=== PATIENT | female | born 1965 | race Caucasian/White ===

== ENCOUNTER 2017-10-06 08:30 | Outpatient (RCR) | payer MEDICARE, MEDICAID, SELFPAY ==
[2017-09-19 01:09] VITALS: BP 98/54; PULSE 98; RESP 18; TEMP 37.1; BMI 48.6
[2017-09-22 08:35] VITALS: BP 104/71; PULSE 87; RESP 16; TEMP 36.6; BMI 48.6
--- NOTE | 2017-09-22 10:55 | PCM.WC.PN ---
(1) Contracture of muscle of left lower extremity Status: Chronic Current Visit: Yes Code(s): M62.462 - Contracture of muscle, left lower leg (2) Down syndrome Status: Chronic Current Visit: Yes Code(s): Q90.9 - Down syndrome, unspecified (3) Chronic ulcer of left foot with fat layer exposed Status: Chronic Current Visit: Yes Code(s): L97.522 - Non-pressure chronic ulcer of other part of left foot with fat layer exposed Type of Wound Date of Service: 09/22/17 Chief Complaint: Left leg and foot ulcers History of Wound: This 52-year-old pleasant female with Down syndrome and other comorbidities seen today for a left leg and left foot wounds. She is with a caregiver today and is unable to independently communicate during the examination. Her caregiver relates there is no drainage to the leg this past week and she has worn a donut offloading pillow to her left leg. She is interested in returning to work and is able to perform her work duties in a seated position. Progress of Wound: improving - Physical Exam Vital Signs Temp Pulse Resp BP 97.8 F 87 16 104/71 09/22/17 08:35 09/22/17 08:35 09/22/17 08:35 09/22/17 08:35 General: Alert, Oriented x3, Cooperative Extremities: No cyanosis, Capillary Refill Less than 3 Seconds, No Calf Tenderness, Diminished Peripheral Pulses, Edema Skin: Ulcer/ Wound - No purulence, no erythema, no streaking, no odor, no redness, no infection to the left foot. The skin is atrophic. The previous ulcer site to the left leg is fully epithelialized and healed Wound Measurements and Assessment - Nurse 1 - General Ulcer Measurement Start: 09/22/17 08:34 Freq: Status: Active Protocol: Activity Type Activity Date Activity User E-Sign Co-Sign Detail Recorded Client Recorded Date Recorded By Document 09/22/17 08:35 DL [id number] 09/22/17 08:44 DL 09/22/17 08:35 Wound Center Nurse 1 [Ulcer Assessment Protocol: .WD.LOC] #2 Left Lateral Foot -Current Size (cm) - Length 1.2 -Current Size (cm) - Width 0.6 -Current Size (cm) - Depth 0.5 -Total Square Cm 0.72 -Photo Taken Yes -Exudate Amt Small (1-33%) -Exudate Type Serosanguineous -Wound Margin Distinct, Outline Attached -Granulation Amt None Present (0 %) -Necrosis Amt Large (67-100%) -Necrotic Tissue Type Adherent Slough -Structure Exposed N/A -Texture (Blossom-wound Skin Appearance) No Abnormality -Moisture (Blossom-wound Skin Appearance No Abnormality ) -Color (Blossom-wound Skin Appearance) Erythema Rubor -Temperature (Blossom-wound Skin No Abnormality Appearance) (Pt Warm) -Ulcer Cleansing Rinsed/ Irrigated with Saline -Foul Odor after Cleansing No -Anesthetic Used 4% Lidocaine Solution #1 Medial LLE -Current Size (cm) - Length 0 -Current Size (cm) - Width 0 -Current Size (cm) - Depth 0 -Total Square Cm 0 -Photo Taken Yes -Exudate Amt None Present (0 %) -Wound Margin Flat & Intact -Granulation Amt Large (67-100%) -Granulation Quality Agenda -Necrosis Amt None Present (0 %) -Structure Exposed N/A -Texture (Blossom-wound Skin Appearance) Scarring -Moisture (Blossom-wound Skin Appearance No Abnormality ) -Color (Blossom-wound Skin Appearance) No Abnormality -Temperature (Blossom-wound Skin No Abnormality Appearance) (Pt Warm) -Ulcer Cleansing Rinsed/ Irrigated with Saline -Foul Odor after Cleansing No [Edema Assessment] -Left Calf (cm) 29 -Left Ankle (cm) 16 WC - Nurse 2 - General Ulcer CM Notes Start: 09/22/17 08:34 Freq: Status: Active Protocol: Activity Type Activity Date Activity User E-Sign Co-Sign Detail Recorded Client Recorded Date Recorded By Document 09/22/17 08:54 [id number] 09/22/17 09:02 09/22/17 08:54 Wound Center Nurse 2 [Procedure/Treatment] #2 Left Lateral Foot -Time 09:01 -Correct Patient Yes -Correct Side, Site, Position Yes -Correct Procedure Yes -Procedure Performed Yes -Type of Procedure Debridement -Clinical Debridement Subcutaneous -Post Debridement Size (cm) - Length 1.3 -Post Debridement Size (cm) - Width 0.7 -Post Debridement Size (cm) - Depth 0.5 -Total Square Cm 0.91 -Wound/Ulcer Outcome Not Healed -Ulcer Cleansing Rinsed/ Irrigated with Saline -Foul Odor after Cleansing No -Bioengineered Tissue No -Cetacaine [place] No -Topical Lidocaine (%) 5 -Bleeding Controlled with Pressure -Treatment Response Procedure Tolerated Well #1 Medial LLE -Time 09:02 -Correct Patient Yes -Correct Side, Site, Position Yes -Correct Procedure Yes -Procedure Performed Yes -Post Debridement Size (cm) - Length 0 -Post Debridement Size (cm) - Width 0 -Post Debridement Size (cm) - Depth 0 -Total Square Cm 0 -Wound/Ulcer Outcome Healed- Epithelialized -Ulcer Cleansing Rinsed/ Irrigated with Saline -Foul Odor after Cleansing No -Bioengineered Tissue No -Cetacaine [place] No -Topical Lidocaine (%) 5 -Bleeding Controlled with NA -Treatment Response Procedure Tolerated Well [See Physician Procedure note for Specifics] Pain Scale: 0-10 Numeric [Pain] -Is Patient Pain Free? Yes Musculoskeletal: No Tenderness to Palpation of Joints or Extremities, Muscle Wasting, - - Contraction left lower extremity with equinovarus type formation that is only partially reducible Psych/Mental Status: Appropriate Debridement Note Post-Debridement Measurements/Treatment WC - Nurse 2 - General Ulcer CM Notes Start: 09/22/17 08:34 Freq: Status: Active Protocol: Activity Type Activity Date Activity User E-Sign Co-Sign Detail Recorded Client Recorded Date Recorded By Document 09/22/17 08:54 [id number] 09/22/17 09:02 09/22/17 08:54 Wound Center Nurse 2 #2 Left Lateral Foot -Time 09:01 -Correct Patient Yes -Correct Side, Site, Position Yes -Correct Procedure Yes -Procedure Performed Yes -Type of Procedure Debridement -Clinical Debridement Subcutaneous -Post Debridement Size (cm) - Length 1.3 -Post Debridement Size (cm) - Width 0.7 -Post Debridement Size (cm) - Depth 0.5 -Total Square Cm 0.91 -Wound/Ulcer Outcome Not Healed -Ulcer Cleansing Rinsed/ Irrigated with Saline -Foul Odor after Cleansing No -Bioengineered Tissue No -Cetacaine [place] No -Topical Lidocaine (%) 5 -Bleeding Controlled with Pressure -Treatment Response Procedure Tolerated Well #1 Medial LLE -Time 09:02 -Correct Patient Yes -Correct Side, Site, Position Yes -Correct Procedure Yes -Procedure Performed Yes -Post Debridement Size (cm) - Length 0 -Post Debridement Size (cm) - Width 0 -Post Debridement Size (cm) - Depth 0 -Total Square Cm 0 -Wound/Ulcer Outcome Healed- Epithelialized -Ulcer Cleansing Rinsed/ Irrigated with Saline -Foul Odor after Cleansing No -Bioengineered Tissue No -Cetacaine [place] No -Topical Lidocaine (%) 5 -Bleeding Controlled with NA -Treatment Response Procedure Tolerated Well Pain Scale: 0-10 Numeric Is Patient Pain Free? 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 Zuñiga 06/2017 fasciotomy and embolectomy)--healed today. Left foot ulcer with fat layer exposed. Chronic anticoagulation medication noted. Malnutrition suspected. Left lower extremity contractions noted Plan: I reviewed and discussed her case today with the patient as well as her caregivers. Debridements were performed as noted in the clinical panel foot. The left leg wound site is fully healed. Her antibiotic course has been completed and there are no signs of infection today. Laboratory work was ordered including CBC, CMP, ESR, C-reactive protein. Her white blood cell count is 2.8, no gross abnormalities with the CMP, ESR and CRP are elevated. To keep pressure off of the ulcer site. Edema control was initiated with Tubigrip application to the left leg and elevation at rest. Her caregiver relates there are bolster wedges at her facility and I wrote a prescription recommending use. She also recently has been using a donut offloading pillow and I recommend she continues doing this there is some improvement this past week and she is tolerating this well. Nutritional supplementation was ordered to optimize healing; Aidan. I answered all of the caregivers questions in length. It is okay to resume work activities as long as there is not direct pressure applied by shoes or her seated position to the left foot ulcer site which would both compromise her healing potential. A note was provided. She will follow up in clinic in 1 week or call sooner if there are any questions or concerns.
[2017-10-06 08:23] VITALS: BP 117/72; PULSE 81; RESP 81; TEMP 37.2; BMI 48.6
--- NOTE | 2017-10-06 19:13 | PCM.WC.PN ---
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 She is with a caregiver today and is unable to independently communicate during the examination. Her caregiver relates there is no drainage to the leg this past week and she continues to wear donut offloading pillow to her left leg. Progress of Wound: improving - Physical Exam Vital Signs Temp Pulse Resp BP 98.9 F 81 81 H 117/72 10/06/17 08:23 10/06/17 08:23 10/06/17 08:23 10/06/17 08:23 General: Alert, Oriented x3, Cooperative HEENT: Atraumatic Extremities: No cyanosis, Capillary Refill Less than 3 Seconds, No Calf Tenderness - Negative Maguire bilateral, Edema - Mild and resolved leg, Peripheral Pulses Normal Skin: Ulcer/ Wound - No purulence, no erythema, no streaking, no odor. Decreased fibrous tissue to the foot wound. The leg wound remains healed with full epithelialization noted Wound Measurements and Assessment - Nurse 1 - General Ulcer Measurement Start: 09/22/17 08:34 Freq: Status: Active Protocol: Activity Type Activity Date Activity User E-Sign Co-Sign Detail Recorded Client Recorded Date Recorded By Document 10/06/17 08:23 [facility] [id number] 10/06/17 08:27 [facility] 10/06/17 08:23 Wound Center Nurse 1 [Ulcer Assessment Protocol: STEFANIE.WD.LOC] #2 Left Lateral Foot -Combined with other wound No -Current Size (cm) - Length 0.5 -Current Size (cm) - Width 0.9 -Current Size (cm) - Depth 0.2 -Total Square Cm 0.45 -Photo Taken No -Epithelialization None Present -Tunneling No -Undermining/Tunneling No -Exudate Amt Small (1-33%) -Exudate Type Serosanguineous -Wound Margin Thickened & Rolled Under -Granulation Amt None Present (0 %) -Slough/Fibrin Yes -Necrosis Amt Large (67-100%) -Necrotic Tissue Type Adherent Slough -Structure Exposed N/A -Texture (Blossom-wound Skin Appearance) Scarring -Moisture (Blossom-wound Skin Appearance Assessed ) -Color (Blossom-wound Skin Appearance) Assessed -Temperature (Blossom-wound Skin No Abnormality Appearance) (Pt Warm) -Tenderness on Palpation (Blossom-wound Yes Skin Appearance) -Ulcer Cleansing Rinsed/ Irrigated with Saline -Foul Odor after Cleansing No -Anesthetic Used 4% Lidocaine Solution [Edema Assessment] -Lower Limb Edema Present No -Left Calf (cm) 28 -Left Ankle (cm) 16.4 WC - Nurse 2 - General Ulcer CM Notes Start: 09/22/17 08:34 Freq: Status: Active Protocol: Activity Type Activity Date Activity User E-Sign Co-Sign Detail Recorded Client Recorded Date Recorded By Document 10/06/17 08:54 [id number] 10/06/17 08:54 10/06/17 08:54 Wound Center Nurse 2 [Procedure/Treatment] #2 Left Lateral Foot -Time 08:54 -Correct Patient Yes -Correct Side, Site, Position Yes -Correct Procedure Yes -Procedure Performed Yes -Type of Procedure Debridement -Clinical Debridement Subcutaneous -Post Debridement Size (cm) - Length 0.5 -Post Debridement Size (cm) - Width 1.0 -Post Debridement Size (cm) - Depth 0.2 -Total Square Cm 0.50 -Wound/Ulcer Outcome Not Healed -Ulcer Cleansing Rinsed/ Irrigated with Saline -Foul Odor after Cleansing No -Bioengineered Tissue No -Cetacaine [place] No -Bleeding Controlled with Pressure -Treatment Response Procedure Tolerated Well [See Physician Procedure note for Specifics] Pain Scale: 0-10 Numeric [Pain] -Is Patient Pain Free? Yes Musculoskeletal: No Tenderness to Palpation of Joints or Extremities, Muscle Wasting, Tenderness - Wound manipulation left foot is tender Neurological: - - Unable to assess Psych/Mental Status: Normal Affect, Appropriate Debridement Note Post-Debridement Measurements/Treatment - Nurse 2 - General Ulcer CM Notes Start: 09/22/17 08:34 Freq: Status: Active Protocol: Activity Type Activity Date Activity User E-Sign Co-Sign Detail Recorded Client Recorded Date Recorded By Document 09/22/17 08:54 TM [id number] 09/22/17 09:02 Document 10/06/17 08:54 [id number] 10/06/17 08:54 09/22/17 10/06/17 08:54 08:54 Wound Center Nurse 2 #2 Left Lateral Foot -Time 09:01 08:54 -Correct Patient Yes Yes -Correct Side, Site, Position Yes Yes -Correct Procedure Yes Yes -Procedure Performed Yes Yes -Type of Procedure Debridement Debridement -Clinical Debridement Subcutaneous Subcutaneous -Post Debridement Size (cm) - Length 1.3 0.5 -Post Debridement Size (cm) - Width 0.7 1.0 -Post Debridement Size (cm) - Depth 0.5 0.2 -Total Square Cm 0.91 0.50 -Wound/Ulcer Outcome Not Healed Not Healed -Ulcer Cleansing Rinsed/ Rinsed/ Irrigated with Irrigated with Saline Saline -Foul Odor after Cleansing No No -Bioengineered Tissue No No -Cetacaine [place] No No -Topical Lidocaine (%) 5 -Bleeding Controlled with Pressure Pressure -Treatment Response Procedure Procedure Tolerated Well Tolerated Well #1 Medial LLE -Time 09:02 -Correct Patient Yes -Correct Side, Site, Position Yes -Correct Procedure Yes -Procedure Performed Yes -Post Debridement Size (cm) - Length 0 -Post Debridement Size (cm) - Width 0 -Post Debridement Size (cm) - Depth 0 -Total Square Cm 0 -Wound/Ulcer Outcome Healed- Epithelialized -Ulcer Cleansing Rinsed/ Irrigated with Saline -Foul Odor after Cleansing No -Bioengineered Tissue No -Cetacaine [place] No -Topical Lidocaine (%) 5 -Bleeding Controlled with NA -Treatment Response Procedure Tolerated Well Pain Scale: 0-10 Numeric Is Patient Pain Free? 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 Zuñiga 06/2017 fasciotomy and embolectomy)--healed today. Left foot ulcer with fat layer exposed. Chronic anticoagulation medication noted. Malnutrition suspected. Left lower extremity contractions noted Plan: I reviewed and discussed her case today with the patient as well as her caregiver. Debridement was performed as noted in the clinical panel to the left foot. To continue to change dressing daily with Santyl as demonstrated. To keep pressure off of the ulcer site. Edema control was initiated with Tubigrip application to the left leg and elevation at rest. She also recently has been using a donut offloading pillow and I recommend she continues doing this there is some improvement this past week and she is tolerating this well. Nutritional supplementation was ordered to optimize healing; Aidan. I answered all of the caregivers questions in length. She will follow up in clinic in 1 week or call sooner if there are any questions or concerns.
--- NOTE | 2017-10-06 19:28 | PN.PCM_ITS ---
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 She is with a caregiver today and is unable to independently communicate during the examination. Her caregiver relates there is no drainage to the leg this past week and she continues to wear donut offloading pillow to her left leg. Progress of Wound: improving - Physical Exam Vital Signs Temp Pulse Resp BP 98.9 F 81 81 H 117/72 10/06/17 08:23 10/06/17 08:23 10/06/17 08:23 10/06/17 08:23 General: Alert, Oriented x3, Cooperative HEENT: Atraumatic Extremities: No cyanosis, Capillary Refill Less than 3 Seconds, No Calf Tenderness - Negative Maguire bilateral, Edema - Mild and resolved leg, Peripheral Pulses Normal Skin: Ulcer/ Wound - No purulence, no erythema, no streaking, no odor. Decreased fibrous tissue to the foot wound. The leg wound remains healed with full epithelialization noted Wound Measurements and Assessment - Nurse 1 - General Ulcer Measurement Start: 09/22/17 08:34 Freq: Status: Active Protocol: Activity Type Activity Date Activity User E-Sign Co-Sign Detail Recorded Client Recorded Date Recorded By Document 10/06/17 08:23 [facility] [id number] 10/06/17 08:27 [facility] 10/06/17 08:23 Wound Center Nurse 1 [Ulcer Assessment Protocol: STEFANIE.WD.LOC] #2 Left Lateral Foot -Combined with other wound No -Current Size (cm) - Length 0.5 -Current Size (cm) - Width 0.9 -Current Size (cm) - Depth 0.2 -Total Square Cm 0.45 -Photo Taken No -Epithelialization None Present -Tunneling No -Undermining/Tunneling No -Exudate Amt Small (1-33%) -Exudate Type Serosanguineous -Wound Margin Thickened & Rolled Under -Granulation Amt None Present (0 %) -Slough/Fibrin Yes -Necrosis Amt Large (67-100%) -Necrotic Tissue Type Adherent Slough -Structure Exposed N/A -Texture (Blossom-wound Skin Appearance) Scarring -Moisture (Blossom-wound Skin Appearance Assessed ) -Color (Blossom-wound Skin Appearance) Assessed -Temperature (Blossom-wound Skin No Abnormality Appearance) (Pt Warm) -Tenderness on Palpation (Blossom-wound Yes Skin Appearance) -Ulcer Cleansing Rinsed/ Irrigated with Saline -Foul Odor after Cleansing No -Anesthetic Used 4% Lidocaine Solution [Edema Assessment] -Lower Limb Edema Present No -Left Calf (cm) 28 -Left Ankle (cm) 16.4 WC - Nurse 2 - General Ulcer CM Notes Start: 09/22/17 08:34 Freq: Status: Active Protocol: Activity Type Activity Date Activity User E-Sign Co-Sign Detail Recorded Client Recorded Date Recorded By Document 10/06/17 08:54 [id number] 10/06/17 08:54 10/06/17 08:54 Wound Center Nurse 2 [Procedure/Treatment] #2 Left Lateral Foot -Time 08:54 -Correct Patient Yes -Correct Side, Site, Position Yes -Correct Procedure Yes -Procedure Performed Yes -Type of Procedure Debridement -Clinical Debridement Subcutaneous -Post Debridement Size (cm) - Length 0.5 -Post Debridement Size (cm) - Width 1.0 -Post Debridement Size (cm) - Depth 0.2 -Total Square Cm 0.50 -Wound/Ulcer Outcome Not Healed -Ulcer Cleansing Rinsed/ Irrigated with Saline -Foul Odor after Cleansing No -Bioengineered Tissue No -Cetacaine [place] No -Bleeding Controlled with Pressure -Treatment Response Procedure Tolerated Well [See Physician Procedure note for Specifics] Pain Scale: 0-10 Numeric [Pain] -Is Patient Pain Free? Yes Musculoskeletal: No Tenderness to Palpation of Joints or Extremities, Muscle Wasting, Tenderness - Wound manipulation left foot is tender Neurological: - - Unable to assess Psych/Mental Status: Normal Affect, Appropriate Debridement Note Post-Debridement Measurements/Treatment - Nurse 2 - General Ulcer CM Notes Start: 09/22/17 08:34 Freq: Status: Active Protocol: Activity Type Activity Date Activity User E-Sign Co-Sign Detail Recorded Client Recorded Date Recorded By Document 09/22/17 08:54 TM [id number] 09/22/17 09:02 Document 10/06/17 08:54 [id number] 10/06/17 08:54 09/22/17 10/06/17 08:54 08:54 Wound Center Nurse 2 #2 Left Lateral Foot -Time 09:01 08:54 -Correct Patient Yes Yes -Correct Side, Site, Position Yes Yes -Correct Procedure Yes Yes -Procedure Performed Yes Yes -Type of Procedure Debridement Debridement -Clinical Debridement Subcutaneous Subcutaneous -Post Debridement Size (cm) - Length 1.3 0.5 -Post Debridement Size (cm) - Width 0.7 1.0 -Post Debridement Size (cm) - Depth 0.5 0.2 -Total Square Cm 0.91 0.50 -Wound/Ulcer Outcome Not Healed Not Healed -Ulcer Cleansing Rinsed/ Rinsed/ Irrigated with Irrigated with Saline Saline -Foul Odor after Cleansing No No -Bioengineered Tissue No No -Cetacaine [place] No No -Topical Lidocaine (%) 5 -Bleeding Controlled with Pressure Pressure -Treatment Response Procedure Procedure Tolerated Well Tolerated Well #1 Medial LLE -Time 09:02 -Correct Patient Yes -Correct Side, Site, Position Yes -Correct Procedure Yes -Procedure Performed Yes -Post Debridement Size (cm) - Length 0 -Post Debridement Size (cm) - Width 0 -Post Debridement Size (cm) - Depth 0 -Total Square Cm 0 -Wound/Ulcer Outcome Healed- Epithelialized -Ulcer Cleansing Rinsed/ Irrigated with Saline -Foul Odor after Cleansing No -Bioengineered Tissue No -Cetacaine [place] No -Topical Lidocaine (%) 5 -Bleeding Controlled with NA -Treatment Response Procedure Tolerated Well Pain Scale: 0-10 Numeric Is Patient Pain Free? 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 Zuñiga 2016 fasciotomy and embolectomy)--healed today. Left foot ulcer with fat layer exposed. Chronic anticoagulation medication noted. Malnutrition suspected. Left lower extremity contractions noted Plan: I reviewed and discussed her case today with the patient as well as her caregiver. Debridement was performed as noted in the clinical panel to the left foot. To continue to change dressing daily with Santyl as demonstrated. To keep pressure off of the ulcer site. Edema control was initiated with Tubigrip application to the left leg and elevation at rest. She also recently has been using a donut offloading pillow and I recommend she continues doing this there is some improvement this past week and she is tolerating this well. Nutritional supplementation was ordered to optimize healing; Aidan. I answered all of the caregivers questions in length. She will follow up in clinic in 1 week or call sooner if there are any questions or concerns.
== END 2017-10-17 23:59 ==
LOC: WC 08:30
PROVIDERS: Family Provider Family Medicine Geriatric Medicine; PCP Family Medicine Geriatric Medicine; Visit Provider Podiatrist
DX: M62.462 Contracture of muscle, left lower leg (principal); Q90.9 Down syndrome, unspecified; L97.522 Non-pressure chronic ulcer of other part of left foot with fat layer exposed; R09.89 Other specified symptoms and signs involving the circulatory and respiratory systems; R60.0 Localized edema; Z79.01 Long term (current) use of anticoagulants
CPT/HCPCS: 11042; 97602

== ENCOUNTER 2017-11-10 09:30 | Outpatient (RCR) | payer MEDICARE, MEDICAID, SELFPAY ==
[2017-10-18 01:20] VITALS: BP 117/72; PULSE 81; RESP 81; TEMP 37.2; BMI 48.6
[2017-10-27 08:42] VITALS: BP 124/105; PULSE 90; RESP 18; TEMP 36.9; BMI 48.6
--- NOTE | 2017-10-27 08:57 | PCM.WC.PN ---
(1) Down syndrome Status: Chronic Current Visit: Yes Code(s): Q90.9 - Down syndrome, unspecified (2) Chronic ulcer of left foot with fat layer exposed Status: Chronic Current Visit: Yes Code(s): L97.522 - Non-pressure chronic ulcer of other part of left foot with fat layer exposed (3) Contracture of muscle of left lower extremity Status: Chronic Current Visit: Yes Code(s): M62.462 - Contracture of muscle, left lower leg Type of Wound Date of Service: 10/27/17 Chief Complaint: Left foot ulcers History of Wound: This 52-year-old pleasant female with Down syndrome and other comorbidities seen today for a left foot wounds. She is with a caregiver today and is unable to independently communicate during the examination. She continues to wear the offloading donut pillow to keep pressure off of her foot chronic ulcer site. Progress of Wound: improving - Physical Exam Vital Signs Temp Pulse Resp BP 98.4 F 90 18 124/105 H 10/27/17 08:42 10/27/17 08:42 10/27/17 08:42 10/27/17 08:42 General: Alert, Oriented x3, Cooperative Extremities: No cyanosis, Capillary Refill Less than 3 Seconds, No Calf Tenderness, Diminished Peripheral Pulses Skin: Ulcer/ Wound - No purulence, no erythema, no streaking, no odor, no necrosis. The wound bed is fibrous and granular Wound Measurements and Assessment - Nurse 1 - General Ulcer Measurement Start: 10/27/17 08:42 Freq: Status: Active Protocol: Activity Type Activity Date Activity User E-Sign Co-Sign Detail Recorded Client Recorded Date Recorded By Document 10/27/17 08:42 BARRETT [id number] 10/27/17 08:44 BARRETT 10/27/17 08:42 Wound Center Nurse 1 [Ulcer Assessment Protocol: STEFANIE.WD.LOC] #2 Left Lateral Foot -Combined with other wound No -Current Size (cm) - Length 0.5 -Current Size (cm) - Width 0.3 -Current Size (cm) - Depth 0.2 -Total Square Cm 0.15 -Photo Taken No -Epithelialization Small 1-33% -Tunneling No -Undermining/Tunneling No -Circular Undermining No -Exudate Amt Small (1-33%) -Exudate Type Serosanguineous -Wound Margin Flat & Intact -Granulation Amt None Present (0 %) -Slough/Fibrin Yes -Necrosis Amt Large (67-100%) -Necrotic Tissue Type Adherent Slough -Structure Exposed N/A -Texture (Blossom-wound Skin Appearance) Assessed -Moisture (Blossom-wound Skin Appearance Assessed ) Maceration -Color (Blossom-wound Skin Appearance) Assessed -Temperature (Blossom-wound Skin No Abnormality Appearance) (Pt Warm) -Tenderness on Palpation (Blossom-wound No Skin Appearance) -Ulcer Cleansing Rinsed/ Irrigated with Saline -Foul Odor after Cleansing No -Anesthetic Used 5% Lidocaine Gel [Edema Assessment] -Lower Limb Edema Present Yes -Left Calf (cm) 26.3 -Left Ankle (cm) 16.0 - Nurse 2 - General Ulcer CM Notes Start: 10/27/17 08:42 Freq: Status: Active Protocol: Activity Type Activity Date Activity User E-Sign Co-Sign Detail Recorded Client Recorded Date Recorded By Document 10/27/17 08:48 BARRETT [id number] 10/27/17 08:53 10/27/17 08:48 Wound Center Nurse 2 [Procedure/Treatment] #2 Left Lateral Foot -Time 08:48 -Correct Patient Yes -Correct Side, Site, Position Yes -Correct Procedure Yes -Procedure Performed Yes -Type of Procedure Debridement -Clinical Debridement Subcutaneous -Post Debridement Size (cm) - Length 0.5 -Post Debridement Size (cm) - Width 0.3 -Post Debridement Size (cm) - Depth 0.3 -Total Square Cm 0.15 -Wound/Ulcer Outcome Not Healed -Ulcer Cleansing Rinsed/ Irrigated with Saline -Foul Odor after Cleansing No -Bioengineered Tissue No -Cetacaine [place] No -Bleeding Controlled with Pressure -Treatment Response Procedure Tolerated Well [See Physician Procedure note for Specifics] Pain Scale: 0-10 Numeric [Pain] -Is Patient Pain Free? Yes Musculoskeletal: Muscle Wasting, Tenderness - Manipulation, - - Compartments of lower extremity soft. Neurological: Sensory exam intact to light touch and pain Psych/Mental Status: Appropriate Debridement Note Post-Debridement Measurements/Treatment - Nurse 2 - General Ulcer CM Notes Start: 10/27/17 08:42 Freq: Status: Active Protocol: Activity Type Activity Date Activity User E-Sign Co-Sign Detail Recorded Client Recorded Date Recorded By Document 10/27/17 08:48 [id number] 10/27/17 08:53 10/27/17 08:48 Wound Center Nurse 2 #2 Left Lateral Foot -Time 08:48 -Correct Patient Yes -Correct Side, Site, Position Yes -Correct Procedure Yes -Procedure Performed Yes -Type of Procedure Debridement -Clinical Debridement Subcutaneous -Post Debridement Size (cm) - Length 0.5 -Post Debridement Size (cm) - Width 0.3 -Post Debridement Size (cm) - Depth 0.3 -Total Square Cm 0.15 -Wound/Ulcer Outcome Not Healed -Ulcer Cleansing Rinsed/ Irrigated with Saline -Foul Odor after Cleansing No -Bioengineered Tissue No -Cetacaine [place] No -Bleeding Controlled with Pressure -Treatment Response Procedure Tolerated Well Pain Scale: 0-10 Numeric Is Patient Pain Free? Yes Wound debrided: Lateral foot Laterality: Left Type of Debridement: Excisional debridement Anesthesia Used: 5% Lidocaine Gel Depth: in the subcutaneous layer Percentage of wound debrided: 100 Instrument Used: #15 blade Tissue Removed: Fibrous, devitalized subcutaneous, biofilm, slough Severity: Fat Layer Exposed Amount of bleeding with debridement: Mild Bleeding Controlled with: Pressure Patient tolerated procedure well Assessment/Plan Active Problems Down syndrome (Chronic) Chronic ulcer of left foot with fat layer exposed (Chronic) Contracture of muscle of left lower extremity (Chronic) Assessment: Left foot ulcer with fat layer exposed. Chronic anticoagulation medication noted. Malnutrition suspected. Left lower extremity contractions noted. Down syndrome Plan: I reviewed and discussed her case today with the patient as well as her caregiver. Debridement was performed as noted in the clinical panel to the left foot. To continue to change dressing daily with Santyl as demonstrated. To keep pressure off of the ulcer site with donut offloading pillow device. Edema control was initiated with Tubigrip application to the left leg and elevation at rest. Nutritional supplementation was ordered to optimize healing; Aidan. She will follow up in clinic in 1 week or call sooner if there are any questions or concerns.
--- NOTE | 2017-10-27 09:01 | PN.PCM_ITS ---
(1) Down syndrome Status: Chronic Current Visit: Yes Code(s): Q90.9 - Down syndrome, unspecified (2) Chronic ulcer of left foot with fat layer exposed Status: Chronic Current Visit: Yes Code(s): L97.522 - Non-pressure chronic ulcer of other part of left foot with fat layer exposed (3) Contracture of muscle of left lower extremity Status: Chronic Current Visit: Yes Code(s): M62.462 - Contracture of muscle , left lower leg Type of Wound Date of Service: 10/27/17 Chief Complaint: Left foot ulcers History of Wound: This 52-year-old pleasant female with Down syndrome and other comorbidities seen today for a left foot wounds. She is with a caregiver today and is unable to independently communicate during the examination. She continues to wear the offloading donut pillow to keep pressure off of her foot chronic ulcer site. Progress of Wound: improving - Physical Exam Vital Signs Temp Pulse Resp BP 98.4 F 90 18 124/105 H 10/27/17 08:42 10/27/17 08:42 10/27/17 08:42 10/27/17 08:42 General: Alert, Oriented x3, Cooperative Extremities: No cyanosis, Capillary Refill Less than 3 Seconds, No Calf Tenderness, Diminished Peripheral Pulses Skin: Ulcer/ Wound - No purulence, no erythema, no streaking, no odor, no necrosis. The wound bed is fibrous and granular Wound Measurements and Assessment - Nurse 1 - General Ulcer Measurement Start: 10/27/17 08:42 Freq: Status: Active Protocol: Activity Type Activity Date Activity User E-Sign Co-Sign Detail Recorded Client Recorded Date Recorded By Document 10/27/17 08:42 BARRETT [id number] 10/27/17 08:44 BARRETT 10/27/17 08:42 Wound Center Nurse 1 [Ulcer Assessment Protocol: STEFANIE.WD.LOC] #2 Left Lateral Foot -Combined with other wound No -Current Size (cm) - Length 0.5 -Current Size (cm) - Width 0.3 -Current Size (cm) - Depth 0.2 -Total Square Cm 0.15 -Photo Taken No -Epithelialization Small 1-33% -Tunneling No -Undermining/Tunneling No -Circular Undermining No -Exudate Amt Small (1-33%) -Exudate Type Serosanguineous -Wound Margin Flat & Intact -Granulation Amt None Present (0 %) -Slough/Fibrin Yes -Necrosis Amt Large (67-100%) -Necrotic Tissue Type Adherent Slough -Structure Exposed N/A -Texture (Blossom-wound Skin Appearance) Assessed -Moisture (Blossom-wound Skin Appearance Assessed ) Maceration -Color (Blossom-wound Skin Appearance) Assessed -Temperature (Blossom-wound Skin No Abnormality Appearance) (Pt Warm) -Tenderness on Palpation (Blossom-wound No Skin Appearance) -Ulcer Cleansing Rinsed/ Irrigated with Saline -Foul Odor after Cleansing No -Anesthetic Used 5% Lidocaine Gel [Edema Assessment] -Lower Limb Edema Present Yes -Left Calf (cm) 26.3 -Left Ankle (cm) 16.0 - Nurse 2 - General Ulcer CM Notes Start: 10/27/17 08:42 Freq: Status: Active Protocol: Activity Type Activity Date Activity User E-Sign Co-Sign Detail Recorded Client Recorded Date Recorded By Document 10/27/17 08:48 BARRETT [id number] 10/27/17 08:53 10/27/17 08:48 Wound Center Nurse 2 [Procedure/Treatment] #2 Left Lateral Foot -Time 08:48 -Correct Patient Yes -Correct Side, Site, Position Yes -Correct Procedure Yes -Procedure Performed Yes -Type of Procedure Debridement -Clinical Debridement Subcutaneous -Post Debridement Size (cm) - Length 0.5 -Post Debridement Size (cm) - Width 0.3 -Post Debridement Size (cm) - Depth 0.3 -Total Square Cm 0.15 -Wound/Ulcer Outcome Not Healed -Ulcer Cleansing Rinsed/ Irrigated with Saline -Foul Odor after Cleansing No -Bioengineered Tissue No -Cetacaine [place] No -Bleeding Controlled with Pressure -Treatment Response Procedure Tolerated Well [See Physician Procedure note for Specifics] Pain Scale: 0-10 Numeric [Pain] -Is Patient Pain Free? Yes Musculoskeletal: Muscle Wasting, Tenderness - Manipulation, - - Compartments of lower extremity soft. Neurological: Sensory exam intact to light touch and pain Psych/Mental Status: Appropriate Debridement Note Post-Debridement Measurements/Treatment - Nurse 2 - General Ulcer CM Notes Start: 10/27/17 08:42 Freq: Status: Active Protocol: Activity Type Activity Date Activity User E-Sign Co-Sign Detail Recorded Client Recorded Date Recorded By Document 10/27/17 08:48 [id number] 10/27/17 08:53 10/27/17 08:48 Wound Center Nurse 2 #2 Left Lateral Foot -Time 08:48 -Correct Patient Yes -Correct Side, Site, Position Yes -Correct Procedure Yes -Procedure Performed Yes -Type of Procedure Debridement -Clinical Debridement Subcutaneous -Post Debridement Size (cm) - Length 0.5 -Post Debridement Size (cm) - Width 0.3 -Post Debridement Size (cm) - Depth 0.3 -Total Square Cm 0.15 -Wound/Ulcer Outcome Not Healed -Ulcer Cleansing Rinsed/ Irrigated with Saline -Foul Odor after Cleansing No -Bioengineered Tissue No -Cetacaine [place] No -Bleeding Controlled with Pressure -Treatment Response Procedure Tolerated Well Pain Scale: 0-10 Numeric Is Patient Pain Free? Yes Wound debrided: Lateral foot Laterality: Left Type of Debridement: Excisional debridement Anesthesia Used: 5% Lidocaine Gel Depth: in the subcutaneous layer Percentage of wound debrided: 100 Instrument Used: #15 blade Tissue Removed: Fibrous, devitalized subcutaneous, biofilm, slough Severity: Fat Layer Exposed Amount of bleeding with debridement: Mild Bleeding Controlled with: Pressure Patient tolerated procedure well Assessment/Plan Active Problems Down syndrome (Chronic) Chronic ulcer of left foot with fat layer exposed (Chronic) Contracture of muscle of left lower extremity (Chronic) Assessment: Left foot ulcer with fat layer exposed. Chronic anticoagulation medication noted. Malnutrition suspected. Left lower extremity contractions noted. Down syndrome Plan: I reviewed and discussed her case today with the patient as well as her caregiver. Debridement was performed as noted in the clinical panel to the left foot. To continue to change dressing daily with Santyl as demonstrated. To keep pressure off of the ulcer site with donut offloading pillow device. Edema control was initiated with Tubigrip application to the left leg and elevation at rest. Nutritional supplementation was ordered to optimize healing ; Aidan. She will follow up in clinic in 1 week or call sooner if there are any questions or concerns.
[2017-11-10 09:57] VITALS: BP 102/66; PULSE 71; RESP 16; TEMP 36.9; BMI 48.6
--- NOTE | 2017-11-10 11:12 | PN.PCM_ITS ---
(1) Down syndrome Status: Chronic Current Visit: Yes Code(s): Q90.9 - Down syndrome, unspecified (2) Chronic ulcer of left foot with fat layer exposed Status: Chronic Current Visit: Yes Code(s): L97.522 - Non-pressure chronic ulcer of other part of left foot with fat layer exposed (3) Contracture of muscle of left lower extremity Status: Chronic Current Visit: Yes Code(s): M62.462 - Contracture of muscle , left lower leg Type of Wound Date of Service: 11/11/17 Chief Complaint: Left foot ulcers History of Wound: This 52-year-old pleasant female with Down syndrome and other comorbidities seen today for a left foot wounds. She is with a caregiver today and is unable to independently communicate during the examination. She continues to wear the offloading donut pillow to keep pressure off of her foot chronic ulcer site. She denies recent illness. Her caregiver asks if she can wear shoes to go to work. Progress of Wound: improving - Physical Exam Vital Signs Temp Pulse Resp BP 98.4 F 71 16 102/66 11/10/17 09:57 11/10/17 09:57 11/10/17 09:57 11/10/17 09:57 General: Alert, Confused HEENT: Atraumatic Extremities: No cyanosis, Capillary Refill Less than 3 Seconds - All toes, No Calf Tenderness - Negative [place], Edema - Mild, Peripheral Pulses Normal Skin: Ulcer/ Wound - Fibrous and granular lateral foot ulcer without purulence, erythema, streaking, odor, or necrosis. There is no probe to bone. Wound Measurements and Assessment STEFANIE - Nurse 1 - General Ulcer Measurement Start: 10/27/17 08:42 Freq: Status: Active Protocol: Activity Type Activity Date Activity User E-Sign Co-Sign Detail Recorded Client Recorded Date Recorded By Document 11/10/17 09:57 DL [id number] 11/10/17 10:00 DL 11/10/17 09:57 Wound Center Nurse 1 [Ulcer Assessment Protocol: STEFANIE.WD.LOC] #2 Left Lateral Foot -Current Size (cm) - Length 0.6 -Current Size (cm) - Width 0.4 -Current Size (cm) - Depth 0.4 -Total Square Cm 0.24 -Photo Taken No -Exudate Amt Small (1-33%) -Exudate Type Sanguineous -Wound Margin Distinct, Outline Attached -Granulation Amt None Present (0 %) -Necrosis Amt Large (67-100%) -Necrotic Tissue Type Adherent Slough -Structure Exposed N/A -Texture (Blossom-wound Skin Appearance) Scarring -Moisture (Blossom-wound Skin Appearance Maceration ) -Color (Blossom-wound Skin Appearance) No Abnormality -Temperature (Blossom-wound Skin No Abnormality Appearance) (Pt Warm) -Tenderness on Palpation (Blossom-wound No Skin Appearance) -Ulcer Cleansing Rinsed/ Irrigated with Saline -Foul Odor after Cleansing No -Anesthetic Used 4% Lidocaine Solution [Edema Assessment] -Left Calf (cm) 26.9 -Left Ankle (cm) 16 WC - Nurse 2 - General Ulcer CM Notes Start: 10/27/17 08:42 Freq: Status: Active Protocol: Activity Type Activity Date Activity User E-Sign Co-Sign Detail Recorded Client Recorded Date Recorded By Document 11/10/17 10:11 BARRETT [id number] 11/10/17 10:14 11/10/17 10:11 Wound Center Nurse 2 [Procedure/Treatment] #2 Left Lateral Foot -Time 10:14 -Correct Patient Yes -Correct Side, Site, Position Yes -Correct Procedure Yes -Procedure Performed Yes -Type of Procedure Debridement -Clinical Debridement Subcutaneous -Post Debridement Size (cm) - Length 0.6 -Post Debridement Size (cm) - Width 0.5 -Post Debridement Size (cm) - Depth 0.4 -Total Square Cm 0.30 -Wound/Ulcer Outcome Not Healed -Ulcer Cleansing Rinsed/ Irrigated with Saline -Foul Odor after Cleansing No -Bioengineered Tissue No -Cetacaine [place] No -Bleeding Controlled with Pressure -Treatment Response Procedure Tolerated Well [See Physician Procedure note for Specifics] Pain Scale: 0-10 Numeric [Pain] -Is Patient Pain Free? Yes Musculoskeletal: No Tenderness to Palpation of Joints or Extremities, Muscle Wasting, - - Contracture lower extremity Neurological: Sensory exam intact to light touch and pain Psych/Mental Status: Normal Affect, Appropriate Debridement Note Post-Debridement Measurements/Treatment - Nurse 2 - General Ulcer CM Notes Start: 10/27/17 08:42 Freq: Status: Active Protocol: Activity Type Activity Date Activity User E-Sign Co-Sign Detail Recorded Client Recorded Date Recorded By Document 10/27/17 08:48 [id number] 10/27/17 08:53 Document 11/10/17 10:11 [id number] 11/10/17 10:14 10/27/17 11/10/17 08:48 10:11 Wound Center Nurse 2 #2 Left Lateral Foot -Time 08:48 10:14 -Correct Patient Yes Yes -Correct Side, Site, Position Yes Yes -Correct Procedure Yes Yes -Procedure Performed Yes Yes -Type of Procedure Debridement Debridement -Clinical Debridement Subcutaneous Subcutaneous -Post Debridement Size (cm) - Length 0.5 0.6 -Post Debridement Size (cm) - Width 0.3 0.5 -Post Debridement Size (cm) - Depth 0.3 0.4 -Total Square Cm 0.15 0.30 -Wound/Ulcer Outcome Not Healed Not Healed -Ulcer Cleansing Rinsed/ Rinsed/ Irrigated with Irrigated with Saline Saline -Foul Odor after Cleansing No No -Bioengineered Tissue No No -Cetacaine [place] No No -Bleeding Controlled with Pressure Pressure -Treatment Response Procedure Procedure Tolerated Well Tolerated Well Pain Scale: 0-10 Numeric Is Patient Pain Free? Yes Yes Wound debrided: Foot Laterality: Right Type of Debridement: Excisional debridement Anesthesia Used: 4% Lidocaine Solution Depth: in the subcutaneous layer Percentage of wound debrided: 100 Instrument Used: #15 blade Tissue Removed: Fibrous, devitalized subcutaneous, biofilm, slough Severity: Fat Layer Exposed Amount of bleeding with debridement: Mild Bleeding Controlled with: Pressure Patient tolerated procedure well Assessment/Plan Active Problems Down syndrome (Chronic) Chronic ulcer of left foot with fat layer exposed (Chronic) Contracture of muscle of left lower extremity (Chronic) Assessment: Left foot ulcer with fat layer exposed. Chronic anticoagulation medication noted. Malnutrition suspected. Left lower extremity contractions noted. Down syndrome Plan: I reviewed and discussed her case today with the patient as well as her caregiver. Debridement was performed as noted in the clinical panel to the left foot. To continue to change dressing daily with Santyl as demonstrated. I recommend application of an advanced wound care product due to delayed healing. A preauthorization for epi fix will be initiated. Her caregiver understands the indications and anticipated healing course. To keep pressure off of the ulcer site with donut offloading pillow device. Edema control was initiated with Tubigrip application to the left leg and elevation at rest. To avoid wearing regular sneakers anytime to allow proper ulcer offloading. Nutritional supplementation was ordered to optimize healing; Aidan. She will follow up in clinic in 1 week or call sooner if there are any questions or concerns.
== END 2017-11-17 23:59 ==
LOC: WC 09:30
PROVIDERS: Family Provider Family Medicine Geriatric Medicine; PCP Family Medicine Geriatric Medicine; Visit Provider Podiatrist
DX: L97.522 Non-pressure chronic ulcer of other part of left foot with fat layer exposed (principal); Q90.9 Down syndrome, unspecified; M62.462 Contracture of muscle, left lower leg; Z79.01 Long term (current) use of anticoagulants; R60.0 Localized edema
CPT/HCPCS: 11042; 97602

== ENCOUNTER 2017-12-15 09:30 | Outpatient (RCR) | payer MEDICARE, MEDICAID, SELFPAY ==
[2017-11-10 09:57] VITALS: BP 102/66
[2017-11-18 00:45] VITALS: PULSE 71; RESP 16; TEMP 36.9
[2017-12-08 09:24] VITALS: BP 94/51; PULSE 77; RESP 16; TEMP 34.9; BMI 48.6
--- NOTE | 2017-12-08 12:27 | PCM.WC.PN ---
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 She is with a caregiver today and is unable to independently communicate during the examination. She continues to wear the offloading donut pillow to keep pressure off of her foot chronic ulcer site. She denies recent illness. She continues to work and there is concern that there is pressure applied on her foot while she is seated at work. Her caregiver is interested in an additional bracing option. She presents in a wheelchair today. Progress of Wound: improving - Physical Exam Vital Signs Temp Pulse Resp BP 94.8 F L 77 16 94/51 L 12/08/17 09:24 12/08/17 09:24 12/08/17 09:24 12/08/17 09:24 General: Alert, Cooperative Extremities: No cyanosis, No edema, Capillary Refill Less than 3 Seconds - All digits left foot, No Calf Tenderness, Diminished Peripheral Pulses Skin: Ulcer/ Wound - No purulence, no erythema, no streaking, no odor, - - Atrophic skin. improved granulation tissue to wound Wound Measurements and Assessment WC - Nurse 1 - General Ulcer Measurement Start: 12/08/17 09:23 Freq: Status: Active Protocol: Activity Type Activity Date Activity User E-Sign Co-Sign Detail Recorded Client Recorded Date Recorded By Document 12/08/17 09:24 DL [id number] 12/08/17 09:31 DL 12/08/17 09:24 Wound Center Nurse 1 [Ulcer Assessment] #2 Left Lateral Foot -Current Size (cm) - Length 0.3 -Current Size (cm) - Width 0.4 -Current Size (cm) - Depth 0.2 -Total Square Cm 0.12 -Photo Taken Yes -Exudate Amt Small (1-33%) -Exudate Type Serosanguineous -Wound Margin Distinct, Outline Attached -Granulation Amt None Present (0 %) -Necrosis Amt Large (67-100%) -Necrotic Tissue Type Adherent Slough -Structure Exposed N/A -Texture (Blossom-wound Skin Appearance) Scarring -Moisture (Blossom-wound Skin Appearance No Abnormality ) -Color (Blossom-wound Skin Appearance) Hemosiderin Staining -Temperature (Blossom-wound Skin No Abnormality Appearance) (Pt Warm) -Ulcer Cleansing Rinsed/ Irrigated with Saline -Foul Odor after Cleansing No -Anesthetic Used 4% Lidocaine Solution [Edema Assessment] -Left Calf (cm) 25.5 -Left Ankle (cm) 16 WC - Nurse 2 - General Ulcer CM Notes Start: 12/08/17 09:23 Freq: Status: Active Protocol: Activity Type Activity Date Activity User E-Sign Co-Sign Detail Recorded Client Recorded Date Recorded By Document 12/08/17 09:46 [id number] 12/08/17 09:48 12/08/17 09:46 Wound Center Nurse 2 [Procedure/Treatment] #2 Left Lateral Foot -Time 09:47 -Correct Patient Yes -Correct Side, Site, Position Yes -Correct Procedure Yes -Procedure Performed Yes -Type of Procedure Debridement -Clinical Debridement Subcutaneous -Post Debridement Size (cm) - Length 0.4 -Post Debridement Size (cm) - Width 0.5 -Post Debridement Size (cm) - Depth 0.2 -Total Square Cm 0.20 -Wound/Ulcer Outcome Not Healed -Ulcer Cleansing Rinsed/ Irrigated with Saline -Foul Odor after Cleansing No -Bioengineered Tissue No -Bleeding Controlled with Pressure -Treatment Response Procedure Tolerated Well [See Physician Procedure note for Specifics] Pain Scale: 0-10 Numeric [Pain] -Is Patient Pain Free? Yes Musculoskeletal: No Tenderness to Palpation of Joints or Extremities, Muscle Wasting, - - Contraction of left lower extremity plantarflexion and inversion is no longer reducible making this lateral aspect of the foot more prominent Neurological: Sensory exam intact to light touch and pain, - Psych/Mental Status: Normal Affect, Appropriate Debridement Note Post-Debridement Measurements/Treatment WC - Nurse 2 - General Ulcer CM Notes Start: 12/08/17 09:23 Freq: Status: Active Protocol: Activity Type Activity Date Activity User E-Sign Co-Sign Detail Recorded Client Recorded Date Recorded By Document 12/08/17 09:46 [id number] 12/08/17 09:48 12/08/17 09:46 Wound Center Nurse 2 #2 Left Lateral Foot -Time 09:47 -Correct Patient Yes -Correct Side, Site, Position Yes -Correct Procedure Yes -Procedure Performed Yes -Type of Procedure Debridement -Clinical Debridement Subcutaneous -Post Debridement Size (cm) - Length 0.4 -Post Debridement Size (cm) - Width 0.5 -Post Debridement Size (cm) - Depth 0.2 -Total Square Cm 0.20 -Wound/Ulcer Outcome Not Healed -Ulcer Cleansing Rinsed/ Irrigated with Saline -Foul Odor after Cleansing No -Bioengineered Tissue No -Bleeding Controlled with Pressure -Treatment Response Procedure Tolerated Well Pain Scale: 0-10 Numeric Is Patient Pain Free? 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 Chronic anticoagulation medication noted. Malnutrition suspected. Left lower extremity contractions noted. Down syndrome Plan: I reviewed and discussed her case today with the patient as well as her caregiver. Debridement was performed as noted in the clinical panel to the left foot. To change dressing daily with Katerine as demonstrated. I recommend application of an advanced wound care product due to delayed healing. A preauthorization for epi fix will be initiated and this was not approved. To keep pressure off of the ulcer site with donut offloading pillow device. I recommend additional offloading brace to further protect her in the day while she is at work. An order was provided for antibiotic for ankle-foot orthotics additional offloading pocket to the lateral foot. She was advised not to walk on this wound site. Edema control was initiated with Tubigrip application to the left leg and elevation at rest. This is well controlled at this time. To avoid wearing regular sneakers anytime to allow proper ulcer offloading on the left foot. Nutritional supplementation was ordered to optimize healing; Aidan. She will now be considered for complex care because the patient has limited personal and cognitive resources. She has difficulty with the expectation of level of compliance with her current wound management plan to achieve the desired outcomes. We will proceed forward with the aforementioned plan. She will follow up in clinic in 1 week or call sooner if there are any questions or concerns.
--- NOTE | 2017-12-08 12:38 | PN.PCM_ITS ---
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 She is with a caregiver today and is unable to independently communicate during the examination. She continues to wear the offloading donut pillow to keep pressure off of her foot chronic ulcer site. She denies recent illness. She continues to work and there is concern that there is pressure applied on her foot while she is seated at work. Her caregiver is interested in an additional bracing option. She presents in a wheelchair today. Progress of Wound: improving - Physical Exam Vital Signs Temp Pulse Resp BP 94.8 F L 77 16 94/51 L 12/08/17 09:24 12/08/17 09:24 12/08/17 09:24 12/08/17 09:24 General: Alert, Cooperative Extremities: No cyanosis, No edema, Capillary Refill Less than 3 Seconds - All digits left foot, No Calf Tenderness, Diminished Peripheral Pulses Skin: Ulcer/ Wound - No purulence, no erythema, no streaking, no odor, - - Atrophic skin. improved granulation tissue to wound Wound Measurements and Assessment WC - Nurse 1 - General Ulcer Measurement Start: 12/08/17 09:23 Freq: Status: Active Protocol: Activity Type Activity Date Activity User E-Sign Co-Sign Detail Recorded Client Recorded Date Recorded By Document 12/08/17 09:24 DL [id number] 12/08/17 09:31 DL 12/08/17 09:24 Wound Center Nurse 1 [Ulcer Assessment] #2 Left Lateral Foot -Current Size (cm) - Length 0.3 -Current Size (cm) - Width 0.4 -Current Size (cm) - Depth 0.2 -Total Square Cm 0.12 -Photo Taken Yes -Exudate Amt Small (1-33%) -Exudate Type Serosanguineous -Wound Margin Distinct, Outline Attached -Granulation Amt None Present (0 %) -Necrosis Amt Large (67-100%) -Necrotic Tissue Type Adherent Slough -Structure Exposed N/A -Texture (Blossom-wound Skin Appearance) Scarring -Moisture (Blossom-wound Skin Appearance No Abnormality ) -Color (Blossom-wound Skin Appearance) Hemosiderin Staining -Temperature (Blossom-wound Skin No Abnormality Appearance) (Pt Warm) -Ulcer Cleansing Rinsed/ Irrigated with Saline -Foul Odor after Cleansing No -Anesthetic Used 4% Lidocaine Solution [Edema Assessment] -Left Calf (cm) 25.5 -Left Ankle (cm) 16 WC - Nurse 2 - General Ulcer CM Notes Start: 12/08/17 09:23 Freq: Status: Active Protocol: Activity Type Activity Date Activity User E-Sign Co-Sign Detail Recorded Client Recorded Date Recorded By Document 12/08/17 09:46 [id number] 12/08/17 09:48 12/08/17 09:46 Wound Center Nurse 2 [Procedure/Treatment] #2 Left Lateral Foot -Time 09:47 -Correct Patient Yes -Correct Side, Site, Position Yes -Correct Procedure Yes -Procedure Performed Yes -Type of Procedure Debridement -Clinical Debridement Subcutaneous -Post Debridement Size (cm) - Length 0.4 -Post Debridement Size (cm) - Width 0.5 -Post Debridement Size (cm) - Depth 0.2 -Total Square Cm 0.20 -Wound/Ulcer Outcome Not Healed -Ulcer Cleansing Rinsed/ Irrigated with Saline -Foul Odor after Cleansing No -Bioengineered Tissue No -Bleeding Controlled with Pressure -Treatment Response Procedure Tolerated Well [See Physician Procedure note for Specifics] Pain Scale: 0-10 Numeric [Pain] -Is Patient Pain Free? Yes Musculoskeletal: No Tenderness to Palpation of Joints or Extremities, Muscle Wasting, - - Contraction of left lower extremity plantarflexion and inversion is no longer reducible making this lateral aspect of the foot more prominent Neurological: Sensory exam intact to light touch and pain, - Psych/Mental Status: Normal Affect, Appropriate Debridement Note Post-Debridement Measurements/Treatment WC - Nurse 2 - General Ulcer CM Notes Start: 12/08/17 09:23 Freq: Status: Active Protocol: Activity Type Activity Date Activity User E-Sign Co-Sign Detail Recorded Client Recorded Date Recorded By Document 12/08/17 09:46 [id number] 12/08/17 09:48 12/08/17 09:46 Wound Center Nurse 2 #2 Left Lateral Foot -Time 09:47 -Correct Patient Yes -Correct Side, Site, Position Yes -Correct Procedure Yes -Procedure Performed Yes -Type of Procedure Debridement -Clinical Debridement Subcutaneous -Post Debridement Size (cm) - Length 0.4 -Post Debridement Size (cm) - Width 0.5 -Post Debridement Size (cm) - Depth 0.2 -Total Square Cm 0.20 -Wound/Ulcer Outcome Not Healed -Ulcer Cleansing Rinsed/ Irrigated with Saline -Foul Odor after Cleansing No -Bioengineered Tissue No -Bleeding Controlled with Pressure -Treatment Response Procedure Tolerated Well Pain Scale: 0-10 Numeric Is Patient Pain Free? 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 Chronic anticoagulation medication noted. Malnutrition suspected. Left lower extremity contractions noted. Down syndrome Plan: I reviewed and discussed her case today with the patient as well as her caregiver. Debridement was performed as noted in the clinical panel to the left foot. To change dressing daily with Katerine as demonstrated. I recommend application of an advanced wound care product due to delayed healing. A preauthorization for epi fix will be initiated and this was not approved. To keep pressure off of the ulcer site with donut offloading pillow device. I recommend additional offloading brace to further protect her in the day while she is at work. An order was provided for antibiotic for ankle-foot orthotics additional offloading pocket to the lateral foot. She was advised not to walk on this wound site. Edema control was initiated with Tubigrip application to the left leg and elevation at rest. This is well controlled at this time. To avoid wearing regular sneakers anytime to allow proper ulcer offloading on the left foot. Nutritional supplementation was ordered to optimize healing; Aidan. She will now be considered for complex care because the patient has limited personal and cognitive resources. She has difficulty with the expectation of level of compliance with her current wound management plan to achieve the desired outcomes. We will proceed forward with the aforementioned plan. She will follow up in clinic in 1 week or call sooner if there are any questions or concerns.
[2017-12-15 09:54] VITALS: BP 91/67; PULSE 85; RESP 18; TEMP 36.6; BMI 48.6
--- NOTE | 2017-12-15 11:46 | PN.PCM_ITS ---
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 She is with a caregiver today and is unable to independently communicate during the examination. She continues to wear the offloading donut pillow to keep pressure off of her foot chronic ulcer site however her age reports she does not take this to work. She denies recent illness. She is in a wheelchair today. Progress of Wound: improving - Physical Exam Vital Signs Temp Pulse Resp BP 98 F 85 18 91/67 12/15/17 09:54 12/15/17 09:54 12/15/17 09:54 12/15/17 09:54 General: Alert, Oriented x3, Cooperative Extremities: No cyanosis, Capillary Refill Less than 3 Seconds, No Calf Tenderness, Diminished Peripheral Pulses, Edema Skin: Ulcer/ Wound - No purulence, no erythema, no streaking, no odor. The skin is atrophic Wound Measurements and Assessment WC - Nurse 1 - General Ulcer Measurement Start: 12/08/17 09:23 Freq: Status: Active Protocol: Activity Type Activity Date Activity User E-Sign Co-Sign Detail Recorded Client Recorded Date Recorded By Document 12/15/17 09:54 DL [id number] 12/15/17 09:59 DL 12/15/17 09:54 Wound Center Nurse 1 [Ulcer Assessment] #2 Left Lateral Foot -Current Size (cm) - Length 0.2 -Current Size (cm) - Width 0.1 -Current Size (cm) - Depth 0.1 -Total Square Cm 0.02 -Photo Taken No -Exudate Amt None Present (0 %) -Wound Margin Flat & Intact -Granulation Amt None Present (0 %) -Necrosis Amt Small (1-33%) -Necrotic Tissue Type Adherent Slough -Structure Exposed N/A -Texture (Blossom-wound Skin Appearance) Scarring -Moisture (Blossom-wound Skin Appearance Dry/Scaly ) -Color (Blossom-wound Skin Appearance) Mottled -Temperature (Blossom-wound Skin No Abnormality Appearance) (Pt Warm) -Ulcer Cleansing Rinsed/ Irrigated with Saline -Foul Odor after Cleansing No -Anesthetic Used 4% Lidocaine Solution [Edema Assessment] -Left Calf (cm) 25.5 -Left Ankle (cm) 16 WC - Nurse 2 - General Ulcer CM Notes Start: 12/08/17 09:23 Freq: Status: Active Protocol: Activity Type Activity Date Activity User E-Sign Co-Sign Detail Recorded Client Recorded Date Recorded By Document 12/15/17 10:09 [id number] 12/15/17 10:10 TM 12/15/17 10:09 Wound Center Nurse 2 [Procedure/Treatment] #2 Left Lateral Foot -Time 10:09 -Correct Patient Yes -Correct Side, Site, Position Yes -Correct Procedure Yes -Procedure Performed Yes -Type of Procedure Debridement -Clinical Debridement Subcutaneous -Post Debridement Size (cm) - Length 0.3 -Post Debridement Size (cm) - Width 0.2 -Post Debridement Size (cm) - Depth 0.1 -Total Square Cm 0.06 -Wound/Ulcer Outcome Not Healed -Ulcer Cleansing Rinsed/ Irrigated with Saline -Foul Odor after Cleansing No -Bioengineered Tissue No -Topical Lidocaine (%) 4 -Bleeding Controlled with Pressure -Treatment Response Procedure Tolerated Well [See Physician Procedure note for Specifics] Pain Scale: 0-10 Numeric [Pain] -Is Patient Pain Free? Yes Musculoskeletal: No Tenderness to Palpation of Joints or Extremities, Muscle Wasting, - - Contraction left lower extremity Neurological: Sensory exam intact to light touch and pain Psych/Mental Status: Normal Affect, Appropriate Debridement Note Post-Debridement Measurements/Treatment - Nurse 2 - General Ulcer CM Notes Start: 12/08/17 09:23 Freq: Status: Active Protocol: Activity Type Activity Date Activity User E-Sign Co-Sign Detail Recorded Client Recorded Date Recorded By Document 12/08/17 09:46 [id number] 12/08/17 09:48 TM Document 12/15/17 10:09 [id number] 12/15/17 10:10 12/08/17 12/15/17 09:46 10:09 Wound Center Nurse 2 #2 Left Lateral Foot -Time 09:47 10:09 -Correct Patient Yes Yes -Correct Side, Site, Position Yes Yes -Correct Procedure Yes Yes -Procedure Performed Yes Yes -Type of Procedure Debridement Debridement -Clinical Debridement Subcutaneous Subcutaneous -Post Debridement Size (cm) - Length 0.4 0.3 -Post Debridement Size (cm) - Width 0.5 0.2 -Post Debridement Size (cm) - Depth 0.2 0.1 -Total Square Cm 0.20 0.06 -Wound/Ulcer Outcome Not Healed Not Healed -Ulcer Cleansing Rinsed/ Rinsed/ Irrigated with Irrigated with Saline Saline -Foul Odor after Cleansing No No -Bioengineered Tissue No No -Topical Lidocaine (%) 4 -Bleeding Controlled with Pressure Pressure -Treatment Response Procedure Procedure Tolerated Well Tolerated Well Pain Scale: 0-10 Numeric Is Patient Pain Free? Yes Yes Wound debrided: lateral foot Laterality: Left Type of Debridement: Excisional debridement Anesthesia Used: 4% Lidocaine Solution Depth: in the subcutaneous layer Percentage of wound debrided: 100 Instrument Used: #15 blade Tissue Removed: fibrous, devitalized subcutaneous, biofilm, slough Severity: Fat Layer Exposed Amount of bleeding with debridement: Mild Bleeding Controlled with: Pressure Patient tolerated procedure well Assessment/Plan Active Problems Malnutrition (Chronic) Contracture of muscle of left lower extremity (Chronic) Ulcer of left lower extremity with fat layer exposed (Chronic) Assessment: Left foot ulcer with fat layer exposed. Chronic anticoagulation medication noted. Malnutrition suspected. Left lower extremity contractions noted. Down syndrome Plan: I reviewed and discussed her case today with the patient as well as her caregiver. Debridement was performed as noted in the clinical panel to the left foot. To change dressing daily with Katerine as demonstrated. I recommend application of an advanced wound care product due to delayed healing. A preauthorization for epi fix was initiated and this was not approved. To keep pressure off of the ulcer site with donut offloading pillow device. I recommend additional offloading brace to further protect her in the day while she is at work. An order was provided for antibiotic for ankle-foot orthotics additional offloading pocket to the lateral foot. She was advised not to walk on this wound site or rest with contact made to the wound. Edema control was initiated with Tubigrip application to the left leg and elevation at rest. This is well controlled at this time. To avoid wearing regular sneakers anytime to allow proper ulcer offloading on the left foot. Nutritional supplementation was ordered to optimize healing; Aidan. She will now be considered for complex care because the patient has limited personal and cognitive resources. She has difficulty with the expectation of level of compliance with her current wound management plan to achieve the desired outcomes. We will proceed forward with the aforementioned plan. She will follow up in clinic in 1 week or call sooner if there are any questions or concerns.
== END 2017-12-15 23:59 ==
LOC: WC 09:30
PROVIDERS: Family Provider Family Medicine Geriatric Medicine; PCP Family Medicine Geriatric Medicine; Visit Provider Podiatrist
DX: L97.522 Non-pressure chronic ulcer of other part of left foot with fat layer exposed (principal); M62.462 Contracture of muscle, left lower leg; Q90.9 Down syndrome, unspecified; Z79.01 Long term (current) use of anticoagulants
CPT/HCPCS: 11042

== ENCOUNTER 2018-01-12 09:45 | Outpatient (RCR) | payer MEDICARE, MEDICAID, SELFPAY ==
[2017-12-16 00:37] VITALS: BP 102/66; PULSE 85; RESP 18; TEMP 36.6; BMI 48.6
[2017-12-22 08:40] VITALS: BP 113/58; PULSE 75; RESP 16; TEMP 36.8; BMI 48.6
--- NOTE | 2017-12-22 08:59 | PCM.WC.PN ---
(1) Malnutrition Status: Chronic Current Visit: Yes Code(s): E46 - Unspecified protein-calorie malnutrition (2) Contracture of muscle of left lower extremity Status: Chronic Current Visit: Yes Code(s): M62.462 - Contracture of muscle, left lower leg (3) Ulcer of left lower extremity with fat layer exposed Status: Chronic Current Visit: Yes Code(s): L97.922 - Non-pressure chronic ulcer of unspecified part of left lower leg with fat layer exposed (4) Down syndrome Status: Chronic Current Visit: Yes Code(s): Q90.9 - Down syndrome, unspecified Type of Wound Date of Service: 12/22/17 Chief Complaint: Left foot ulcer History of Wound: This 52-year-old pleasant female with Down syndrome and other comorbidities seen today for a left foot wounds. She is with a caregiver today and is unable to independently communicate during the examination. She continues to wear the offloading donut pillow to keep pressure off of her foot chronic ulcer site however her age reports she does not take this to work. She denies recent illness. She is in a wheelchair today. Progress of Wound: improving - Physical Exam Vital Signs Temp Pulse Resp BP 98.2 F 75 16 113/58 L 12/22/17 08:40 12/22/17 08:40 12/22/17 08:40 12/22/17 08:40 General: Alert, Oriented x3, Cooperative Extremities: No cyanosis, Capillary Refill Less than 3 Seconds, No Calf Tenderness, Diminished Peripheral Pulses, Edema Skin: Ulcer/ Wound - No purulence, no erythema, no streaking, no infection. The peripheral skin is atrophic. There is no probe to bone or capsule noted Wound Measurements and Assessment WC - Nurse 1 - General Ulcer Measurement Start: 12/22/17 08:38 Freq: Status: Active Protocol: Activity Type Activity Date Activity User E-Sign Co-Sign Detail Recorded Client Recorded Date Recorded By Document 12/22/17 08:40 MW [id number] 12/22/17 08:47 MW 12/22/17 08:40 Wound Center Nurse 1 [Ulcer Assessment] #2 Left Lateral Foot -Combined with other wound No -Current Size (cm) - Length 0.4 -Current Size (cm) - Width 0.3 -Current Size (cm) - Depth 0.1 -Total Square Cm 0.12 -Photo Taken No -Epithelialization None Present -Tunneling No -Undermining/Tunneling No -Circular Undermining No -Exudate Amt Small (1-33%) -Exudate Type Serosanguineous -Wound Margin Distinct, Outline Attached -Granulation Amt Small (1-33%) -Granulation Quality [place] -Slough/Fibrin Yes -Necrosis Amt Medium (34-66%) -Necrotic Tissue Type Adherent Slough -Structure Exposed N/A -Texture (Blossom-wound Skin Appearance) Assessed Scarring -Moisture (Blossom-wound Skin Appearance No Abnormality ) Assessed -Color (Blossom-wound Skin Appearance) No Abnormality Assessed -Temperature (Blossom-wound Skin No Abnormality Appearance) (Pt Warm) -Tenderness on Palpation (Blossom-wound No Skin Appearance) -Ulcer Cleansing Rinsed/ Irrigated with Saline -Foul Odor after Cleansing No -Anesthetic Used 5% Lidocaine Gel [Edema Assessment] -Lower Limb Edema Present No WC - Nurse 2 - General Ulcer CM Notes Start: 12/22/17 08:38 Freq: Status: Active Protocol: Activity Type Activity Date Activity User E-Sign Co-Sign Detail Recorded Client Recorded Date Recorded By Document 12/22/17 08:57 [id number] 12/22/17 08:59 12/22/17 08:57 Wound Center Nurse 2 [Procedure/Treatment] #2 Left Lateral Foot -Time 08:57 -Correct Patient Yes -Correct Side, Site, Position Yes -Correct Procedure Yes -Procedure Performed Yes -Type of Procedure Debridement -Clinical Debridement Subcutaneous -Post Debridement Size (cm) - Length 0.5 -Post Debridement Size (cm) - Width 0.4 -Post Debridement Size (cm) - Depth 0.1 -Total Square Cm 0.20 -Wound/Ulcer Outcome Not Healed -Ulcer Cleansing Rinsed/ Irrigated with Saline -Foul Odor after Cleansing No -Bioengineered Tissue No -Topical Lidocaine (%) 5 -Bleeding Controlled with Pressure -Treatment Response Procedure Tolerated Well [See Physician Procedure note for Specifics] Pain Scale: 0-10 Numeric [Pain] -Is Patient Pain Free? Yes Musculoskeletal: No Tenderness to Palpation of Joints or Extremities, Muscle Wasting, Tenderness - With wound manipulation left foot, - - Contracted left lower extremity unchanged from previous exams Neurological: Sensory exam intact to light touch and pain Psych/Mental Status: Normal Affect, Appropriate Debridement Note Post-Debridement Measurements/Treatment WC - Nurse 2 - General Ulcer CM Notes Start: 12/22/17 08:38 Freq: Status: Active Protocol: Activity Type Activity Date Activity User E-Sign Co-Sign Detail Recorded Client Recorded Date Recorded By Document 12/22/17 08:57 [id number] 12/22/17 08:59 12/22/17 08:57 Wound Center Nurse 2 #2 Left Lateral Foot -Time 08:57 -Correct Patient Yes -Correct Side, Site, Position Yes -Correct Procedure Yes -Procedure Performed Yes -Type of Procedure Debridement -Clinical Debridement Subcutaneous -Post Debridement Size (cm) - Length 0.5 -Post Debridement Size (cm) - Width 0.4 -Post Debridement Size (cm) - Depth 0.1 -Total Square Cm 0.20 -Wound/Ulcer Outcome Not Healed -Ulcer Cleansing Rinsed/ Irrigated with Saline -Foul Odor after Cleansing No -Bioengineered Tissue No -Topical Lidocaine (%) 5 -Bleeding Controlled with Pressure -Treatment Response Procedure Tolerated Well Pain Scale: 0-10 Numeric Is Patient Pain Free? 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 Chronic anticoagulation medication noted. Malnutrition suspected. Left lower extremity contractions noted. Down syndrome Plan: I reviewed and discussed her case today with the patient as well as her caregiver. Debridement was performed as noted in the clinical panel to the left foot. To change dressing daily with Katerine as demonstrated. I recommend application of an advanced wound care product due to delayed healing. A preauthorization for epi fix was initiated and this was not approved. I will seek approval for regranex which will likely require an appeal process due to her lack of diabetes; this will be initiated. To keep pressure off of the ulcer site with donut offloading pillow device. I recommend additional offloading brace to further protect her in the day while she is at work. An order was provided for antibiotic for ankle-foot orthotics additional offloading pocket to the lateral foot. She was advised not to walk on this wound site or rest with contact made to the wound. Edema control was initiated with Tubigrip application to the left leg and elevation at rest. This is well controlled at this time. To avoid wearing regular sneakers anytime to allow proper ulcer offloading on the left foot. Nutritional supplementation was ordered to optimize healing; Aidan. She will now be considered for complex care because the patient has limited personal and cognitive resources. She has difficulty with the expectation of level of compliance with her current wound management plan to achieve the desired outcomes. We will proceed forward with the aforementioned plan. She will follow up in clinic in 1 week or call sooner if there are any questions or concerns.
--- NOTE | 2017-12-22 09:03 | PN.PCM_ITS ---
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 She is with a caregiver today and is unable to independently communicate during the examination. She continues to wear the offloading donut pillow to keep pressure off of her foot chronic ulcer site however her age reports she does not take this to work. She denies recent illness. She is in a wheelchair today. Progress of Wound: improving - Physical Exam Vital Signs Temp Pulse Resp BP 98.2 F 75 16 113/58 L 12/22/17 08:40 12/22/17 08:40 12/22/17 08:40 12/22/17 08:40 General: Alert, Oriented x3, Cooperative Extremities: No cyanosis, Capillary Refill Less than 3 Seconds, No Calf Tenderness, Diminished Peripheral Pulses, Edema Skin: Ulcer/ Wound - No purulence, no erythema, no streaking, no infection. The peripheral skin is atrophic. There is no probe to bone or capsule noted Wound Measurements and Assessment WC - Nurse 1 - General Ulcer Measurement Start: 12/22/17 08:38 Freq: Status: Active Protocol: Activity Type Activity Date Activity User E-Sign Co-Sign Detail Recorded Client Recorded Date Recorded By Document 12/22/17 08:40 MW [id number] 12/22/17 08:47 MW 12/22/17 08:40 Wound Center Nurse 1 [Ulcer Assessment] #2 Left Lateral Foot -Combined with other wound No -Current Size (cm) - Length 0.4 -Current Size (cm) - Width 0.3 -Current Size (cm) - Depth 0.1 -Total Square Cm 0.12 -Photo Taken No -Epithelialization None Present -Tunneling No -Undermining/Tunneling No -Circular Undermining No -Exudate Amt Small (1-33%) -Exudate Type Serosanguineous -Wound Margin Distinct, Outline Attached -Granulation Amt Small (1-33%) -Granulation Quality [place] -Slough/Fibrin Yes -Necrosis Amt Medium (34-66%) -Necrotic Tissue Type Adherent Slough -Structure Exposed N/A -Texture (Blossom-wound Skin Appearance) Assessed Scarring -Moisture (Blossom-wound Skin Appearance No Abnormality ) Assessed -Color (Blossom-wound Skin Appearance) No Abnormality Assessed -Temperature (Blossom-wound Skin No Abnormality Appearance) (Pt Warm) -Tenderness on Palpation (Blossom-wound No Skin Appearance) -Ulcer Cleansing Rinsed/ Irrigated with Saline -Foul Odor after Cleansing No -Anesthetic Used 5% Lidocaine Gel [Edema Assessment] -Lower Limb Edema Present No WC - Nurse 2 - General Ulcer CM Notes Start: 12/22/17 08:38 Freq: Status: Active Protocol: Activity Type Activity Date Activity User E-Sign Co-Sign Detail Recorded Client Recorded Date Recorded By Document 12/22/17 08:57 [id number] 12/22/17 08:59 12/22/17 08:57 Wound Center Nurse 2 [Procedure/Treatment] #2 Left Lateral Foot -Time 08:57 -Correct Patient Yes -Correct Side, Site, Position Yes -Correct Procedure Yes -Procedure Performed Yes -Type of Procedure Debridement -Clinical Debridement Subcutaneous -Post Debridement Size (cm) - Length 0.5 -Post Debridement Size (cm) - Width 0.4 -Post Debridement Size (cm) - Depth 0.1 -Total Square Cm 0.20 -Wound/Ulcer Outcome Not Healed -Ulcer Cleansing Rinsed/ Irrigated with Saline -Foul Odor after Cleansing No -Bioengineered Tissue No -Topical Lidocaine (%) 5 -Bleeding Controlled with Pressure -Treatment Response Procedure Tolerated Well [See Physician Procedure note for Specifics] Pain Scale: 0-10 Numeric [Pain] -Is Patient Pain Free? Yes Musculoskeletal: No Tenderness to Palpation of Joints or Extremities, Muscle Wasting, Tenderness - With wound manipulation left foot, - - Contracted left lower extremity unchanged from previous exams Neurological: Sensory exam intact to light touch and pain Psych/Mental Status: Normal Affect, Appropriate Debridement Note Post-Debridement Measurements/Treatment WC - Nurse 2 - General Ulcer CM Notes Start: 12/22/17 08:38 Freq: Status: Active Protocol: Activity Type Activity Date Activity User E-Sign Co-Sign Detail Recorded Client Recorded Date Recorded By Document 12/22/17 08:57 [id number] 12/22/17 08:59 12/22/17 08:57 Wound Center Nurse 2 #2 Left Lateral Foot -Time 08:57 -Correct Patient Yes -Correct Side, Site, Position Yes -Correct Procedure Yes -Procedure Performed Yes -Type of Procedure Debridement -Clinical Debridement Subcutaneous -Post Debridement Size (cm) - Length 0.5 -Post Debridement Size (cm) - Width 0.4 -Post Debridement Size (cm) - Depth 0.1 -Total Square Cm 0.20 -Wound/Ulcer Outcome Not Healed -Ulcer Cleansing Rinsed/ Irrigated with Saline -Foul Odor after Cleansing No -Bioengineered Tissue No -Topical Lidocaine (%) 5 -Bleeding Controlled with Pressure -Treatment Response Procedure Tolerated Well Pain Scale: 0-10 Numeric Is Patient Pain Free? 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 Chronic anticoagulation medication noted. Malnutrition suspected. Left lower extremity contractions noted. Down syndrome Plan: I reviewed and discussed her case today with the patient as well as her caregiver. Debridement was performed as noted in the clinical panel to the left foot. To change dressing daily with Katerine as demonstrated. I recommend application of an advanced wound care product due to delayed healing. A preauthorization for epi fix was initiated and this was not approved. I will seek approval for regranex which will likely require an appeal process due to her lack of diabetes; this will be initiated. To keep pressure off of the ulcer site with donut offloading pillow device. I recommend additional offloading brace to further protect her in the day while she is at work. An order was provided for antibiotic for ankle-foot orthotics additional offloading pocket to the lateral foot. She was advised not to walk on this wound site or rest with contact made to the wound. Edema control was initiated with Tubigrip application to the left leg and elevation at rest. This is well controlled at this time. To avoid wearing regular sneakers anytime to allow proper ulcer offloading on the left foot. Nutritional supplementation was ordered to optimize healing; Aidan. She will now be considered for complex care because the patient has limited personal and cognitive resources. She has difficulty with the expectation of level of compliance with her current wound management plan to achieve the desired outcomes. We will proceed forward with the aforementioned plan. She will follow up in clinic in 1 week or call sooner if there are any questions or concerns.
[2018-01-12 09:59] VITALS: RESP 16; TEMP 37.3; BMI 48.6
--- NOTE | 2018-01-12 11:37 | PN.PCM_ITS ---
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 She is with a caregiver today and is unable to independently communicate during the examination. She continues to wear the offloading donut pillow to keep pressure off of her foot chronic ulcer site. She is in a wheelchair today. She started to use Regranex this past week for 12 hours at a time and she has been leaving her ulcer site open to the air overnight. Progress of Wound: improving - Physical Exam Vital Signs Temp Pulse Resp BP 99.1 F 75 16 113/58 L 01/12/18 09:59 12/22/17 08:40 01/12/18 09:59 12/22/17 08:40 General: Alert, Oriented x3, Cooperative Extremities: No cyanosis, No edema, Capillary Refill Less than 3 Seconds, No Calf Tenderness, Peripheral Pulses Normal Skin: Ulcer/ Wound - No maceration, no erythema, streaking, no odor, no infection. No exposed deep to at it. The peripheral skin is atrophic. Wound Measurements and Assessment WC - Nurse 1 - General Ulcer Measurement Start: 12/22/17 08:38 Freq: Status: Active Protocol: Activity Type Activity Date Activity User E-Sign Co-Sign Detail Recorded Client Recorded Date Recorded By Document 01/12/18 09:59 [facility] [id number] 01/12/18 10:06 [facility] 01/12/18 09:59 Wound Center Nurse 1 [Ulcer Assessment] #2 Left Lateral Foot -Combined with other wound No -Current Size (cm) - Length 0.5 -Current Size (cm) - Width 0.4 -Current Size (cm) - Depth 0.1 -Total Square Cm 0.20 -Date of Last Picture (Recall this 01/12/18 field) -Photo Taken Yes -Epithelialization None Present -Tunneling No -Undermining/Tunneling No -Exudate Amt None Present (0 %) -Wound Margin Distinct, Outline Attached -Granulation Amt None Present (0 %) -Slough/Fibrin Yes -Necrosis Amt Large (67-100%) -Necrotic Tissue Type Eschar -Structure Exposed N/A -Texture (Blossom-wound Skin Appearance) Scarring -Moisture (Blossom-wound Skin Appearance Dry/Scaly ) -Color (Blossom-wound Skin Appearance) Assessed -Temperature (Blossom-wound Skin No Abnormality Appearance) (Pt Warm) -Tenderness on Palpation (Blossom-wound No Skin Appearance) -Ulcer Cleansing Rinsed/ Irrigated with Saline -Foul Odor after Cleansing No -Anesthetic Used 5% Lidocaine Gel [Edema Assessment] -Lower Limb Edema Present No -Left Calf (cm) 27.1 -Left Ankle (cm) 16.9 WC - Nurse 2 - General Ulcer CM Notes Start: 12/22/17 08:38 Freq: Status: Active Protocol: Activity Type Activity Date Activity User E-Sign Co-Sign Detail Recorded Client Recorded Date Recorded By Document 01/12/18 10:20 [id number] 01/12/18 10:21 01/12/18 10:20 Wound Center Nurse 2 [Procedure/Treatment] #2 Left Lateral Foot -Time 10:20 -Correct Patient Yes -Correct Side, Site, Position Yes -Correct Procedure Yes -Procedure Performed Yes -Type of Procedure Debridement -Clinical Debridement Subcutaneous -Post Debridement Size (cm) - Length 0.6 -Post Debridement Size (cm) - Width 0.5 -Post Debridement Size (cm) - Depth 0.1 -Total Square Cm 0.30 -Wound/Ulcer Outcome Not Healed -Ulcer Cleansing Rinsed/ Irrigated with Saline -Foul Odor after Cleansing No -Bioengineered Tissue No -Topical Lidocaine (%) 5 -Bleeding Controlled with Pressure -Treatment Response Procedure Tolerated Well [See Physician Procedure note for Specifics] Pain Scale: 0-10 Numeric [Pain] -Is Patient Pain Free? Yes Musculoskeletal: No Tenderness to Palpation of Joints or Extremities, Muscle Wasting, - - Contraction left lower extremity Neurological: Sensory exam intact to light touch and pain Psych/Mental Status: Normal Affect, Appropriate Debridement Note Post-Debridement Measurements/Treatment WC - Nurse 2 - General Ulcer CM Notes Start: 12/22/17 08:38 Freq: Status: Active Protocol: Activity Type Activity Date Activity User E-Sign Co-Sign Detail Recorded Client Recorded Date Recorded By Document 12/22/17 08:57 [id number] 12/22/17 08:59 Document 01/12/18 10:20 [id number] 01/12/18 10:21 TM 12/22/17 01/12/18 08:57 10:20 Wound Center Nurse 2 #2 Left Lateral Foot -Time 08:57 10:20 -Correct Patient Yes Yes -Correct Side, Site, Position Yes Yes -Correct Procedure Yes Yes -Procedure Performed Yes Yes -Type of Procedure Debridement Debridement -Clinical Debridement Subcutaneous Subcutaneous -Post Debridement Size (cm) - Length 0.5 0.6 -Post Debridement Size (cm) - Width 0.4 0.5 -Post Debridement Size (cm) - Depth 0.1 0.1 -Total Square Cm 0.20 0.30 -Wound/Ulcer Outcome Not Healed Not Healed -Ulcer Cleansing Rinsed/ Rinsed/ Irrigated with Irrigated with Saline Saline -Foul Odor after Cleansing No No -Bioengineered Tissue No No -Topical Lidocaine (%) 5 5 -Bleeding Controlled with Pressure Pressure -Treatment Response Procedure Procedure Tolerated Well Tolerated Well Pain Scale: 0-10 Numeric Is Patient Pain Free? Yes Yes Wound debrided: Lateral foot Laterality: Left Type of Debridement: Excisional debridement Anesthesia Used: 4% Lidocaine Solution Depth: in the subcutaneous layer Percentage of wound debrided: 100 Instrument Used: #15 blade Tissue Removed: fibrous, devitalized subcutaneous, biofilm, slough Severity: Fat Layer Exposed Amount of bleeding with debridement: Mild Bleeding Controlled with: Pressure Assessment/Plan Active Problems Malnutrition (Chronic) Contracture of muscle of left lower extremity (Chronic) Ulcer of left lower extremity with fat layer exposed (Chronic) Down syndrome (Chronic) Assessment: Left foot ulcer with fat layer exposed. Chronic anticoagulation medication noted. Malnutrition suspected. Left lower extremity contractions noted. Down syndrome Plan: I reviewed and discussed her case today with the patient as well as her caregiver. Debridement was performed as noted in the clinical panel to the left foot. To change dressing daily with regranex for 12 hours; to store in refrigerator. During the remaining 12 hours of the day to apply Katerine as demonstrated. . To keep pressure off of the ulcer site with donut offloading pillow device. I recommend additional offloading brace to further protect her in the day while she is at work. An order was provided for antibiotic for ankle -foot orthotics additional offloading pocket to the lateral foot. She was advised not to walk on this wound site or rest with contact made to the wound. To avoid leaving the ulcer site open to the air. Edema control was initiated with Tubigrip application to the left leg and elevation at rest. This is well controlled at this time. To avoid wearing regular sneakers anytime to allow proper ulcer offloading on the left foot. Nutritional supplementation was ordered to optimize healing; Aidan. She will now be considered for complex care because the patient has limited personal and cognitive resources. She has difficulty with the expectation of level of compliance with her current wound management plan to achieve the desired outcomes. We will proceed forward with the aforementioned plan. She will follow up in clinic in 1 week or call sooner if there are any questions or concerns.
== END 2018-01-15 23:59 ==
LOC: WC 09:45
PROVIDERS: Family Provider Family Medicine Geriatric Medicine; PCP Family Medicine Geriatric Medicine; Visit Provider Podiatrist
DX: L97.522 Non-pressure chronic ulcer of other part of left foot with fat layer exposed (principal); M62.462 Contracture of muscle, left lower leg; Q90.9 Down syndrome, unspecified; R60.0 Localized edema
CPT/HCPCS: 11042

== ENCOUNTER 2018-02-09 09:30 | Outpatient (RCR) | payer MEDICARE, MEDICAID, SELFPAY ==
[2018-01-16 00:35] VITALS: BP 102/66; PULSE 75; RESP 16; TEMP 37.3; BMI 48.6
[2018-01-19 11:08] VITALS: BP 102/63; PULSE 81; RESP 18; TEMP 36.9; BMI 48.6
--- NOTE | 2018-01-19 11:30 | PCM.WC.PN ---
(1) Ulcer of left lower extremity with fat layer exposed Status: Chronic Current Visit: Yes Code(s): L97.922 - Non-pressure chronic ulcer of unspecified part of left lower leg with fat layer exposed (2) Down syndrome Status: Chronic Current Visit: Yes Code(s): Q90.9 - Down syndrome, unspecified Type of Wound Date of Service: 01/20/18 Chief Complaint: Left foot ulcer History of Wound: This 52-year-old pleasant female with Down syndrome and other comorbidities seen today for a left foot wounds. She is with a caregiver today is very talkative today. She continues to wear the offloading donut pillow to keep pressure off of her foot chronic ulcer site. She is in a wheelchair today. She has demonstrated improvement with Regranex. Progress of Wound: improving - Physical Exam Vital Signs Temp Pulse Resp BP 98.4 F 81 18 102/63 01/19/18 11:08 01/19/18 11:08 01/19/18 11:08 01/19/18 11:08 General: Alert, Oriented x3, Cooperative Extremities: No cyanosis, No edema, Capillary Refill Less than 3 Seconds, No Calf Tenderness, Diminished Peripheral Pulses, - - Left lower extremity contraction Skin: Ulcer/ Wound - No purulence, no erythema, no streaking, left foot. The wound has reduced in size. Her skin is atrophic. Wound Measurements and Assessment WC - Nurse 1 - General Ulcer Measurement Start: 01/19/18 10:45 Freq: Status: Active Protocol: Activity Type Activity Date Activity User E-Sign Co-Sign Detail Recorded Client Recorded Date Recorded By Document 01/19/18 11:08 [id number] 01/19/18 11:17 DL 01/19/18 11:08 Wound Center Nurse 1 [Ulcer Assessment] #2 Left Lateral Foot -Current Size (cm) - Length 0.2 -Current Size (cm) - Width 0.3 -Current Size (cm) - Depth 0.3 -Total Square Cm 0.06 -Photo Taken No -Exudate Amt Small (1-33%) -Wound Margin Distinct, Outline Attached -Granulation Amt Large (67-100%) -Granulation Quality [place] -Necrosis Amt None Present (0 %) -Structure Exposed N/A -Texture (Blossom-wound Skin Appearance) Scarring -Moisture (Blossom-wound Skin Appearance No Abnormality ) -Color (Blossom-wound Skin Appearance) Ecchymosis Mottled -Ulcer Cleansing Rinsed/ Irrigated with Saline -Foul Odor after Cleansing No -Anesthetic Used 4% Lidocaine Solution [Edema Assessment] -Left Calf (cm) 26 -Left Ankle (cm) 16 - Nurse 2 - General Ulcer CM Notes Start: 01/19/18 10:45 Freq: Status: Active Protocol: Activity Type Activity Date Activity User E-Sign Co-Sign Detail Recorded Client Recorded Date Recorded By Document 01/19/18 11:20 [id number] 01/19/18 11:27 01/19/18 11:20 Wound Center Nurse 2 [Procedure/Treatment] #2 Left Lateral Foot -Time 11:26 -Correct Patient Yes -Correct Side, Site, Position Yes -Correct Procedure Yes -Procedure Performed Yes -Type of Procedure Debridement -Clinical Debridement Subcutaneous -Post Debridement Size (cm) - Length 0.3 -Post Debridement Size (cm) - Width 0.4 -Post Debridement Size (cm) - Depth 0.3 -Total Square Cm 0.12 -Wound/Ulcer Outcome Not Healed -Ulcer Cleansing Rinsed/ Irrigated with Saline -Foul Odor after Cleansing No -Bioengineered Tissue No -Topical Lidocaine (%) 4 -Bleeding Controlled with Pressure -Treatment Response Procedure Tolerated Well [See Physician Procedure note for Specifics] Pain Scale: 0-10 Numeric [Pain] -Is Patient Pain Free? Yes Musculoskeletal: No Tenderness to Palpation of Joints or Extremities, Muscle Wasting, - - Compartment left lower extremity soft Neurological: Sensory exam intact to light touch and pain Psych/Mental Status: Normal Affect, Appropriate Debridement Note Post-Debridement Measurements/Treatment - Nurse 2 - General Ulcer CM Notes Start: 01/19/18 10:45 Freq: Status: Active Protocol: Activity Type Activity Date Activity User E-Sign Co-Sign Detail Recorded Client Recorded Date Recorded By Document 01/19/18 11:20 [id number] 01/19/18 11:27 01/19/18 11:20 Wound Center Nurse 2 #2 Left Lateral Foot -Time 11:26 -Correct Patient Yes -Correct Side, Site, Position Yes -Correct Procedure Yes -Procedure Performed Yes -Type of Procedure Debridement -Clinical Debridement Subcutaneous -Post Debridement Size (cm) - Length 0.3 -Post Debridement Size (cm) - Width 0.4 -Post Debridement Size (cm) - Depth 0.3 -Total Square Cm 0.12 -Wound/Ulcer Outcome Not Healed -Ulcer Cleansing Rinsed/ Irrigated with Saline -Foul Odor after Cleansing No -Bioengineered Tissue No -Topical Lidocaine (%) 4 -Bleeding Controlled with Pressure -Treatment Response Procedure Tolerated Well Pain Scale: 0-10 Numeric Is Patient Pain Free? Yes Wound debrided: lateral foot Laterality: Left Type of Debridement: Excisional debridement Anesthesia Used: 4% Lidocaine Solution Depth: in the subcutaneous layer Percentage of wound debrided: 100 Instrument Used: #15 blade Tissue Removed: Devitalized subcutaneous, biofilm, slough, fibrous tissue Severity: Fat Layer Exposed Amount of bleeding with debridement: Mild Bleeding Controlled with: Pressure Patient tolerated procedure well Assessment/Plan Active Problems Ulcer of left lower extremity with fat layer exposed (Chronic) Down syndrome (Chronic) Assessment: Left foot ulcer with fat layer exposed. Chronic anticoagulation medication noted. Malnutrition suspected. Left lower extremity contractions noted. Down syndrome Plan: I reviewed and discussed her case today with the patient as well as her caregiver. Debridement was performed as noted in the clinical panel to the left foot. To change dressing daily with regranex for 12 hours; to store in refrigerator. During the remaining 12 hours of the day to apply Katerine as demonstrated. . To keep pressure off of the ulcer site with donut offloading pillow device. I recommend additional offloading brace to further protect her in the day while she is at work. An order was provided at a previous visit for antibiotic for ankle-foot orthotics additional offloading pocket to the lateral foot. She was advised not to walk on this wound site or rest with contact made to the wound. To avoid leaving the ulcer site open to the air. Edema control was initiated with Tubigrip application to the left leg and elevation at rest. This is well controlled at this time. To avoid wearing regular sneakers anytime to allow proper ulcer offloading on the left foot. Nutritional supplementation was ordered to optimize healing; Aidan. She will now be considered for complex care because the patient has limited personal and cognitive resources. She has difficulty with the expectation of level of compliance with her current wound management plan to achieve the desired outcomes. We will proceed forward with the aforementioned plan. She will follow up in clinic in 1 week or call sooner if there are any questions or concerns.
[2018-01-26 10:13] VITALS: BP 98/62; PULSE 78; RESP 16; TEMP 37.1; BMI 48.6
--- NOTE | 2018-01-26 11:14 | PN.PCM_ITS ---
(1) Ulcer of left lower extremity with fat layer exposed Status: Chronic Current Visit: Yes Code(s): L97.922 - Non-pressure chronic ulcer of unspecified part of left lower leg with fat layer exposed (2) Down syndrome Status: Chronic Current Visit: Yes Code(s): Q90.9 - Down syndrome, unspecified Type of Wound Date of Service: 01/26/18 Chief Complaint: Left foot ulcer History of Wound: This 52-year-old pleasant female with Down syndrome and other comorbidities seen today for a left foot wounds. She is with a caregiver today. She continues to wear the offloading donut pillow to keep pressure off of her foot chronic ulcer site. She is in a wheelchair today. She has demonstrated improvement with Regranex. Progress of Wound: improving - Physical Exam Vital Signs Temp Pulse Resp BP 98.7 F 78 16 98/62 01/26/18 10:13 01/26/18 10:13 01/26/18 10:13 01/26/18 10:13 General: Alert, Oriented x3, Cooperative Extremities: No cyanosis, No edema, No Calf Tenderness, Diminished Peripheral Pulses, - - Contracture left lower extremity unchanged Skin: Ulcer/ Wound - No purulence, no erythema, streaking, no odor, no infection left foot. Her skin is hairless and atrophic. The wound peripheral epithelialization and improved base granulation tissue is noted. Wound Measurements and Assessment WC - Nurse 1 - General Ulcer Measurement Start: 01/19/18 10:45 Freq: Status: Active Protocol: Activity Type Activity Date Activity User E-Sign Co-Sign Detail Recorded Client Recorded Date Recorded By Document 01/26/18 10:13 [facility] [id number] 01/26/18 10:18 [facility] 01/26/18 10:13 Wound Center Nurse 1 [Ulcer Assessment] #2 Left Lateral Foot -Combined with other wound No -Current Size (cm) - Length 0.3 -Current Size (cm) - Width 0.6 -Current Size (cm) - Depth 0.2 -Total Square Cm 0.18 -Photo Taken No -Epithelialization None Present -Tunneling No -Undermining/Tunneling No -Circular Undermining No -Exudate Amt Small (1-33%) -Exudate Type Serous -Wound Margin Distinct, Outline Attached -Granulation Amt None Present (0 %) -Slough/Fibrin Yes -Necrosis Amt Large (67-100%) -Necrotic Tissue Type Adherent Slough -Structure Exposed N/A -Texture (Blossom-wound Skin Appearance) Scarring -Moisture (Blossom-wound Skin Appearance Dry/Scaly ) -Color (Blossom-wound Skin Appearance) Assessed -Temperature (Blossom-wound Skin No Abnormality Appearance) (Pt Warm) -Tenderness on Palpation (Blossom-wound No Skin Appearance) -Ulcer Cleansing Rinsed/ Irrigated with Saline -Foul Odor after Cleansing No -Anesthetic Used 5% Lidocaine Gel [Edema Assessment] -Lower Limb Edema Present No -Left Calf (cm) 27.5 -Left Ankle (cm) 16.8 - Nurse 2 - General Ulcer CM Notes Start: 01/19/18 10:45 Freq: Status: Active Protocol: Activity Type Activity Date Activity User E-Sign Co-Sign Detail Recorded Client Recorded Date Recorded By Document 01/26/18 10:36 [id number] 01/26/18 10:37 01/26/18 10:36 Wound Center Nurse 2 [Procedure/Treatment] #2 Left Lateral Foot -Time 10:37 -Correct Patient Yes -Correct Side, Site, Position Yes -Correct Procedure Yes -Procedure Performed Yes -Type of Procedure Debridement -Clinical Debridement Subcutaneous -Post Debridement Size (cm) - Length 0.4 -Post Debridement Size (cm) - Width 0.6 -Post Debridement Size (cm) - Depth 0.1 -Total Square Cm 0.24 -Wound/Ulcer Outcome Not Healed -Ulcer Cleansing Rinsed/ Irrigated with Saline -Foul Odor after Cleansing No -Bleeding Controlled with Pressure -Treatment Response Procedure Tolerated Well [See Physician Procedure note for Specifics] Pain Scale: 0-10 Numeric [Pain] -Is Patient Pain Free? Yes Musculoskeletal: No Tenderness to Palpation of Joints or Extremities, Muscle Wasting, Tenderness - Wound manipulation tenderness decreased Neurological: Sensory exam intact to light touch and pain Psych/Mental Status: Normal Affect, Appropriate Debridement Note Post-Debridement Measurements/Treatment - Nurse 2 - General Ulcer CM Notes Start: 01/19/18 10:45 Freq: Status: Active Protocol: Activity Type Activity Date Activity User E-Sign Co-Sign Detail Recorded Client Recorded Date Recorded By Document 01/19/18 11:20 [id number] 01/19/18 11:27 Document 01/26/18 10:36 [id number] 01/26/18 10:37 JF 01/19/18 01/26/18 11:20 10:36 Wound Center Nurse 2 #2 Left Lateral Foot -Time 11:26 10:37 -Correct Patient Yes Yes -Correct Side, Site, Position Yes Yes -Correct Procedure Yes Yes -Procedure Performed Yes Yes -Type of Procedure Debridement Debridement -Clinical Debridement Subcutaneous Subcutaneous -Post Debridement Size (cm) - Length 0.3 0.4 -Post Debridement Size (cm) - Width 0.4 0.6 -Post Debridement Size (cm) - Depth 0.3 0.1 -Total Square Cm 0.12 0.24 -Wound/Ulcer Outcome Not Healed Not Healed -Ulcer Cleansing Rinsed/ Rinsed/ Irrigated with Irrigated with Saline Saline -Foul Odor after Cleansing No No -Bioengineered Tissue No -Topical Lidocaine (%) 4 -Bleeding Controlled with Pressure Pressure -Treatment Response Procedure Procedure Tolerated Well Tolerated Well Pain Scale: 0-10 Numeric Is Patient Pain Free? Yes Yes Wound debrided: lateral foot Laterality: Left Type of Debridement: Excisional debridement Anesthesia Used: 4% Lidocaine Solution Depth: in the subcutaneous layer Percentage of wound debrided: 100 Instrument Used: #15 blade Tissue Removed: fibrous, devitalized subcutaneous, biofilm, slough Severity: Fat Layer Exposed Amount of bleeding with debridement: Mild Bleeding Controlled with: Pressure Patient tolerated procedure well Assessment/Plan Active Problems Ulcer of left lower extremity with fat layer exposed (Chronic) Down syndrome (Chronic) Assessment: Left foot ulcer with fat layer exposed. Chronic anticoagulation medication noted. Malnutrition suspected. Left lower extremity contractions noted. Down syndrome Plan: I reviewed and discussed her case today with the patient as well as her caregiver. Debridement was performed as noted in the clinical panel to the left foot. To change dressing daily with regranex for 12 hours; to store in refrigerator. During the remaining 12 hours of the day to apply hydrogel with collagen as demonstrated. . To keep pressure off of the ulcer site with donut offloading pillow device. I recommend additional offloading brace to further protect her in the day while she is at work. An order was provided at a previous visit for antibiotic for ankle-foot orthotics additional offloading pocket to the lateral foot. She was advised not to walk on this wound site or rest with contact made to the wound. To avoid leaving the ulcer site open to the air. Edema control was initiated with Tubigrip application to the left leg and elevation at rest. This is well controlled at this time. To avoid wearing regular sneakers anytime to allow proper ulcer offloading on the left foot. Nutritional supplementation was ordered to optimize healing; Aidan. She will now be considered for complex care because the patient has limited personal and cognitive resources. She has difficulty with the expectation of level of compliance with her current wound management plan to achieve the desired outcomes. We will proceed forward with the aforementioned plan. She will follow up in clinic in 2 weeks or call sooner if there are any questions or concerns.
[2018-02-09 09:35] VITALS: BP 99/63; PULSE 81; RESP 16; TEMP 37; BMI 48.6
--- NOTE | 2018-02-09 10:02 | PCM.WC.PN ---
(1) Ulcer of left lower extremity with fat layer exposed Status: Resolved Current Visit: Yes Code(s): L97.922 - Non-pressure chronic ulcer of unspecified part of left lower leg with fat layer exposed (2) Down syndrome Status: Chronic Current Visit: Yes Code(s): Q90.9 - Down syndrome, unspecified Type of Wound Date of Service: 02/09/18 Chief Complaint: Left foot ulcer History of Wound: This 52-year-old pleasant female with Down syndrome and other comorbidities seen today for a left foot wounds. She is with a caregiver today. She continues to wear the offloading donut pillow to keep pressure off of her foot chronic ulcer site. She is in a wheelchair today. She has demonstrated improvement with Regranex. Her caregiver denies drainage and thinks the wound may be healed Progress of Wound: Healed - Physical Exam Vital Signs Temp Pulse Resp BP 98.6 F 81 16 99/63 02/09/18 09:35 02/09/18 09:35 02/09/18 09:35 02/09/18 09:35 General: Alert, Oriented x3, Cooperative Extremities: No cyanosis, Capillary Refill Less than 3 Seconds, No Calf Tenderness, Diminished Peripheral Pulses, Edema Skin: Ulcer/ Wound - Full epithelialization is noted in the wound has healed. The peripheral skin is atrophic. There is no drainage, no redness to the left lateral foot. Wound Measurements and Assessment WC - Nurse 1 - General Ulcer Measurement Start: 01/19/18 10:45 Freq: Status: Active Protocol: Activity Type Activity Date Activity User E-Sign Co-Sign Detail Recorded Client Recorded Date Recorded By Document 02/09/18 09:35 [id number] 02/09/18 09:37 02/09/18 09:35 Wound Center Nurse 1 [Ulcer Assessment] #2 Left Lateral Foot -Combined with other wound No -Current Size (cm) - Length 0.1 -Current Size (cm) - Width 0.1 -Current Size (cm) - Depth 0.1 -Total Square Cm 0.01 -Photo Taken No -Epithelialization Large 67-100% -Tunneling No -Undermining/Tunneling No -Circular Undermining No -Exudate Amt None Present (0 %) -Wound Margin Indistinct, Non -Visible -Granulation Amt None Present (0 %) -Slough/Fibrin Yes -Necrosis Amt Large (67-100%) -Necrotic Tissue Type Adherent Slough -Structure Exposed N/A -Texture (Blossom-wound Skin Appearance) Assessed Scarring -Moisture (Blossom-wound Skin Appearance Assessed ) Dry/Scaly -Color (Blossom-wound Skin Appearance) Assessed -Temperature (Blossom-wound Skin No Abnormality Appearance) (Pt Warm) -Tenderness on Palpation (Blossom-wound No Skin Appearance) -Ulcer Cleansing Rinsed/ Irrigated with Saline -Foul Odor after Cleansing No -Anesthetic Used 5% Lidocaine Gel [Edema Assessment] -Lower Limb Edema Present Yes -Left Calf (cm) 26.6 -Left Ankle (cm) 16.4 WC - Nurse 2 - General Ulcer CM Notes Start: 01/19/18 10:45 Freq: Status: Active Protocol: Activity Type Activity Date Activity User E-Sign Co-Sign Detail Recorded Client Recorded Date Recorded By Document 02/09/18 09:44 [id number] 02/09/18 09:51 02/09/18 09:44 Wound Center Nurse 2 [Procedure/Treatment] #2 Left Lateral Foot -Correct Patient No -Correct Side, Site, Position No -Correct Procedure No -Procedure Performed No -Post Debridement Size (cm) - Length 0 -Post Debridement Size (cm) - Width 0 -Post Debridement Size (cm) - Depth 0 -Total Square Cm 0 -Wound/Ulcer Outcome Healed- Epithelialized -Bleeding Controlled with NA [See Physician Procedure note for Specifics] Pain Scale: 0-10 Numeric [Pain] -Is Patient Pain Free? Yes Musculoskeletal: No Tenderness to Palpation of Joints or Extremities, Muscle Wasting, - - Contraction left lower extremity Neurological: Sensory exam intact to light touch and pain Psych/Mental Status: Appropriate, Anxious Debridement Note Post-Debridement Measurements/Treatment WC - Nurse 2 - General Ulcer CM Notes Start: 01/19/18 10:45 Freq: Status: Active Protocol: Activity Type Activity Date Activity User E-Sign Co-Sign Detail Recorded Client Recorded Date Recorded By Document 01/19/18 11:20 [id number] 01/19/18 11:27 Document 01/26/18 10:36 [id number] 01/26/18 10:37 Document 02/09/18 09:44 [id number] 02/09/18 09:51 01/19/18 01/26/18 02/09/18 11:20 10:36 09:44 Wound Center Nurse 2 #2 Left Lateral Foot -Time 11:26 10:37 -Correct Patient Yes Yes No -Correct Side, Site, Position Yes Yes No -Correct Procedure Yes Yes No -Procedure Performed Yes Yes No -Type of Procedure Debridement Debridement -Clinical Debridement Subcutaneous Subcutaneous -Post Debridement Size (cm) - Length 0.3 0.4 0 -Post Debridement Size (cm) - Width 0.4 0.6 0 -Post Debridement Size (cm) - Depth 0.3 0.1 0 -Total Square Cm 0.12 0.24 0 -Wound/Ulcer Outcome Not Healed Not Healed Healed- Epithelialized -Ulcer Cleansing Rinsed/ Rinsed/ Irrigated with Irrigated with Saline Saline -Foul Odor after Cleansing No No -Bioengineered Tissue No -Topical Lidocaine (%) 4 -Bleeding Controlled with Pressure Pressure NA -Treatment Response Procedure Procedure Tolerated Well Tolerated Well Pain Scale: 0-10 Numeric Is Patient Pain Free? Yes Yes Yes Wound debrided: lateral foot Laterality: Left No debridement was completed today - The wound site has healed Assessment/Plan Active Problems Down syndrome (Chronic) Assessment: Left foot ulcer with fat layer exposed. Chronic anticoagulation medication noted. Malnutrition suspected. Left lower extremity contractions noted. Down syndrome Plan: I reviewed and discussed her case today with the patient as well as her caregiver. Her ulcer site has healed and she can discontinue dressing care. To wear protective and supportive shoes that do not rub on the sensitive area. To monitor for wound recurrence and infection which none are noted today. She is healed and will be discharged from the wound care center at this time. I recommend she follow-up in the foot and ankle center if she has any lower extremity concerns in the future or call the wound center again if this returns. I answered all of her caregivers questions. She may resume her regular work schedule.
--- NOTE | 2018-02-09 10:06 | PN.PCM_ITS ---
(1) Ulcer of left lower extremity with fat layer exposed Status: Resolved Current Visit: Yes Code(s): L97.922 - Non-pressure chronic ulcer of unspecified part of left lower leg with fat layer exposed (2) Down syndrome Status: Chronic Current Visit: Yes Code(s): Q90.9 - Down syndrome, unspecified Type of Wound Date of Service: 02/09/18 Chief Complaint: Left foot ulcer History of Wound: This 52-year-old pleasant female with Down syndrome and other comorbidities seen today for a left foot wounds. She is with a caregiver today. She continues to wear the offloading donut pillow to keep pressure off of her foot chronic ulcer site. She is in a wheelchair today. She has demonstrated improvement with Regranex. Her caregiver denies drainage and thinks the wound may be healed Progress of Wound: Healed - Physical Exam Vital Signs Temp Pulse Resp BP 98.6 F 81 16 99/63 02/09/18 09:35 02/09/18 09:35 02/09/18 09:35 02/09/18 09:35 General: Alert, Oriented x3, Cooperative Extremities: No cyanosis, Capillary Refill Less than 3 Seconds, No Calf Tenderness, Diminished Peripheral Pulses, Edema Skin: Ulcer/ Wound - Full epithelialization is noted in the wound has healed. The peripheral skin is atrophic. There is no drainage, no redness to the left lateral foot. Wound Measurements and Assessment WC - Nurse 1 - General Ulcer Measurement Start: 01/19/18 10:45 Freq: Status: Active Protocol: Activity Type Activity Date Activity User E-Sign Co-Sign Detail Recorded Client Recorded Date Recorded By Document 02/09/18 09:35 [id number] 02/09/18 09:37 02/09/18 09:35 Wound Center Nurse 1 [Ulcer Assessment] #2 Left Lateral Foot -Combined with other wound No -Current Size (cm) - Length 0.1 -Current Size (cm) - Width 0.1 -Current Size (cm) - Depth 0.1 -Total Square Cm 0.01 -Photo Taken No -Epithelialization Large 67-100% -Tunneling No -Undermining/Tunneling No -Circular Undermining No -Exudate Amt None Present (0 %) -Wound Margin Indistinct, Non -Visible -Granulation Amt None Present (0 %) -Slough/Fibrin Yes -Necrosis Amt Large (67-100%) -Necrotic Tissue Type Adherent Slough -Structure Exposed N/A -Texture (Blossom-wound Skin Appearance) Assessed Scarring -Moisture (Blossom-wound Skin Appearance Assessed ) Dry/Scaly -Color (Blossom-wound Skin Appearance) Assessed -Temperature (Blossom-wound Skin No Abnormality Appearance) (Pt Warm) -Tenderness on Palpation (Blossom-wound No Skin Appearance) -Ulcer Cleansing Rinsed/ Irrigated with Saline -Foul Odor after Cleansing No -Anesthetic Used 5% Lidocaine Gel [Edema Assessment] -Lower Limb Edema Present Yes -Left Calf (cm) 26.6 -Left Ankle (cm) 16.4 WC - Nurse 2 - General Ulcer CM Notes Start: 01/19/18 10:45 Freq: Status: Active Protocol: Activity Type Activity Date Activity User E-Sign Co-Sign Detail Recorded Client Recorded Date Recorded By Document 02/09/18 09:44 [id number] 02/09/18 09:51 02/09/18 09:44 Wound Center Nurse 2 [Procedure/Treatment] #2 Left Lateral Foot -Correct Patient No -Correct Side, Site, Position No -Correct Procedure No -Procedure Performed No -Post Debridement Size (cm) - Length 0 -Post Debridement Size (cm) - Width 0 -Post Debridement Size (cm) - Depth 0 -Total Square Cm 0 -Wound/Ulcer Outcome Healed- Epithelialized -Bleeding Controlled with NA [See Physician Procedure note for Specifics] Pain Scale: 0-10 Numeric [Pain] -Is Patient Pain Free? Yes Musculoskeletal: No Tenderness to Palpation of Joints or Extremities, Muscle Wasting, - - Contraction left lower extremity Neurological: Sensory exam intact to light touch and pain Psych/Mental Status: Appropriate, Anxious Debridement Note Post-Debridement Measurements/Treatment WC - Nurse 2 - General Ulcer CM Notes Start: 01/19/18 10:45 Freq: Status: Active Protocol: Activity Type Activity Date Activity User E-Sign Co-Sign Detail Recorded Client Recorded Date Recorded By Document 01/19/18 11:20 [id number] 01/19/18 11:27 Document 01/26/18 10:36 [email or web address] 01/26/18 10:37 Document 02/09/18 09:44 [id number] 02/09/18 09:51 01/19/18 01/26/18 02/09/18 11:20 10:36 09:44 Wound Center Nurse 2 #2 Left Lateral Foot -Time 11:26 10:37 -Correct Patient Yes Yes No -Correct Side, Site, Position Yes Yes No -Correct Procedure Yes Yes No -Procedure Performed Yes Yes No -Type of Procedure Debridement Debridement -Clinical Debridement Subcutaneous Subcutaneous -Post Debridement Size (cm) - Length 0.3 0.4 0 -Post Debridement Size (cm) - Width 0.4 0.6 0 -Post Debridement Size (cm) - Depth 0.3 0.1 0 -Total Square Cm 0.12 0.24 0 -Wound/Ulcer Outcome Not Healed Not Healed Healed- Epithelialized -Ulcer Cleansing Rinsed/ Rinsed/ Irrigated with Irrigated with Saline Saline -Foul Odor after Cleansing No No -Bioengineered Tissue No -Topical Lidocaine (%) 4 -Bleeding Controlled with Pressure Pressure NA -Treatment Response Procedure Procedure Tolerated Well Tolerated Well Pain Scale: 0-10 Numeric Is Patient Pain Free? Yes Yes Yes Wound debrided: lateral foot Laterality: Left No debridement was completed today - The wound site has healed Assessment/Plan Active Problems Down syndrome (Chronic) Assessment: Left foot ulcer with fat layer exposed. Chronic anticoagulation medication noted. Malnutrition suspected. Left lower extremity contractions noted. Down syndrome Plan: I reviewed and discussed her case today with the patient as well as her caregiver. Her ulcer site has healed and she can discontinue dressing care. To wear protective and supportive shoes that do not rub on the sensitive area. To monitor for wound recurrence and infection which none are noted today. She is healed and will be discharged from the wound care center at this time. I recommend she follow-up in the foot and ankle center if she has any lower extremity concerns in the future or call the wound center again if this returns. I answered all of her caregivers questions. She may resume her regular work schedule.
== END 2018-02-14 23:59 ==
LOC: WC 09:30
PROVIDERS: Family Provider Family Medicine Geriatric Medicine; PCP Family Medicine Geriatric Medicine; Visit Provider Podiatrist
DX: L97.522 Non-pressure chronic ulcer of other part of left foot with fat layer exposed (principal); Q90.9 Down syndrome, unspecified; Z79.01 Long term (current) use of anticoagulants
CPT/HCPCS: 11042; 99212; G0463

== ENCOUNTER → 2018-03-17 11:55 | Outpatient (CLI) | payer MEDICARE, MEDICAID, SELFPAY ==
[2018-03-17 12:42] LABS: Absolute Lymphocyte Count 0.94 X10^3/ul (0.83-4.51); Absolute Neutrophil Count 3.9 X10^3/uL (2.0-7.7); Basophil# 0.04 X10^3/uL; Basophil% 0.7 % (0-1); Eosinophil# 0.11 X10^3/uL; Hematocrit 42.5 % (37-47); Hemoglobin 13.4 g/dl (12.0-15.0); Lymphocyte # 0.94 X10^3/ul (4.0); Lymphocyte % 17.2 % (19-41); Mean Corp Hgb Conc 31.5 g/gl (32-36); Mean Corpuscular Hgb 30.1 pg (27.0-32.0); Mean Corpuscular Volume 95.5 fL (81-99); Mean Platelet Vol. 9.8 fl (6.2-12.0); Monocyte# 0.49 X10^3/uL; Neutrophil # 3.87 X10^3/uL (2.7-7.7); Neutrophil % 70.7 % (47-70); Platelet Count 216 K/mm3 (150-450); RBC Distribution Width CV 14.8 % (11.6-14.6); RBC Distribution Width SD 52.1 fl (35.1-43.9); Red Blood Count 4.45 M/mm3 (4.2-5.4); White Blood Count 5.5 K/mm3 (4.4-11.0)
[2018-03-17 12:52] LABS: POSITIVE COUNT NO; POSITIVE DIFFERENTIAL NO; POSITIVE MORPHOLOGY NO
[2018-03-17 13:26] LABS: ALB/GLOB Ratio 0.5 RATIO (0.9-2.4); AST(SGOT) 23 U/L (15-37); Alanine Aminotransfer ALT/SGPT 21 U/L (13-56); Albumin, Serum 2.9 g/dL (3.2-5.0); Alkaline Phosphatase 92 U/L (45-117); Anion Gap 11 (5-15); BUN 17 mg/dL (7-18); BUN/Creat Ratio 19.9 RATIO (10-20); Calcium,Total 8.9 mg/dL (8.5-10.1); Chloride 102 mmol/L (98-107); Creatinine, Serum 0.86 mg/dL (0.55-1.02); EST Glomerular Filtration Rate 74 mL/min (>60); Est Glom Filt Rate - Afr Amer 90 mL/min (>60); Globulin 5.5 g/dL (2.2-4.2); Glucose 73 mg/dL (74-106); Potassium 4.1 mmol/L (3.5-5.1); Protein, Total 8.4 g/dL (6.4-8.2); Sodium Level 142 mmol/L (136-145); Thyroid Stim Hormone (TSH) 1.61 uIU/mL (0.358-3.74)
[2018-03-18 12:24] LABS: Vitamin D,25 Hydroxy 58.6 ng/mL (29.95-100.01)
== END ==
PROVIDERS: Family Provider Family Medicine Geriatric Medicine; PCP Family Medicine Geriatric Medicine; Visit Provider Family Medicine Geriatric Medicine
DX: E55.9 Vitamin D deficiency, unspecified (principal); R53.83 Other fatigue
CPT/HCPCS: 36415; 80053; 82306; 84443; 85025

== ENCOUNTER → 2018-04-22 10:28 | Outpatient (CLI) | payer MEDICARE, MEDICAID, SELFPAY ==
--- NOTE | 2018-04-22 10:33 | ADU_ITS ---
Reason For Study: PAD Left Velocities Ext Iliac Artery, dist = 116.0 cm./sec. Common Femoral Artery, prox = 141.0 cm./sec. Supf. Femoral Artery, prox = 134.0 cm./sec. Supf. Femoral Artery, mid = 99.8 cm./sec. Supf. Femoral Artery, dist = 88.0 cm./sec. Profunda Femoral Artery = 97.2 cm./sec. Popliteal Artery, proximal, = 43.8 cm./sec. Popliteal Artery, mid = 41.9 cm./sec. Popliteal Artery, distal = 43.8 cm./sec. Post. Tibial Artery, prox = 60.5 cm./sec. Post Tibial Artery, mid = 56.6 cm./sec. Post Tibial Artery, dist. = 57.4 cm./sec. Peroneal Artery, prox = 41.2 cm./sec. Peroneal Artery, mid = 45.2 cm./sec. Peroneal Artery,dist. = 40.9 cm./sec. Ant.Tibial Artery, prox = 75.4 cm./sec. Ant Tibial Artery, mid = 79.0 cm./sec. Ant. Tibial Artery, distal = 34.2 cm./sec. Procedure Exam performed in department. Interpretation Summary 1. Left leg with triphasic flow throughout and no stenosis seen. Ordering Physician: Jacky Zuñiga Referring Physician: Jacky Zuñiga Performed By: Taty Sharma RVT
--- NOTE | 2018-04-22 10:52 | AAVD_ITS ---
Reason For Study: Aorto-iliac occlusive disease Aorta Measurements Aorta Doppler Measurements Proximal aorta measures1.5 x 1.5cm. in cross- Peak systolic flow velocities within the proximal sectional axis. aorta measure 102.0 cm/sec. Proximal aorta measures1.5cm. in longitudinal Peak systolic flow velocities within the mid axis. aorta measure 86.6 cm/sec. Mid aorta measures1.2 x 1.1cm. in cross-sectionalPeak systolic flow velocities within the distal axis. aorta measure 118.0 cm/sec. Mid aorta measures1.2cm. in longitudinal axis. Distal aorta measures1.1 x 1.1cm. in cross- sectional axis. Distal aorta measures1.2cm. in longitudinal axis. Procedure Aorta IVC Iliac vasculature or bypass grafts [id number]. Technically difficult due to body habitus and bowel gas. Lucien Iliacs not visualized. Interpretation Summary 1. Aortoiliac segment with no aneurysm and no stenosis. Ordering Physician: Jacky Zuñiga Referring Physician: Jacky Zuñiga Performed By: Taty Sharma RVT
--- NOTE | 2018-04-27 11:25 | LEAS ---
Arterial Study - Arterial Study Arterial Study: Date of scan 04/22/[address] Zuñiga Indication: Patient with aortoiliac occlusive disease Interpretation: Right lower extremity with pulsatile flow noted down at the ankle with an RON 0.99 at the PT 0.98 at the DP appears more biphasic to triphasic of the posterior tib. Decreased waveform DP. Left lower extremity with more of a triphasic signal noted the PT with an RON 1.14 biphasic of the DP 0.98. Impression: 1. Bilateral lower extremities with no evidence of significant arterial occlusive disease at rest with an RON 0.99 on the right 1.14 on the left.
== END ==
PROVIDERS: Family Provider Family Medicine Geriatric Medicine; PCP Family Medicine Geriatric Medicine; Visit Provider Surgery Vascular Surgery
DX: I73.9 Peripheral vascular disease, unspecified (principal); I74.09 Other arterial embolism and thrombosis of abdominal aorta; Q89.9 Congenital malformation, unspecified; J45.909 Unspecified asthma, uncomplicated; I10 Essential (primary) hypertension; Z86.718 Personal history of other venous thrombosis and embolism
CPT/HCPCS: 93922; 93926; 93978

== ENCOUNTER → 2018-07-22 12:02 | Outpatient (CLI) | payer MEDICARE, MEDICAID, SELFPAY ==
--- NOTE | 2018-07-22 12:17 | RAD_ITS ---
STUDY: X-RAY CHEST REASON FOR EXAM: Female, 53 years old. Cough chills 2 days TECHNIQUE: PA and lateral views of the chest. COMPARISON: October 20, 2017 chest x-ray FINDINGS: The lungs are underexpanded. Interstitial markings are diffusely prominent. Since prior study there is focal opacity in the right upper lobe and limited visualization of the left hemidiaphragm. There is no demonstrated pleural abnormality. There is mild cardiac enlargement. Normal mediastinum and terrell. Normal visualized pulmonary arteries. There is atherosclerotic calcification of the aortic arch with tortuosity. There are diffuse degenerative changes of the visualized thoracic spine. Normal visualized ribs, clavicles, and shoulders. There is no demonstrated abnormality of the visualized soft tissue structures of the upper abdomen. RAD/Chest PA and Lateral IMPRESSION: Lungs are underexpanded. Findings are suspicious for right upper lobe possible left lower lobe pneumonia superimposed on underlying chronic lung disease. Cardiomegaly. N.B. : The above information has been verbally conveyed by Ashley Fung MD to Dr. Yassine MD, on 07/22/2018 17:15:15 (ET). Electronically Signed: Ashley Fung MD at 17:02 EDT Tel , Service support ,
== END ==
PROVIDERS: Family Provider Family Medicine Geriatric Medicine; PCP Family Medicine Geriatric Medicine; Referring Provider Family Medicine Geriatric Medicine; Visit Provider Family Medicine Geriatric Medicine
DX: R05 Cough (principal); R68.83 Chills (without fever)
CPT/HCPCS: 71046; 87633

== ENCOUNTER → 2018-08-29 11:55 | Outpatient (CLI) | payer MEDICARE, MEDICAID, SELFPAY ==
[2018-08-29 12:45] LABS: Absolute Lymphocyte Count 1.11 X10^3/ul (0.83-4.51); Absolute Neutrophil Count 3.2 X10^3/uL (2.0-7.7); Basophil# 0.03 X10^3/uL; Basophil% 0.6 % (0-1); Eosinophil# 0.04 X10^3/uL; Eosinophils% 0.8 % (0-5); Hematocrit 43.5 % (37-47); Hemoglobin 13.3 g/dl (12.0-15.0); Lymphocyte # 1.11 X10^3/ul (4.0); Lymphocyte % 23.1 % (19-41); Mean Corp Hgb Conc 30.6 g/gl (32-36); Mean Corpuscular Hgb 29.6 pg (27.0-32.0); Mean Corpuscular Volume 96.7 fL (81-99); Mean Platelet Vol. 9.8 fl (6.2-12.0); Monocyte# 0.44 X10^3/uL; Monocyte% 9.1 % (0-10); Neutrophil # 3.17 X10^3/uL (2.7-7.7); Platelet Count 245 K/mm3 (150-450); RBC Distribution Width SD 58.8 fl (35.1-43.9); White Blood Count 4.8 K/mm3 (4.4-11.0)
[2018-08-29 12:46] LABS: POSITIVE COUNT NO; POSITIVE DIFFERENTIAL NO; POSITIVE MORPHOLOGY NO
[2018-08-29 13:13] LABS: ALB/GLOB Ratio 0.5 RATIO (0.9-2.4); AST(SGOT) 20 U/L (15-37); Alanine Aminotransfer ALT/SGPT 32 U/L (13-56); Albumin, Serum 2.6 g/dL (3.2-5.0); Alkaline Phosphatase 85 U/L (45-117); Anion Gap 8 (5-15); BUN 12 mg/dL (7-18); BUN/Creat Ratio 13.2 RATIO (10-20); Calcium,Total 8.7 mg/dL (8.5-10.1); Chloride 105 mmol/L (98-107); Creatinine, Serum 0.91 mg/dL (0.55-1.02); EST Glomerular Filtration Rate 69 mL/min (>60); Est Glom Filt Rate - Afr Amer 83 mL/min (>60); Globulin 5.2 g/dL (2.2-4.2); Glucose 92 mg/dL (74-106); Protein, Total 7.8 g/dL (6.4-8.2); Sodium Level 144 mmol/L (136-145); Thyroid Stim Hormone (TSH) 1.96 uIU/mL (0.358-3.74)
[2018-08-29 14:44] LABS: M R Staph aureus DNA By PCR Negative (Negative); Probe Check PASS; Specimen Processing Control PASS; Staph aureus DNA By PCR NEGATIVE (Negative)
[2018-08-29 14:52] LABS: Vitamin D,25 Hydroxy 52.6 ng/mL (29.95-100.01)
== END ==
PROVIDERS: Family Provider Family Medicine Geriatric Medicine; PCP Family Medicine Geriatric Medicine; Visit Provider Family Medicine Geriatric Medicine
DX: L89.90 Pressure ulcer of unspecified site, unspecified stage (principal); B95.62 Methicillin resistant Staphylococcus aureus infection as the cause of diseases classified elsewhere; E55.9 Vitamin D deficiency, unspecified; R53.83 Other fatigue
CPT/HCPCS: 36415; 80053; 82306; 84443; 85025; 87070; 87077; 87186; 87205; 87640

== ENCOUNTER → 2018-10-14 10:05 | Outpatient (CLI) | payer MEDICARE, MEDICAID, SELFPAY | PROVIDERS: Family Provider Family Medicine Geriatric Medicine; PCP Family Medicine Geriatric Medicine; Referring Provider Family Medicine Geriatric Medicine; Visit Provider Family Medicine Geriatric Medicine | DX: R68.83 Chills (without fever) (principal) | CPT/HCPCS: 87633 ==

== ENCOUNTER → 2018-12-06 14:53 | Outpatient (CLI) | payer MEDICARE, MEDICAID, SELFPAY ==
[2018-12-06 15:49] LABS: Hemoglobin 12.8 g/dl (12.0-15.0)
== END ==
PROVIDERS: Family Provider Family Medicine Geriatric Medicine; PCP Family Medicine Geriatric Medicine; Visit Provider Family Medicine Geriatric Medicine
DX: D64.9 Anemia, unspecified (principal)
CPT/HCPCS: 36415; 85014; 85018

== ENCOUNTER 2018-12-11 11:51 | Inpatient (IN) | payer MEDICARE, MEDICAID, SELFPAY ==
[2018-12-11] VITALS (18 sets, daily range): BP systolic 83–127; BP diastolic 32–89; PULSE 74–115; RESP 17–28; TEMP 36.6–37.8; O2SAT 40–99; BMI 36.7; BMI 37.0
--- NOTE | 2018-12-11 12:05 | RAD_ITS ---
STUDY: X-RAY CHEST REASON FOR EXAM: Female, 53 years old. Shortness of breath. TECHNIQUE: Single portable frontal view of the chest was obtained. COMPARISON: July 22, 2018 FINDINGS: There is prominence of the perihilar lung markings and patchy airspace disease in the left mid and bilateral lower lungs. Study is limited secondary to body habitus. There is no demonstrated pleural abnormality. Normal size heart. Normal mediastinum and terrell. Normal visualized pulmonary arteries. Normal visualized aortic arch and descending thoracic aorta. Normal visualized thoracic spine. Normal visualized ribs, clavicles, and shoulders. There is no demonstrated abnormality of the visualized soft tissue structures of the upper abdomen. RAD/Chest 1 View (Portable) IMPRESSION: Mild pulmonary vascular congestion. Possible airspace disease at the lung bases. Findings appear mildly improved in the right lung and unchanged in the left lung compared to the prior study. Study limited by body habitus. Electronically Signed: Danny Santoro, at 12:36 EST Tel , Service support ,
--- NOTE | 2018-12-11 12:05 | EKG12_ITS ---
Test Reason : Blood Pressure : / mmHG Vent. Rate : 100 BPM Atrial Rate : 100 BPM P-R Int : 156 ms QRS Dur : 078 ms QT Int : 346 ms P-R-T Axes : 055 -23 028 degrees QTc Int : 446 ms Normal sinus rhythm Cannot rule out Anterior infarct , age undetermined Abnormal ECG Confirmed by TYRONE LORA, TEJ ([id number]), editor house organ SRINI UGALDE ([id number]) on 12/13/2018 4:59:04 PM Referred By: KARLI Confirmed By:TEJ HANSEN MD
--- NOTE | 2018-12-11 12:09 | ED.VISSUMM ---
- ER Visit Summary Date of Service: 12/11/18 Chief Complaint: Dyspnea History of Present Illness: The patient is a 53 F who is a Down syndrome patient at [facility]. Patient noted yesterday to be doing pretty well except for new onset of nasal congestion and rhinorrhea. This morning the patient was noted to have altered mental status globally weak. She was confused. He noticed that she had a hard time breathing. 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 She has family in the area. Patient is on Eliquis due to significant pulmonary embolism and DVT requiring surgery 2 years ago. No reported missed doses. Staff gave aerosol this morning. Physical Examination: 97/32 heart rate of 93 respirations are 26 and labored 90% on nonrebreather mask with poor waveform Gen: Well-nourished well-developed Head: Normocephalic atraumatic down faces Eyes: Perrl EOMI ENT: TMs clear no rhinorrhea moist mucous membranes Neck: Supple no lymphadenopathy no JVD nontender CVS: Regular rate rhythm no murmurs normal S1-S2 Respiratory: Tachypneic. Diminished breath sounds bilaterally. Inspiratory expiratory wheezing with rhonchi chest nontender Abdomen: Soft nontender nondistended normal bowel sounds no masses obese Back: Nontender Extremity: Nontender no edema Skin: Patient has cool and mottled distal lower extremities. Neuro: Patient is alert but lethargic appearing. She is not speaking. She does move all extremities Test Results: EKG shows a sinus rhythm at a rate of 100. White count is normal at 6.9 hemoglobin 11.7. Lactic acid 1.2. Chest x-ray is concerning to me for possible retrocardiac infiltrate. CTA of the chest demonstrated no PE. Was a noted to have groundglass opacities in left upper lobe infiltrate. Emergency Department Course and Treatment: Blood cultures were obtained. Patient received IV fluids and her blood pressure significantly improved. She is more alert. We are weaning oxygen Ventimask down. Her lung sounds are improved now with minimal expiratory wheeze but continued rhonchi on the left. She received Rocephin and azithromycin. Her distal extremities are no longer mottled. She has better capillary refill now less than 3 seconds. Pain is admission into the hospital. Impression: 1. Pneumonia 2. Bronchospasm 3. Sepsis This note was generated with [employer] dictation software. It may contain incorrect words, spelling, and punctuation that were not noted in review of the chart prior to signing ED Disposition - Plan for ED Patient: Referrals: Erasto Metzger Chi, MD [Primary Care Provider] -
[2018-12-11] MEDS: 0.9% Normal Saline 1,000 ML IV.SOLN. 2400 ML IV (12:10)
--- NOTE | 2018-12-11 12:12 | ED.DCSUM_ITS ---
- ER Visit Summary Date of Service: 12/11/18 Chief Complaint: Dyspnea History of Present Illness: The patient is a 53 F who [facility]. Patient noted yesterday to be doing pretty well except for new onset of nasal congestion and rhinorrhea. This morning the patient was noted to have altered mental status globally weak. She was confused. He noticed that she had a hard time breathing. 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 She has family in the area. Patient is on Eliquis due to significant pulmonary embolism and DVT requiring surgery 2 years ago. No reported missed doses. Staff gave aerosol this morning. Physical Examination: 97/32 heart rate of 93 respirations are 26 and labored 90% on nonrebreather mask with poor waveform Gen: Well-nourished well-developed Head: Normocephalic atraumatic down faces Eyes: Perrl EOMI ENT: TMs clear no rhinorrhea moist mucous membranes Neck: Supple no lymphadenopathy no JVD nontender CVS: Regular rate rhythm no murmurs normal S1-S2 Respiratory: Tachypneic. Diminished breath sounds bilaterally. Inspiratory expiratory wheezing with rhonchi chest nontender Abdomen: Soft nontender nondistended normal bowel sounds no masses obese Back: Nontender Extremity: Nontender no edema Skin: Patient has cool and mottled distal lower extremities. Neuro: Patient is alert but lethargic appearing. She is not speaking. She does move all extremities Test Results: EKG shows a sinus rhythm at a rate of 100. White count is normal at 6.9 hemoglobin 11.7. Lactic acid 1.2. Chest x-ray is concerning to me for possible retrocardiac infiltrate. CTA of the chest demonstrated no PE. Was a noted to have groundglass opacities in left upper lobe infiltrate. Emergency Department Course and Treatment: Blood cultures were obtained. Patient received IV fluids and her blood pressure significantly improved. She is more alert. We are weaning oxygen Ventimask down. Her lung sounds are improved now with minimal expiratory wheeze but continued rhonchi on the left. She received Rocephin and azithromycin. Her distal extremities are no longer mottled. She has better capillary refill now less than 3 seconds. Pain is a dmission into the hospital. Impression: 1. Pneumonia 2. Bronchospasm 3. Sepsis This note was generated with [employer] dictation software. It may contain incorrect words, spelling, and punctuation that were not noted in review of the chart prior to signing ED Disposition - Plan for ED Patient: Referrals: Erasto Metzger Chi, MD [Primary Care Provider] -
[2018-12-11 12:21] LABS: Absolute Lymphocyte Count 0.87 X10^3/ul (0.83-4.51); Absolute Neutrophil Count 5.4 X10^3/uL (2.0-7.7); Basophil# 0.03 X10^3/uL; Basophil% 0.4 % (0-1); Eosinophil# 0.04 X10^3/uL; Eosinophils% 0.6 % (0-5); Hematocrit 37.9 % (37-47); Hemoglobin 11.7 g/dl (12.0-15.0); Lymphocyte # 0.87 X10^3/ul (4.0); Lymphocyte % 12.7 % (19-41); Mean Corp Hgb Conc 30.9 g/gl (32-36); Mean Corpuscular Hgb 30.3 pg (27.0-32.0); Mean Corpuscular Volume 98.2 fL (81-99); Mean Platelet Vol. 9.2 fl (6.2-12.0); Monocyte# 0.49 X10^3/uL; Monocyte% 7.2 % (0-10); Neutrophil # 5.41 X10^3/uL (2.7-7.7); Platelet Count 229 K/mm3 (150-450); RBC Distribution Width CV 17.4 % (11.6-14.6); RBC Distribution Width SD 62.1 fl (35.1-43.9); Red Blood Count 3.86 M/mm3 (4.2-5.4); White Blood Count 6.9 K/mm3 (4.4-11.0)
[2018-12-11 12:22] LABS: POSITIVE COUNT NO; POSITIVE DIFFERENTIAL NO; POSITIVE MORPHOLOGY NO
[2018-12-11 12:27] LABS: International Normalized Ratio 1.8
[2018-12-11 12:35] LABS: Bacteria 0 SEEN /hpf (None Seen); Color, Urine Yellow (Yellow); Glucose, Dipstick Normal (Normal); Ketone-Dipstick Negative (Negative); Leukocyte Esterase-Dipstick 25 /ul (Negative); Mucous, Urine 0 SEEN /hpf (<or=2+); Nitrite-Dipstick Negative (Negative); Occult Blood-Urine 10 /ul (Negative); Protein-Dipstick 30 mg/dl (Negative); Urine Bilirubin Dipstick Negative (Negative); Urine Clarity Clear (Clear); Urine Urobilinogen 1 mg/dl (Normal); White Blood Cells 0 SEEN /hpf (0-5)
[2018-12-11] MEDS: Ipratropium/Albuterol Sulfate 3 ML AMPUL.NEB INHALATION (12:36)
[2018-12-11] MEDS: Albuterol 2.5 MG/3 ML VIAL.NEB. INHALATION ×2 (12:36→23:50)
[2018-12-11 12:37] LABS: ALB/GLOB Ratio 0.4 RATIO (0.9-2.4); AST(SGOT) 25 U/L (15-37); Alanine Aminotransfer ALT/SGPT 22 U/L (13-56); Albumin, Serum 2.3 g/dL (3.2-5.0); Alkaline Phosphatase 73 U/L (45-117); Anion Gap 5 (5-15); BUN 15 mg/dL (7-18); BUN/Creat Ratio 14.7 RATIO (10-20); Calcium,Total 8.4 mg/dL (8.5-10.1); Chloride 105 mmol/L (98-107); Creatinine, Serum 1.02 mg/dL (0.55-1.02); EST Glomerular Filtration Rate 60 mL/min (>60); Est Glom Filt Rate - Afr Amer 73 mL/min (>60); Estimated Creatinine Clearance 81.28 ml/min; Globulin 5.2 g/dL (2.2-4.2); Glucose 133 mg/dL (74-106); Potassium 4.1 mmol/L (3.5-5.1); Protein, Total 7.5 g/dL (6.4-8.2); Sodium Level 138 mmol/L (136-145)
--- NOTE | 2018-12-11 12:41 | CT_ITS ---
STUDY: CTA CHEST REASON FOR EXAM: Female, 53 years old. Hypoxia, cough and tachycardia. RADIATION DOSAGE (If Supplied By Facility): CTDIvol = ( 19.99 ) mGy, DLP = ( 612.46 ) mGycm TECHNIQUE: The examination was performed with the intravenous administration of Isovue 370 75mL IV. Post-processing of the angiographic images was performed, with multiplanar reformation and 3D reconstruction. Individualized dose optimization techniques were used for this CT. COMPARISON: None. FINDINGS: Normal enhancement of the main pulmonary artery and right and left pulmonary arteries. There is limited evaluation of the bilateral peripheral pulmonary arteries due to significant artifacts. The sagittal and coronal reconstruction images are limited. There is no demonstrated pulmonary embolism. Normal thoracic aorta and visualized great vessels. There is no demonstrated aortic dissection. The heart is borderline in size. There is no evidence of pericardial effusion. Normal mediastinum. Normal hilar regions. There is questionable narrowing of the left mainstem bronchus. The lungs are well expanded. There are hazy bilateral groundglass opacities/infiltrates likely due to pulmonary edema. There is focal infiltrate in the superior segment of the left lower lobe. There are no pleural effusions. The patient is status post left mastectomy. There is dextroscoliosis of the thoracic spine. There are degenerative changes. The visualized portions of the upper abdomen demonstrate no definite abnormality. CT/CTA Chest W/WO Contrast IMPRESSION: 1. Suboptimal evaluation of the peripheral branches due to significant artifacts. No evidence of pulmonary embolism. 2. Bilateral hazy groundglass opacities/infiltrates likely due to pulmonary edema. 3. Small focal infiltrate in the superior segment of the left lower lobe. 4. No evidence of pleural effusions. Electronically Signed: Wilberto Jerome MD at 13:36 EST Tel , Service support ,
[2018-12-11 12:42] LABS: Lactic Acid 1.2 mmol/L (0.4-2.0)
[2018-12-11 12:44] LABS: Red Blood Cells-Urine 0-5 SEEN /hpf (0-5); Squamous Epithelial Cells - UA 0-5 SEEN /hpf (5-10)
--- NOTE | 2018-12-11 15:08 | ED.RN ---
called pharmacy for iv antibiotics after 32 minutes of being ordered.
[2018-12-11] MEDS: Ceftriaxone 1 GM/50 ML BAG IV (15:32)
--- NOTE | 2018-12-11 15:35 | PCM.HP.STD ---
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 She lives in a retirement for down syndrome. She presents with her caregiver and sister who are providing the history at this time. She started feeling ill yesterday with runny nose, cough and congestion. Today she became more SOB, and seemed more confused. She came to the ER with hypoxia and poor blood pressure which improved with fluids. She was placed on a venti mask to maintain good sats, however after breathing treatments was able to be transitioned to nasal cannula. CXR and CTA are c/w pneumonia. No sick contacts at the retirement currently. She has not been going to workshop to avoid getting sick. [] 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) Chronic ulcer of left foot with fat layer exposed (Chronic) Down syndrome (Chronic) Allergies levonorgestrel Allergy (Verified 12/11/18 12:00) Unknown Home Medications: Ambulatory Orders Medication Instructions Recorded Albuterol Aerosols [Ventolin 2.5 mg INHALATION Q4H PRN PRN 12/11/18 Aerosols] Apixaban [Eliquis] 5 mg PO DAILY 12/11/18 Atorvastatin Calcium [Lipitor] 40 mg PO QHS 12/11/18 Budesonide/Formoterol Fumarate 2 puff IH BID 12/11/18 [Symbicort 160-4.5 Mcg Inhaler] Ergocalciferol (Vitamin D2) 50,000 unit PO WE 12/11/18 [Vitamin D2] Fexofenadine HCl [Rosemary Allergy] 60 mg PO DAILY 12/11/18 Fluticasone 0.05% [Flonase Nasal 2 spray NASAL DAILY 12/11/18 [place]] Loratadine [Claritin] 10 mg PO DAILY 12/11/18 Montelukast [Singulair] 10 mg PO DAILY 12/11/18 Polyvinyl Alcohol [Liquitears] 1 drop OP 4X/DAY 12/11/18 Surgical History: - - LLE revascularization procedure. 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 Denies: Anorexia, Chills Eyes: Denies: Blurred vision, Vision Change HEENT: Reports: Nasal Congestion, Sinus Congestion, Sinus Drainage. Denies: Head Aches Cardiovascular: Denies: Chest Pain, Palpitations Respiratory: Denies: Cough, Shortness of breath at rest, Sputum production Gastrointestinal: Denies: Abdominal Pain, Nausea, Vomiting Genitourinary: Denies: Dysuria Musculoskeletal: Denies: Joint Pain, Joint Tenderness Skin: Denies: Rash, Wounds Neurological: Denies: Numbness, Tingling, Focal weakness Psychiatric: Denies: Anxiety, Depression, Homicidal Ideations, Suicidal Ideations Hematologic/ Lymphatic: Denies: Easy Bruising, Easy Bleeding VTE Information - Inpt Only VTE Present on Admission: No VTE Mechan Device Prophylaxis: None VTE Pharm Prophylaxis ordered?: Yes Patient Problems: Active and Suspected Problems PNA (pneumonia) (Acute) Sepsis (Acute) - Physical Exam General: Alert, Oriented x3, Cooperative HEENT: Atraumatic, PERRLA, EOMI, Normocephalic Neck: Supple, No JVD, Negative Carotid Bruits Lungs: Diminished, Rhonchi Cardiovascular: Regular rate, No murmurs Abdomen: Obese Extremities: No edema, Capillary Refill Less than 3 Seconds Skin: No rashes, No breakdown Musculoskeletal: No Tenderness to Palpation of Joints or Extremities Neurological: Cranial nerves II-XII grossly intact Psych/Mental Status: Normal Affect, Appropriate, Alert and oriented to time, place, person, mood and affect Vital Signs Temp Pulse Resp BP Pulse Ox 99.5 F H 107 H 24 H 116/59 L 94 12/11/18 15:00 12/11/18 15:00 12/11/18 15:00 12/11/18 15:00 12/11/18 15:00 Oxygen Flow Rate (L/min) 8 Oxygen Delivery Method Nasal Cannula Weight: 175 lb 14.862 oz Body Mass Index (BMI) 36.7 Laboratory Tests Past 24 Hrs 12/11/18 12/11/18 12/11/18 12:05 12:05 12:05 WBC 6.9 RBC 3.86 L Hgb 11.7 L Hct 37.9 MCV 98.2 MCH 30.3 MCHC 30.9 L RDW 17.4 H RDW Differential 62.1 H Plt Count 229 MPV 9.2 Immature Gran % (Auto) 0.100 Neut % (Auto) 79.0 H Lymph % (Auto) 12.7 L [place] % (Auto) 7.2 Eos % (Auto) 0.6 Baso % (Auto) 0.4 Absolute Neuts (auto) 5.4 Absolute Lymphs (auto) 0.87 Total Counted Not Reportable PT 21.0 H INR 1.8 APTT 36.0 Sodium 138 Potassium 4.1 Chloride 105 Carbon Dioxide 28.0 Anion Gap 5 BUN 15 Creatinine 1.02 Estim Creat Clear Calc 81.28 Est GFR (MDRD) Af Amer 73 Est GFR (MDRD) Non-Af 60 BUN/Creatinine Ratio 14.7 Glucose 133 H Lactic Acid Calcium 8.4 L Total Bilirubin 0.60 AST 25 ALT 22 Alkaline Phosphatase 73 Troponin I < 0.015 B-Natriuretic Peptide Total Protein 7.5 Albumin 2.3 L Globulin 5.2 H Albumin/Globulin Ratio 0.4 L Urine Color Urine Clarity Urine pH Ur Specific [place] Urine Protein Urine Glucose (UA) Urine Ketones Urine Occult Blood Urine Nitrite Urine Bilirubin Urine Urobilinogen Ur Leukocyte Esterase Urine RBC Urine WBC Ur Squamous Epith Cells Urine Bacteria Urine Mucus 12/11/18 12/11/18 12/11/18 12:05 12:05 12:25 WBC RBC Hgb Hct MCV MCH MCHC RDW RDW Differential Plt Count MPV Immature Gran % (Auto) Neut % (Auto) Lymph % (Auto) [place] % (Auto) Eos % (Auto) Baso % (Auto) Absolute Neuts (auto) Absolute Lymphs (auto) Total Counted PT INR APTT Sodium Potassium Chloride Carbon Dioxide Anion Gap BUN Creatinine Estim Creat Clear Calc Est GFR (MDRD) Af Amer Est GFR (MDRD) Non-Af BUN/Creatinine Ratio Glucose Lactic Acid 1.2 Calcium Total Bilirubin AST ALT Alkaline Phosphatase Troponin I B-Natriuretic Peptide 15.0 Total Protein Albumin Globulin Albumin/Globulin Ratio Urine Color Yellow Urine Clarity Clear Urine pH 5.0 Ur Specific [place] 1.020 Urine Protein 30 H Urine Glucose (UA) Normal Urine Ketones Negative Urine Occult Blood 10 H Urine Nitrite Negative Urine Bilirubin Negative Urine Urobilinogen 1 H Ur Leukocyte Esterase 25 H Urine RBC 0-5 SEEN Urine WBC 0 SEEN Ur Squamous Epith Cells 0-5 SEEN Urine Bacteria 0 SEEN Urine Mucus 0 SEEN Assessment/Plan All Active Problems PNA (pneumonia) (Acute) Sepsis (Acute) Pulmonary embolism (Acute) Acute deep vein thrombosis (DVT) of left lower extremity (Acute) Cellulitis of left leg (Resolved) Ulcer of left lower extremity with fat layer exposed (Resolved) 1. Acute sepsis 2/2 multilobular CAP with acute hypoxic respiratory failure - initially required venti mask to maintain good O2 sats, improving already. Sepsis criteria met by evidence of pna on CXR and CTA, tachycardia, tachypnea. Lactate is negative. She has a low grade fever as well. Will continue rocephin and azithromycin. IV fluids. Check sputum, blood cultures, urine antigen, rapid flu is pending. BNP neg. Add mucinex, IS/PEP therapy. 2. Asthma - prn aerosols. Not acute exacerbation. Follows Dr. Hoyt 3. LUCIAN - chronically on 2 lpm at night and with rests, she does not tolerate CPAP/BiPAP 4. 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 5. Down syndrome - lives in retirement. Wheelchair bound. DC planning: PTOT for debility. This patient was seen by Douglas Haines PA-C under the supervision of Dr. Zhou <Mayo Zhou F - Last Filed: 12/11/18 17:10> History of Present Illness The patient is a 53 year old F [] Past Medical History Allergies levonorgestrel Allergy (Verified 12/11/18 12:00) Unknown - Physical Exam Vital Signs Temp Pulse Resp BP Pulse Ox 99.8 F H 95 18 123/80 H 96 12/11/18 16:00 12/11/18 16:00 12/11/18 16:00 12/11/18 16:00 12/11/18 16:00 Oxygen Flow Rate (L/min) 2 Oxygen Delivery Method Nasal Cannula Weight: 177 lb 0.499 oz Body Mass Index (BMI) 37.0 Microbiology Past 72 Hours 12/11/18 15:50 Influenza Types A,B Direct FA (XIOMARA) - Final Mucosa - Nose Laboratory Tests Past 24 Hrs 12/11/18 12/11/18 12/11/18 12:05 12:05 12:05 WBC 6.9 RBC 3.86 L Hgb 11.7 L Hct 37.9 MCV 98.2 MCH 30.3 MCHC 30.9 L RDW 17.4 H RDW Differential 62.1 H Plt Count 229 MPV 9.2 Immature Gran % (Auto) 0.100 Neut % (Auto) 79.0 H Lymph % (Auto) 12.7 L [place] % (Auto) 7.2 Eos % (Auto) 0.6 Baso % (Auto) 0.4 Absolute Neuts (auto) 5.4 Absolute Lymphs (auto) 0.87 Total Counted Not Reportable PT 21.0 H INR 1.8 APTT 36.0 Sodium 138 Potassium 4.1 Chloride 105 Carbon Dioxide 28.0 Anion Gap 5 BUN 15 Creatinine 1.02 Estim Creat Clear Calc 81.28 Est GFR (MDRD) Af Amer 73 Est GFR (MDRD) Non-Af 60 BUN/Creatinine Ratio 14.7 Glucose 133 H Lactic Acid Calcium 8.4 L Total Bilirubin 0.60 AST 25 ALT 22 Alkaline Phosphatase 73 Troponin I < 0.015 B-Natriuretic Peptide Total Protein 7.5 Albumin 2.3 L Globulin 5.2 H Albumin/Globulin Ratio 0.4 L Urine Color Urine Clarity Urine pH Ur Specific [place] Urine Protein Urine Glucose (UA) Urine Ketones Urine Occult Blood Urine Nitrite Urine Bilirubin Urine Urobilinogen Ur Leukocyte Esterase Urine RBC Urine WBC Ur Squamous Epith Cells Urine Bacteria Urine Mucus 12/11/18 12/11/18 12/11/18 12:05 12:05 12:25 WBC RBC Hgb Hct MCV MCH MCHC RDW RDW Differential Plt Count MPV Immature Gran % (Auto) Neut % (Auto) Lymph % (Auto) [place] % (Auto) Eos % (Auto) Baso % (Auto) Absolute Neuts (auto) Absolute Lymphs (auto) Total Counted PT INR APTT Sodium Potassium Chloride Carbon Dioxide Anion Gap BUN Creatinine Estim Creat Clear Calc Est GFR (MDRD) Af Amer Est GFR (MDRD) Non-Af BUN/Creatinine Ratio Glucose Lactic Acid 1.2 Calcium Total Bilirubin AST ALT Alkaline Phosphatase Troponin I B-Natriuretic Peptide 15.0 Total Protein Albumin Globulin Albumin/Globulin Ratio Urine Color Yellow Urine Clarity Clear Urine pH 5.0 Ur Specific [place] 1.020 Urine Protein 30 H Urine Glucose (UA) Normal Urine Ketones Negative Urine Occult Blood 10 H Urine Nitrite Negative Urine Bilirubin Negative Urine Urobilinogen 1 H Ur Leukocyte Esterase 25 H Urine RBC 0-5 SEEN Urine WBC 0 SEEN Ur Squamous Epith Cells 0-5 SEEN Urine Bacteria 0 SEEN Urine Mucus 0 SEEN Code Visit Addendum: Dr. Zhou I personally examined the patient and reviewed the chart. I agree with the above. 53-year-old female with a recent history of DVT and PE that was started on Eliquis, presenting from her retirement with shortness of breath. She had runny nose, cough and congestion yesterday. On admission to the ER today she was found to have sepsis secondary to pneumonia visualized on the CTA chest. We will start Rocephin and azithromycin and monitor for improvement. Continue with IV fluids. Inpatient E&M: 28365 Init Hosp L3
--- NOTE | 2018-12-11 15:42 | HP.PCM_ITS ---
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 She lives in a jail for down syndrome. She presents with her caregiver and sister who are providing the history at this time. She started feeling ill yesterday with runny nose, cough and congestion. Today she became more SOB, and seemed more confused. She came to the ER with hypoxia and poor blood pressure which improved with fluids. She was placed on a venti mask to maintain good sats, however after breathing treatments was able to be transitioned to nasal cannula. CXR and CTA are c/w pneumonia. No sick contacts at the jail currently. She has not been going to workshop to avoid getting sick. [] 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) Chronic ulcer of left foot with fat layer exposed (Chronic) Down syndrome (Chronic) Allergies levonorgestrel Allergy (Verified 12/11/18 12:00) Unknown Home Medications: Ambulatory Orders Medication Instructions Recorded Albuterol Aerosols [Ventolin 2.5 mg INHALATION Q4H PRN PRN 12/11/18 Aerosols] Apixaban [Eliquis] 5 mg PO DAILY 12/11/18 Atorvastatin Calcium [Lipitor] 40 mg PO QHS 12/11/18 Budesonide/Formoterol Fumarate 2 puff IH BID 12/11/18 [Symbicort 160-4.5 Mcg Inhaler] Ergocalciferol (Vitamin D2) 50,000 unit PO WE 12/11/18 [Vitamin D2] Fexofenadine HCl [Rosemary Allergy] 60 mg PO DAILY 12/11/18 Fluticasone 0.05% [Flonase Nasal 2 spray NASAL DAILY 12/11/18 [place]] Loratadine [Claritin] 10 mg PO DAILY 12/11/18 Montelukast [Singulair] 10 mg PO DAILY 12/11/18 Polyvinyl Alcohol [Liquitears] 1 drop OP 4X/DAY 12/11/18 Surgical History: - - LLE revascularization procedure. 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 Denies: Anorexia, Chills Eyes: Denies: Blurred vision, Vision Change HEENT: Reports: Nasal Congestion, Sinus Congestion, Sinus Drainage. Denies: Head Aches Cardiovascular: Denies: Chest Pain, Palpitations Respiratory: Denies: Cough, Shortness of breath at rest, Sputum production Gastrointestinal: Denies: Abdominal Pain, Nausea, Vomiting Genitourinary: Denies: Dysuria Musculoskeletal: Denies: Joint Pain, Joint Tenderness Skin: Denies: Rash, Wounds Neurological: Denies: Numbness, Tingling, Focal weakness Psychiatric: Denies: Anxiety, Depression, Homicidal Ideations, Suicidal Ideations Hematologic/ Lymphatic: Denies: Easy Bruising, Easy Bleeding VTE Information - Inpt Only VTE Present on Admission: No VTE Mechan Device Prophylaxis: None VTE Pharm Prophylaxis ordered?: Yes Patient Problems: Active and Suspected Problems PNA (pneumonia) (Acute) Sepsis (Acute) - Physical Exam General: Alert, Oriented x3, Cooperative HEENT: Atraumatic, PERRLA, EOMI, Normocephalic Neck: Supple, No JVD, Negative Carotid Bruits Lungs: Diminished, Rhonchi Cardiovascular: Regular rate, No murmurs Abdomen: Obese Extremities: No edema, Capillary Refill Less than 3 Seconds Skin: No rashes, No breakdown Musculoskeletal: No Tenderness to Palpation of Joints or Extremities Neurological: Cranial nerves II-XII grossly intact Psych/Mental Status: Normal Affect, Appropriate, Alert and oriented to time, place, person, mood and affect Vital Signs Temp Pulse Resp BP Pulse Ox 99.5 F H 107 H 24 H 116/59 L 94 12/11/18 15:00 12/11/18 15:00 12/11/18 15:00 12/11/18 15:00 12/11/18 15:00 Oxygen Flow Rate (L/min) 8 Oxygen Delivery Method Nasal Cannula Weight: 175 lb 14.862 oz Body Mass Index (BMI) 36.7 Laboratory Tests Past 24 Hrs 12/11/18 12/11/18 12/11/18 12:05 12:05 12:05 WBC 6.9 RBC 3.86 L Hgb 11.7 L Hct 37.9 MCV 98.2 MCH 30.3 MCHC 30.9 L RDW 17.4 H RDW Differential 62.1 H Plt Count 229 MPV 9.2 Immature Gran % (Auto) 0.100 Neut % (Auto) 79.0 H Lymph % (Auto) 12.7 L [place] % (Auto) 7.2 Eos % (Auto) 0.6 Baso % (Auto) 0.4 Absolute Neuts (auto) 5.4 Absolute Lymphs (auto) 0.87 Total Counted Not Reportable PT 21.0 H INR 1.8 APTT 36.0 Sodium 138 Potassium 4.1 Chloride 105 Carbon Dioxide 28.0 Anion Gap 5 BUN 15 Creatinine 1.02 Estim Creat Clear Calc 81.28 Est GFR (MDRD) Af Amer 73 Est GFR (MDRD) Non-Af 60 BUN/Creatinine Ratio 14.7 Glucose 133 H Lactic Acid Calcium 8.4 L Total Bilirubin 0.60 AST 25 ALT 22 Alkaline Phosphatase 73 Troponin I < 0.015 B-Natriuretic Peptide Total Protein 7.5 Albumin 2.3 L Globulin 5.2 H Albumin/Globulin Ratio 0.4 L Urine Color Urine Clarity Urine pH Ur Specific [place] Urine Protein Urine Glucose (UA) Urine Ketones Urine Occult Blood Urine Nitrite Urine Bilirubin Urine Urobilinogen Ur Leukocyte Esterase Urine RBC Urine WBC Ur Squamous Epith Cells Urine Bacteria Urine Mucus 12/11/18 12/11/18 12/11/18 12:05 12:05 12:25 WBC RBC Hgb Hct MCV MCH MCHC RDW RDW Differential Plt Count MPV Immature Gran % (Auto) Neut % (Auto) Lymph % (Auto) [place] % (Auto) Eos % (Auto) Baso % (Auto) Absolute Neuts (auto) Absolute Lymphs (auto) Total Counted PT INR APTT Sodium Potassium Chloride Carbon Dioxide Anion Gap BUN Creatinine Estim Creat Clear Calc Est GFR (MDRD) Af Amer Est GFR (MDRD) Non-Af BUN/Creatinine Ratio Glucose Lactic Acid 1.2 Calcium Total Bilirubin AST ALT Alkaline Phosphatase Troponin I B-Natriuretic Peptide 15.0 Total Protein Albumin Globulin Albumin/Globulin Ratio Urine Color Yellow Urine Clarity Clear Urine pH 5.0 Ur Specific [place] 1.020 Urine Protein 30 H Urine Glucose (UA) Normal Urine Ketones Negative Urine Occult Blood 10 H Urine Nitrite Negative Urine Bilirubin Negative Urine Urobilinogen 1 H Ur Leukocyte Esterase 25 H Urine RBC 0-5 SEEN Urine WBC 0 SEEN Ur Squamous Epith Cells 0-5 SEEN Urine Bacteria 0 SEEN Urine Mucus 0 SEEN Assessment/Plan All Active Problems PNA (pneumonia) (Acute) Sepsis (Acute) Pulmonary embolism (Acute) Acute deep vein thrombosis (DVT) of left lower extremity (Acute) Cellulitis of left leg (Resolved) Ulcer of left lower extremity with fat layer exposed (Resolved) 1. Acute sepsis 2/2 multilobular CAP with acute hypoxic respiratory failure - initially required venti mask to maintain good O2 sats, improving already. Sepsis criteria met by evidence of pna on CXR and CTA, tachycardia, tachypnea. Lactate is negative. She has a low grade fever as well. Will continue rocephin and azithromycin. IV fluids. Check sputum, blood cultures, urine antigen, rapid flu is pending. BNP neg. Add mucinex, IS/PEP therapy. 2. Asthma - prn aerosols. Not acute exacerbation. Follows Dr. Hoyt 3. LUCIAN - chronically on 2 lpm at night and with rests, she does not tolerate CPAP/BiPAP 4. 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 5. Down syndrome - lives in jail. Wheelchair bound. DC planning: PTOT for debility. This patient was seen by Douglas Haines PA-C under the supervision of Dr. Zhou <Mayo Zhou F - Last Filed: 12/11/18 17:10> History of Present Illness The patient is a 53 year old F [] Past Medical History Allergies levonorgestrel Allergy (Verified 12/11/18 12:00) Unknown - Physical Exam Vital Signs Temp Pulse Resp BP Pulse Ox 99.8 F H 95 18 123/80 H 96 12/11/18 16:00 12/11/18 16:00 12/11/18 16:00 12/11/18 16:00 12/11/18 16:00 Oxygen Flow Rate (L/min) 2 Oxygen Delivery Method Nasal Cannula Weight: 177 lb 0.499 oz Body Mass Index (BMI) 37.0 Microbiology Past 72 Hours 12/11/18 15:50 Influenza Types A,B Direct FA (XIOMARA) - Final Mucosa - Nose Laboratory Tests Past 24 Hrs 12/11/18 12/11/18 12/11/18 12:05 12:05 12:05 WBC 6.9 RBC 3.86 L Hgb 11.7 L Hct 37.9 MCV 98.2 MCH 30.3 MCHC 30.9 L RDW 17.4 H RDW Differential 62.1 H Plt Count 229 MPV 9.2 Immature Gran % (Auto) 0.100 Neut % (Auto) 79.0 H Lymph % (Auto) 12.7 L [place] % (Auto) 7.2 Eos % (Auto) 0.6 Baso % (Auto) 0.4 Absolute Neuts (auto) 5.4 Absolute Lymphs (auto) 0.87 Total Counted Not Reportable PT 21.0 H INR 1.8 APTT 36.0 Sodium 138 Potassium 4.1 Chloride 105 Carbon Dioxide 28.0 Anion Gap 5 BUN 15 Creatinine 1.02 Estim Creat Clear Calc 81.28 Est GFR (MDRD) Af Amer 73 Est GFR (MDRD) Non-Af 60 BUN/Creatinine Ratio 14.7 Glucose 133 H Lactic Acid Calcium 8.4 L Total Bilirubin 0.60 AST 25 ALT 22 Alkaline Phosphatase 73 Troponin I < 0.015 B-Natriuretic Peptide Total Protein 7.5 Albumin 2.3 L Globulin 5.2 H Albumin/Globulin Ratio 0.4 L Urine Color Urine Clarity Urine pH Ur Specific [place] Urine Protein Urine Glucose (UA) Urine Ketones Urine Occult Blood Urine Nitrite Urine Bilirubin Urine Urobilinogen Ur Leukocyte Esterase Urine RBC Urine WBC Ur Squamous Epith Cells Urine Bacteria Urine Mucus 12/11/18 12/11/18 12/11/18 12:05 12:05 12:25 WBC RBC Hgb Hct MCV MCH MCHC RDW RDW Differential Plt Count MPV Immature Gran % (Auto) Neut % (Auto) Lymph % (Auto) [place] % (Auto) Eos % (Auto) Baso % (Auto) Absolute Neuts (auto) Absolute Lymphs (auto) Total Counted PT INR APTT Sodium Potassium Chloride Carbon Dioxide Anion Gap BUN Creatinine Estim Creat Clear Calc Est GFR (MDRD) Af Amer Est GFR (MDRD) Non-Af BUN/Creatinine Ratio Glucose Lactic Acid 1.2 Calcium Total Bilirubin AST ALT Alkaline Phosphatase Troponin I B-Natriuretic Peptide 15.0 Total Protein Albumin Globulin Albumin/Globulin Ratio Urine Color Yellow Urine Clarity Clear Urine pH 5.0 Ur Specific [place] 1.020 Urine Protein 30 H Urine Glucose (UA) Normal Urine Ketones Negative Urine Occult Blood 10 H Urine Nitrite Negative Urine Bilirubin Negative Urine Urobilinogen 1 H Ur Leukocyte Esterase 25 H Urine RBC 0-5 SEEN Urine WBC 0 SEEN Ur Squamous Epith Cells 0-5 SEEN Urine Bacteria 0 SEEN Urine Mucus 0 SEEN Code Visit Addendum: Dr. Zhou I personally examined the patient and reviewed the chart. I agree with the above. 53-year-old female with a recent history of DVT and PE that was started on Eliquis, presenting from her jail with shortness of breath. She had runny nose, cough and congestion yesterday. On admission to the ER today she was found to have sepsis secondary to pneumonia visualized on the CTA chest. We will start Rocephin and azithromycin and monitor for improvement. Continue with IV fluids. Inpatient E&M: 31510 Init Hosp L3
[2018-12-11] MEDS: 0.9% Normal Saline 1,000 ML 100 ML IV (18:28)
--- NOTE | 2018-12-11 19:40 | NURSING ---
Pt placed on cont. spo2 as a nursing measure-- pt removing oxygen-- nc and mask- despite education and reorientation. NC reapplied at time of shift change and in place. Pt pulled out IV and removed cont. spo2 sticker from left hand. New continuous spo2 probe applied on right hand and in place at this time. Right AC IV reinforced and wrapped at this time.
[2018-12-12] VITALS (35 sets, daily range): BP systolic 86–153; BP diastolic 56–103; PULSE 74–109; RESP 14–33; TEMP 36.6–38.1; O2SAT 79–100
[2018-12-12] MEDS: Atorvastatin Calcium 40 MG Tablet PO (00:22)
[2018-12-12] MEDS: Albuterol 2.5 MG/3 ML VIAL.NEB. INHALATION ×3 (04:00→13:12)
[2018-12-12] MEDS: 0.9% Normal Saline 1,000 ML 100 ML IV ×3 (04:00→19:45)
[2018-12-12] MEDS: 0.9% NaCl Peripheral Flush Adult/Peds IV ×4 (06:00→19:46)
[2018-12-12 06:02] LABS: Absolute Lymphocyte Count 0.95 X10^3/ul (0.83-4.51); Absolute Neutrophil Count 3.8 X10^3/uL (2.0-7.7); Basophil# 0.02 X10^3/uL; Basophil% 0.4 % (0-1); Eosinophil# 0.03 X10^3/uL; Eosinophils% 0.6 % (0-5); Hematocrit 34.7 % (37-47); Hemoglobin 10.4 g/dl (12.0-15.0); Lymphocyte # 0.95 X10^3/ul (4.0); Lymphocyte % 17.6 % (19-41); Mean Corpuscular Hgb 29.9 pg (27.0-32.0); Mean Corpuscular Volume 99.7 fL (81-99); Mean Platelet Vol. 9.5 fl (6.2-12.0); Monocyte# 0.56 X10^3/uL; Monocyte% 10.4 % (0-10); Neutrophil # 3.82 X10^3/uL (2.7-7.7); Neutrophil % 70.8 % (47-70); Platelet Count 201 K/mm3 (150-450); RBC Distribution Width CV 17.4 % (11.6-14.6); RBC Distribution Width SD 61.5 fl (35.1-43.9); Red Blood Count 3.48 M/mm3 (4.2-5.4); White Blood Count 5.4 K/mm3 (4.4-11.0)
[2018-12-12 06:09] LABS: BUN 11 mg/dL (7-18); Calcium,Total 7.8 mg/dL (8.5-10.1); Chloride 111 mmol/L (98-107); Creatinine, Serum 0.73 mg/dL (0.55-1.02); EST Glomerular Filtration Rate 89 mL/min (>60); Est Glom Filt Rate - Afr Amer 107 mL/min (>60); Estimated Creatinine Clearance 114.28 ml/min; Glucose 119 mg/dL (74-106); Sodium Level 142 mmol/L (136-145)
[2018-12-12 06:10] LABS: Anion Gap 9 (5-15)
[2018-12-12 06:12] LABS: POSITIVE COUNT NO; POSITIVE DIFFERENTIAL NO; POSITIVE MORPHOLOGY NO
[2018-12-12] MEDS: Budesonide Respules 0.5 MG/2 ML AMPUL.NEB. INHALATION (06:42)
[2018-12-12] MEDS: Fluticasone 0.05% 1 SPRAY NASAL.SRY 2 SPRAY NASAL (09:04)
[2018-12-12] MEDS: APIXABAN 5 MG TABLET PO ×2 (09:04→19:45)
[2018-12-12] MEDS: Montelukast 10 MG Tablet PO (09:05)
[2018-12-12] MEDS: Loratadine 10 MG Tablet PO (09:05)
[2018-12-12] MEDS: Ceftriaxone 1 GM/50 ML BAG IV (09:12)
--- NOTE | 2018-12-12 10:03 | ECHOD_ITS ---
Reason For Study: DYSPNEA Procedure This was a 2D Doppler, Color Flow transthoracic echocardiogram. The study was technically difficult. Pt on ventilator and supine. Exam performed portable in ICU/CCU. Left Ventricle Normal LV size. The estimated ejection fraction is 55 %. Stage 1 diastolic dysfunction. No regional wall motion abnormalities noted. Right Ventricle Normal RV size. Normal systolic function. Atria Normal left atrium. Normal right atrium. Mitral Valve Mild focal mitral valve calcification. Mild (1+) eccentric mitral valve insufficiency. Tricuspid Valve Normal tricuspid valve. Aortic Valve Trisinus/trileaflet aortic valve. Mild (1+) eccentric aortic valve insufficiency. Pulmonic Valve Normal pulmonic valve. Great Vessels Normal aortic root. The pulmonary artery is normal size. Normal inferior vena cava. Pericardium/Pleural No pericardial effusion. MMode/2D Measurements & Calculations LVIDd: 3.7 cm IVSd: 0.93 cm Ao root diam: 2.7 cm LVIDs: 2.7 cm LVPWd: 0.86 cm RVDd: 3.7 cm FS: 27.5 % LAV(MOD-bp): 28.6 ml LA A4 area: 11.8 cm2 LA dimension(2D): 2.2 cm LAV(MOD-bp) Indexed: 16.6 ml/m2 LAV(MOD-sp2): 30.9 ml LAV(MOD-sp4): 26.6 ml RA A4 area: 12.2 cm2 Time Measurements MV dec time: 0.40 sec Doppler Measurements & Calculations MV E max brendan: 54.5 cm/sec Lat Peak E' Brendan: 5.3 cm/sec Med Peak E' Brendan: 5.0 cm/sec MV A max brendan: 104.6 cm/sec E/E' lat: 10.3 E/E' med: 10.8 MV E/A: 0.52 Ao V2 max: 115.1 cm/sec LV V1 max: 57.6 cm/sec PA V2 max: 122.1 cm/sec Ao max P.3 mmHg LV V1 max P.3 mmHg TR max brendan: 217.0 cm/sec TR max P.0 mmHg Interpretation Summary Normal LV size. The estimated ejection fraction is 55 %. Mild focal mitral valve calcification. Mild (1+) eccentric mitral valve insufficiency. Stage 1 diastolic dysfunction. Compared to previous study, the left ventricular systolic function is the same.. Ordering Physician: Marla Zhao Referring Physician: CATHY HINKLE CHI Performed By: Nasima Beebe, JARRETTCS, RVT
--- NOTE | 2018-12-12 10:22 | PCM.CONS.GEN ---
Reason for Consult Date of Consultation: 12/12/18 Reason for Consultation: Acute respiratory failure History of Present Illness: The patient is a 53-year-old female, with a history as outlined below, who presented to the emergency department on December 11 from her intermediate with shortness of breath, nasal congestion, rhinorrhea and altered mentation. 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 She does have a history of venous thromboembolic disease and is chronically anticoagulated on Eliquis. On presentation to the emergency department, the patient was noted to be afebrile and mildly hypotensive. She was noted to be tachypneic and hypoxic. Laboratory evaluation revealed no evidence of a leukocytosis. INR was noted to be 1.8. Chemistry profile was notable for acute kidney injury with a creatinine of 1.02. Lactate was within normal limits. BNP and troponin were both within normal limits. UA was largely unremarkable. A CTA chest was obtained which was suboptimal for the detection of pulmonary embolism. There was note of bilateral groundglass changes along with an infiltrate in the left lower lobe. The patient subsequently received supplemental IV fluids and was started on antibiotics. She was then admitted to the medical surgical floor for ongoing management. On the morning of December 12, I was contacted to evaluate the patient due to worsening respiratory status and hypoxia. The patient's oxygen requirement had slowly increased and upon my evaluation she was requiring 50% Ventimask. She was notably tachypneic and rhonchorous with increased work of breathing. The decision was made at that time to transfer the patient to the medical intensive care unit. Shortly after arrival to the ICU, an arterial blood gas was obtained. Although the pH was only noted to be 7.34 with a corresponding PCO2 of 41 and PO2 of 60, the patient remained in respiratory distress. Attempts to place her on BiPAP was unsuccessful, as the patient would not tolerate any form of mask being placed on her face. The patient was nonverbal and clearly at this time lacked capacity for medical decision making. Given her continued increased work of breathing, the decision was made to intubate. Bedside Intubation Note: The patient was placed in the appropriate sniffing position. She was premedicated with 2 mg of Versed, after which time, she was preoxygenated via bag valve mask. The patient was then given 20 mg of etomidate. Video laryngoscopy was performed, which did reveal a grade 3 view. A #7.5 endotracheal tube was subsequently placed without complication. Positive end-tidal color change was noted. Bilateral breath sounds were noted. Plain film chest imaging is currently pending. 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) Chronic ulcer of left foot with fat layer exposed (Chronic) Down syndrome (Chronic) Allergies levonorgestrel Allergy (Verified 12/11/18 12:00) Unknown Home Medications: Ambulatory Orders Medication Instructions Recorded Albuterol Aerosols [Ventolin 2.5 mg INHALATION Q4H PRN PRN 12/11/18 Aerosols] Ammonium Lactate [Amlactin] 57 gm TP BID 12/11/18 Apixaban [Eliquis] 5 mg PO 0800,1800 12/11/18 Atorvastatin Calcium [Lipitor] 40 mg PO QHS 12/11/18 Bacitracin Ointment 1 applic TOPICAL DAILY 12/11/18 Budesonide/Formoterol Fumarate 2 puff IH BID 12/11/18 [Symbicort 160-4.5 Mcg Inhaler] Ergocalciferol (Vitamin D2) 50,000 unit PO WE 12/11/18 [Vitamin D2] Fexofenadine HCl [Rosemary Allergy] 60 mg PO DAILY 12/11/18 Fluticasone 0.05% [Flonase Nasal 2 spray NASAL DAILY 12/11/18 [place]] Ketoconazole [Nizoral] 1 applic TOPICAL BID 12/11/18 Loratadine [Claritin] 10 mg PO DAILY 12/11/18 Montelukast [Singulair] 10 mg PO DAILY 12/11/18 Polyvinyl Alcohol [Liquitears] 1 drop OP 4X/DAY 12/11/18 Zinc Oxide [Desitin] 113 gm TP BID 12/11/18 Surgical History: - - LLE revascularization procedure. 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 Patient Problems: Active and Suspected Problems PNA (pneumonia) (Acute) Sepsis (Acute) Objective: The patient's most recent lab work, culture data and imaging studies have all been personally reviewed. - Physical Exam General: Alert, - - Quite ill and distressed in appearance. The patient is lethargic and nonverbal to questioning. HEENT: Atraumatic, PERRLA, Normocephalic Oral: Dry Mucosa Neck: Supple, No Nodes, Trachea Midline, - - Large neck circumference with redundant soft tissue Lungs: Short of Breath, - - The patient is tachypneic, using accessory muscles. There is diffuse bilateral rhonchi noted along with a moist cough. Cardiovascular: Normal S1, Normal S2, No murmurs, Tachycardic Abdomen: Bowel Sounds Present, Soft, Non Tender, Obese Extremities: No clubbing, No cyanosis, No edema Skin: - - Rash present over right upper extremity. Musculoskeletal: No Muscle Wasting Lymphatic: No Cervical, Supraclavicular, or Inguinal Adenopathy Neurological: - - No focal deficits. Will open eyes transiently to noxious stimulation. Vital Signs Temp Pulse Resp BP Pulse Ox 37.0 C 100 20 H 139/68 H 94 12/12/18 09:15 12/12/18 09:15 12/12/18 09:15 12/12/18 09:15 12/12/18 09:48 Oxygen Flow Rate (L/min) 8 Oxygen Delivery Method Venturi Mask Weight: 177 lb 0.499 oz Body Mass Index (BMI) 37.0 Intake and Output for Last 24 Hours 12/10/18 12/11/18 12/12/18 23:59 23:59 23:59 Intake Total 3774 / 3774 1536 / 1536 Output Total 900 / 900 1075 / 1075 Balance 2874 / 2874 461 / 461 Microbiology Past 72 Hours 12/11/18 15:50 Influenza Types A,B Direct FA (XIOMARA) - Final Mucosa - Nose Laboratory Tests Past 24 Hrs 12/11/18 12/11/18 12/11/18 12:05 12:05 12:05 WBC 6.9 RBC 3.86 L Hgb 11.7 L Hct 37.9 MCV 98.2 MCH 30.3 MCHC 30.9 L RDW 17.4 H RDW Differential 62.1 H Plt Count 229 MPV 9.2 Immature Gran % (Auto) 0.100 Neut % (Auto) 79.0 H Lymph % (Auto) 12.7 L [place] % (Auto) 7.2 Eos % (Auto) 0.6 Baso % (Auto) 0.4 Absolute Neuts (auto) 5.4 Absolute Lymphs (auto) 0.87 Total Counted Not Reportable PT 21.0 H INR 1.8 APTT 36.0 Sodium 138 Potassium 4.1 Chloride 105 Carbon Dioxide 28.0 Anion Gap 5 BUN 15 Creatinine 1.02 Estim Creat Clear Calc 81.28 Est GFR (MDRD) Af Amer 73 Est GFR (MDRD) Non-Af 60 BUN/Creatinine Ratio 14.7 Glucose 133 H Lactic Acid Calcium 8.4 L Total Bilirubin 0.60 AST 25 ALT 22 Alkaline Phosphatase 73 Troponin I < 0.015 B-Natriuretic Peptide Total Protein 7.5 Albumin 2.3 L Globulin 5.2 H Albumin/Globulin Ratio 0.4 L Urine Color Urine Clarity Urine pH Ur Specific [place] Urine Protein Urine Glucose (UA) Urine Ketones Urine Occult Blood Urine Nitrite Urine Bilirubin Urine Urobilinogen Ur Leukocyte Esterase Urine RBC Urine WBC Ur Squamous Epith Cells Urine Bacteria Urine Mucus 12/11/18 12/11/18 12/11/18 12:05 12:05 12:25 WBC RBC Hgb Hct MCV MCH MCHC RDW RDW Differential Plt Count MPV Immature Gran % (Auto) Neut % (Auto) Lymph % (Auto) [place] % (Auto) Eos % (Auto) Baso % (Auto) Absolute Neuts (auto) Absolute Lymphs (auto) Total Counted PT INR APTT Sodium Potassium Chloride Carbon Dioxide Anion Gap BUN Creatinine Estim Creat Clear Calc Est GFR (MDRD) Af Amer Est GFR (MDRD) Non-Af BUN/Creatinine Ratio Glucose Lactic Acid 1.2 Calcium Total Bilirubin AST ALT Alkaline Phosphatase Troponin I B-Natriuretic Peptide 15.0 Total Protein Albumin Globulin Albumin/Globulin Ratio Urine Color Yellow Urine Clarity Clear Urine pH 5.0 Ur Specific [place] 1.020 Urine Protein 30 H Urine Glucose (UA) Normal Urine Ketones Negative Urine Occult Blood 10 H Urine Nitrite Negative Urine Bilirubin Negative Urine Urobilinogen 1 H Ur Leukocyte Esterase 25 H Urine RBC 0-5 SEEN Urine WBC 0 SEEN Ur Squamous Epith Cells 0-5 SEEN Urine Bacteria 0 SEEN Urine Mucus 0 SEEN 12/12/18 12/12/18 05:20 05:20 WBC 5.4 RBC 3.48 L Hgb 10.4 L Hct 34.7 L MCV 99.7 H MCH 29.9 MCHC 30.0 L RDW 17.4 H RDW Differential 61.5 H Plt Count 201 MPV 9.5 Immature Gran % (Auto) 0.200 Neut % (Auto) 70.8 H Lymph % (Auto) 17.6 L [place] % (Auto) 10.4 H Eos % (Auto) 0.6 Baso % (Auto) 0.4 Absolute Neuts (auto) 3.8 Absolute Lymphs (auto) 0.95 Total Counted Not Reportable PT INR APTT Sodium 142 Potassium 4.0 Chloride 111 H Carbon Dioxide 22.0 Anion Gap 9 BUN 11 Creatinine 0.73 Estim Creat Clear Calc 114.28 Est GFR (MDRD) Af Amer 107 Est GFR (MDRD) Non-Af 89 BUN/Creatinine Ratio 15.0 Glucose 119 H Lactic Acid Calcium 7.8 L Total Bilirubin AST ALT Alkaline Phosphatase Troponin I B-Natriuretic Peptide Total Protein Albumin Globulin Albumin/Globulin Ratio Urine Color Urine Clarity Urine pH Ur Specific [place] Urine Protein Urine Glucose (UA) Urine Ketones Urine Occult Blood Urine Nitrite Urine Bilirubin Urine Urobilinogen Ur Leukocyte Esterase Urine RBC Urine WBC Ur Squamous Epith Cells Urine Bacteria Urine Mucus Clinical Impression(s) from Imaging Studies Chest X-Ray 12/11/18 12:05 IMPRESSION: Mild pulmonary vascular congestion. Possible airspace disease at the lung bases. Findings appear mildly improved in the right lung and unchanged in the left lung compared to the prior study. Study limited by body habitus. Electronically Signed: Danny Santoro, at 12:36 EST Tel , Service support , Chest CTA 12/11/18 12:41 IMPRESSION: 1. Suboptimal evaluation of the peripheral branches due to significant artifacts. No evidence of pulmonary embolism. 2. Bilateral hazy groundglass opacities/infiltrates likely due to pulmonary edema. 3. Small focal infiltrate in the superior segment of the left lower lobe. 4. No evidence of pleural effusions. Electronically Signed: Wilberto Jerome MD at 13:36 EST Tel , Service support , Assessment/Plan All Active Problems PNA (pneumonia) (Acute) Sepsis (Acute) Pulmonary embolism (Acute) Acute deep vein thrombosis (DVT) of left lower extremity (Acute) Cellulitis of left leg (Resolved) Ulcer of left lower extremity with fat layer exposed (Resolved) RECOMMENDATIONS: 1. Proceed with intubation as noted above. Obtain arterial blood gas 1 hour after intubation. 2. Check respiratory viral panel and obtain sputum for culture. 3. Continue scheduled bronchodilators. Discontinue budesonide and start patient on IV Solu-Medrol 40 mg every 6 hours. 4. Check MRSA screen, along with strep and urine Legionella antigens. 5. Discontinue ceftriaxone and azithromycin. Broaden antibiotics for now to include Zosyn and vancomycin. 6. Echocardiogram is currently pending. 7. Continue Eliquis as ordered. 8. Start Pepcid for prophylaxis. IMPRESSIONS: 1. Acute hypoxemic respiratory failure The patient appears to have radiographic evidence of severe community-acquired pneumonia with questionable underlying bronchospastic airway disease. In addition, her respiratory viral panel was noted to be positive for human Coyle pneumo virus. Unfortunately, the patient was resistant to the use of noninvasive positive pressure ventilation. She continued to decline from a respiratory perspective following transfer to the ICU. Therefore, the decision was made to proceed with intubation. Her antibiotics have been broadened to include vancomycin and Zosyn. Cultures are currently pending. Budesonide has been discontinued and transition to scheduled IV Solu-Medrol. We will continue to wean FiO2 and PEEP as tolerated. Echocardiogram is currently pending to evaluate underlying cardiac function. 2. Acute kidney injury Likely prerenal in etiology, as the patient responded to a small amount of volume expansion. We will continue to monitor urine output closely. No current indication for renal replacement therapy. 3. Encephalopathy Likely metabolic in nature and precipitated by the patient's underlying pulmonary infectious process and increased work of breathing. The patient will be maintained on fentanyl and propofol for sedation, with a goal to maintain a RASS of -1 to 1. 4. Baseline MRDD/history of venous thromboembolic disease/allergic rhinitis/hyperlipidemia Complicates care, management, recovery and prognosis. Okay to continue home medications as tolerated. We will plan to start tube feeds tomorrow per nutrition recommendations. TIME: 45 minutes of critical care time, inclusive of procedures, was spent addressing the patient's acute hypoxemic respiratory failure, acute kidney injury, encephalopathy, review of all data and collaboration with the care team. ([id number]) Code Visit [id number]: [id number] Critical care first hour
[2018-12-12] MEDS: Furosemide 40 MG/4 ML Vial IV (10:29)
--- NOTE | 2018-12-12 10:46 | NURSING ---
report called to DEMETRA White on ICU for patient transfer.
[2018-12-12 11:10] LABS: Allen Test POS; Base Excess -4 mmol/L (-2 to +2); Bicarbonate 22.2 mmol/L (22-26); Blood Gas Specimen Type ART; FI02 50; PO2 60 mmHG (75-100); SITE L Brachial; SO2 89 % (95-99); Time Given 1106; Total Carbon Dioxide 23 mmol/L; pCO2 41.2 mmHg (35-45); pH 7.34 (7.35-7.45)
--- NOTE | 2018-12-12 11:13 | NURSING ---
UPDATED PATIENT CONTACT, MONALISA ROBLEDO ON PATIENTS STATUS.
[2018-12-12] MEDS: Midazolam 2 MG/2 ML Syringe IV (11:34)
[2018-12-12] MEDS: Etomidate 20 MG/10 ML Vial IV (11:35)
[2018-12-12] MEDS: Propofol 10MG/Ml 1,000 MG/100 ML Bottle 4.818 MG CONT INF (11:40)
[2018-12-12] MEDS: fentaNYL drip 100 ML 5 MCG IV ×2 (11:40→21:34)
--- NOTE | 2018-12-12 11:47 | RAD_ITS ---
STUDY: X-RAY CHEST REASON FOR EXAM: Female, 53 years old. Endotracheal tube placement. TECHNIQUE: Single AP portable view of the chest. COMPARISON: Comparison is made with prior radiograph dated December 11, 2018. FINDINGS: An endotracheal tube is in situ. The tip is at the level of the juan. It should be pulled back 2.5 cm. An orogastric tube is seen with the tip in the body of the stomach. EKG electrodes are seen. Basilar congestion and CHF. There is no demonstrated pleural abnormality. There is mild cardiac enlargement. Normal mediastinum and terrell. Normal visualized pulmonary arteries. There is atherosclerotic tortuosity of the aortic arch and descending thoracic aorta. Normal visualized thoracic spine. Normal visualized ribs, clavicles, and shoulders. There is no demonstrated abnormality of the visualized soft tissue structures of the upper abdomen. RAD/Chest 1 View (Portable) IMPRESSION: The tip of the endotracheal tube is at the level of the juan. This should be pulled back 2.5 cm. The tip of the orogastric tube is in the distal portion of the body of the stomach. Cardiomegaly and CHF. Electronically Signed: Joshua Wong MD at 13:06 EST , Service support ,
--- NOTE | 2018-12-12 13:34 | PCM.PROGNOTE ---
<Douglas Haines - Last Filed: 12/12/18 13:34> Patient Problems: Active and Suspected Problems PNA (pneumonia) (Acute) Sepsis (Acute) Subjective: Pt very lethargic this AM. Opens eyes briefly to sternal rub. Hypoxic requiring increased venti mask use. Mucous audible on respirations without steth. Pt being transferred to ICU. - Physical Exam General: Alert, Oriented x3, Cooperative HEENT: Atraumatic, PERRLA, EOMI, Normocephalic Neck: Supple, No JVD, Negative Carotid Bruits Lungs: Rales, Rhonchi, Wheezes Cardiovascular: Regular rate, No murmurs Abdomen: Bowel Sounds Present, Soft, Non Tender Extremities: No edema, Capillary Refill Less than 3 Seconds Skin: No rashes, No breakdown Musculoskeletal: No Tenderness to Palpation of Joints or Extremities Neurological: Cranial nerves II-XII grossly intact Psych/Mental Status: Normal Affect, Appropriate Vital Signs Temp Pulse Resp BP Pulse Ox 99.9 F H 105 H 33 H 153/80 H 96 12/12/18 11:55 12/12/18 11:55 12/12/18 11:55 12/12/18 10:37 12/12/18 11:55 Oxygen Flow Rate (L/min) 8 Oxygen Delivery Method Venturi Mask Weight: 177 lb 0.499 oz Body Mass Index (BMI) 37.0 Intake and Output for Last 24 Hours 12/10/18 12/11/18 12/12/18 23:59 23:59 23:59 Intake Total 3774 / 3774 1536 / 1536 Output Total 900 / 900 1075 / 1075 Balance 2874 / 2874 461 / 461 Microbiology Past 72 Hours 12/11/18 12:25 Urine Culture - Preliminary Urine Catheter - Sánchez Culture exhibits no growth. 12/11/18 15:50 Influenza Types A,B Direct FA (XIOMARA) - Final Mucosa - Nose Laboratory Tests Past 24 Hrs 12/11/18 12/12/18 12/12/18 12:05 05:20 05:20 WBC 5.4 RBC 3.48 L Hgb 10.4 L Hct 34.7 L MCV 99.7 H MCH 29.9 MCHC 30.0 L RDW 17.4 H RDW Differential 61.5 H Plt Count 201 MPV 9.5 Immature Gran % (Auto) 0.200 Neut % (Auto) 70.8 H Lymph % (Auto) 17.6 L [place] % (Auto) 10.4 H Eos % (Auto) 0.6 Baso % (Auto) 0.4 Absolute Neuts (auto) 3.8 Absolute Lymphs (auto) 0.95 Total Counted Not Reportable Specimen Type Sample Site pH Bicarbonate Actual POC Total CO2 Base Excess O2 Saturation O2 % ABG pCO2 ABG pO2 Tre Test O2 Delivery Device Blood Gas Notified Whom Blood Gas Notified Time Sodium 142 Potassium 4.0 Chloride 111 H Carbon Dioxide 22.0 Anion Gap 9 BUN 11 Creatinine 0.73 Estim Creat Clear Calc 114.28 Est GFR (MDRD) Af Amer 107 Est GFR (MDRD) Non-Af 89 BUN/Creatinine Ratio 15.0 Glucose 119 H Calcium 7.8 L B-Natriuretic Peptide 15.0 12/12/18 11:09 WBC RBC Hgb Hct MCV MCH MCHC RDW RDW Differential Plt Count MPV Immature Gran % (Auto) Neut % (Auto) Lymph % (Auto) [place] % (Auto) Eos % (Auto) Baso % (Auto) Absolute Neuts (auto) Absolute Lymphs (auto) Total Counted Specimen Type ART Sample Site L Brachial pH 7.34 L Bicarbonate Actual 22.2 POC Total CO2 23 Base Excess -4 L O2 Saturation 89 L O2 % 50 ABG pCO2 41.2 ABG pO2 60 L Tre Test POS O2 Delivery Device Vent Mask Blood Gas Notified Whom ICU MD Blood Gas Notified Time 1106 Sodium Potassium Chloride Carbon Dioxide Anion Gap BUN Creatinine Estim Creat Clear Calc Est GFR (MDRD) Af Amer Est GFR (MDRD) Non-Af BUN/Creatinine Ratio Glucose Calcium B-Natriuretic Peptide Medical Necessity - Tobacco Use Smoking Status: Never smoker Tobacco Use: Non-smoker Assessment/Plan All Active Problems PNA (pneumonia) (Acute) Sepsis (Acute) Pulmonary embolism (Acute) Acute deep vein thrombosis (DVT) of left lower extremity (Acute) Cellulitis of left leg (Resolved) Ulcer of left lower extremity with fat layer exposed (Resolved) 1. Acute sepsis 2/2 multilobular CAP with acute hypoxic respiratory failure - hold fluids. Give lasix. Continue IV abx. Tx to ICU. Worsening resp failure. Continue aerosols. May need bipap, she tolerates this poorly. Initial ABG slightly acidotic. Reportedly she has a hx of Diastolic CHF - may be a component of CHF. No LE edema and BNP not elevated however.. Check resp panel. Flu swab neg. Cultures pending. 2. Asthma - prn aerosols. 3. LUCIAN - chronically on 2 lpm at night and with rests, she does not tolerate CPAP/BiPAP 4. 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 5. Down syndrome - lives in long term. Wheelchair bound. DVT ppx: eliquis This patient was seen by Douglas Haines PA-C under the supervision of Dr. Zhao <Marla Zhao - Last Filed: 12/12/18 15:49> - Physical Exam Vital Signs Temp Pulse Resp BP Pulse Ox 99.8 F H 74 14 88/56 L 97 12/12/18 13:30 12/12/18 13:44 12/12/18 13:44 12/12/18 13:30 12/12/18 13:44 Oxygen Flow Rate (L/min) 8 Oxygen Delivery Method Mechanical Ventilator Weight: 177 lb 0.499 oz Body Mass Index (BMI) 37.0 Intake and Output for Last 24 Hours 12/10/18 12/11/18 12/12/18 23:59 23:59 23:59 Intake Total 3774 / 3774 1536 / 1536 Output Total 900 / 900 1075 / 1075 Balance 2874 / 2874 461 / 461 Microbiology Past 72 Hours 12/12/18 14:25 Streptococcus pneumoniae Antigen (M - Final Urine Catheter - Sánchez 12/12/18 14:25 Legionella Antigen - Final Urine Catheter - Sánchez 12/12/18 11:47 Gram Stain - Final Sputum, Induced/Lukens 12/12/18 11:00 Respiratory Panel (PCR) - Final Mucosa - Nose Human [place] 12/11/18 12:25 Urine Culture - Preliminary Urine Catheter - Sánchez Culture exhibits no growth. 12/11/18 15:50 Influenza Types A,B Direct FA (XIOMARA) - Final Mucosa - Nose Laboratory Tests Past 24 Hrs 12/12/18 12/12/18 12/12/18 05:20 05:20 11:09 WBC 5.4 RBC 3.48 L Hgb 10.4 L Hct 34.7 L MCV 99.7 H MCH 29.9 MCHC 30.0 L RDW 17.4 H RDW Differential 61.5 H Plt Count 201 MPV 9.5 Immature Gran % (Auto) 0.200 Neut % (Auto) 70.8 H Lymph % (Auto) 17.6 L [place] % (Auto) 10.4 H Eos % (Auto) 0.6 Baso % (Auto) 0.4 Absolute Neuts (auto) 3.8 Absolute Lymphs (auto) 0.95 Total Counted Not Reportable Specimen Type ART Sample Site L Brachial pH 7.34 L Bicarbonate Actual 22.2 POC Total CO2 23 Base Excess -4 L O2 Saturation 89 L O2 % 50 ABG pCO2 41.2 ABG pO2 60 L Tre Test POS Respiration Rate O2 Delivery Device Vent Mask Vent Mode Tidal Volume POC PEEP Blood Gas Notified Whom ICU Blood Gas Notified Time 1106 Sodium 142 Potassium 4.0 Chloride 111 H Carbon Dioxide 22.0 Anion Gap 9 BUN 11 Creatinine 0.73 Estim Creat Clear Calc 114.28 Est GFR (MDRD) Af Amer 107 Est GFR (MDRD) Non-Af 89 BUN/Creatinine Ratio 15.0 Glucose 119 H Calcium 7.8 L MRSA (PCR) 12/12/18 12/12/18 13:32 14:15 WBC RBC Hgb Hct MCV MCH MCHC RDW RDW Differential Plt Count MPV Immature Gran % (Auto) Neut % (Auto) Lymph % (Auto) [place] % (Auto) Eos % (Auto) Baso % (Auto) Absolute Neuts (auto) Absolute Lymphs (auto) Total Counted Specimen Type ART Sample Site L Brachial pH 7.47 H Bicarbonate Actual 24.3 POC Total CO2 25 Base Excess 1 O2 Saturation 86 L O2 % 40 ABG pCO2 33.6 L ABG pO2 48 L Tre Test Respiration Rate 14 O2 Delivery Device Vent Vent Mode A-C Tidal Volume 350 POC PEEP 5 Blood Gas Notified Whom [facility] Blood Gas Notified Time 1331 Sodium Potassium Chloride Carbon Dioxide Anion Gap BUN Creatinine Estim Creat Clear Calc Est GFR (MDRD) Af Amer Est GFR (MDRD) Non-Af BUN/Creatinine Ratio Glucose Calcium MRSA (PCR) Pending Assessment/Plan Patient seen by Douglas Haines PA-C under my supervision Patient was admitted 1 day ago with a complaint of shortness of breath with assisted runny nose, cough and congestion. She became more short of breath the day of admission and was brought to the ED on account of hypoxia and hypotension. She had a chest x-ray and chest CT which were consistent with pneumonia. She was started on IV ceftriaxone and azithromycin. During review today, patient was noted to be tachypneic. Review of chart, she had been breathing in the high 20s overnight. Patient also had audible crackles with wheezing and had been transitioned to oxygen by Ventimask which was requiring increasing amounts up to 50%. Urgent pulmonology consult placed in case discussed with online producer. Patient was emergently transferred to the ICU. Stat ABG done showed pH of 7.34 with PO2 of XT and PCO2 of 41.2. Patient was put on BiPAP but she was however not tolerating it. Patient was therefore emergently intubated. Labs and vitals reviewed. o/e: Vital Signs Height 4 ft 10 in Weight: 177 lb 0.499 oz Weight in Pounds 177.0 lbs Pulse Ox 97 Temperature 99.8 F Pulse Rate 74 Respiratory Rate 14 Blood Pressure [BP] 88/56 Blood Pressure 101/76 Blood Pressure Position [BP] Semi-Fowlers Blood Pressure Position Semi-Fowlers General: Cooperative patient very lethargic and somnolent. Not answering questions. HEENT: Atraumatic, PERRLA, EOMI, Normocephalic Neck: Supple, No JVD, Negative Carotid Bruits Lungs: coarse crackles and wheezes mainly in right lower lung field. has audible wheezing and crackles with breathing in and out. on ventimask at 50% oxygen at time of review before transfer to ICU Cardiovascular: Regular rate and rhythm, normal S1 and S2, No murmurs Abdomen: Bowel Sounds Present, Soft, Non Tender Extremities: No edema, Capillary Refill Less than 3 Seconds Skin: No rashes, No breakdown Musculoskeletal: No Tenderness to Palpation of Joints or Extremities Neurological: Cranial nerves II-XII grossly intact Psych/Mental Status: somnolent, lethargic. Plan Patient transferred emergently to ICU for worsening acute hypoxic respiratory failure due to pneumonia as well as acute metabolic encephalopathy due to acute hypoxic respiratory failure. Patient intubated and sedated. Breathing treatments. Sputum culture is pretty panel ordered. Ceftriaxone and azithromycin were continued and antibiotics have been broadened to IV vancomycin and Zosyn. Urine strep and Legionella antigens also been checked. Echocardiogram ordered. Of note, chest CT done on admission showed pulmonary congestion but BNP done was only 15. Patient received a dose of Lasix 40 mg early this morning. 2D echo ordered and is pending. Discontinue her Eliquis for history of DVT. Rest of management as per Douglas Haines PA-C's note which I reviewed and agree with. Code Visit Inpatient E&M: 88963 Subs Hosp L3
[2018-12-12 13:35] LABS: Base Excess 1 mmol/L (-2 to +2); Bicarbonate 24.3 mmol/L (22-26); Blood Gas Specimen Type ART; FI02 40; Mode A-C; O2 Delivery Device Vent; PEEP 5; PO2 48 mmHG (75-100); RR 14; SITE L Brachial; SO2 86 % (95-99); Time Given 1331; Total Carbon Dioxide 25 mmol/L; Vt 350; pCO2 33.6 mmHg (35-45); pH 7.47 (7.35-7.45)
[2018-12-12 16:27] LABS: M R Staph aureus DNA By PCR Negative (Negative); Probe Check PASS; Specimen Processing Control PASS
--- NOTE | 2018-12-12 16:59 | PHA.PHARE_ITS ---
Consult Pharmacy has been consulted to manage selected antiobiotic: Vancomycin Type of Consult: New start Suspected Infection: Pneumonia Prior Doses of Antibiotics Received/Current Regimen: None Labs: Sodium 142 mmol/L (136-145) 12/12/18 05:20 Potassium 4.0 mmol/L (3.5-5.1) 12/12/18 05:20 Chloride 111 mmol/L (98-107) H 12/12/18 05:20 Carbon Dioxide 22.0 mmol/L (21.0-32.0) 12/12/18 05:20 Anion Gap 9 (5-15) 12/12/18 05:20 BUN 11 mg/dL (7-18) 12/12/18 05:20 Creatinine 0.73 mg/dL (0.55-1.02) 12/12/18 05:20 Est GFR (MDRD) Af Amer 107 mL/min (>60) 12/12/18 05:20 Est GFR (MDRD) Non-Af 89 mL/min (>60) 12/12/18 05:20 BUN/Creatinine Ratio 15.0 RATIO (10-20) 12/12/18 05:20 Glucose 119 mg/dL (74-106) H 12/12/18 05:20 Microbiology: Microbiology 12/12/18 14:25 Urine Catheter - Sánchez Streptococcus pneumoniae Antigen (M - Final 12/12/18 14:25 Urine Catheter - Sánchez Legionella Antigen - Final 12/12/18 11:47 Sputum, Induced/Lukens Gram Stain - Final 12/12/18 11:00 Mucosa - Nose Respiratory Panel (PCR) - Final Human [place] 12/11/18 12:25 Urine Catheter - Sánchez Urine Culture - Preliminary Culture exhibits no growth. 12/11/18 15:50 Mucosa - Nose Influenza Types A,B Direct FA (XIOMARA) - Final Weight used for dosin kg Estimated Creatinine Clearance: 60ml/min Goal Trough: 15-20 mcg/mL Pharmacy Plan for Drug Dosing: Pt received a 25mg/kg loading dose of Vancomycin IV over 2 hours (2000mg). Recommend Vancomycin 1000mg IV q12h based on pt's CrCl (adjusted due to height) of 60ml/min. Trough will be drawn before the 4th total dose. Pharmacy Service will continue to monitor and adjust dosing as required. Follow-Up Labs: Trough Vancomycin - trough Labs to be done on [date and time ordered]: trough on 12/14/18 at 0330
[2018-12-12 18:52] LABS: CPK Total, Creatine Kinase 73 U/L (26-192); Triglycerides 45 mg/dL
[2018-12-12] MEDS: Famotidine 20 MG Tablet NG (21:35)
[2018-12-12] MEDS: Atorvastatin Calcium 40 MG Tablet NG (21:51)
[2018-12-12] MEDS: Chlorhexidine 15 ML PO (21:53)
[2018-12-13] VITALS (46 sets, daily range): BP systolic 79–113; BP diastolic 47–88; PULSE 50–122; RESP 14–39; TEMP 36.7–37.4; O2SAT 84–95
[2018-12-13] MEDS: Propofol 10MG/Ml 1,000 MG/100 ML Bottle 4.818 MG CONT INF ×3 (00:24→23:46)
[2018-12-13] MEDS: 0.9% NaCl Peripheral Flush Adult/Peds IV ×5 (00:25→12:18)
[2018-12-13 04:34] LABS: Absolute Lymphocyte Count 0.41 X10^3/ul (0.83-4.51); Absolute Neutrophil Count 4.4 X10^3/uL (2.0-7.7); Basophil# 0.01 X10^3/uL; Basophil% 0.2 % (0-1); Hematocrit 32.8 % (37-47); Lymphocyte # 0.41 X10^3/ul (4.0); Lymphocyte % 8.4 % (19-41); Mean Corp Hgb Conc 30.5 g/gl (32-36); Mean Corpuscular Hgb 29.4 pg (27.0-32.0); Mean Corpuscular Volume 96.5 fL (81-99); Mean Platelet Vol. 9.7 fl (6.2-12.0); Monocyte# 0.04 X10^3/uL; Monocyte% 0.8 % (0-10); Neutrophil # 4.43 X10^3/uL (2.7-7.7); Neutrophil % 90.2 % (47-70); Platelet Count 210 K/mm3 (150-450); RBC Distribution Width CV 16.5 % (11.6-14.6); RBC Distribution Width SD 55.7 fl (35.1-43.9); White Blood Count 4.9 K/mm3 (4.4-11.0)
[2018-12-13 04:38] LABS: Differential Indicated SCAN CRITERIA MET; POSITIVE COUNT NO; POSITIVE DIFFERENTIAL YES; POSITIVE MORPHOLOGY NO
[2018-12-13 04:39] LABS: Anion Gap 10 (5-15); BUN 12 mg/dL (7-18); BUN/Creat Ratio 17.4 RATIO (10-20); Calcium,Total 6.7 mg/dL (8.5-10.1); Chloride 113 mmol/L (98-107); Creatinine, Serum 0.69 mg/dL (0.55-1.02); EST Glomerular Filtration Rate 95 mL/min (>60); Est Glom Filt Rate - Afr Amer 115 mL/min (>60); Glucose 165 mg/dL (74-106); Potassium 3.4 mmol/L (3.5-5.1); Sodium Level 143 mmol/L (136-145)
[2018-12-13] MEDS: CHLORHEXIDINE GLUC 2% CLOTH 1 EACH TOWELETTE TOPICAL (05:51)
[2018-12-13] MEDS: Albuterol 2.5 MG/3 ML VIAL.NEB. INHALATION ×3 (06:51→18:49)
--- NOTE | 2018-12-13 06:57 | PN_ITS ---
Subjective: The patient was seen and examined at the bedside this morning. Events from the last 24 hours have been reviewed. The patient is currently afebrile, hemodynamically stable and maintaining appropriate oxygen saturations on 35% FiO2. The patient failed her spontaneous breathing trial this morning, as she developed significant tachycardia and tachypnea. No significant secretions were noted overnight by the nursing staff. The patient is currently noted to be overall net +4.3 L for the admission. Objective: The patient's most recent lab work, culture data and imaging studies have all been personally reviewed. Blood cultures have shown no growth to date. Urine culture has been negative thus far. 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 Sputum Gram stain revealed 3+ white blood cells and rare gram-positive cocci. Strep and urine Legionella antigens were both negative. Surface echocardiogram revealed evidence of stage I diastolic dysfunction with an ejection fraction of 55%. General: - - Intubated, sedated and mechanically ventilated. HEENT: Atraumatic, PERRLA, Normocephalic Oral: No Gingival or Mucosal Lesions/ Ulcerations, - - Endotracheal and OG tubes remain in place Neck: Supple, No Nodes, Trachea Midline Lungs: No wheeze, No rales, Diminished, Rhonchi Cardiovascular: Regular rate, Regular Rhythm, Normal S1, Normal S2, No murmurs Abdomen: Bowel Sounds Present, Soft, Non Tender, Obese Extremities: No clubbing, No cyanosis, No edema Skin: - - No significant change from previous. Musculoskeletal: No Tenderness to Palpation of Joints or Extremities Lymphatic: No Cervical, Supraclavicular, or Inguinal Adenopathy Neurological: - - No focal neurological deficits. The patient is currently resting comfortably with a RASS of -1. Vital Signs Temp Pulse Resp BP Pulse Ox 36.7 C 81 15 110/82 H 90 12/13/18 06:00 12/13/18 06:00 12/13/18 06:00 12/13/18 06:00 12/13/18 06:00 Oxygen Flow Rate (L/min) 8 Oxygen Delivery Method Mechanical Ventilator Weight: 177 lb 0.499 oz Body Mass Index (BMI) 37.0 Intake and Output for Last 24 Hours 12/11/18 12/12/18 12/13/18 23:59 23:59 23:59 Intake Total 3774 / 3774 3428 / 3428 1703 / 1703 Output Total 900 / 900 3275 / 3275 400 / 400 Balance 2874 / 2874 153 / 153 1303 / 1303 Labs (Last 48 Hours) 12/11/18 12/11/18 12/11/18 12:05 12:05 12:05 WBC 6.9 RBC 3.86 L Hgb 11.7 L Hct 37.9 MCV 98.2 MCH 30.3 MCHC 30.9 L RDW 17.4 H RDW Differential 62.1 H Plt Count 229 MPV 9.2 Immature Gran % (Auto) 0.100 Neut % (Auto) 79.0 H Lymph % (Auto) 12.7 L [place] % (Auto) 7.2 Eos % (Auto) 0.6 Baso % (Auto) 0.4 Absolute Neuts (auto) 5.4 Absolute Lymphs (auto) 0.87 Total Counted Not Reportable PT 21.0 H INR 1.8 APTT 36.0 Specimen Type Sample Site pH Bicarbonate Actual POC Total CO2 Base Excess O2 Saturation O2 % ABG pCO2 ABG pO2 Tre Test Respiration Rate O2 Delivery Device Vent Mode Tidal Volume POC PEEP Blood Gas Notified Whom Blood Gas Notified Time Sodium 138 Potassium 4.1 Chloride 105 Carbon Dioxide 28.0 Anion Gap 5 BUN 15 Creatinine 1.02 Estim Creat Clear Calc 81.28 Est GFR (MDRD) Af Amer 73 Est GFR (MDRD) Non-Af 60 BUN/Creatinine Ratio 14.7 Glucose 133 H Lactic Acid Calcium 8.4 L Total Bilirubin 0.60 AST 25 ALT 22 Alkaline Phosphatase 73 Total Creatine Kinase Troponin I < 0.015 B-Natriuretic Peptide Total Protein 7.5 Albumin 2.3 L Globulin 5.2 H Albumin/Globulin Ratio 0.4 L Triglycerides Urine Color Urine Clarity Urine pH Ur Specific [place] Urine Protein Urine Glucose (UA) Urine Ketones Urine Occult Blood Urine Nitrite Urine Bilirubin Urine Urobilinogen Ur Leukocyte Esterase Urine RBC Urine WBC Ur Squamous Epith Cells Urine Bacteria Urine Mucus MRSA (PCR) 12/11/18 12/11/18 12/11/18 12:05 12:05 12:25 WBC RBC Hgb Hct MCV MCH MCHC RDW RDW Differential Plt Count MPV Immature Gran % (Auto) Neut % (Auto) Lymph % (Auto) [place] % (Auto) Eos % (Auto) Baso % (Auto) Absolute Neuts (auto) Absolute Lymphs (auto) Total Counted PT INR APTT Specimen Type Sample Site pH Bicarbonate Actual POC Total CO2 Base Excess O2 Saturation O2 % ABG pCO2 ABG pO2 Tre Test Respiration Rate O2 Delivery Device Vent Mode Tidal Volume POC PEEP Blood Gas Notified Whom Blood Gas Notified Time Sodium Potassium Chloride Carbon Dioxide Anion Gap BUN Creatinine Estim Creat Clear Calc Est GFR (MDRD) Af Amer Est GFR (MDRD) Non-Af BUN/Creatinine Ratio Glucose Lactic Acid 1.2 Calcium Total Bilirubin AST ALT Alkaline Phosphatase Total Creatine Kinase Troponin I B-Natriuretic Peptide 15.0 Total Protein Albumin Globulin Albumin/Globulin Ratio Triglycerides Urine Color Yellow Urine Clarity Clear Urine pH 5.0 Ur Specific [place] 1.020 Urine Protein 30 H Urine Glucose (UA) Normal Urine Ketones Negative Urine Occult Blood 10 H Urine Nitrite Negative Urine Bilirubin Negative Urine Urobilinogen 1 H Ur Leukocyte Esterase 25 H Urine RBC 0-5 SEEN Urine WBC 0 SEEN Ur Squamous Epith Cells 0-5 SEEN Urine Bacteria 0 SEEN Urine Mucus 0 SEEN MRSA (PCR) 12/12/18 12/12/18 12/12/18 05:20 05:20 05:20 WBC 5.4 RBC 3.48 L Hgb 10.4 L Hct 34.7 L MCV 99.7 H MCH 29.9 MCHC 30.0 L RDW 17.4 H RDW Differential 61.5 H Plt Count 201 MPV 9.5 Immature Gran % (Auto) 0.200 Neut % (Auto) 70.8 H Lymph % (Auto) 17.6 L [place] % (Auto) 10.4 H Eos % (Auto) 0.6 Baso % (Auto) 0.4 Absolute Neuts (auto) 3.8 Absolute Lymphs (auto) 0.95 Total Counted Not Reportable PT INR APTT Specimen Type Sample Site pH Bicarbonate Actual POC Total CO2 Base Excess O2 Saturation O2 % ABG pCO2 ABG pO2 Tre Test Respiration Rate O2 Delivery Device Vent Mode Tidal Volume POC PEEP Blood Gas Notified Whom Blood Gas Notified Time Sodium 142 Potassium 4.0 Chloride 111 H Carbon Dioxide 22.0 Anion Gap 9 BUN 11 Creatinine 0.73 Estim Creat Clear Calc 114.28 Est GFR (MDRD) Af Amer 107 Est GFR (MDRD) Non-Af 89 BUN/Creatinine Ratio 15.0 Glucose 119 H Lactic Acid Calcium 7.8 L Total Bilirubin AST ALT Alkaline Phosphatase Total Creatine Kinase 73 Troponin I B-Natriuretic Peptide Total Protein Albumin Globulin Albumin/Globulin Ratio Triglycerides 45 Urine Color Urine Clarity Urine pH Ur Specific [place] Urine Protein Urine Glucose (UA) Urine Ketones Urine Occult Blood Urine Nitrite Urine Bilirubin Urine Urobilinogen Ur Leukocyte Esterase Urine RBC Urine WBC Ur Squamous Epith Cells Urine Bacteria Urine Mucus MRSA (PCR) 12/12/18 12/12/18 12/12/18 11:09 13:32 14:15 WBC RBC Hgb Hct MCV MCH MCHC RDW RDW Differential Plt Count MPV Immature Gran % (Auto) Neut % (Auto) Lymph % (Auto) [place] % (Auto) Eos % (Auto) Baso % (Auto) Absolute Neuts (auto) Absolute Lymphs (auto) Total Counted PT INR APTT Specimen Type ART ART Sample Site L Brachial L Brachial pH 7.34 L 7.47 H Bicarbonate Actual 22.2 24.3 POC Total CO2 23 25 Base Excess -4 L 1 O2 Saturation 89 L 86 L O2 % 50 40 ABG pCO2 41.2 33.6 L ABG pO2 60 L 48 L Tre Test POS Respiration Rate 14 O2 Delivery Device Vent Mask Vent Vent Mode A-C Tidal Volume 350 POC PEEP 5 Blood Gas Notified Whom ICU MD HOSP MD Blood Gas Notified Time 1106 1331 Sodium Potassium Chloride Carbon Dioxide Anion Gap BUN Creatinine Estim Creat Clear Calc Est GFR (MDRD) Af Amer Est GFR (MDRD) Non-Af BUN/Creatinine Ratio Glucose Lactic Acid Calcium Total Bilirubin AST ALT Alkaline Phosphatase Total Creatine Kinase Troponin I B-Natriuretic Peptide Total Protein Albumin Globulin Albumin/Globulin Ratio Triglycerides Urine Color Urine Clarity Urine pH Ur Specific [place] Urine Protein Urine Glucose (UA) Urine Ketones Urine Occult Blood Urine Nitrite Urine Bilirubin Urine Urobilinogen Ur Leukocyte Esterase Urine RBC Urine WBC Ur Squamous Epith Cells Urine Bacteria Urine Mucus MRSA (PCR) Negative 12/13/18 12/13/18 04:20 04:20 WBC 4.9 RBC 3.40 L Hgb 10.0 L Hct 32.8 L MCV 96.5 MCH 29.4 MCHC 30.5 L RDW 16.5 H RDW Differential 55.7 H Plt Count 210 MPV 9.7 Immature Gran % (Auto) 0.400 Neut % (Auto) 90.2 H Lymph % (Auto) 8.4 L [place] % (Auto) 0.8 Eos % (Auto) 0.0 Baso % (Auto) 0.2 Absolute Neuts (auto) 4.4 Absolute Lymphs (auto) 0.41 L Total Counted Not Reportable PT INR APTT Specimen Type Sample Site pH Bicarbonate Actual POC Total CO2 Base Excess O2 Saturation O2 % ABG pCO2 ABG pO2 Tre Test Respiration Rate O2 Delivery Device Vent Mode Tidal Volume POC PEEP Blood Gas Notified Whom Blood Gas Notified Time Sodium 143 Potassium 3.4 L Chloride 113 H Carbon Dioxide 20.0 L Anion Gap 10 BUN 12 Creatinine 0.69 Estim Creat Clear Calc 120.90 Est GFR (MDRD) Af Amer 115 Est GFR (MDRD) Non-Af 95 BUN/Creatinine Ratio 17.4 Glucose 165 H Lactic Acid Calcium 6.7 L Total Bilirubin AST ALT Alkaline Phosphatase Total Creatine Kinase Troponin I B-Natriuretic Peptide Total Protein Albumin Globulin Albumin/Globulin Ratio Triglycerides Urine Color Urine Clarity Urine pH Ur Specific [place] Urine Protein Urine Glucose (UA) Urine Ketones Urine Occult Blood Urine Nitrite Urine Bilirubin Urine Urobilinogen Ur Leukocyte Esterase Urine RBC Urine WBC Ur Squamous Epith Cells Urine Bacteria Urine Mucus MRSA (PCR) Microbiology 12/12/18 14:25 Urine Catheter - Sánchez Streptococcus pneumoniae Antigen (M - Final 12/12/18 14:25 Urine Catheter - Sánchez Legionella Antigen - Final 12/12/18 11:47 Sputum, Induced/Lukens Gram Stain - Final 12/12/18 11:00 Mucosa - Nose Respiratory Panel (PCR) - Final Human [place] 12/11/18 12:25 Urine Catheter - Sánchez Urine Culture - Preliminary Culture exhibits no growth. 12/11/18 15:50 Mucosa - Nose Influenza Types A,B Direct FA (XIOMARA) - Final Clinical Impression(s) from Imaging Studies Chest X-Ray 12/11/18 12:05 IMPRESSION: Mild pulmonary vascular congestion. Possible airspace disease at the lung bases. Findings appear mildly improved in the right lung and unchanged in the left lung compared to the prior study. Study limited by body habitus. Electronically Signed: Danny Yvan, at 12:36 EST Tel , Service support , Chest CTA 12/11/18 12:41 IMPRESSION: 1. Suboptimal evaluation of the peripheral branches due to significant artifacts. No evidence of pulmonary embolism. 2. Bilateral hazy groundglass opacities/infiltrates likely due to pulmonary edema. 3. Small focal infiltrate in the superior segment of the left lower lobe. 4. No evidence of pleural effusions. Electronically Signed: Wilberto Jerome MD at 13:36 EST Tel , Service support , Chest X-Ray 12/12/18 11:47 IMPRESSION: The tip of the endotracheal tube is at the level of the juan. This should be pulled back 2.5 cm. The tip of the orogastric tube is in the distal portion of the body of the stomach. Cardiomegaly and CHF. Electronically Signed: Joshua Wong MD at 13:06 EST , Service support , Medical Necessity - Tobacco Use Smoking Status: Never smoker Tobacco Use: Non-smoker Assessment/Plan All Active Problems PNA (pneumonia) (Acute) Sepsis (Acute) Pulmonary embolism (Acute) Acute deep vein thrombosis (DVT) of left lower extremity (Acute) Cellulitis of left leg (Resolved) Ulcer of left lower extremity with fat layer exposed (Resolved) RECOMMENDATIONS: 1. Continue to wean FiO2 and PEEP as tolerated. Goal to maintain an oxygen saturation at or above 90%. 2. Continue broad-spectrum antimicrobials, pending finalized infectious workup. 3. Continue scheduled bronchodilators along with IV steroids. 4. Start tube feeds today along with free water flushes. 5. Continue Eliquis as ordered. 6. Continue Pepcid for GI prophylaxis 7. Physical therapy to work with patient. IMPRESSIONS: 1. Acute hypoxemic respiratory failure The patient appears to have radiographic evidence of severe community-acquired pneumonia superimposed upon a history of asthma. The patient did require eventual intubation. We will plan to continue current supportive measures and wean FiO2 and PEEP as tolerated. Broad-spectrum antibiotics will be continued, pending finalized infectious workup. We will continue scheduled bronchodilators along with IV steroids for now. Tube feeds will be initiated today. 2. Acute kidney injury Resolved. Likely prerenal in etiology, as the patient responded to a small amount of volume expansion. We will continue to monitor urine output closely. No current indication for renal replacement therapy. 3. Encephalopathy Likely metabolic in nature and precipitated by the patient's underlying pulmonary infectious process and increased work of breathing. The patient will be maintained on fentanyl and propofol for sedation, with a goal to maintain a RASS of -1 to 1. 4. Hypokalemia Electrolyte repletion currently underway. We will recheck levels in the morning. 5. Baseline MRDD/history of venous thromboembolic disease/allergic rhinitis/hyperlipidemia Complicates care, management, recovery and prognosis. Okay to continue home medications as tolerated. Tube feeds will be initiated today. Physical therapy to evaluate patient. TIME: 42 minutes of critical care time, inclusive of procedures, was spent addressing the patient's acute hypoxemic respiratory failure, acute kidney injury, encephalopathy, review of all data and collaboration with the care team. ([id number]) Code Visit 9xxxx: [id number] Critical care first hour
[2018-12-13] MEDS: Lactated Ringers 1,000 ML 125 ML IV ×3 (06:58→23:46)
[2018-12-13] MEDS: Fluticasone 0.05% 1 SPRAY NASAL.SRY 2 SPRAY NASAL (09:43)
[2018-12-13] MEDS: Chlorhexidine 15 ML PO ×2 (09:44→21:13)
[2018-12-13] MEDS: Loratadine 10 MG Tablet PO (09:44)
[2018-12-13] MEDS: APIXABAN 5 MG TABLET NG ×2 (09:44→21:13)
[2018-12-13] MEDS: Montelukast 10 MG Tablet PO (09:44)
[2018-12-13] MEDS: Famotidine 20 MG Tablet NG ×2 (09:44→21:13)
--- NOTE | 2018-12-13 09:45 | CASEMGMT ---
DOROTHY spoke with patient's sister, Zaida and one of her correction caregivers, Solange. SW asked if there was anything patient needed to be able to do in order to return to the correction. Solange said there is nothing and they will take care of her with whatever she needs at the correction. She said they may need a note from the physician indicating she is not able to go to day-hab during the winter months. Patient does not have a Healthcare POA or Healthcare LW. DOROTHY will follow for d/c planning. Elsa SPARROW MSW
--- NOTE | 2018-12-13 10:06 | PCM.PN.HOSP ---
Patient Problems: Active and Suspected Problems PNA (pneumonia) (Acute) Sepsis (Acute) Subjective: Patient seen and examined. She was transferred emergently to the ICU yesterday on account of acute hypoxic respiratory failure due to community-acquired pneumonia. She was intubated and is currently on IV vancomycin and Zosyn. She is sedated. No active events overnight. Patient is failed spontaneous breathing trial as she got very agitated. Cultures are pending. Patient opens her eyes in response to call but unable to answer any questions on account of being intubated. Labs and vitals reviewed. Vitals/I&O's: Vital Signs Temp Pulse Resp BP Pulse Ox 98.2 F 65 16 105/64 93 12/13/18 08:00 12/13/18 08:00 12/13/18 08:00 12/13/18 08:00 12/13/18 08:00 Oxygen Flow Rate (L/min) 8 Oxygen Delivery Method Mechanical Ventilator Weight: 177 lb 0.499 oz Body Mass Index (BMI) 37.0 Intake and Output for Last 24 Hours 12/11/18 12/12/18 12/13/18 23:59 23:59 23:59 Intake Total 3774 / 3774 3428 / 3428 1823 / 1823 Output Total 900 / 900 3275 / 3275 400 / 400 Balance 2874 / 2874 153 / 153 1423 / 1423 General: intubated, sedated, RASS score is 0 HEENT: Atraumatic, PERRLA, EOMI, Normocephalic Neck: Supple, No JVD, Negative Carotid Bruits Lungs: coarse crackles and wheezes mainly in right lower lung field.intubated and sedated. Cardiovascular: Regular rate and rhythm, normal S1 and S2, No murmurs Abdomen: Bowel Sounds Present, Soft, Non Tender Extremities: No edema, Capillary Refill Less than 3 Seconds Skin: No rashes, No breakdown Musculoskeletal: No Tenderness to Palpation of Joints or Extremities Neurological: Cranial nerves II-XII grossly intact Psych/Mental Status: somnolent, Microbiology Past 72 Hours 12/12/18 14:25 Urine Catheter - Sánchez Streptococcus pneumoniae Antigen (M - Final 12/12/18 14:25 Urine Catheter - Sánchez Legionella Antigen - Final 12/12/18 11:47 Sputum, Induced/Lukens Gram Stain - Final 12/12/18 11:00 Mucosa - Nose Respiratory Panel (PCR) - Final Human [place] 12/11/18 12:25 Urine Catheter - Sánchez Urine Culture - Preliminary Culture exhibits no growth. 12/11/18 15:50 Mucosa - Nose Influenza Types A,B Direct FA (XIOMARA) - Final Laboratory Results 12/12/18 05:20: Total Creatine Kinase 73, Triglycerides 45 12/12/18 11:09: Specimen Type ART, Sample Site L Brachial, pH 7.34 L, Bicarbonate Actual 22.2, POC Total CO2 23, Base Excess -4 L, O2 Saturation 89 L, O2 % 50, ABG pCO2 41.2, ABG pO2 60 L, Tre Test POS, O2 Delivery Device Vent Mask, Blood Gas Notified Whom ICU , Blood Gas Notified Time 1106 12/12/18 13:32: Specimen Type ART, Sample Site L Brachial, pH 7.47 H, Bicarbonate Actual 24.3, POC Total CO2 25, Base Excess 1, O2 Saturation 86 L, O2 % 40, ABG pCO2 33.6 L, ABG pO2 48 L, Respiration Rate 14, O2 Delivery Device Vent, Vent Mode A-C, Tidal Volume 350, POC PEEP 5, Blood Gas Notified Whom HOSP , Blood Gas Notified Time 1331 12/12/18 14:15: MRSA (PCR) Negative 12/13/18 04:20: WBC 4.9, RBC 3.40 L, Hgb 10.0 L, Hct 32.8 L, MCV 96.5, MCH 29.4, MCHC 30.5 L, RDW 16.5 H, RDW Differential 55.7 H, Plt Count 210, MPV 9.7, Immature Gran % (Auto) 0.400, Neut % (Auto) 90.2 H, Lymph % (Auto) 8.4 L, [place] % (Auto) 0.8, Eos % (Auto) 0.0, Baso % (Auto) 0.2, Absolute Neuts (auto) 4.4, Absolute Lymphs (auto) 0.41 L, Total Counted Not Reportable 12/13/18 04:20: Sodium 143, Potassium 3.4 L, Chloride 113 H, Carbon Dioxide 20.0 L, Anion Gap 10, BUN 12, Creatinine 0.69, Estim Creat Clear Calc 120.90, Est GFR (MDRD) Af Amer 115, Est GFR (MDRD) Non-Af 95, BUN/Creatinine Ratio 17.4, Glucose 165 H, Calcium 6.7 L Current Medications Albuterol Sulfate (Ventolin Aerosols) 2.5 mg INHALATION Q4H PRN PRN PRN Reason: SOB &/OR WHEEZING Last Admin: 12/12/18 04:00 Dose: 2.5 mg Albuterol Sulfate (Ventolin Aerosols) 2.5 mg INHALATION Q6HWA.RT [facility] Last Admin: 12/13/18 06:51 Dose: 2.5 mg Apixaban (Eliquis) 5 mg NG 0800,1800 [facility] Last Admin: 12/13/18 09:44 Dose: 5 mg Atorvastatin Calcium (Lipitor) 40 mg NG QHS [facility] Last Admin: 12/12/18 21:51 Dose: 40 mg Chlorhexidine Gluconate () 15 ml PO BID [facility] Last Admin: 12/13/18 09:44 Dose: 15 ml Chlorhexidine Gluconate () 1 each TOPICAL DAILY [facility] Last Admin: 12/13/18 05:51 Dose: 1 each Ergocalciferol (Vitamin D) 50,000 unit PO WE [facility] Famotidine (Pepcid) 20 mg NG BID [facility] Last Admin: 12/13/18 09:44 Dose: 20 mg Fluticasone Propionate (Flonase Nasal [place]) 2 spray NASAL DAILY [facility] Last Admin: 12/13/18 09:43 Dose: 2 sprays Piperacillin Sod/Tazobactam (Sod 3.375 gm/ Sodium Chloride) 50 mls @ 12.5 mls/hr IV Q8 [facility] Last Admin: 12/13/18 05:50 Dose: 12.5 mls/hr Vancomycin IV Pharmacy to Dose (1 ea/ Sodium Chloride) 500 mls @ 250 mls/hr IV X1 PRN; Protocol PRN Reason: Rx to Dose Fentanyl () 100 mls @ 5 mls/hr IV .Q20H [facility] Last Admin: 12/12/18 21:34 Dose: 5 mls/hr Propofol (Diprivan) 1,000 mg in 100 mls @ 4.818 mls/hr CONT INF .Q12H [facility] Last Admin: 12/13/18 00:24 Dose: 4.818 mls/hr Vancomycin HCl 1,000 mg/ (Sodium Chloride) 200 mls @ 200 mls/hr IV Q12H [facility] Last Admin: 12/13/18 03:59 Dose: 200 mls/hr Lactated Ringer's () 1,000 mls @ 125 mls/hr IV .Q8H [facility] Last Admin: 12/13/18 06:58 Dose: 125 mls/hr Loratadine (Claritin) 10 mg PO DAILY [facility] Last Admin: 12/13/18 09:44 Dose: 10 mg Magnesium Hydroxide (Milk Of Magnesia) 30 ml PO DAILY PRN PRN PRN Reason: Constipation Methylprednisolone (Solu-Medrol) 40 mg IV Q6 [facility] Last Admin: 12/13/18 05:51 Dose: 40 mg Montelukast Sodium (Singulair) 10 mg PO DAILY [facility] Last Admin: 12/13/18 09:44 Dose: 10 mg Sodium Chloride () 5 - 15 ml IV UD PRN PRN Reason: SALINE FLUSH Last Admin: 12/13/18 05:51 Dose: 10 ml Medical Necessity - Tobacco Use Smoking Status: Never smoker Tobacco Use: Non-smoker Assessment/Plan All Active Problems PNA (pneumonia) (Acute) Sepsis (Acute) Pulmonary embolism (Acute) Acute deep vein thrombosis (DVT) of left lower extremity (Acute) Cellulitis of left leg (Resolved) Ulcer of left lower extremity with fat layer exposed (Resolved) 1. Sepsis due to community acquired pneumonia SIRS criteria today is 0/4 blood cultures pending on IV vancomycin and IV zosyn now. blood cultures pending Respiratory panel showed human metapneumovirus. Influenza screen was negative and urine culture showed no growth. Urine for strep and Legionella antigens were also negative. Sputum Gram stain was negative and respiratory cultures pending. Blood cultures also pending. 2. Acute hypoxic respiratory failure due to community acquired pneumonia SOB worsened yesterday, necessitating transfer to ICU ABG done showed pO2 of 60, and she was tachypneic, breathing ~ 28 she was initially put on BIPAP but was not able to tolerate it, so was emergently intubated She failed spontaneous breathing trial this morning as she became very agitated. 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 On breathing treatments On IV Solu-Medrol montelukast. 3. Asthma: on breathing treatments and montelukast. 4. Obstructive sleep apnea: On 2 L of oxygen at night and with rest. Patient does not tolerate CPAP or BiPAP 5. History of DVT and PE: P.o. Eliquis 6. Nutrition: Tube feeding with Vital AF. 7. Down syndrome: lives in intermediate DVT prophylaxis: on eliquis GI prophylaxis: on famotidine Code status: full code. Code Visit Inpatient E&M: 11583 Subs Hosp L3
--- NOTE | 2018-12-13 10:16 | PN_ITS ---
Patient Problems: Active and Suspected Problems PNA (pneumonia) (Acute) Sepsis (Acute) Subjective: Patient seen and examined. She was transferred emergently to the ICU yesterday on account of acute hypoxic respiratory failure due to community-acquired pneumonia. She was intubated and is currently on IV vancomycin and Zosyn. She is sedated. No active events overnight. Patient is failed spontaneous breathing trial as she got very agitated. Cultures are pending. Patient opens her eyes in response to call but unable to answer any questions on account of being intubated. Labs and vitals reviewed. Vitals/I&O's: Vital Signs Temp Pulse Resp BP Pulse Ox 98.2 F 65 16 105/64 93 12/13/18 08:00 12/13/18 08:00 12/13/18 08:00 12/13/18 08:00 12/13/18 08:00 Oxygen Flow Rate (L/min) 8 Oxygen Delivery Method Mechanical Ventilator Weight: 177 lb 0.499 oz Body Mass Index (BMI) 37.0 Intake and Output for Last 24 Hours 12/11/18 12/12/18 12/13/18 23:59 23:59 23:59 Intake Total 3774 / 3774 3428 / 3428 1823 / 1823 Output Total 900 / 900 3275 / 3275 400 / 400 Balance 2874 / 2874 153 / 153 1423 / 1423 General: intubated, sedated, RASS score is 0 HEENT: Atraumatic, PERRLA, EOMI, Normocephalic Neck: Supple, No JVD, Negative Carotid Bruits Lungs: coarse crackles and wheezes mainly in right lower lung field.intubated and sedated. Cardiovascular: Regular rate and rhythm, normal S1 and S2, No murmurs Abdomen: Bowel Sounds Present, Soft, Non Tender Extremities: No edema, Capillary Refill Less than 3 Seconds Skin: No rashes, No breakdown Musculoskeletal: No Tenderness to Palpation of Joints or Extremities Neurological: Cranial nerves II-XII grossly intact Psych/Mental Status: somnolent, Microbiology Past 72 Hours 12/12/18 14:25 Urine Catheter - Sánchez Streptococcus pneumoniae Antigen (M - Final 12/12/18 14:25 Urine Catheter - Sánchez Legionella Antigen - Final 12/12/18 11:47 Sputum, Induced/Lukens Gram Stain - Final 12/12/18 11:00 Mucosa - Nose Respiratory Panel (PCR) - Final Human [place] 12/11/18 12:25 Urine Catheter - Sánchez Urine Culture - Preliminary Culture exhibits no growth. 12/11/18 15:50 Mucosa - Nose Influenza Types A,B Direct FA (XIOMARA) - Final Laboratory Results 12/12/18 05:20: Total Creatine Kinase 73, Triglycerides 45 12/12/18 11:09: Specimen Type ART, Sample Site L Brachial, pH 7.34 L, Bicarbonate Actual 22.2, POC Total CO2 23, Base Excess -4 L, O2 Saturation 89 L, O2 % 50, ABG pCO2 41.2, ABG pO2 60 L, Tre Test POS, O2 Delivery Device Vent Mask, Blood Gas Notified Whom ICU , Blood Gas Notified Time 1106 12/12/18 13:32: Specimen Type ART, Sample Site L Brachial, pH 7.47 H, Bicarbonate Actual 24.3, POC Total CO2 25, Base Excess 1, O2 Saturation 86 L, O2 % 40, ABG pCO2 33.6 L, ABG pO2 48 L, Respiration Rate 14, O2 Delivery Device Vent, Vent Mode A-C, Tidal Volume 350, POC PEEP 5, Blood Gas Notified Whom HOSP , Blood Gas Notified Time 1331 12/12/18 14:15: MRSA (PCR) Negative 12/13/18 04:20: WBC 4.9, RBC 3.40 L, Hgb 10.0 L, Hct 32.8 L, MCV 96.5, MCH 29.4, MCHC 30.5 L, RDW 16.5 H, RDW Differential 55.7 H, Plt Count 210, MPV 9.7, Immature Gran % (Auto) 0.400, Neut % (Auto) 90.2 H, Lymph % (Auto) 8.4 L, [place] % (Auto) 0.8, Eos % (Auto) 0.0, Baso % (Auto) 0.2, Absolute Neuts (auto) 4.4, Absolute Lymphs (auto) 0.41 L, Total Counted Not Reportable 12/13/18 04:20: Sodium 143, Potassium 3.4 L, Chloride 113 H, Carbon Dioxide 20.0 L, Anion Gap 10, BUN 12, Creatinine 0.69, Estim Creat Clear Calc 120.90, Est GFR (MDRD) Af Amer 115, Est GFR (MDRD) Non-Af 95, BUN/Creatinine Ratio 17.4, Glucose 165 H, Calcium 6.7 L Current Medications Albuterol Sulfate (Ventolin Aerosols) 2.5 mg INHALATION Q4H PRN PRN PRN Reason: SOB &/OR WHEEZING Last Admin: 12/12/18 04:00 Dose: 2.5 mg Albuterol Sulfate (Ventolin Aerosols) 2.5 mg INHALATION Q6HWA.RT [facility] Last Admin: 12/13/18 06:51 Dose: 2.5 mg Apixaban (Eliquis) 5 mg NG 0800,1800 [facility] Last Admin: 12/13/18 09:44 Dose: 5 mg Atorvastatin Calcium (Lipitor) 40 mg NG QHS [facility] Last Admin: 12/12/18 21:51 Dose: 40 mg Chlorhexidine Gluconate () 15 ml PO BID [facility] Last Admin: 12/13/18 09:44 Dose: 15 ml Chlorhexidine Gluconate () 1 each TOPICAL DAILY [facility] Last Admin: 12/13/18 05:51 Dose: 1 each Ergocalciferol (Vitamin D) 50,000 unit PO WE [facility] Famotidine (Pepcid) 20 mg NG BID [facility] Last Admin: 12/13/18 09:44 Dose: 20 mg Fluticasone Propionate (Flonase Nasal [place]) 2 spray NASAL DAILY [facility] Last Admin: 12/13/18 09:43 Dose: 2 sprays Piperacillin Sod/Tazobactam (Sod 3.375 gm/ Sodium Chloride) 50 mls @ 12.5 mls/hr IV Q8 [facility] Last Admin: 12/13/18 05:50 Dose: 12.5 mls/hr Vancomycin IV Pharmacy to Dose (1 ea/ Sodium Chloride) 500 mls @ 250 mls/hr IV X1 PRN; Protocol PRN Reason: Rx to Dose Fentanyl () 100 mls @ 5 mls/hr IV .Q20H [facility] Last Admin: 12/12/18 21:34 Dose: 5 mls/hr Propofol (Diprivan) 1,000 mg in 100 mls @ 4.818 mls/hr CONT INF .Q12H [facility] Last Admin: 12/13/18 00:24 Dose: 4.818 mls/hr Vancomycin HCl 1,000 mg/ (Sodium Chloride) 200 mls @ 200 mls/hr IV Q12H [facility] Last Admin: 12/13/18 03:59 Dose: 200 mls/hr Lactated Ringer's () 1,000 mls @ 125 mls/hr IV .Q8H [facility] Last Admin: 12/13/18 06:58 Dose: 125 mls/hr Loratadine (Claritin) 10 mg PO DAILY [facility] Last Admin: 12/13/18 09:44 Dose: 10 mg Magnesium Hydroxide (Milk Of Magnesia) 30 ml PO DAILY PRN PRN PRN Reason: Constipation Methylprednisolone (Solu-Medrol) 40 mg IV Q6 [facility] Last Admin: 12/13/18 05:51 Dose: 40 mg Montelukast Sodium (Singulair) 10 mg PO DAILY [facility] Last Admin: 12/13/18 09:44 Dose: 10 mg Sodium Chloride () 5 - 15 ml IV UD PRN PRN Reason: SALINE FLUSH Last Admin: 12/13/18 05:51 Dose: 10 ml Medical Necessity - Tobacco Use Smoking Status: Never smoker Tobacco Use: Non-smoker Assessment/Plan All Active Problems PNA (pneumonia) (Acute) Sepsis (Acute) Pulmonary embolism (Acute) Acute deep vein thrombosis (DVT) of left lower extremity (Acute) Cellulitis of left leg (Resolved) Ulcer of left lower extremity with fat layer exposed (Resolved) 1. Sepsis due to community acquired pneumonia * SIRS criteria today is 0/4 * blood cultures pending * on IV vancomycin and IV zosyn now. * blood cultures pending * Respiratory panel showed human metapneumovirus. Influenza screen was negative and urine culture showed no growth. Urine for strep and Legionella antigens were also negative. Sputum Gram stain was negative and respiratory cultures pending. Blood cultures also pending. 2. Acute hypoxic respiratory failure due to community acquired pneumonia * SOB worsened yesterday, necessitating transfer to ICU * ABG done showed pO2 of 60, and she was tachypneic, breathing ~ 28 * she was initially put on BIPAP but was not able to tolerate it, so was emergently intubated * She failed spontaneous breathing trial this morning as she became very agitated. * [employer]ist on board. * On breathing treatments * On IV Solu-Medrol montelukast. * 3. Asthma: on breathing treatments and montelukast. 4. Obstructive sleep apnea: On 2 L of oxygen at night and with rest. Patient does not tolerate CPAP or BiPAP 5. History of DVT and PE: P.o. Eliquis 6. Nutrition: Tube feeding with Vital AF. 7. Down syndrome: lives in assisted DVT prophylaxis: on eliquis GI prophylaxis: on famotidine Code status: full code. Code Visit Inpatient E&M: 65750 Subs Hosp L3
[2018-12-13] MEDS: Vital AF 1.2 Cal Liquid 1,000 ML 15 ML GT (10:44)
[2018-12-13] MEDS: fentaNYL drip 100 ML 5 MCG IV ×2 (12:01→21:26)
[2018-12-13] MEDS: Insulin Lispro 100 UNIT/ML INSULN.PEN SC ×2 (16:59→23:47)
[2018-12-13 17:25] LABS: Bedside Glucose 218 mg/dL (70-110)
[2018-12-13] MEDS: Atorvastatin Calcium 40 MG Tablet NG (21:13)
[2018-12-13] MEDS: 0.9% NaCl IVPB Med Flush (250 mL) 15 ML IV (23:48)
[2018-12-14] VITALS (40 sets, daily range): BP systolic 79–128; BP diastolic 51–84; PULSE 50–115; RESP 16–29; TEMP 37.1–37.6; O2SAT 88–96
[2018-12-14 00:06] LABS: Bedside Glucose 255 mg/dL (70-110)
[2018-12-14] MEDS: 0.9% NaCl PICC Flush 10 ML IV ×2 (05:01→10:06)
[2018-12-14 06:26] LABS: Bedside Glucose 317 mg/dL (70-110)
[2018-12-14 06:32] LABS: Absolute Lymphocyte Count 0.37 X10^3/ul (0.83-4.51); Absolute Neutrophil Count 6.3 X10^3/uL (2.0-7.7); Basophil# 0.01 X10^3/uL; Basophil% 0.1 % (0-1); Hematocrit 32.2 % (37-47); Lymphocyte # 0.37 X10^3/ul (4.0); Lymphocyte % 5.2 % (19-41); Mean Corp Hgb Conc 31.1 g/gl (32-36); Mean Corpuscular Hgb 29.9 pg (27.0-32.0); Mean Corpuscular Volume 96.1 fL (81-99); Mean Platelet Vol. 10.2 fl (6.2-12.0); Monocyte# 0.33 X10^3/uL; Monocyte% 4.6 % (0-10); Neutrophil # 6.33 X10^3/uL (2.7-7.7); Neutrophil % 88.7 % (47-70); Platelet Count 241 K/mm3 (150-450); RBC Distribution Width CV 16.5 % (11.6-14.6); RBC Distribution Width SD 54.6 fl (35.1-43.9); Red Blood Count 3.35 M/mm3 (4.2-5.4); White Blood Count 7.1 K/mm3 (4.4-11.0)
--- NOTE | 2018-12-14 06:33 | PCM.PN.INT ---
Subjective: The patient was seen and examined at the bedside this morning. Events from the last 24 hours have been reviewed. The patient is currently afebrile, hemodynamically stable and maintaining appropriate oxygen saturations on assist control mode of mechanical ventilation with an FiO2 requirement of 50%. The patient once again failed her spontaneous awakening and breathing trials this morning, as she went on to develop significant agitation, tachycardia and tachypnea. She is currently documented to be overall net +7.1 L for the admission. Objective: The patient's most recent lab work, culture data and imaging studies have all been personally reviewed. Blood cultures have shown no growth to date. Urine culture has been negative thus far. 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 Sputum Gram stain revealed 3+ white blood cells and rare gram-positive cocci. Strep and urine Legionella antigens were both negative. Surface echocardiogram revealed evidence of stage I diastolic dysfunction with an ejection fraction of 55%. General: - - Remains intubated, sedated mechanically ventilated. Currently tolerating assist control without dyssynchrony noted. HEENT: Atraumatic, PERRLA, Normocephalic Oral: No Gingival or Mucosal Lesions/ Ulcerations, - - Endotracheal and OG tubes currently in place Neck: Supple, No Nodes, Trachea Midline Lungs: Diminished, - - Coarse mechanical breath sounds, although improved from previous Cardiovascular: Regular rate, Regular Rhythm, Normal S1, Normal S2, No murmurs Abdomen: Bowel Sounds Present, Soft, Non Tender, Obese Extremities: No clubbing, No cyanosis, No edema Skin: - - No significant change from previous. Musculoskeletal: No Tenderness to Palpation of Joints or Extremities, No Muscle Wasting Lymphatic: No Cervical, Supraclavicular, or Inguinal Adenopathy Neurological: - - No focal neurological deficits. The patient is currently sedated with a RASS of -1 Vital Signs Temp Pulse Resp BP Pulse Ox 37.3 C H 59 L 16 115/73 93 12/14/18 04:00 12/14/18 05:23 12/14/18 05:23 12/14/18 05:00 12/14/18 05:23 Oxygen Flow Rate (L/min) 8 Oxygen Delivery Method Mechanical Ventilator Weight: 178 lb 9.191 oz Body Mass Index (BMI) 37.0 Intake and Output for Last 24 Hours 12/12/18 12/13/18 12/14/18 23:59 23:59 23:59 Intake Total 3428 / 3428 5203 / 5203 Output Total 3275 / 3275 1050 / 1050 Balance 153 / 153 4153 / 4153 Labs (Last 48 Hours) 12/12/18 12/12/18 12/12/18 05:20 11:09 13:32 WBC RBC Hgb Hct MCV MCH MCHC RDW RDW Differential Plt Count MPV Immature Gran % (Auto) Neut % (Auto) Lymph % (Auto) [place] % (Auto) Eos % (Auto) Baso % (Auto) Absolute Neuts (auto) Absolute Lymphs (auto) Total Counted Specimen Type ART ART Sample Site L Brachial L Brachial pH 7.34 L 7.47 H Bicarbonate Actual 22.2 24.3 POC Total CO2 23 25 Base Excess -4 L 1 O2 Saturation 89 L 86 L O2 % 50 40 ABG pCO2 41.2 33.6 L ABG pO2 60 L 48 L Tre Test POS Respiration Rate 14 O2 Delivery Device Vent Mask Vent Vent Mode A-C Tidal Volume 350 POC PEEP 5 Blood Gas Notified Whom ICU MD HOSP MD Blood Gas Notified Time 1106 1331 Sodium Potassium Chloride Carbon Dioxide Anion Gap BUN Creatinine Estim Creat Clear Calc Est GFR (MDRD) Af Amer Est GFR (MDRD) Non-Af BUN/Creatinine Ratio Glucose Calcium Total Creatine Kinase 73 Triglycerides 45 MRSA (PCR) POC Glucose 12/12/18 12/13/18 12/13/18 14:15 04:20 04:20 WBC 4.9 RBC 3.40 L Hgb 10.0 L Hct 32.8 L MCV 96.5 MCH 29.4 MCHC 30.5 L RDW 16.5 H RDW Differential 55.7 H Plt Count 210 MPV 9.7 Immature Gran % (Auto) 0.400 Neut % (Auto) 90.2 H Lymph % (Auto) 8.4 L [place] % (Auto) 0.8 Eos % (Auto) 0.0 Baso % (Auto) 0.2 Absolute Neuts (auto) 4.4 Absolute Lymphs (auto) 0.41 L Total Counted Not Reportable Specimen Type Sample Site pH Bicarbonate Actual POC Total CO2 Base Excess O2 Saturation O2 % ABG pCO2 ABG pO2 Tre Test Respiration Rate O2 Delivery Device Vent Mode Tidal Volume POC PEEP Blood Gas Notified Whom Blood Gas Notified Time Sodium 143 Potassium 3.4 L Chloride 113 H Carbon Dioxide 20.0 L Anion Gap 10 BUN 12 Creatinine 0.69 Estim Creat Clear Calc 120.90 Est GFR (MDRD) Af Amer 115 Est GFR (MDRD) Non-Af 95 BUN/Creatinine Ratio 17.4 Glucose 165 H Calcium 6.7 L Total Creatine Kinase Triglycerides MRSA (PCR) Negative POC Glucose 12/13/18 12/13/18 12/14/18 16:51 23:33 04:45 WBC Pending RBC Pending Hgb Pending Hct Pending MCV Pending MCH Pending MCHC Pending RDW Pending RDW Differential Pending Plt Count Pending MPV Immature Gran % (Auto) Neut % (Auto) Pending Lymph % (Auto) [place] % (Auto) Eos % (Auto) Baso % (Auto) Absolute Neuts (auto) Pending Absolute Lymphs (auto) Total Counted Pending Specimen Type Sample Site pH Bicarbonate Actual POC Total CO2 Base Excess O2 Saturation O2 % ABG pCO2 ABG pO2 Tre Test Respiration Rate O2 Delivery Device Vent Mode Tidal Volume POC PEEP Blood Gas Notified Whom Blood Gas Notified Time Sodium Potassium Chloride Carbon Dioxide Anion Gap BUN Creatinine Estim Creat Clear Calc Est GFR (MDRD) Af Amer Est GFR (MDRD) Non-Af BUN/Creatinine Ratio Glucose Calcium Total Creatine Kinase Triglycerides MRSA (PCR) POC Glucose 218 H 255 H 12/14/18 12/14/18 04:45 06:15 WBC RBC Hgb Hct MCV MCH MCHC RDW RDW Differential Plt Count MPV Immature Gran % (Auto) Neut % (Auto) Lymph % (Auto) [place] % (Auto) Eos % (Auto) Baso % (Auto) Absolute Neuts (auto) Absolute Lymphs (auto) Total Counted Specimen Type Sample Site pH Bicarbonate Actual POC Total CO2 Base Excess O2 Saturation O2 % ABG pCO2 ABG pO2 Tre Test Respiration Rate O2 Delivery Device Vent Mode Tidal Volume POC PEEP Blood Gas Notified Whom Blood Gas Notified Time Sodium Pending Potassium Pending Chloride Pending Carbon Dioxide Pending Anion Gap Pending BUN Pending Creatinine Pending Estim Creat Clear Calc Est GFR (MDRD) Af Amer Pending Est GFR (MDRD) Non-Af Pending BUN/Creatinine Ratio Pending Glucose Pending Calcium Pending Total Creatine Kinase Triglycerides MRSA (PCR) POC Glucose 317 H Microbiology 12/11/18 12:45 Blood Culture (Wb) - Anticubital Left Blood Culture - Preliminary No growth in 48 hours. 12/11/18 12:05 Blood Culture (Wb) - Anticubital Right Blood Culture - Preliminary No growth in 48 hours. 12/12/18 11:47 Sputum, Induced/Lukens Gram Stain - Final 12/12/18 11:47 Sputum, Induced/Lukens Respiratory Culture - Preliminary Appears to be normal respiratory [place]. Further studies to follow. 12/12/18 14:25 Urine Catheter - Sánchez Streptococcus pneumoniae Antigen (M - Final 12/12/18 14:25 Urine Catheter - Sánchez Legionella Antigen - Final 12/12/18 11:00 Mucosa - Nose Respiratory Panel (PCR) - Final Human [place] 12/11/18 12:25 Urine Catheter - Sánchez Urine Culture - Preliminary Culture exhibits no growth. Clinical Impression(s) from Imaging Studies Chest X-Ray 12/11/18 12:05 IMPRESSION: Mild pulmonary vascular congestion. Possible airspace disease at the lung bases. Findings appear mildly improved in the right lung and unchanged in the left lung compared to the prior study. Study limited by body habitus. Electronically Signed: Danny Santoro, at 12:36 EST Tel , Service support , Chest CTA 12/11/18 12:41 IMPRESSION: 1. Suboptimal evaluation of the peripheral branches due to significant artifacts. No evidence of pulmonary embolism. 2. Bilateral hazy groundglass opacities/infiltrates likely due to pulmonary edema. 3. Small focal infiltrate in the superior segment of the left lower lobe. 4. No evidence of pleural effusions. Electronically Signed: Wilberto Jerome MD at 13:36 EST Tel , Service support , Chest X-Ray 12/12/18 11:47 IMPRESSION: The tip of the endotracheal tube is at the level of the juan. This should be pulled back 2.5 cm. The tip of the orogastric tube is in the distal portion of the body of the stomach. Cardiomegaly and CHF. Electronically Signed: Joshua Wong MD at 13:06 EST , Service support , Medical Necessity - Tobacco Use Smoking Status: Never smoker Tobacco Use: Non-smoker Assessment/Plan All Active Problems PNA (pneumonia) (Acute) Sepsis (Acute) Pulmonary embolism (Acute) Acute deep vein thrombosis (DVT) of left lower extremity (Acute) Cellulitis of left leg (Resolved) Ulcer of left lower extremity with fat layer exposed (Resolved) RECOMMENDATIONS: 1. Continue to wean FiO2 and PEEP as tolerated. Goal to maintain an oxygen saturation at or above 90%. 2. Continue broad-spectrum antimicrobials, pending finalized infectious workup. 3. Continue scheduled bronchodilators along with IV steroids. 4. Continue tube feeds today along with free water flushes. 5. Continue Eliquis as ordered. 6. Continue Pepcid for GI prophylaxis 7. Physical therapy to work with patient. 8. Consider gentle diuresis, if hemodynamics allow. IMPRESSIONS: 1. Acute hypoxemic respiratory failure The patient appears to have radiographic evidence of severe community-acquired pneumonia superimposed upon a history of asthma. The patient did require eventual intubation. We will plan to continue current supportive measures and wean FiO2 and PEEP as tolerated. Broad-spectrum antibiotics will be continued, pending finalized infectious workup. We will continue scheduled bronchodilators along with IV steroids for now. Tube feeds will be continued and physical therapy will work with patient. 2. Acute kidney injury Resolved. Likely prerenal in etiology, as the patient responded to a small amount of volume expansion. We will continue to monitor urine output closely. No current indication for renal replacement therapy. 3. Heart failure with preserved ejection fraction The patient's echocardiogram did reveal evidence of stage I diastolic dysfunction. She is currently volume positive for the admission and would likely benefit from gentle diuresis, if the patient's hemodynamics allow. 4. Baseline MRDD/history of venous thromboembolic disease/allergic rhinitis/hyperlipidemia Complicates care, management, recovery and prognosis. Okay to continue home medications as tolerated. Tube feeds will be continued as ordered. TIME: 38 minutes of critical care time, inclusive of procedures, was spent addressing the patient's acute hypoxemic respiratory failure, acute kidney injury, encephalopathy, review of all data and collaboration with the care team. ([id number]) Code Visit 9xxxx: [id number] Critical care first hour
[2018-12-14] MEDS: Insulin Lispro 100 UNIT/ML INSULN.PEN SC ×3 (06:37→17:40)
[2018-12-14 06:42] LABS: Differential Indicated SCAN CRITERIA MET; POSITIVE COUNT NO; POSITIVE DIFFERENTIAL YES; POSITIVE MORPHOLOGY NO
[2018-12-14] MEDS: Albuterol 2.5 MG/3 ML VIAL.NEB. INHALATION ×3 (06:52→18:52)
[2018-12-14 07:03] LABS: Anion Gap 9 (5-15); BUN 20 mg/dL (7-18); BUN/Creat Ratio 21.6 RATIO (10-20); Calcium,Total 7.9 mg/dL (8.5-10.1); Chloride 110 mmol/L (98-107); Creatinine, Serum 0.93 mg/dL (0.55-1.02); EST Glomerular Filtration Rate 67 mL/min (>60); Est Glom Filt Rate - Afr Amer 82 mL/min (>60); Estimated Creatinine Clearance 90.48 ml/min; Glucose 298 mg/dL (74-106); Sodium Level 141 mmol/L (136-145)
--- NOTE | 2018-12-14 08:30 | RAD_ITS ---
STUDY: X-RAY CHEST REASON FOR EXAM: Female, 53 years old. Shortness of breath. TECHNIQUE: Single AP portable view of the chest. COMPARISON: Comparison is made with prior study dated December 12, 2018. FINDINGS: An endotracheal tube is in situ. The tip is at 1.6 cm proximal to the juan. An orogastric tube is seen with the tip below the left hemidiaphragm. Elevation of the right hemidiaphragm. Persistent CHF with atelectasis at the lung bases. There has been improvement as compared to prior study. There is mild cardiac enlargement. Normal mediastinum and terrell. Normal visualized pulmonary arteries. There is atherosclerotic tortuosity of the aortic arch and descending thoracic aorta. There is a levoscoliosis of the thoracic spine. Normal visualized ribs, clavicles, and shoulders. There is no demonstrated abnormality of the visualized soft tissue structures of the upper abdomen. RAD/Chest 1 View (Portable) IMPRESSION: The tip of the endotracheal tube is at 1.6 cm proximal to the juan. Residual CHF with bibasilar atelectasis. There has been improvement as compared to prior study. Electronically Signed: Joshua Wong, at 14:32 EST , Service support ,
[2018-12-14 09:11] LABS: BNP,B-Type NATRIURETIC PEPTIDE 122.1 pg/mL (0-100)
--- NOTE | 2018-12-14 09:30 | PCM.PN.HOSP ---
Patient Problems: Active and Suspected Problems PNA (pneumonia) (Acute) Sepsis (Acute) Subjective: Patient seen and examined. She remains intubated and sedated. Patient gets very agitated when sedation is weaned off. Plan is to switch to Precedex today to see if it will help with anxiety. Labs and vitals reviewed. No active events overnight otherwise. Unable to do review of systems as patient is intubated and sedated. Vitals/I&O's: Vital Signs Temp Pulse Resp BP Pulse Ox 99.3 F H 68 16 87/57 L 91 12/14/18 08:00 12/14/18 08:00 12/14/18 08:00 12/14/18 08:00 12/14/18 08:00 Oxygen Flow Rate (L/min) 8 Oxygen Delivery Method Mechanical Ventilator Weight: 178 lb 9.191 oz Body Mass Index (BMI) 37.0 Intake and Output for Last 24 Hours 12/12/18 12/13/18 12/14/18 23:59 23:59 23:59 Intake Total 3428 / 3428 5203 / 5203 1359 / 1359 Output Total 3275 / 3275 1050 / 1050 425 / 425 Balance 153 / 153 4153 / 4153 934 / 934 General: intubated, sedated, RASS score is +1 HEENT: Atraumatic, PERRLA, EOMI, Normocephalic Neck: Supple, No JVD, Negative Carotid Bruits Lungs: coarse crackles and wheezes mainly in right lower lung field.intubated and sedated. Cardiovascular: Regular rate and rhythm, normal S1 and S2, No murmurs Abdomen: Bowel Sounds Present, Soft, Non Tender Extremities: No edema, Capillary Refill Less than 3 Seconds Skin: No rashes, No breakdown Musculoskeletal: No Tenderness to Palpation of Joints or Extremities Neurological: Cranial nerves II-XII grossly intact Psych/Mental Status: somnolent Microbiology Past 72 Hours 12/12/18 11:47 Sputum, Induced/Lukens Gram Stain - Final 12/12/18 11:47 Sputum, Induced/Lukens Respiratory Culture - Preliminary Culture exhibits no growth. 12/11/18 12:25 Urine Catheter - Sánchez Urine Culture - Final Culture exhibits no growth. 12/11/18 12:45 Blood Culture (Wb) - Anticubital Left Blood Culture - Preliminary No growth in 48 hours. 12/11/18 12:05 Blood Culture (Wb) - Anticubital Right Blood Culture - Preliminary No growth in 48 hours. 12/12/18 14:25 Urine Catheter - Sánchez Streptococcus pneumoniae Antigen (M - Final 12/12/18 14:25 Urine Catheter - Sánchez Legionella Antigen - Final 12/12/18 11:00 Mucosa - Nose Respiratory Panel (PCR) - Final Human [place] 12/11/18 15:50 Mucosa - Nose Influenza Types A,B Direct FA (XIOMARA) - Final Laboratory Results 12/13/18 16:51: POC Glucose 218 H 12/13/18 23:33: POC Glucose 255 H 12/14/18 04:45: WBC 7.1, RBC 3.35 L, Hgb 10.0 L, Hct 32.2 L, MCV 96.1, MCH 29.9, MCHC 31.1 L, RDW 16.5 H, RDW Differential 54.6 H, Plt Count 241, MPV 10.2, Immature Gran % (Auto) 1.400 H, Neut % (Auto) 88.7 H, Lymph % (Auto) 5.2 L, [place] % (Auto) 4.6, Eos % (Auto) 0.0, Baso % (Auto) 0.1, Absolute Neuts (auto) 6.3, Absolute Lymphs (auto) 0.37 L, Total Counted Not Reportable 12/14/18 04:45: Sodium 141, Potassium 4.0, Chloride 110 H, Carbon Dioxide 22.0, Anion Gap 9, BUN 20 H, Creatinine 0.93, Estim Creat Clear Calc 90.48, Est GFR (MDRD) Af Amer 82, Est GFR (MDRD) Non-Af 67, BUN/Creatinine Ratio 21.6 H, Glucose 298 H, Calcium 7.9 L 12/14/18 04:45: B-Natriuretic Peptide 122.1 H 12/14/18 06:15: POC Glucose 317 H Current Medications Albuterol Sulfate (Ventolin Aerosols) 2.5 mg INHALATION Q4H PRN PRN PRN Reason: SOB &/OR WHEEZING Last Admin: 12/12/18 04:00 Dose: 2.5 mg Albuterol Sulfate (Ventolin Aerosols) 2.5 mg INHALATION Q6HWA.RT [facility] Last Admin: 12/14/18 06:52 Dose: 2.5 mg Apixaban (Eliquis) 5 mg NG BID [facility] Last Admin: 12/13/18 21:13 Dose: 5 mg Atorvastatin Calcium (Lipitor) 40 mg NG QHS [facility] Last Admin: 12/13/18 21:13 Dose: 40 mg Chlorhexidine Gluconate () 15 ml PO BID [facility] Last Admin: 12/13/18 21:13 Dose: 15 ml Chlorhexidine Gluconate () 1 each TOPICAL DAILY [facility] Last Admin: 12/13/18 05:51 Dose: 1 each Ergocalciferol (Vitamin D) 50,000 unit PO [facility] Famotidine (Pepcid) 20 mg NG BID [facility] Last Admin: 12/13/18 21:13 Dose: 20 mg Fluticasone Propionate (Flonase Nasal [place]) 2 spray NASAL DAILY [facility] Last Admin: 12/13/18 09:43 Dose: 2 sprays Piperacillin Sod/Tazobactam (Sod 3.375 gm/ Sodium Chloride) 50 mls @ 12.5 mls/hr IV Q8 [facility] Last Admin: 12/14/18 06:26 Dose: 12.5 mls/hr Vancomycin IV Pharmacy to Dose (1 ea/ Sodium Chloride) 500 mls @ 250 mls/hr IV X1 PRN; Protocol PRN Reason: Rx to Dose Fentanyl () 100 mls @ 5 mls/hr IV .Q20H [facility] Last Admin: 12/13/18 21:26 Dose: 5 mls/hr Vancomycin HCl 1,000 mg/ (Sodium Chloride) 200 mls @ 200 mls/hr IV Q12H [facility] Last Admin: 12/14/18 05:01 Dose: 200 mls/hr Enteral Nutritional Formula (Vital Af 1.2 Yoan Liquid) 1,000 mls @ 15 mls/hr GT .Q48H [facility] Last Admin: 12/13/18 10:44 Dose: 15 mls/hr Sodium Chloride () 250 mls @ 15 mls/hr IV .[id number] PRN PRN Reason: SALINE FLUSH Last Admin: 12/13/18 23:48 Dose: 15 mls/hr Propofol (Diprivan) 1,000 mg in 100 mls @ 4.818 mls/hr CONT INF .Q12H [facility] Insulin Human Lispro (Humalog Kwikpen (Bkc)) 0 unit SC Q6 [facility]; Protocol Loratadine (Claritin) 10 mg PO DAILY [facility] Last Admin: 12/13/18 09:44 Dose: 10 mg Magnesium Hydroxide (Milk Of Magnesia) 30 ml PO DAILY PRN PRN PRN Reason: Constipation Methylprednisolone (Solu-Medrol) 40 mg IV Q6 [facility] Last Admin: 12/14/18 05:01 Dose: 40 mg Montelukast Sodium (Singulair) 10 mg PO DAILY [facility] Last Admin: 12/13/18 09:44 Dose: 10 mg Sodium Chloride () 5 - 15 ml IV UD PRN PRN Reason: SALINE FLUSH Last Admin: 12/13/18 12:18 Dose: 10 ml Sodium Chloride () 10 ml IV UD PRN PRN Reason: PICC FLUSH Last Admin: 12/14/18 05:01 Dose: 10 ml Medical Necessity - Tobacco Use Smoking Status: Never smoker Tobacco Use: Non-smoker Assessment/Plan All Active Problems PNA (pneumonia) (Acute) Sepsis (Acute) Pulmonary embolism (Acute) Acute deep vein thrombosis (DVT) of left lower extremity (Acute) Cellulitis of left leg (Resolved) Ulcer of left lower extremity with fat layer exposed (Resolved) 1. Sepsis due to community acquired pneumonia SIRS criteria today is 0/4; she did develop a mild fever overnight which peaked at 99.4F blood cultures pending on IV vancomycin and IV zosyn now. blood cultures showed no growth over 48 hours Respiratory panel showed human metapneumovirus. Influenza screen was negative and urine culture showed no growth. Urine for strep and Legionella antigens were also negative. Sputum Gram stain was negative and respiratory cultures pending. 2. Acute hypoxic respiratory failure due to community acquired pneumonia remains intubated and sedated; unable to tolerate spontaneous breathing trial as she gets very agitated when sedation is weaned off to switch from propofol and fentanyl to precedex today on breathing treatments and IV solumedrol development engineer on board. 3. Asthma: on breathing treatments and montelukast. 4. Obstructive sleep apnea: On 2 L of oxygen at night and with rest. currently intubated o/a of respiratory failure. Patient does not tolerate CPAP or BiPAP 5. History of DVT and PE: P.o. Eliquis 6. Nutrition: Tube feeding with Vital AF. 7. Down syndrome: lives in halfway DVT prophylaxis: on eliquis GI prophylaxis: on famotidine Code status: full code. Code Visit Inpatient E&M: 75274 Subs Hosp L3
--- NOTE | 2018-12-14 09:38 | PN_ITS ---
Patient Problems: Active and Suspected Problems PNA (pneumonia) (Acute) Sepsis (Acute) Subjective: Patient seen and examined. She remains intubated and sedated. Patient gets very agitated when sedation is weaned off. Plan is to switch to Precedex today to see if it will help with anxiety. Labs and vitals reviewed. No active e vents overnight otherwise. Unable to do review of systems as patient is intubated and sedated. Vitals/I&O's: Vital Signs Temp Pulse Resp BP Pulse Ox 99.3 F H 68 16 87/57 L 91 12/14/18 08:00 12/14/18 08:00 12/14/18 08:00 12/14/18 08:00 12/14/18 08:00 Oxygen Flow Rate (L/min) 8 Oxygen Delivery Method Mechanical Ventilator Weight: 178 lb 9.191 oz Body Mass Index (BMI) 37.0 Intake and Output for Last 24 Hours 12/12/18 12/13/18 12/14/18 23:59 23:59 23:59 Intake Total 3428 / 3428 5203 / 5203 1359 / 1359 Output Total 3275 / 3275 1050 / 1050 425 / 425 Balance 153 / 153 4153 / 4153 934 / 934 General: intubated, sedated, RASS score is +1 HEENT: Atraumatic, PERRLA, EOMI, Normocephalic Neck: Supple, No JVD, Negative Carotid Bruits Lungs: coarse crackles and wheezes mainly in right lower lung field.intubated and sedated. Cardiovascular: Regular rate and rhythm, normal S1 and S2, No murmurs Abdomen: Bowel Sounds Present, Soft, Non Tender Extremities: No edema, Capillary Refill Less than 3 Seconds Skin: No rashes, No breakdown Musculoskeletal: No Tenderness to Palpation of Joints or Extremities Neurological: Cranial nerves II-XII grossly intact Psych/Mental Status: somnolent Microbiology Past 72 Hours 12/12/18 11:47 Sputum, Induced/Lukens Gram Stain - Final 12/12/18 11:47 Sputum, Induced/Lukens Respiratory Culture - Preliminary Culture exhibits no growth. 12/11/18 12:25 Urine Catheter - Sánchez Urine Culture - Final Culture exhibits no growth. 12/11/18 12:45 Blood Culture (Wb) - Anticubital Left Blood Culture - Preliminary No growth in 48 hours. 12/11/18 12:05 Blood Culture (Wb) - Anticubital Right Blood Culture - Preliminary No growth in 48 hours. 12/12/18 14:25 Urine Catheter - Sánchez Streptococcus pneumoniae Antigen (M - Final 12/12/18 14:25 Urine Catheter - Sánchez Legionella Antigen - Final 12/12/18 11:00 Mucosa - Nose Respiratory Panel (PCR) - Final Human [place] 12/11/18 15:50 Mucosa - Nose Influenza Types A,B Direct FA (XIOMARA) - Final Laboratory Results 12/13/18 16:51: POC Glucose 218 H 12/13/18 23:33: POC Glucose 255 H 12/14/18 04:45: WBC 7.1, RBC 3.35 L, Hgb 10.0 L, Hct 32.2 L, MCV 96.1, MCH 29.9, MCHC 31.1 L, RDW 16.5 H, RDW Differential 54.6 H, Plt Count 241, MPV 10.2, Immature Gran % (Auto) 1.400 H, Neut % (Auto) 88.7 H, Lymph % (Auto) 5.2 L, [place] % (Auto) 4.6, Eos % (Auto) 0.0, Baso % (Auto) 0.1, Absolute Neuts (auto) 6.3, Absolute Lymphs (auto) 0.37 L, Total Counted Not Reportable 12/14/18 04:45: Sodium 141, Potassium 4.0, Chloride 110 H, Carbon Dioxide 22.0, Anion Gap 9, BUN 20 H, Creatinine 0.93, Estim Creat Clear Calc 90.48, Est GFR (MDRD) Af Amer 82, Est GFR (MDRD) Non-Af 67, BUN/Creatinine Ratio 21.6 H, Glucose 298 H, Calcium 7.9 L 12/14/18 04:45: B-Natriuretic Peptide 122.1 H 12/14/18 06:15: POC Glucose 317 H Current Medications Albuterol Sulfate (Ventolin Aerosols) 2.5 mg INHALATION Q4H PRN PRN PRN Reason: SOB &/OR WHEEZING Last Admin: 12/12/18 04:00 Dose: 2.5 mg Albuterol Sulfate (Ventolin Aerosols) 2.5 mg INHALATION Q6HWA.RT [facility]LEXA Last Admin: 12/14/18 06:52 Dose: 2.5 mg Apixaban (Eliquis) 5 mg NG BID [facility] Last Admin: 12/13/18 21:13 Dose: 5 mg Atorvastatin Calcium (Lipitor) 40 mg NG QHS [facility] Last Admin: 12/13/18 21:13 Dose: 40 mg Chlorhexidine Gluconate () 15 ml PO BID [facility] Last Admin: 12/13/18 21:13 Dose: 15 ml Chlorhexidine Gluconate () 1 each TOPICAL DAILY [facility] Last Admin: 12/13/18 05:51 Dose: 1 each Ergocalciferol (Vitamin D) 50,000 unit PO [facility] Famotidine (Pepcid) 20 mg NG BID [facility] Last Admin: 12/13/18 21:13 Dose: 20 mg Fluticasone Propionate (Flonase Nasal [place]) 2 spray NASAL DAILY [facility] Last Admin: 12/13/18 09:43 Dose: 2 sprays Piperacillin Sod/Tazobactam (Sod 3.375 gm/ Sodium Chloride) 50 mls @ 12.5 mls/hr IV Q8 [facility] Last Admin: 12/14/18 06:26 Dose: 12.5 mls/hr Vancomycin IV Pharmacy to Dose (1 ea/ Sodium Chloride) 500 mls @ 250 mls/hr IV X1 PRN; Protocol PRN Reason: Rx to Dose Fentanyl () 100 mls @ 5 mls/hr IV .Q20H [facility] Last Admin: 12/13/18 21:26 Dose: 5 mls/hr Vancomycin HCl 1,000 mg/ (Sodium Chloride) 200 mls @ 200 mls/hr IV Q12H [facility] Last Admin: 12/14/18 05:01 Dose: 200 mls/hr Enteral Nutritional Formula (Vital Af 1.2 Yoan Liquid) 1,000 mls @ 15 mls/hr GT .Q48H [facility] Last Admin: 12/13/18 10:44 Dose: 15 mls/hr Sodium Chloride () 250 mls @ 15 mls/hr IV .[id number] PRN PRN Reason: SALINE FLUSH Last Admin: 12/13/18 23:48 Dose: 15 mls/hr Propofol (Diprivan) 1,000 mg in 100 mls @ 4.818 mls/hr CONT INF .Q12H [facility] Insulin Human Lispro (Humalog Kwikpen (Bkc)) 0 unit SC Q6 [facility]; Protocol Loratadine (Claritin) 10 mg PO DAILY [facility] Last Admin: 12/13/18 09:44 Dose: 10 mg Magnesium Hydroxide (Milk Of Magnesia) 30 ml PO DAILY PRN PRN PRN Reason: Constipation Methylprednisolone (Solu-Medrol) 40 mg IV Q6 [facility] Last Admin: 12/14/18 05:01 Dose: 40 mg Montelukast Sodium (Singulair) 10 mg PO DAILY [facility] Last Admin: 12/13/18 09:44 Dose: 10 mg Sodium Chloride () 5 - 15 ml IV UD PRN PRN Reason: SALINE FLUSH Last Admin: 12/13/18 12:18 Dose: 10 ml Sodium Chloride () 10 ml IV UD PRN PRN Reason: PICC FLUSH Last Admin: 12/14/18 05:01 Dose: 10 ml Medical Necessity - Tobacco Use Smoking Status: Never smoker Tobacco Use: Non-smoker Assessment/Plan All Active Problems PNA (pneumonia) (Acute) Sepsis (Acute) Pulmonary embolism (Acute) Acute deep vein thrombosis (DVT) of left lower extremity (Acute) Cellulitis of left leg (Resolved) Ulcer of left lower extremity with fat layer exposed (Resolved) 1. Sepsis due to community acquired pneumonia * SIRS criteria today is 0/4; she did develop a mild fever overnight which peaked at 99.4F * blood cultures pending * on IV vancomycin and IV zosyn now. * blood cultures showed no growth over 48 hours * Respiratory panel showed human metapneumovirus. Influenza screen was negative and urine culture showed no growth. Urine for strep and Legionella antigens were also negative. Sputum Gram stain was negative and respiratory cultures pending. 2. Acute hypoxic respiratory failure due to community acquired pneumonia * remains intubated and sedated; unable to tolerate spontaneous breathing trial as she gets very agitated when sedation is weaned off * to switch from propofol and fentanyl to precedex today * on breathing treatments and IV solumedrol * firer watertender on board. * 3. Asthma: on breathing treatments and montelukast. 4. Obstructive sleep apnea: On 2 L of oxygen at night and with rest. currently intubated o/a of respiratory failure. Patient does not tolerate CPAP or BiPAP 5. History of DVT and PE: P.o. Eliquis 6. Nutrition: Tube feeding with Vital AF. 7. Down syndrome: lives in half-way DVT prophylaxis: on eliquis GI prophylaxis: on famotidine Code status: full code. Code Visit Inpatient E&M: 78754 Subs Hosp L3
--- NOTE | 2018-12-14 09:41 | CASEMGMT ---
SW participated in ICU rounds this morning, pt's button spindler present. Plan continues to be for pt to return to the [facility] at discharge. SW will continue to follow. ERNESTINA Agustin, BLOOD BANK CUSTODIAN
[2018-12-14] MEDS: Chlorhexidine 15 ML PO ×2 (10:05→21:02)
[2018-12-14] MEDS: CHLORHEXIDINE GLUC 2% CLOTH 1 EACH TOWELETTE TOPICAL (10:05)
[2018-12-14] MEDS: Loratadine 10 MG Tablet PO (10:06)
[2018-12-14] MEDS: 0.9% NaCl Peripheral Flush Adult/Peds IV ×2 (10:06→17:39)
[2018-12-14] MEDS: Famotidine 20 MG Tablet NG ×2 (10:06→21:03)
[2018-12-14] MEDS: Montelukast 10 MG Tablet PO (10:06)
[2018-12-14] MEDS: APIXABAN 5 MG TABLET NG ×2 (10:06→21:03)
[2018-12-14] MEDS: Fluticasone 0.05% 1 SPRAY NASAL.SRY 2 SPRAY NASAL (10:08)
[2018-12-14] MEDS: fentaNYL drip 100 ML 5 MCG IV ×2 (10:09→21:02)
[2018-12-14] MEDS: Propofol 10MG/Ml 1,000 MG/100 ML Bottle 4.818 MG CONT INF (12:04)
[2018-12-14 12:20] LABS: Bedside Glucose 332 mg/dL (70-110)
[2018-12-14] MEDS: Vital AF 1.2 Cal Liquid 1,000 ML 15 ML GT (12:53)
[2018-12-14 17:00] LABS: Bedside Glucose 332 mg/dL (70-110)
[2018-12-14 17:54] LABS: Vancomycin, Trough Level 23.8 ug/mL (5.0-15.0)
--- NOTE | 2018-12-14 19:45 | PHA.PHARE_ITS ---
Consult Type of Consult: Follow-up Suspected Infection: Pneumonia Prior Doses of Antibiotics Received/Current Regimen: Medications Discontinued Medications Vancomycin HCl 1,000 mg/ (Sodium Chloride) 200 mls @ 200 mls/hr IV Q12H [facility] Last Admin: 12/14/18 17:40 Dose: 200 mls/hr Labs: Sodium 141 mmol/L (136-145) 12/14/18 04:45 Potassium 4.0 mmol/L (3.5-5.1) 12/14/18 04:45 Chloride 110 mmol/L (98-107) H 12/14/18 04:45 Carbon Dioxide 22.0 mmol/L (21.0-32.0) 12/14/18 04:45 Anion Gap 9 (5-15) 12/14/18 04:45 BUN 20 mg/dL (7-18) H 12/14/18 04:45 Creatinine 0.93 mg/dL (0.55-1.02) 12/14/18 04:45 Est GFR (MDRD) Af Amer 82 mL/min (>60) 12/14/18 04:45 Est GFR (MDRD) Non-Af 67 mL/min (>60) 12/14/18 04:45 BUN/Creatinine Ratio 21.6 RATIO (10-20) H 12/14/18 04:45 Glucose 298 mg/dL (74-106) H 12/14/18 04:45 Vancomycin Trough 23.8 ug/mL (5.0-15.0) H 12/14/18 16:45 Microbiology: Microbiology 12/12/18 11:47 Sputum, Induced/Lukens Gram Stain - Final 12/12/18 11:47 Sputum, Induced/Lukens Respiratory Culture - Preliminary Culture exhibits no growth. 12/11/18 12:25 Urine Catheter - Sánchez Urine Culture - Final Culture exhibits no growth. 12/11/18 12:45 Blood Culture (Wb) - Anticubital Left Blood Culture - Prelimi nary No growth in 48 hours. 12/11/18 12:05 Blood Culture (Wb) - Anticubital Right Blood Culture - Preliminary No growth in 48 hours. 12/12/18 14:25 Urine Catheter - Sánchez Streptococcus pneumoniae Antigen (M - Final 12/12/18 14:25 Urine Catheter - Sánchez Legionella Antigen - Final 12/12/18 11:00 Mucosa - Nose Respiratory Panel (PCR) - Final Human [place] 12/11/18 15:50 Mucosa - Nose Influenza Types A,B Direct FA (XIOMARA) - Final Goal Trough: 15-20 mcg/mL Pharmacy Plan for Drug Dosing: The patient had a trough drawn ~11.5hrs from last dose administered, which resulted in a trough of 23.8 (drawn appropriately). Will plan on drawing a trough in 24 hours, as the patient did get their evening dose. Discontinued current vancomycin order to ensure patient does not get another dose until trough <20. Will continue to monitor daily. PLAN/RECOMMENDATIONS 1. HOLD vancomycin until trough <20 2. Trough scheduled 12/15/18 @1700, 24hrs from last administered dose 3. Pharmacy Service will continue to monitor and adjust dosing as required.
[2018-12-14] MEDS: Senna/Docusate Sodium 1 Tablet 2 TABLET GT (21:03)
[2018-12-14] MEDS: Atorvastatin Calcium 40 MG Tablet NG (21:03)
[2018-12-15] VITALS (42 sets, daily range): BP systolic 87–141; BP diastolic 51–85; PULSE 49–114; RESP 16–26; TEMP 37.3–37.9; O2SAT 90–97
[2018-12-15] MEDS: Propofol 10MG/Ml 1,000 MG/100 ML Bottle 4.818 MG CONT INF
[2018-12-15 00:46] LABS: Bedside Glucose 355 mg/dL (70-110)
[2018-12-15 04:32] LABS: Anion Gap 7 (5-15); BUN 25 mg/dL (7-18); BUN/Creat Ratio 23.6 RATIO (10-20); Calcium,Total 7.5 mg/dL (8.5-10.1); Chloride 109 mmol/L (98-107); Creatinine, Serum 1.06 mg/dL (0.55-1.02); EST Glomerular Filtration Rate 58 mL/min (>60); Est Glom Filt Rate - Afr Amer 70 mL/min (>60); Estimated Creatinine Clearance 79.39 ml/min; Glucose 406 mg/dL (74-106); Potassium 4.2 mmol/L (3.5-5.1); Sodium Level 140 mmol/L (136-145)
[2018-12-15 05:06] LABS: Absolute Lymphocyte Count 0.41 X10^3/ul (0.83-4.51); Absolute Neutrophil Count 6.5 X10^3/uL (2.0-7.7); Basophil# 0.01 X10^3/uL; Basophil% 0.1 % (0-1); Hematocrit 31.2 % (37-47); Hemoglobin 9.4 g/dl (12.0-15.0); Lymphocyte # 0.41 X10^3/ul (4.0); Lymphocyte % 5.5 % (19-41); Mean Corp Hgb Conc 30.1 g/gl (32-36); Mean Corpuscular Hgb 29.2 pg (27.0-32.0); Mean Corpuscular Volume 96.9 fL (81-99); Mean Platelet Vol. 10.1 fl (6.2-12.0); Monocyte# 0.39 X10^3/uL; Monocyte% 5.3 % (0-10); Neutrophil % 87.8 % (47-70); Platelet Count 216 K/mm3 (150-450); RBC Distribution Width CV 16.8 % (11.6-14.6); RBC Distribution Width SD 56.7 fl (35.1-43.9); Red Blood Count 3.22 M/mm3 (4.2-5.4); White Blood Count 7.4 K/mm3 (4.4-11.0)
[2018-12-15 05:07] LABS: Differential Indicated SCAN CRITERIA MET; POSITIVE COUNT NO; POSITIVE DIFFERENTIAL YES; POSITIVE MORPHOLOGY NO
[2018-12-15] MEDS: Insulin Lispro 100 UNIT/ML INSULN.PEN SC ×5 (05:16→23:00)
[2018-12-15] MEDS: CHLORHEXIDINE GLUC 2% CLOTH 1 EACH TOWELETTE TOPICAL (05:18)
[2018-12-15 05:51] LABS: Bedside Glucose 388 mg/dL (70-110)
--- NOTE | 2018-12-15 06:59 | PN_ITS ---
Subjective: The patient was seen and examined at the bedside this morning. Events from the last 24 hours have been reviewed. The patient is currently afebrile, hemodynamically stable and maintaining appropriate oxygen saturations on assist control mode mechanical ventilation with an FiO2 requirement of 45%. The patient is currently documented to be overall net +9.8 L for the admission. The patient once again failed her spontaneous breathing trial this morning due to the development of significant agitation, tachypnea and tachycardia. She remains on both propofol and fentanyl for sedation. Blood sugars have been on the high side. Objective: The patient's most recent lab work, culture data and imaging studies have all be en personally reviewed. Blood cultures have shown no growth to date. Urine culture has been negative thus far. 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 Sputum Gram stain revealed 3+ white blood cells and rare gram-positive cocci. Strep and urine Legionella antigens were both negative. Surface echocardiogram revealed evidence of stage I diastolic dysfunction with an ejection fraction of 55%. General: - - Remains intubated, sedated and mechanically ventilated. HEENT: Atraumatic, PERRLA, Normocephalic Oral: No Gingival or Mucosal Lesions/ Ulcerations, - - Endotracheal and OG tubes in place Neck: Supple, No Nodes, Trachea Midline Lungs: No rhonchi, No wheeze, No rales, Diminished Cardiovascular: Regular rate, Regular Rhythm, Normal S1, Normal S2, No murmurs Abdomen: Bowel Sounds Present, Soft, Non Tender, Non-Distended, Obese Extremities: No clubbing, No cyanosis, No edema Skin: - - No significant change from previous. Musculoskeletal: No Tenderness to Palpation of Joints or Extremities, No Muscle Wasting Lymphatic: No Cervical, Supraclavicular, or Inguinal Adenopathy Neurological: - - No focal neurological deficits. Psych/Mental Status: Anxious Vital Signs Temp Pulse Resp BP Pulse Ox 37.4 C H 68 16 122/71 H 93 12/15/18 06:00 12/15/18 06:00 12/15/18 06:00 12/15/18 06:00 12/15/18 06:00 Oxygen Flow Rate (L/min) 8 Oxygen Delivery Method Mechanical Ventilator Weight: 182 lb 1.629 oz Body Mass Index (BMI) 37.0 Intake and Output for Last 24 Hours 12/13/18 12/14/18 12/15/18 23:59 23:59 23:59 Intake Total 5203 / 5203 2783 / 2783 1233 / 1233 Output Total 1050 / 1050 1000 / 1000 350 / 350 Balance 4153 / 4153 1783 / 1783 883 / 883 Labs (Last 48 Hours) 12/13/18 12/13/18 12/14/18 16:51 23:33 04:45 WBC 7.1 RBC 3.35 L Hgb 10.0 L Hct 32.2 L MCV 96.1 MCH 29.9 MCHC 31.1 L RDW 16.5 H RDW Differential 54.6 H Plt Count 241 MPV 10.2 Immature Gran % (Auto) 1.400 H Neut % (Auto) 88.7 H Lymph % (Auto) 5.2 L [place] % (Auto) 4.6 Eos % (Auto) 0.0 Baso % (Auto) 0.1 Absolute Neuts (auto) 6.3 Absolute Lymphs (auto) 0.37 L Total Counted Not Reportable Sodium Potassium Chloride Carbon Dioxide Anion Gap BUN Creatinine Estim Creat Clear Calc Est GFR (MDRD) Af Amer Est GFR (MDRD) Non-Af BUN/Creatinine Ratio Glucose Calcium B-Natriuretic Peptide Vancomycin Trough POC Glucose 218 H 255 H 12/14/18 12/14/18 12/14/18 04:45 04:45 06:15 WBC RBC Hgb Hct MCV MCH MCHC RDW RDW Differential Plt Count MPV Immature Gran % (Auto) Neut % (Auto) Lymph % (Auto) [place] % (Auto) Eos % (Auto) Baso % (Auto) Absolute Neuts (auto) Absolute Lymphs (auto) Total Counted Sodium 141 Potassium 4.0 Chloride 110 H Carbon Dioxide 22.0 Anion Gap 9 BUN 20 H Creatinine 0.93 Estim Creat Clear Calc 90.48 Est GFR (MDRD) Af Amer 82 Est GFR (MDRD) Non-Af 67 BUN/Creatinine Ratio 21.6 H Glucose 298 H Calcium 7.9 L B-Natriuretic Peptide 122.1 H Vancomycin Trough POC Glucose 317 H 12/14/18 12/14/18 12/14/18 11:56 16:43 16:45 WBC RBC Hgb Hct MCV MCH MCHC RDW RDW Differential Plt Count MPV Immature Gran % (Auto) Neut % (Auto) Lymph % (Auto) [place] % (Auto) Eos % (Auto) Baso % (Auto) Absolute Neuts (auto) Absolute Lymphs (auto) Total Counted Sodium Potassium Chloride Carbon Dioxide Anion Gap BUN Creatinine Estim Creat Clear Calc Est GFR (MDRD) Af Amer Est GFR (MDRD) Non-Af BUN/Creatinine Ratio Glucose Calcium B-Natriuretic Peptide Vancomycin Trough 23.8 H POC Glucose 332 H 332 H 12/14/18 12/15/18 12/15/18 23:56 04:06 04:06 WBC 7.4 RBC 3.22 L Hgb 9.4 L Hct 31.2 L MCV 96.9 MCH 29.2 MCHC 30.1 L RDW 16.8 H RDW Differential 56.7 H Plt Count 216 MPV 10.1 Immature Gran % (Auto) 1.300 H Neut % (Auto) 87.8 H Lymph % (Auto) 5.5 L [place] % (Auto) 5.3 Eos % (Auto) 0.0 Baso % (Auto) 0.1 Absolute Neuts (auto) 6.5 Absolute Lymphs (auto) 0.41 L Total Counted Pending Sodium 140 Potassium 4.2 Chloride 109 H Carbon Dioxide 24.0 Anion Gap 7 BUN 25 H Creatinine 1.06 H Estim Creat Clear Calc 79.39 Est GFR (MDRD) Af Amer 70 Est GFR (MDRD) Non-Af 58 L BUN/Creatinine Ratio 23.6 H Glucose 406 H Calcium 7.5 L B-Natriuretic Peptide Vancomycin Trough POC Glucose 355 H 12/15/18 05:14 WBC RBC Hgb Hct MCV MCH MCHC RDW RDW Differential Plt Count MPV Immature Gran % (Auto) Neut % (Auto) Lymph % (Auto) [place] % (Auto) Eos % (Auto) Baso % (Auto) Absolute Neuts (auto) Absolute Lymphs (auto) Total Counted Sodium Potassium Chloride Carbon Dioxide Anion Gap BUN Creatinine Estim Creat Clear Calc Est GFR (MDRD) Af Amer Est GFR (MDRD) Non-Af BUN/Creatinine Ratio Glucose Calcium B-Natriuretic Peptide Vancomycin Trough POC Glucose 388 H Microbiology 12/12/18 11:47 Sputum, Induced/Lukens Gram Stain - Final 12/12/18 11:47 Sputum, Induced/Lukens Respiratory Culture - Preliminary Culture exhibits no growth. 12/11/18 12:25 Urine Catheter - Sánchez Urine Culture - Final Culture exhibits no growth. 12/11/18 12:45 Blood Culture (Wb) - Anticubital Left Blood Culture - Preliminary No growth in 48 hours. 12/11/18 12:05 Blood Culture (Wb) - Anticubital Right Blood Culture - Preliminary No growth in 48 hours. Clinical Impression(s) from Imaging Studies Chest X-Ray 12/11/18 12:05 IMPRESSION: Mild pulmonary vascular congestion. Possible airspace disease at the lung bases. Findings appear mildly improved in the right lung and unchanged in the left lung compared to the prior study. Study limited by body habitus. Electronically Signed: Danny Santoro, at 12:36 EST Tel , Service support , Chest CTA 12/11/18 12:41 IMPRESSION: 1. Suboptimal evaluation of the peripheral branches due to significant artifacts. No evidence of pulmonary embolism. 2. Bilateral hazy groundglass opacities/infiltrates likely due to pulmonary edema. 3. Small focal infiltrate in the superior segment of the left lower lobe. 4. No evidence of pleural effusions. Electronically Signed: Wilberto Jerome MD at 13:36 EST Tel , Service support , Chest X-Ray 12/12/18 11:47 IMPRESSION: The tip of the endotracheal tube is at the level of the juan. This should be pulled back 2.5 cm. The tip of the orogastric tube is in the distal portion of the body of the stomach. Cardiomegaly and CHF. Electronically Signed: Joshua Wong MD at 13:06 EST , Service support , Medical Necessity - Tobacco Use Smoking Status: Never smoker Tobacco Use: Non-smoker Assessment/Plan All Active Problems PNA (pneumonia) (Acute) Sepsis (Acute) Pulmonary embolism (Acute) Acute deep vein thrombosis (DVT) of left lower extremity (Acute) Cellulitis of left leg (Resolved) Ulcer of left lower extremity with fat layer exposed (Resolved) RECOMMENDATIONS: 1. Continue to wean FiO2 and PEEP as tolerated. Goal to maintain an oxygen saturation at or above 90%. 2. Continue antibiotics. We will plan to discontinue vancomycin today. 3. Transition from IV steroids to prednisone via OG tube. 4. Continue tube feeds along with free water flushes. 5. Continue Eliquis as ordered. 6. Continue Pepcid for GI prophylaxis 7. Physical therapy to work with patient. 8. Start Lasix today and attempt gentle diuresis. 9. Transition from propofol and fentanyl to Precedex for sedation in hopes that this will help facilitate the patient being liberated from mechanical ventilation. IMPRESSIONS: 1. Acute hypoxemic respiratory failure The patient appears to have radiographic evidence of severe community-acquired pneumonia superimposed upon a history of asthma. The patient did require eventual intubation. We will plan to continue current supportive measures and wean FiO2 and PEEP as tolerated. Antibiotics will be continued, with a plan to complete a 7-day treatment course. The patient's IV steroids will also be transition to prednisone via OG tube today. Given that the patient is significantly volume up for the admission, will attempt gentle diuresis today as well. Her sedation regimen will be transitioned to Precedex. Continue attempts at daily paired spontaneous awakening and breathing trials. Continue tube feeds and work with physical therapy. Continue bronchodilators. 2. Acute kidney injury Resolved. Likely prerenal in etiology, as the patient responded to a small amount of volume expansion. We will continue to monitor urine output closely. No current indication for renal replacement therapy. 3. Heart failure with preserved ejection fraction The patient's echocardiogram did reveal evidence of stage I diastolic dysfunction. She is currently volume positive for the admission and would likely benefit from gentle diuresis, if the patient's hemodynamics allow. 4. Baseline MRDD/history of venous thromboembolic disease/allergic rhinitis/hyperlipidemia Complicates care, management, recovery and prognosis. Okay to continue home medications as tolerated. Tube feeds will be continued as ordered. TIME: 40 minutes of critical care time, inclusive of procedures, was spent addressing the patient's acute hypoxemic respiratory failure, acute kidney injury, encephalopathy, review of all data and collaboration with the care team. (0800- 0840) Code Visit 9xxxx: [id number] Critical care first hour
[2018-12-15] MEDS: Vital AF 1.2 Cal Liquid 1,000 ML 15 ML GT ×2 (07:04→23:02)
[2018-12-15] MEDS: Albuterol 2.5 MG/3 ML VIAL.NEB. INHALATION ×4 (07:07→22:55)
--- NOTE | 2018-12-15 07:33 | PN_ITS ---
Patient Problems: Active and Suspected Problems PNA (pneumonia) (Acute) Sepsis (Acute) Subjective: Day #4 Ventilator Day #4 Zosyn Ms Perkins is a 53 YO F with a PMH of Down syndrome, VTE, hypertension, hyperlipidemia, asthma, LUCIAN and obesity who presented to the emergency department at [facility] on 12/11/2018 complaining of shortness of breath and confusion. Chest CT showed bilateral hazy groundglass opacities with a small focal infiltrate in the superior segment of the left lower lobe. White blood cell count was 6.9 with a left shift. Hemoglobin was 11.7 and platelets were within normal limits. INR was 1.8 but, the pt is chronically on Eliquis. BMP was unremarkable. UA had 0 WBCs. She was admitted to the hospital with a diagnosis of acute sepsis secondary to multilobar community- acquired pneumonia with acute hypoxic respiratory failure with a pulse ox of 85% on a Ventimask with 8 L of O2. Azithromycin and Rocephin were started in the emergency department and continued at admission. Her condition deteriorated overnight and she was intubated on 12/12 and transferred to ICU. Antibiotics we re broadened to Vanco and Zosyn. Blood cultures had no growth. Urine culture had no growth. Respiratory panel was positive for human Coyle pneumo virus. Sputum Gram stain from a sample taken at the time of intubation had no growth. All events the past 24 hours of been reviewed. T-max is 99.6, core temp Sedation has been transition to Precedex in an effort to control anxiety to enable extubation. She is currently 93% saturated on a 45% FiO2. Vital signs are stable. Fluid balance since admission is +9846. The weight has increased from 177 pounds to 182 pounds. All lab was personally reviewed. White blood cell count today is 7.4 with 88% neutrophils however she is on prednisone. Hemoglobin is 9.4 and the platelet count is within normal limits. Creatinine is 1.06 today with a BUN of 25. Blood sugars are not controlled and the blood sugar this a.m. is 406. They have ranged from 332-388 over the past 24 hours. - Physical Exam General: - - Currently on low-dose fentanyl and Precedex for sedation. She will open her eyes but is not following commands. HEENT: Atraumatic, PERRLA Oral: Dry Mucosa Lungs: Clear to auscultation - Anterior and lateral, No rhonchi, No wheeze, No rales, - - No secretions from the ET tube Cardiovascular: Regular rate, Regular Rhythm, Normal S1, Normal S2, No murmurs, No rub noted, No Gallop, - - Distant heart sounds, likely secondary to body habitus. Telemetry shows normal sinus rhythm and sinus bradycardia with no ectopy. Abdomen: Bowel Sounds Present, Soft, Non-Distended, - - No guarding with palpation. Tolerating tube feed. 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, no facial asymmetry Vital Signs Temp Pulse Resp BP Pulse Ox 99.3 F H 67 16 111/65 94 12/15/18 06:00 12/15/18 07:00 12/15/18 07:00 12/15/18 07:00 12/15/18 07:00 Oxygen Flow Rate (L/min) 8 Oxygen Delivery Method Mechanical Ventilator Weight: 182 lb 1.629 oz Body Mass Index (BMI) 37.0 Intake and Output for Last 24 Hours 12/13/18 12/14/18 12/15/18 23:59 23:59 23:59 Intake Total 5203 / 5203 2783 / 2783 1233 / 1233 Output Total 1050 / 1050 1000 / 1000 350 / 350 Balance 4153 / 4153 1783 / 1783 883 / 883 Microbiology Past 72 Hours 12/12/18 11:47 Gram Stain - Final Sputum, Induced/Lukens Respiratory Culture - Preliminary Culture exhibits no growth. 12/11/18 12:25 Urine Culture - Final Urine Catheter - Sánchez Culture exhibits no growth. 12/11/18 12:45 Blood Culture - Preliminary Blood Culture (Wb) - Anticubital Left No growth in 48 hours. 12/11/18 12:05 Blood Culture - Preliminary Blood Culture (Wb) - Anticubital Right No growth in 48 hours. 12/12/18 14:25 Streptococcus pneumoniae Antigen (M - Final Urine Catheter - Sánchez 12/12/18 14:25 Legionella Antigen - Final Urine Catheter - Sánchez 12/12/18 11:00 Respiratory Panel (PCR) - Final Mucosa - Nose Human [place] [facility] Tests Past 24 Hrs 12/14/18 12/14/18 12/15/18 04:45 16:45 04:06 WBC 7.4 RBC 3.22 L Hgb 9.4 L Hct 31.2 L MCV 96.9 MCH 29.2 MCHC 30.1 L RDW 16.8 H RDW Differential 56.7 H Plt Count 216 MPV 10.1 Immature Gran % (Auto) 1.300 H Neut % (Auto) 87.8 H Lymph % (Auto) 5.5 L [place] % (Auto) 5.3 Eos % (Auto) 0.0 Baso % (Auto) 0.1 Absolute Neuts (auto) 6.5 Absolute Lymphs (auto) 0.41 L Total Counted Not Reportable Sodium Potassium Chloride Carbon Dioxide Anion Gap BUN Creatinine Estim Creat Clear Calc Est GFR (MDRD) Af Amer Est GFR (MDRD) Non-Af BUN/Creatinine Ratio Glucose Calcium B-Natriuretic Peptide 122.1 H Vancomycin Trough 23.8 H 12/15/18 04:06 WBC RBC Hgb Hct MCV MCH MCHC RDW RDW Differential Plt Count MPV Immature Gran % (Auto) Neut % (Auto) Lymph % (Auto) [place] % (Auto) Eos % (Auto) Baso % (Auto) Absolute Neuts (auto) Absolute Lymphs (auto) Total Counted Sodium 140 Potassium 4.2 Chloride 109 H Carbon Dioxide 24.0 Anion Gap 7 BUN 25 H Creatinine 1.06 H Estim Creat Clear Calc 79.39 Est GFR (MDRD) Af Amer 70 Est GFR (MDRD) Non-Af 58 L BUN/Creatinine Ratio 23.6 H Glucose 406 H Calcium 7.5 L B-Natriuretic Peptide Vancomycin Trough POC Glucose 12/15/18 12/14/18 12/14/18 05:14 23:56 16:43 POC Glucose 388 H 355 H 332 H 12/14/18 11:56 POC Glucose 332 H Medical Necessity - Tobacco Use Smoking Status: Never smoker Tobacco Use: Non-smoker Assessment/Plan All Active Problems PNA (pneumonia) (Acute) Sepsis (Acute) Pulmonary embolism (Acute) Acute deep vein thrombosis (DVT) of left lower extremity (Acute) Cellulitis of left leg (Resolved) Ulcer of left lower extremity with fat layer exposed (Resolved) Impressions 1. Acute hypoxemic respiratory failure secondary to community-acquired pneumonia 2. Severe sepsis secondary to community-acquired pneumonia with acute hypoxemic respiratory failure requiring intubation 3. Human Coyle pneumo virus infection 4. Obstructive sleep apnea-treated with oxygen while sleeping 5. Acute exacerbation of asthma secondary to community-acquired pneumonia 6. 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 Down syndrome-lives in a [facility] 8. Volume overload -fluid balance is approximately +10 L since admission. Started on IV Lasix by Dr. Parkinson today. 9. Normochromic normocytic anemia with an increased RDW-mild decrease in hemoglobin since admission-likely secondary to volume overload 10. Hyperglycemia with no history of diabetes mellitus but her hemoglobin A1c is elevated at 7.6. - likely has DM II Add Lantus Q 12H and increase the SSI to a high dose scale Liver profile, magnesium, phosphorus Wean Fentanyl off and use Precedex Lasix IV BID Recheck the lab in the AM Weaning trial in the AM on Precedex - should help to control anxiety continue the Zosyn. If No significant BM today will start Metamucil and give a dose of Milk of magnesia D/W Dr. Parkinson on ICU rounds Code Visit Inpatient E&M: 67917 Subs Hosp L3
[2018-12-15 08:09] LABS: Hemoglobin A1c 7.6 % (4.2-6.3)
--- NOTE | 2018-12-15 09:22 | CASEMGMT ---
Addendum entered by Radha Cagle 12/15/18 15:22: Carmen Byrd, pt's director case management called this SW back, she states pt's sister Zaida Gavin is working on getting guardianship. Pt in the past has been her own guardian but now is not bouncing back and pt's sister Zaida was approached in regard to this, and she has an environmental attorney, is working on it. Pt's sister Jeannie is here, asked to speak w/SW in regard to FMLA papers. SW spoke w/Jeannie, she explains that if the physician can help with FMLA papers it will allow her to take time off intermittently when pt is ill. SW explained will speak w/physician about this and let her know. ERNESTINA Agustin, WAREHOUSE CHECKER Original Note: SW participated in ICU rounds this morning, pt remains on the ventilator today. DOROTHY called [facility] [employer] of to speak to pt's director case management, Carmen Byrd([phone]), to inquire about pt's POA vs guardianship, message left. DOROTHY will continue to follow. ERNESTINA Agustin, WAREHOUSE CHECKER
[2018-12-15] MEDS: Famotidine 20 MG Tablet NG ×2 (09:40→22:54)
[2018-12-15] MEDS: APIXABAN 5 MG TABLET NG ×2 (09:40→22:54)
[2018-12-15] MEDS: Montelukast 10 MG Tablet GT (09:40)
[2018-12-15] MEDS: predniSONE 20 MG Tablet 40 MG NG (09:40)
[2018-12-15] MEDS: Loratadine 10 MG Tablet GT (09:40)
[2018-12-15] MEDS: Furosemide 40 MG/4 ML Vial IV ×2 (09:40→18:21)
[2018-12-15] MEDS: 0.9% NaCl PICC Flush 10 ML IV ×3 (09:41→18:22)
[2018-12-15] MEDS: Chlorhexidine 15 ML PO ×2 (09:47→22:54)
[2018-12-15 14:41] LABS: Bedside Glucose 395 mg/dL (70-110)
--- NOTE | 2018-12-15 15:51 | NURSING ---
Addendum entered by Jerald Cox 12/15/18 15:55: Event occurred at approx 1515 Original Note: Called to room by pt's sister for seizure activity. Pt's sister stated that the pt was jerking arms and legs and shaking the bed. Not observed by this RN. At the time this RN entered the room, pt was alert and tracking with eyes. Pt was answering yes/no questions asked by sister. Dr. Parkinson notified of events and evaluated the pt moments later. Pt's sister does not report a diagnosis of seizures in hx and denies that she takes any meds for seizures. Will continue to monitor. Pt is now resting comfortably in bed with minimal jerking of upper and lower extremities that resolves easily.
[2018-12-15 17:44] LABS: Vancomycin, Random Level 14.5 ug/mL (0.0-15.0)
[2018-12-15 18:30] LABS: Bedside Glucose 358 mg/dL (70-110)
[2018-12-15 22:50] LABS: Bedside Glucose 406 mg/dL (70-110)
[2018-12-15] MEDS: Senna/Docusate Sodium 1 Tablet 2 TABLET GT (22:54)
[2018-12-15] MEDS: Atorvastatin Calcium 40 MG Tablet NG (22:59)
[2018-12-16] VITALS (41 sets, daily range): BP systolic 91–140; BP diastolic 59–81; PULSE 51–113; RESP 15–32; TEMP 37.4–37.9; O2SAT 90–97
[2018-12-16 00:31] LABS: Bedside Glucose 354 mg/dL (70-110)
[2018-12-16] MEDS: Albuterol 2.5 MG/3 ML VIAL.NEB. INHALATION ×4 (00:53→18:41)
--- NOTE | 2018-12-16 05:31 | CPS ---
pt MRDD, unable to perform NIF
[2018-12-16 05:40] LABS: Hematocrit 34.5 % (37-47); Hemoglobin 10.7 g/dl (12.0-15.0)
[2018-12-16] MEDS: Insulin Lispro 100 UNIT/ML INSULN.PEN SC ×4 (05:43→23:07)
[2018-12-16 05:44] LABS: Anion Gap 11 (5-15); BUN 25 mg/dL (7-18); BUN/Creat Ratio 22.5 RATIO (10-20); Calcium,Total 7.8 mg/dL (8.5-10.1); Chloride 106 mmol/L (98-107); Creatinine, Serum 1.11 mg/dL (0.55-1.02); EST Glomerular Filtration Rate 55 mL/min (>60); Est Glom Filt Rate - Afr Amer 66 mL/min (>60); Glucose 262 mg/dL (74-106); Magnesium 2.2 mg/dL (1.6-2.6); Phosphorus 2.2 mg/dL (2.5-4.9); Potassium 3.2 mmol/L (3.5-5.1); Sodium Level 144 mmol/L (136-145)
[2018-12-16] MEDS: CHLORHEXIDINE GLUC 2% CLOTH 1 EACH TOWELETTE TOPICAL ×2 (05:44→23:03)
[2018-12-16 06:15] LABS: Bedside Glucose 281 mg/dL (70-110)
--- NOTE | 2018-12-16 06:30 | PCM.PN.INT ---
Subjective: The patient was seen and examined at the bedside this morning. Events from the last 24 hours have been reviewed. The patient is currently afebrile, hemodynamically stable and maintaining appropriate oxygen saturations on CPAP with an FiO2 requirement of 40%. Since yesterday afternoon, the patient has been experiencing intermittent jerking motions, which almost appears myoclonic in nature. I did speak with the patient's sister yesterday at the bedside, who claims that the patient has a prior seizure history, but has never been formally evaluated, nor is she on any form of antiepileptic medication at baseline. The patient does not lose consciousness at all during these episodes. The patient was started on diuretics yesterday and has had in excess of 2.5 L out over the last 24 hours. Therefore, the patient's Lasix regimen was decreased to once daily this morning. The patient remains on a low-dose of Precedex for sedation. Although she initially did well on her spontaneous breathing trial, after approximately 45 minutes to 1 hour on CPAP, she developed increasing tachypnea. An arterial blood gas was obtained which revealed a pH of 7.47, PCO2 of 33 and PO2 of 50 with a corresponding oxygen saturation of 88%. The patient's spontaneous breathing trial was then terminated and she was placed back on assist control mode mechanical ventilation. Respiratory therapy did report that the patient was wheezy overnight and early this morning. However, upon my evaluation of the patient this morning, she had just received an aerosol treatment and was clear to auscultation. Objective: The patient's most recent lab work, culture data and imaging studies have all been personally reviewed. Blood cultures have shown no growth to date. Urine culture has been negative thus far. 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 Sputum Gram stain revealed 3+ white blood cells and rare gram-positive cocci. Strep and urine Legionella antigens were both negative. Surface echocardiogram revealed evidence of stage I diastolic dysfunction with an ejection fraction of 55%. General: Alert, - - Remains intubated and mechanically ventilated. Appears somewhat anxious on spontaneous mode mechanical ventilation. HEENT: Atraumatic, PERRLA, Normocephalic Oral: No Gingival or Mucosal Lesions/ Ulcerations, - - Endotracheal and OG tube currently in place. Neck: Supple, No Nodes, Trachea Midline Lungs: Tachypneic, - - Diminished in the lateral and posterior lung bases. The patient is grossly clear across the anterior lung price without appreciable wheezes, rales or rhonchi. Cardiovascular: Regular rate, Regular Rhythm, Normal S1, Normal S2, No murmurs Abdomen: Bowel Sounds Present, Soft, Non Tender, Non-Distended, Obese Extremities: No clubbing, No cyanosis, No edema Skin: - - No significant change from previous. Musculoskeletal: No Tenderness to Palpation of Joints or Extremities Lymphatic: No Cervical, Supraclavicular, or Inguinal Adenopathy Neurological: - - No focal neurological deficits. The patient does look in the direction of verbal stimulation, but does not currently follow simple commands. Psych/Mental Status: Anxious Vital Signs Temp Pulse Resp BP Pulse Ox 37.5 C H 92 32 H 120/66 91 12/16/18 04:00 12/16/18 06:13 12/16/18 06:13 12/16/18 06:00 12/16/18 06:00 Oxygen Flow Rate (L/min) 8 Oxygen Delivery Method Mechanical Ventilator Weight: 172 lb 2.896 oz Body Mass Index (BMI) 37.0 Intake and Output for Last 24 Hours 12/14/18 12/15/18 12/16/18 23:59 23:59 23:59 Intake Total 2783 / 2783 2452.2 / 2452.2 1018 / 1018 Output Total 1000 / 1000 2850 / 2850 3350 / 3350 Balance 1783 / 1783 -397.8 / -397.8 -2332 / -2332 Labs (Last 48 Hours) 12/14/18 12/14/18 12/14/18 04:45 04:45 04:45 WBC 7.1 RBC 3.35 L Hgb 10.0 L Hct 32.2 L MCV 96.1 MCH 29.9 MCHC 31.1 L RDW 16.5 H RDW Differential 54.6 H Plt Count 241 MPV 10.2 Immature Gran % (Auto) 1.400 H Neut % (Auto) 88.7 H Lymph % (Auto) 5.2 L Gillespie % (Auto) 4.6 Eos % (Auto) 0.0 Baso % (Auto) 0.1 Absolute Neuts (auto) 6.3 Absolute Lymphs (auto) 0.37 L Total Counted Not Reportable Sodium 141 Potassium 4.0 Chloride 110 H Carbon Dioxide 22.0 Anion Gap 9 BUN 20 H Creatinine 0.93 Estim Creat Clear Calc 90.48 Est GFR (MDRD) Af Amer 82 Est GFR (MDRD) Non-Af 67 BUN/Creatinine Ratio 21.6 H Glucose 298 H Hemoglobin A1c Calcium 7.9 L Phosphorus Magnesium B-Natriuretic Peptide 122.1 H Vancomycin Trough Random Vancomycin POC Glucose 12/14/18 12/14/18 12/14/18 11:56 16:43 16:45 WBC RBC Hgb Hct MCV MCH MCHC RDW RDW Differential Plt Count MPV Immature Gran % (Auto) Neut % (Auto) Lymph % (Auto) Gillespie % (Auto) Eos % (Auto) Baso % (Auto) Absolute Neuts (auto) Absolute Lymphs (auto) Total Counted Sodium Potassium Chloride Carbon Dioxide Anion Gap BUN Creatinine Estim Creat Clear Calc Est GFR (MDRD) Af Amer Est GFR (MDRD) Non-Af BUN/Creatinine Ratio Glucose Hemoglobin A1c Calcium Phosphorus Magnesium B-Natriuretic Peptide Vancomycin Trough 23.8 H Random Vancomycin POC Glucose 332 H 332 H 12/14/18 12/15/18 12/15/18 23:56 04:06 04:06 WBC 7.4 RBC 3.22 L Hgb 9.4 L Hct 31.2 L MCV 96.9 MCH 29.2 MCHC 30.1 L RDW 16.8 H RDW Differential 56.7 H Plt Count 216 MPV 10.1 Immature Gran % (Auto) 1.300 H Neut % (Auto) 87.8 H Lymph % (Auto) 5.5 L Gillespie % (Auto) 5.3 Eos % (Auto) 0.0 Baso % (Auto) 0.1 Absolute Neuts (auto) 6.5 Absolute Lymphs (auto) 0.41 L Total Counted Not Reportable Sodium 140 Potassium 4.2 Chloride 109 H Carbon Dioxide 24.0 Anion Gap 7 BUN 25 H Creatinine 1.06 H Estim Creat Clear Calc 79.39 Est GFR (MDRD) Af Amer 70 Est GFR (MDRD) Non-Af 58 L BUN/Creatinine Ratio 23.6 H Glucose 406 H Hemoglobin A1c Calcium 7.5 L Phosphorus Magnesium B-Natriuretic Peptide Vancomycin Trough Random Vancomycin POC Glucose 355 H 12/15/18 12/15/18 12/15/18 04:06 05:14 11:42 WBC RBC Hgb Hct MCV MCH MCHC RDW RDW Differential Plt Count MPV Immature Gran % (Auto) Neut % (Auto) Lymph % (Auto) Gillespie % (Auto) Eos % (Auto) Baso % (Auto) Absolute Neuts (auto) Absolute Lymphs (auto) Total Counted Sodium Potassium Chloride Carbon Dioxide Anion Gap BUN Creatinine Estim Creat Clear Calc Est GFR (MDRD) Af Amer Est GFR (MDRD) Non-Af BUN/Creatinine Ratio Glucose Hemoglobin A1c 7.6 H Calcium Phosphorus Magnesium B-Natriuretic Peptide Vancomycin Trough Random Vancomycin POC Glucose 388 H 395 H 12/15/18 12/15/18 12/15/18 16:30 18:19 21:17 WBC RBC Hgb Hct MCV MCH MCHC RDW RDW Differential Plt Count MPV Immature Gran % (Auto) Neut % (Auto) Lymph % (Auto) Gillespie % (Auto) Eos % (Auto) Baso % (Auto) Absolute Neuts (auto) Absolute Lymphs (auto) Total Counted Sodium Potassium Chloride Carbon Dioxide Anion Gap BUN Creatinine Estim Creat Clear Calc Est GFR (MDRD) Af Amer Est GFR (MDRD) Non-Af BUN/Creatinine Ratio Glucose Hemoglobin A1c Calcium Phosphorus Magnesium B-Natriuretic Peptide Vancomycin Trough Random Vancomycin 14.5 POC Glucose 358 H 406 H 12/15/18 12/16/18 12/16/18 22:52 05:15 05:15 WBC RBC Hgb 10.7 L Hct 34.5 L MCV MCH MCHC RDW RDW Differential Plt Count MPV Immature Gran % (Auto) Neut % (Auto) Lymph % (Auto) Gillespie % (Auto) Eos % (Auto) Baso % (Auto) Absolute Neuts (auto) Absolute Lymphs (auto) Total Counted Sodium 144 Potassium 3.2 L Chloride 106 Carbon Dioxide 27.0 Anion Gap 11 BUN 25 H Creatinine 1.11 H Estim Creat Clear Calc 73.10 Est GFR (MDRD) Af Amer 66 Est GFR (MDRD) Non-Af 55 L BUN/Creatinine Ratio 22.5 H Glucose 262 H Hemoglobin A1c Calcium 7.8 L Phosphorus 2.2 L Magnesium 2.2 B-Natriuretic Peptide Vancomycin Trough Random Vancomycin POC Glucose 354 H 12/16/18 05:41 WBC RBC Hgb Hct MCV MCH MCHC RDW RDW Differential Plt Count MPV Immature Gran % (Auto) Neut % (Auto) Lymph % (Auto) Gillespie % (Auto) Eos % (Auto) Baso % (Auto) Absolute Neuts (auto) Absolute Lymphs (auto) Total Counted Sodium Potassium Chloride Carbon Dioxide Anion Gap BUN Creatinine Estim Creat Clear Calc Est GFR (MDRD) Af Amer Est GFR (MDRD) Non-Af BUN/Creatinine Ratio Glucose Hemoglobin A1c Calcium Phosphorus Magnesium B-Natriuretic Peptide Vancomycin Trough Random Vancomycin POC Glucose 281 H Microbiology 12/12/18 11:47 Sputum, Induced/Lukens Gram Stain - Final 12/12/18 11:47 Sputum, Induced/Lukens Respiratory Culture - Final Culture exhibits no growth. 12/11/18 12:25 Urine Catheter - Sánchez Urine Culture - Final Culture exhibits no growth. Clinical Impression(s) from Imaging Studies Chest X-Ray 12/11/18 12:05 IMPRESSION: Mild pulmonary vascular congestion. Possible airspace disease at the lung bases. Findings appear mildly improved in the right lung and unchanged in the left lung compared to the prior study. Study limited by body habitus. Electronically Signed: Danny Santoro, at 12:36 EST Tel , Service support , Chest CTA 12/11/18 12:41 IMPRESSION: 1. Suboptimal evaluation of the peripheral branches due to significant artifacts. No evidence of pulmonary embolism. 2. Bilateral hazy groundglass opacities/infiltrates likely due to pulmonary edema. 3. Small focal infiltrate in the superior segment of the left lower lobe. 4. No evidence of pleural effusions. Electronically Signed: Wilberto Jerome MD at 13:36 EST Tel , Service support , Chest X-Ray 12/12/18 11:47 IMPRESSION: The tip of the endotracheal tube is at the level of the juan. This should be pulled back 2.5 cm. The tip of the orogastric tube is in the distal portion of the body of the stomach. Cardiomegaly and CHF. Electronically Signed: Joshua Wong MD at 13:06 EST , Service support , Chest X-Ray 12/14/18 08:30 IMPRESSION: The tip of the endotracheal tube is at 1.6 cm proximal to the juan. Residual CHF with bibasilar atelectasis. There has been improvement as compared to prior study. Electronically Signed: Joshua Wong, at 14:32 EST , Service support , Medical Necessity - Tobacco Use Smoking Status: Never smoker Tobacco Use: Non-smoker Assessment/Plan All Active Problems PNA (pneumonia) (Acute) Sepsis (Acute) Pulmonary embolism (Acute) Acute deep vein thrombosis (DVT) of left lower extremity (Acute) Cellulitis of left leg (Resolved) Ulcer of left lower extremity with fat layer exposed (Resolved) RECOMMENDATIONS: 1. Continue to wean FiO2 and PEEP as tolerated. Goal to maintain an oxygen saturation at or above 90%. 2. Continue antibiotics, with plans to complete a 7-day total treatment course. 3. Continue prednisone via OG tube. 4. Continue tube feeds along with free water flushes. 5. Continue Eliquis as ordered. 6. Continue Pepcid for GI prophylaxis 7. Physical therapy to work with patient. 8. Decrease IV Lasix to once daily. 9. Continue low-dose Precedex for sedation. 10. Potassium and phosphorus repletion as ordered. IMPRESSIONS: 1. Acute hypoxemic respiratory failure The patient appears to have radiographic evidence of severe community-acquired pneumonia superimposed upon a history of asthma. The patient did require eventual intubation. We will plan to continue current supportive measures and wean FiO2 and PEEP as tolerated. Antibiotics will be continued, with a plan to complete a 7-day treatment course. The patient will be continued on prednisone with plans for prolonged taper. We will plan to continue volume optimization with IV diuretics. Her Lasix frequency will be decreased to once daily. Given that the patient failed her spontaneous breathing trial this morning, she will be transitioned back to assist control and Precedex will be continued for sedation. Continue tube feeds and work with physical therapy. Continue bronchodilators as ordered. Continue daily spontaneous breathing trials. 2. Acute kidney injury Resolved. Likely prerenal in etiology, as the patient responded to a small amount of volume expansion. We will continue to monitor urine output closely. No current indication for renal replacement therapy. 3. Heart failure with preserved ejection fraction The patient's echocardiogram did reveal evidence of stage I diastolic dysfunction. She remains volume positive for the admission and would benefit from ongoing diuresis. IV Lasix will be continued accordingly. 4. Hypokalemia/hypophosphatemia Electrolyte repletion has been ordered. Recheck levels in the morning. 5. Baseline MRDD/history of venous thromboembolic disease/allergic rhinitis/hyperlipidemia Complicates care, management, recovery and prognosis. Okay to continue home medications as tolerated. Tube feeds will be continued as ordered. TIME: 45 minutes of critical care time, independent of procedures, was spent addressing the patient's acute hypoxemic respiratory failure, acute kidney injury, encephalopathy, review of all data and collaboration with the care team. ([id number]) Code Visit 9xxxx: [id number] Critical care first hour
[2018-12-16 06:56] LABS: Allen Test POS; Base Excess 1 mmol/L (-2 to +2); Bicarbonate 24.2 mmol/L (22-26); Blood Gas Specimen Type ART; FI02 40; Mode CPAP PS; O2 Delivery Device Vent; PEEP 5; PO2 50 mmHG (75-100); PS 5; SITE L Brachial; SO2 88 % (95-99); Time Given 645; Total Carbon Dioxide 25 mmol/L; pCO2 33.1 mmHg (35-45); pH 7.47 (7.35-7.45)
[2018-12-16] MEDS: Potassium Chloride 10mEq/100mL 10 MEQ/100 ML IV.SOLN. 100 MEQ IV BOLUS ×4 (07:07→10:16)
[2018-12-16] MEDS: 0.9% NaCl IVPB Med Flush (250 mL) 15 ML IV (07:07)
--- NOTE | 2018-12-16 07:27 | RAD_ITS ---
STUDY: X-RAY CHEST REASON FOR EXAM: Female, 53 years old. Fever. TECHNIQUE: Single AP portable view of the chest. COMPARISON: Comparison is made with prior study dated December 14, 2018. FINDINGS: An endotracheal tube is in situ. The tip is at 2.8 cm proximal to the juan. An orogastric tube is seen and is unchanged. EKG electrodes are present. A right-sided PICC line catheter is seen with the tip in the proximal superior vena cava. Once again, there is evidence of vascular congestion and mild CHF. There has been essentially no change. Blunting of both costophrenic angles. There is mild cardiac enlargement. Normal mediastinum and terrell. Normal visualized pulmonary arteries. There is atherosclerotic tortuosity of the aortic arch and descending thoracic aorta. Normal visualized thoracic spine. Normal visualized ribs, clavicles, and shoulders. There is no demonstrated abnormality of the visualized soft tissue structures of the upper abdomen. RAD/Chest 1 View (Portable) IMPRESSION: Stable examination showing evidence of CHF. All the support tubes are unchanged and in good position. Electronically Signed: Joshua Wong, at 11:19 EST , Service support ,
--- NOTE | 2018-12-16 07:28 | PN_ITS ---
Patient Problems: Active and Suspected Problems PNA (pneumonia) (Acute) Sepsis (Acute) Subjective: Day #5 ventilator Day #5 Zosyn All events of the past 24 hours of been reviewed. T-max over the past 24 hours is 100.3 ?F Blood pressure and heart rate are stable. She tolerated the weaning trial for approximately 45 minutes today and then became tachypneic and was placed back on assist control. FiO2 was weaned down to 40% and she is now on 5 of PEEP. She remains on Precedex for sedation. Fluid balance on 12/15/2018 was -2332. All lab was personally reviewed. Hemoglobin is 10.7 today and the hematocrit is 34.5 and this is stable. Potassium is low at 3.2 and the BUN is 25 with a creatinine of 1.11, up from 1.06 yesterday. Hemoglobin A1c was 7.6%. Phosphorus is low at 2.2 today and the magnesium is within normal limits at 2.2. The 6 AM blood sugar is 281 which is coming down. Objective: Physical Exam General: - -On Precedex for sedation. She will open her eyes but is not following commands. HEENT: Atraumatic, PERRLA Oral: Dry Mucosa Lungs: Clear to auscultation - Anterior and lateral, No rhonchi, No wheeze, No rales, - - No secretions from the ET tube Cardiovascular: Regular rate, Regular Rhythm, Normal S1, Normal S2, No murmurs, No rub noted, No Gallop, - - Distant heart sounds, likely secondary to body habitus. Telemetry shows normal sinus rhythm and sinus bradycardia with no significant ectopy. Abdomen: Bowel Sounds Present, Soft, Non-Distended, - - No guarding with palpation. Tolerating tube feed. 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, no facial asymmetry, no focal neurologic deficits - Physical Exam Vital Signs Temp Pulse Resp BP Pulse Ox 99.5 F H 92 32 H 120/66 91 12/16/18 04:00 12/16/18 06:13 12/16/18 06:13 12/16/18 06:00 12/16/18 06:00 Oxygen Flow Rate (L/min) 8 Oxygen Delivery Method Mechanical Ventilator Weight: 172 lb 2.896 oz Body Mass Index (BMI) 37.0 Intake and Output for Last 24 Hours 12/14/18 12/15/18 12/16/18 23:59 23:59 23:59 Intake Total 2783 / 2783 2452.2 / 2452.2 1018 / 1018 Output Total 1000 / 1000 2850 / 2850 3350 / 3350 Balance 1783 / 1783 -397.8 / -397.8 -2332 / -2332 Microbiology Past 72 Hours 12/12/18 11:47 Gram Stain - Final Sputum, Induced/Lukens Respiratory Culture - Final Culture exhibits no growth. 12/11/18 12:25 Urine Culture - Final Urine Catheter - Sánchez Culture exhibits no growth. 12/11/18 12:45 Blood Culture - Preliminary Blood Culture (Wb) - Anticubital Left No growth in 48 hours. 12/11/18 12:05 Blood Culture - Preliminary Blood Culture (Wb) - Anticubital Right No growth in 48 hours. Laboratory Tests Past 24 Hrs 12/15/18 12/15/18 12/16/18 04:06 16:30 05:15 Hgb 10.7 L Hct 34.5 L Specimen Type Sample Site pH Bicarbonate Actual POC Total CO2 Base Excess O2 Saturation O2 % ABG pCO2 ABG pO2 Tre Test O2 Delivery Device Vent Mode POC PEEP POC Pressure Suppt Blood Gas Notified Whom Blood Gas Notified Time Sodium Potassium Chloride Carbon Dioxide Anion Gap BUN Creatinine Estim Creat Clear Calc Est GFR (MDRD) Af Amer Est GFR (MDRD) Non-Af BUN/Creatinine Ratio Glucose Hemoglobin A1c 7.6 H Calcium Phosphorus Magnesium Random Vancomycin 14.5 12/16/18 12/16/18 05:15 06:49 Hgb Hct Specimen Type ART Sample Site L Brachial pH 7.47 H Bicarbonate Actual 24.2 POC Total CO2 25 Base Excess 1 O2 Saturation 88 L O2 % 40 ABG pCO2 33.1 L ABG pO2 50 L Tre Test POS O2 Delivery Device Vent Vent Mode CPAP PS POC PEEP 5 POC Pressure Suppt 5 Blood Gas Notified Whom ICU MD Blood Gas Notified Time 645 Sodium 144 Potassium 3.2 L Chloride 106 Carbon Dioxide 27.0 Anion Gap 11 BUN 25 H Creatinine 1.11 H Estim Creat Clear Calc 73.10 Est GFR (MDRD) Af Amer 66 Est GFR (MDRD) Non-Af 55 L BUN/Creatinine Ratio 22.5 H Glucose 262 H Hemoglobin A1c Calcium 7.8 L Phosphorus 2.2 L Magnesium 2.2 Random Vancomycin POC Glucose 12/16/18 12/15/18 12/15/18 05:41 22:52 21:17 POC Glucose 281 H 354 H 406 H 12/15/18 12/15/18 18:19 11:42 POC Glucose 358 H 395 H Medical Necessity - Tobacco Use Smoking Status: Never smoker Tobacco Use: Non-smoker Assessment/Plan All Active Problems PNA (pneumonia) (Acute) Sepsis (Acute) Pulmonary embolism (Acute) Acute deep vein thrombosis (DVT) of left lower extremity (Acute) Cellulitis of left leg (Resolved) Ulcer of left lower extremity with fat layer exposed (Resolved) Impressions 1. Acute hypoxemic respiratory failure secondary to community-acquired pneumonia 2. Severe sepsis secondary to community-acquired pneumonia with acute hypoxemic respiratory failure requiring intubation 3. Human Coyle pneumo virus infection 4. Obstructive sleep apnea-treated with oxygen while sleeping 5. Acute exacerbation of asthma secondary to community-acquired pneumonia 6. 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 Down syndrome-lives in a retirement 8. Volume overload -fluid balance is approximately +10 L since admission. Started on IV Lasix by Dr. Parkinson today. 9. Normochromic normocytic anemia with an increased RDW-mild decrease in hemoglobin since admission-likely secondary to volume overload 10. Hyperglycemia with no history of diabetes mellitus but her hemoglobin A1c is elevated at 7.6. - likely has DM II 11. Hypophosphatemia 12. Hypokalemia Increase Lantus to 20 units twice daily Continue high-dose sliding scale insulin Potassium and phosphorus have been supplemented by Dr. Parkinson Add a daily dose of potassium since she is going to be on Lasix Code Visit Inpatient E&M: [id number] [facility] Hosp L3
[2018-12-16] MEDS: predniSONE 20 MG Tablet 40 MG NG (08:14)
[2018-12-16] MEDS: Montelukast 10 MG Tablet GT (08:14)
[2018-12-16] MEDS: Famotidine 20 MG Tablet NG ×2 (08:14→23:02)
[2018-12-16] MEDS: APIXABAN 5 MG TABLET NG ×2 (08:14→23:02)
[2018-12-16] MEDS: Loratadine 10 MG Tablet GT (08:14)
[2018-12-16] MEDS: Chlorhexidine 15 ML PO ×2 (08:15→23:03)
[2018-12-16] MEDS: Furosemide 40 MG/4 ML Vial IV (08:16)
[2018-12-16 08:51] LABS: Bacteria 0 SEEN /hpf (None Seen); Mucous, Urine 0 SEEN /hpf (<or=2+); White Blood Cells 0 SEEN /hpf (0-5)
[2018-12-16 08:57] LABS: Color, Urine Yellow (Yellow); Glucose, Dipstick Normal (Normal); Ketone-Dipstick Negative (Negative); Leukocyte Esterase-Dipstick Negative /ul (Negative); Nitrite-Dipstick Negative (Negative); Occult Blood-Urine 10 /ul (Negative); Protein-Dipstick Negative (Negative); Specific Gravity, Urine 1.005 (1.002-1.030); Urine Bilirubin Dipstick Negative (Negative); Urine Clarity Sl. Cloudy (Clear); Urine Urobilinogen Normal (Normal)
[2018-12-16 09:03] LABS: Red Blood Cells-Urine 0-5 SEEN /hpf (0-5); Squamous Epithelial Cells - UA 0-5 SEEN /hpf (5-10)
--- NOTE | 2018-12-16 10:10 | CASEMGMT ---
Addendum entered by Radha Cagle 12/16/18 12:45: SW called pt's sister Jeannie again, still cannot leave a message on her voice mail. SW called pt's sister Zaida Gavin. SW let her know that the physician was able to complete the FMLA papers for Jeannie, but SW cannot reach Jeannie as her voice mail is not set up. SW let Zaida know that the FMLA papers are in an envelope and will be on the window sill in the room, and a copy is on the chart. SW did put the papers in an envelope on the windowsill in the room. It is anticipated pt will be here through the weekend, SW will continue to follow. ERNESTINA Agustin, [employer] SET UP OPERATOR Original Note: Pt remains on the ventilator at this time. Physician completed the FMLA form for pt's sister Jeannie. She is not here at present for SW to give this to her however. SW attempted to call, her voice mail is not set up. SW will try again later and let RN know if pt's sister comes in to let this SW know. ERNESTINA Agustin, [employer] SET UP OPERATOR
[2018-12-16 11:41] LABS: Bedside Glucose 294 mg/dL (70-110)
[2018-12-16 17:31] LABS: Bedside Glucose 279 mg/dL (70-110)
[2018-12-16 20:41] LABS: Bedside Glucose 296 mg/dL (70-110)
[2018-12-16] MEDS: Senna/Docusate Sodium 1 Tablet 2 TABLET GT (23:00)
[2018-12-16] MEDS: Vital AF 1.2 Cal Liquid 1,000 ML 15 ML GT (23:02)
[2018-12-16] MEDS: Atorvastatin Calcium 40 MG Tablet NG (23:03)
[2018-12-16 23:25] LABS: Bedside Glucose 203 mg/dL (70-110)
[2018-12-17] VITALS (45 sets, daily range): BP systolic 71–134; BP diastolic 53–88; PULSE 54–84; RESP 16–56; TEMP 37.4–37.9; O2SAT 90–96
[2018-12-17] MEDS: Albuterol 2.5 MG/3 ML VIAL.NEB. INHALATION ×4 (01:25→19:48)
--- NOTE | 2018-12-17 05:11 | CPS ---
Pt. unable to perform NIF measurement.
[2018-12-17 05:58] LABS: Anion Gap 11 (5-15); BUN 28 mg/dL (7-18); BUN/Creat Ratio 28.7 RATIO (10-20); Calcium,Total 7.5 mg/dL (8.5-10.1); Chloride 106 mmol/L (98-107); Creatinine, Serum 0.98 mg/dL (0.55-1.02); EST Glomerular Filtration Rate 63 mL/min (>60); Est Glom Filt Rate - Afr Amer 77 mL/min (>60); Estimated Creatinine Clearance 80.99 ml/min; Glucose 184 mg/dL (74-106); Magnesium 2.1 mg/dL (1.6-2.6); Phosphorus 2.7 mg/dL (2.5-4.9); Sodium Level 144 mmol/L (136-145)
[2018-12-17] MEDS: Insulin Lispro 100 UNIT/ML INSULN.PEN SC ×2 (06:00→18:59)
[2018-12-17 06:11] LABS: Bedside Glucose 214 mg/dL (70-110)
--- NOTE | 2018-12-17 06:30 | PCM.PN.INT ---
Subjective: The patient was seen and examined at the bedside this morning. Events from the last 24 hours have been reviewed. The patient currently has a low-grade fever, which may be the consequence of the Precedex. She is hemodynamically stable. FiO2 has been weaned to 40%. She is currently tolerating a spontaneous breathing trial. No overnight issues were identified by the nursing staff. The patient continues to diurese well. Creatinine remains stable. Potassium is low this morning at 3.0. The patient initially did okay on her spontaneous breathing trial this morning but then went on to develop apneic events. Objective: The patient's most recent lab work, culture data and imaging studies have all been personally reviewed. Blood cultures have shown no growth to date. Urine culture has been negative thus far. 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 Sputum Gram stain revealed 3+ white blood cells and rare gram-positive cocci. Strep and urine Legionella antigens were both negative. Surface echocardiogram revealed evidence of stage I diastolic dysfunction with an ejection fraction of 55%. General: Alert, - - Remains intubated and mechanically ventilated. HEENT: Atraumatic, PERRLA, Normocephalic Oral: No Gingival or Mucosal Lesions/ Ulcerations, - - Endotracheal and OG tubes remain in place. Neck: Supple, No Nodes, Trachea Midline Lungs: No rhonchi, No wheeze, No rales, Diminished Cardiovascular: Regular rate, Regular Rhythm, Normal S1, Normal S2, No murmurs Abdomen: Bowel Sounds Present, Soft, Non Tender, Obese Extremities: No clubbing, No cyanosis, No edema Skin: - - No significant change from previous. Musculoskeletal: No Tenderness to Palpation of Joints or Extremities Lymphatic: No Cervical, Supraclavicular, or Inguinal Adenopathy Neurological: - - No focal neurological deficits. The patient still does not follow any simple commands. Psych/Mental Status: Flat Affect Vital Signs Temp Pulse Resp BP Pulse Ox 37.9 C H 63 26 H 104/62 93 12/17/18 04:00 12/17/18 06:00 12/17/18 06:00 12/17/18 06:00 12/17/18 06:00 Oxygen Flow Rate (L/min) 8 Oxygen Delivery Method Mechanical Ventilator Weight: 168 lb 6.931 oz Body Mass Index (BMI) 37.0 Intake and Output for Last 24 Hours 12/15/18 12/16/18 12/17/18 23:59 23:59 23:59 Intake Total 2452.2 / 2452.2 2961 / 2961 1265 / 1265 Output Total 2850 / 2850 5950 / 5950 350 / 350 Balance -397.8 / -397.8 -2989 / -2989 915 / 915 Labs (Last 48 Hours) 12/15/18 12/15/18 12/15/18 04:06 04:06 11:42 Hgb Hct Total Counted Not Reportable Specimen Type Sample Site pH Bicarbonate Actual POC Total CO2 Base Excess O2 Saturation O2 % ABG pCO2 ABG pO2 Tre Test O2 Delivery Device Vent Mode POC PEEP POC Pressure Suppt Blood Gas Notified Whom Blood Gas Notified Time Sodium Potassium Chloride Carbon Dioxide Anion Gap BUN Creatinine Estim Creat Clear Calc Est GFR (MDRD) Af Amer Est GFR (MDRD) Non-Af BUN/Creatinine Ratio Glucose Hemoglobin A1c 7.6 H Calcium Phosphorus Magnesium Urine Color Urine Clarity Urine pH Ur Specific Joseph Urine Protein Urine Glucose (UA) Urine Ketones Urine Occult Blood Urine Nitrite Urine Bilirubin Urine Urobilinogen Ur Leukocyte Esterase Urine RBC Urine WBC Ur Squamous Epith Cells Urine Bacteria Urine Mucus Random Vancomycin POC Glucose 395 H 12/15/18 12/15/18 12/15/18 16:30 18:19 21:17 Hgb Hct Total Counted Specimen Type Sample Site pH Bicarbonate Actual POC Total CO2 Base Excess O2 Saturation O2 % ABG pCO2 ABG pO2 Tre Test O2 Delivery Device Vent Mode POC PEEP POC Pressure Suppt Blood Gas Notified Whom Blood Gas Notified Time Sodium Potassium Chloride Carbon Dioxide Anion Gap BUN Creatinine Estim Creat Clear Calc Est GFR (MDRD) Af Amer Est GFR (MDRD) Non-Af BUN/Creatinine Ratio Glucose Hemoglobin A1c Calcium Phosphorus Magnesium Urine Color Urine Clarity Urine pH Ur Specific Joseph Urine Protein Urine Glucose (UA) Urine Ketones Urine Occult Blood Urine Nitrite Urine Bilirubin Urine Urobilinogen Ur Leukocyte Esterase Urine RBC Urine WBC Ur Squamous Epith Cells Urine Bacteria Urine Mucus Random Vancomycin 14.5 POC Glucose 358 H 406 H 12/15/18 12/16/18 12/16/18 22:52 05:15 05:15 Hgb 10.7 L Hct 34.5 L Total Counted Specimen Type Sample Site pH Bicarbonate Actual POC Total CO2 Base Excess O2 Saturation O2 % ABG pCO2 ABG pO2 Tre Test O2 Delivery Device Vent Mode POC PEEP POC Pressure Suppt Blood Gas Notified Whom Blood Gas Notified Time Sodium 144 Potassium 3.2 L Chloride 106 Carbon Dioxide 27.0 Anion Gap 11 BUN 25 H Creatinine 1.11 H Estim Creat Clear Calc 73.10 Est GFR (MDRD) Af Amer 66 Est GFR (MDRD) Non-Af 55 L BUN/Creatinine Ratio 22.5 H Glucose 262 H Hemoglobin A1c Calcium 7.8 L Phosphorus 2.2 L Magnesium 2.2 Urine Color Urine Clarity Urine pH Ur Specific Joseph Urine Protein Urine Glucose (UA) Urine Ketones Urine Occult Blood Urine Nitrite Urine Bilirubin Urine Urobilinogen Ur Leukocyte Esterase Urine RBC Urine WBC Ur Squamous Epith Cells Urine Bacteria Urine Mucus Random Vancomycin POC Glucose 354 H 12/16/18 12/16/18 12/16/18 05:41 06:49 08:40 Hgb Hct Total Counted Specimen Type ART Sample Site L Brachial pH 7.47 H Bicarbonate Actual 24.2 POC Total CO2 25 Base Excess 1 O2 Saturation 88 L O2 % 40 ABG pCO2 33.1 L ABG pO2 50 L Tre Test POS O2 Delivery Device Vent Vent Mode CPAP PS POC PEEP 5 POC Pressure Suppt 5 Blood Gas Notified Whom ICU MD Blood Gas Notified Time 645 Sodium Potassium Chloride Carbon Dioxide Anion Gap BUN Creatinine Estim Creat Clear Calc Est GFR (MDRD) Af Amer Est GFR (MDRD) Non-Af BUN/Creatinine Ratio Glucose Hemoglobin A1c Calcium Phosphorus Magnesium Urine Color Yellow Urine Clarity Sl. Cloudy Urine pH 7.0 Ur Specific Joseph 1.005 Urine Protein Negative Urine Glucose (UA) Normal Urine Ketones Negative Urine Occult Blood 10 H Urine Nitrite Negative Urine Bilirubin Negative Urine Urobilinogen Normal Ur Leukocyte Esterase Negative Urine RBC 0-5 SEEN Urine WBC 0 SEEN Ur Squamous Epith Cells 0-5 SEEN Urine Bacteria 0 SEEN Urine Mucus 0 SEEN Random Vancomycin POC Glucose 281 H 12/16/18 12/16/18 12/16/18 11:34 17:22 19:26 Hgb Hct Total Counted Specimen Type Sample Site pH Bicarbonate Actual POC Total CO2 Base Excess O2 Saturation O2 % ABG pCO2 ABG pO2 Tre Test O2 Delivery Device Vent Mode POC PEEP POC Pressure Suppt Blood Gas Notified Whom Blood Gas Notified Time Sodium Potassium Chloride Carbon Dioxide Anion Gap BUN Creatinine Estim Creat Clear Calc Est GFR (MDRD) Af Amer Est GFR (MDRD) Non-Af BUN/Creatinine Ratio Glucose Hemoglobin A1c Calcium Phosphorus Magnesium Urine Color Urine Clarity Urine pH Ur Specific Joseph Urine Protein Urine Glucose (UA) Urine Ketones Urine Occult Blood Urine Nitrite Urine Bilirubin Urine Urobilinogen Ur Leukocyte Esterase Urine RBC Urine WBC Ur Squamous Epith Cells Urine Bacteria Urine Mucus Random Vancomycin POC Glucose 294 H 279 H 296 H 12/16/18 12/17/18 12/17/18 22:59 04:15 05:58 Hgb Hct Total Counted Specimen Type Sample Site pH Bicarbonate Actual POC Total CO2 Base Excess O2 Saturation O2 % ABG pCO2 ABG pO2 Tre Test O2 Delivery Device Vent Mode POC PEEP POC Pressure Suppt Blood Gas Notified Whom Blood Gas Notified Time Sodium 144 Potassium 3.0 L Chloride 106 Carbon Dioxide 27.0 Anion Gap 11 BUN 28 H Creatinine 0.98 Estim Creat Clear Calc 80.99 Est GFR (MDRD) Af Amer 77 Est GFR (MDRD) Non-Af 63 BUN/Creatinine Ratio 28.7 H Glucose 184 H Hemoglobin A1c Calcium 7.5 L Phosphorus 2.7 Magnesium 2.1 Urine Color Urine Clarity Urine pH Ur Specific Joseph Urine Protein Urine Glucose (UA) Urine Ketones Urine Occult Blood Urine Nitrite Urine Bilirubin Urine Urobilinogen Ur Leukocyte Esterase Urine RBC Urine WBC Ur Squamous Epith Cells Urine Bacteria Urine Mucus Random Vancomycin POC Glucose 203 H 214 H Microbiology 12/11/18 12:45 Blood Culture (Wb) - Anticubital Left Blood Culture - Final No growth in 5 days. 12/11/18 12:05 Blood Culture (Wb) - Anticubital Right Blood Culture - Final No growth in 5 days. 12/12/18 11:47 Sputum, Induced/Lukens Gram Stain - Final 12/12/18 11:47 Sputum, Induced/Lukens Respiratory Culture - Final Culture exhibits no growth. Clinical Impression(s) from Imaging Studies Chest X-Ray 12/11/18 12:05 IMPRESSION: Mild pulmonary vascular congestion. Possible airspace disease at the lung bases. Findings appear mildly improved in the right lung and unchanged in the left lung compared to the prior study. Study limited by body habitus. Electronically Signed: Danny Santoro, at 12:36 EST Tel , Service support , Chest CTA 12/11/18 12:41 IMPRESSION: 1. Suboptimal evaluation of the peripheral branches due to significant artifacts. No evidence of pulmonary embolism. 2. Bilateral hazy groundglass opacities/infiltrates likely due to pulmonary edema. 3. Small focal infiltrate in the superior segment of the left lower lobe. 4. No evidence of pleural effusions. Electronically Signed: Wilberto Jerome MD at 13:36 EST Tel , Service support , Chest X-Ray 12/12/18 11:47 IMPRESSION: The tip of the endotracheal tube is at the level of the juan. This should be pulled back 2.5 cm. The tip of the orogastric tube is in the distal portion of the body of the stomach. Cardiomegaly and CHF. Electronically Signed: Joshua Wong MD at 13:06 EST , Service support , Chest X-Ray 12/14/18 08:30 IMPRESSION: The tip of the endotracheal tube is at 1.6 cm proximal to the juan. Residual CHF with bibasilar atelectasis. There has been improvement as compared to prior study. Electronically Signed: Joshua Wong, at 14:32 EST , Service support , Chest X-Ray 12/16/18 07:27 IMPRESSION: Stable examination showing evidence of CHF. All the support tubes are unchanged and in good position. Electronically Signed: Joshua Wong, at 11:19 EST , Service support , Medical Necessity - Tobacco Use Smoking Status: Never smoker Tobacco Use: Non-smoker Assessment/Plan All Active Problems PNA (pneumonia) (Acute) Sepsis (Acute) Pulmonary embolism (Acute) Acute deep vein thrombosis (DVT) of left lower extremity (Acute) Cellulitis of left leg (Resolved) Ulcer of left lower extremity with fat layer exposed (Resolved) RECOMMENDATIONS: 1. Continue to wean FiO2 and PEEP as tolerated. Goal to maintain an oxygen saturation at or above 90%. 2. Continue antibiotics, with plans to complete a 7-day total treatment course. 3. Continue prednisone via OG tube. 4. Continue tube feeds along with free water flushes. 5. Continue Eliquis as ordered. 6. Continue Pepcid for GI prophylaxis 7. Physical therapy to work with patient. 8. Continue IV Lasix once daily. 9. Continue low-dose Precedex for sedation. 10. Potassium repletion as ordered. IMPRESSIONS: 1. Acute hypoxemic respiratory failure The patient appears to have radiographic evidence of severe community-acquired pneumonia superimposed upon a history of asthma. The patient did require eventual intubation. We will plan to continue current supportive measures and wean FiO2 and PEEP as tolerated. Antibiotics will be continued, with a plan to complete a 7-day treatment course. The patient will be continued on prednisone with plans for prolonged taper. We will plan to continue volume optimization with IV diuretics. The patient can be reattempted on spontaneous mode of mechanical ventilation today. If she does well, she can remain on CPAP throughout the day with plans to transition back to assist control nightly. Reattempt spontaneous breathing trial in the morning. Continue tube feeds and work with physical therapy. Continue bronchodilators as ordered. 2. Acute kidney injury Resolved. Likely prerenal in etiology, as the patient responded to a small amount of volume expansion. We will continue to monitor urine output closely. No current indication for renal replacement therapy. 3. Heart failure with preserved ejection fraction The patient's echocardiogram did reveal evidence of stage I diastolic dysfunction. She remains volume positive for the admission and would benefit from ongoing diuresis. IV Lasix will be continued accordingly. 4. Hypokalemia Electrolyte repletion has been ordered. Recheck levels in the morning. 5. Baseline MRDD/history of venous thromboembolic disease/allergic rhinitis/hyperlipidemia Complicates care, management, recovery and prognosis. Okay to continue home medications as tolerated. Tube feeds will be continued as ordered. TIME: 40 minutes of critical care time, independent of procedures, was spent addressing the patient's acute hypoxemic respiratory failure, acute kidney injury, encephalopathy, review of all data and collaboration with the care team. ([id number]) Code Visit [id number]: [id number] Critical care first hour
--- NOTE | 2018-12-17 06:34 | PN_ITS ---
Subjective: The patient was seen and examined at the bedside this morning. Events from the last 24 hours have been reviewed. The patient currently has a low-grade fever, which may be the consequence of the Precedex. She is hemodynamically stable. FiO2 has been weaned to 40%. She is currently tolerating a spontaneous breathing trial. No overnight issues were identified by the nursing staff. The patient continues to diurese well. Creatinine remains stable. Potassium is low this morning at 3.0. The patient initially did okay on her spontaneous jefferson thing trial this morning but then went on to develop apneic events. Objective: The patient's most recent lab work, culture data and imaging studies have all been personally reviewed. Blood cultures have shown no growth to date. Urine culture has been negative thus far. 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 Sputum Gram stain revealed 3+ white blood cells and rare gram-positive cocci. Strep and urine Legionella antigens were both negative. Surface echocardiogram revealed evidence of stage I diastolic dysfunction with an ejection fraction of 55%. General: Alert, - - Remains intubated and mechanically ventilated. HEENT: Atraumatic, PERRLA, Normocephalic Oral: No Gingival or Mucosal Lesions/ Ulcerations, - - Endotracheal and OG tubes remain in place. Neck: Supple, No Nodes, Trachea Midline Lungs: No rhonchi, No wheeze, No rales, Diminished Cardiovascular: Regular rate, Regular Rhythm, Normal S1, Normal S2, No murmurs Abdomen: Bowel Sounds Present, Soft, Non Tender, Obese Extremities: No clubbing, No cyanosis, No edema Skin: - - No significant change from previous. Musculoskeletal: No Tenderness to Palpation of Joints or Extremities Lymphatic: No Cervical, Supraclavicular, or Inguinal Adenopathy Neurological: - - No focal neurological deficits. The patient still does not follow any simple commands. Psych/Mental Status: Flat Affect Vital Signs Temp Pulse Resp BP Pulse Ox 37.9 C H 63 26 H 104/62 93 12/17/18 04:00 12/17/18 06:00 12/17/18 06:00 12/17/18 06:00 12/17/18 06:00 Oxygen Flow Rate (L/min) 8 Oxygen Delivery Method Mechanical Ventilator Weight: 168 lb 6.931 oz Body Mass Index (BMI) 37.0 Intake and Output for Last 24 Hours 12/15/18 12/16/18 12/17/18 23:59 23:59 23:59 Intake Total 2452.2 / 2452.2 2961 / 2961 1265 / 1265 Output Total 2850 / 2850 5950 / 5950 350 / 350 Balance -397.8 / -397.8 -2989 / -2989 915 / 915 Labs (Last 48 Hours) 12/15/18 12/15/18 12/15/18 04:06 04:06 11:42 Hgb Hct Total Counted Not Reportable Specimen Type Sample Site pH Bicarbonate Actual POC Total CO2 Base Excess O2 Saturation O2 % ABG pCO2 ABG pO2 Tre Test O2 Delivery Device Vent Mode POC PEEP POC Pressure Suppt Blood Gas Notified Whom Blood Gas Notified Time Sodium Potassium Chloride Carbon Dioxide Anion Gap BUN Creatinine Estim Creat Clear Calc Est GFR (MDRD) Af Amer Est GFR (MDRD) Non-Af BUN/Creatinine Ratio Glucose Hemoglobin A1c 7.6 H Calcium Phosphorus Magnesium Urine Color Urine Clarity Urine pH Ur Specific [place] Urine Protein Urine Glucose (UA) Urine Ketones Urine Occult Blood Urine Nitrite Urine Bilirubin Urine Urobilinogen Ur Leukocyte Esterase Urine RBC Urine WBC Ur Squamous Epith Cells Urine Bacteria Urine Mucus Random Vancomycin POC Glucose 395 H 12/15/18 12/15/18 12/15/18 16:30 18:19 21:17 Hgb Hct Total Counted Specimen Type Sample Site pH Bicarbonate Actual POC Total CO2 Base Excess O2 Saturation O2 % ABG pCO2 ABG pO2 Tre Test O2 Delivery Device Vent Mode POC PEEP POC Pressure Suppt Blood Gas Notified Whom Blood Gas Notified Time Sodium Potassium Chloride Carbon Dioxide Anion Gap BUN Creatinine Estim Creat Clear Calc Est GFR (MDRD) Af Amer Est GFR (MDRD) Non-Af BUN/Creatinine Ratio Glucose Hemoglobin A1c Calcium Phosphorus Magnesium Urine Color Urine Clarity Urine pH Ur Specific [place] Urine Protein Urine Glucose (UA) Urine Ketones Urine Occult Blood Urine Nitrite Urine Bilirubin Urine Urobilinogen Ur Leukocyte Esterase Urine RBC Urine WBC Ur Squamous Epith Cells Urine Bacteria Urine Mucus Random Vancomycin 14.5 POC Glucose 358 H 406 H 12/15/18 12/16/18 12/16/18 22:52 05:15 05:15 Hgb 10.7 L Hct 34.5 L Total Counted Specimen Type Sample Site pH Bicarbonate Actual POC Total CO2 Base Excess O2 Saturation O2 % ABG pCO2 ABG pO2 Tre Test O2 Delivery Device Vent Mode POC PEEP POC Pressure Suppt Blood Gas Notified Whom Blood Gas Notified Time Sodium 144 Potassium 3.2 L Chloride 106 Carbon Dioxide 27.0 Anion Gap 11 BUN 25 H Creatinine 1.11 H Estim Creat Clear Calc 73.10 Est GFR (MDRD) Af Amer 66 Est GFR (MDRD) Non-Af 55 L BUN/Creatinine Ratio 22.5 H Glucose 262 H Hemoglobin A1c Calcium 7.8 L Phosphorus 2.2 L Magnesium 2.2 Urine Color Urine Clarity Urine pH Ur Specific [place] Urine Protein Urine Glucose (UA) Urine Ketones Urine Occult Blood Urine Nitrite Urine Bilirubin Urine Urobilinogen Ur Leukocyte Esterase Urine RBC Urine WBC Ur Squamous Epith Cells Urine Bacteria Urine Mucus Random Vancomycin POC Glucose 354 H 12/16/18 12/16/18 12/16/18 05:41 06:49 08:40 Hgb Hct Total Counted Specimen Type ART Sample Site L Brachial pH 7.47 H Bicarbonate Actual 24.2 POC Total CO2 25 Base Excess 1 O2 Saturation 88 L O2 % 40 ABG pCO2 33.1 L ABG pO2 50 L Tre Test POS O2 Delivery Device Vent Vent Mode CPAP PS POC PEEP 5 POC Pressure Suppt 5 Blood Gas Notified Whom ICU MD Blood Gas Notified Time 645 Sodium Potassium Chloride Carbon Dioxide Anion Gap BUN Creatinine Estim Creat Clear Calc Est GFR (MDRD) Af Amer Est GFR (MDRD) Non-Af BUN/Creatinine Ratio Glucose Hemoglobin A1c Calcium Phosphorus Magnesium Urine Color Yellow Urine Clarity Sl. Cloudy Urine pH 7.0 Ur Specific [place] 1.005 Urine Protein Negative Urine Glucose (UA) Normal Urine Ketones Negative Urine Occult Blood 10 H Urine Nitrite Negative Urine Bilirubin Negative Urine Urobilinogen Normal Ur Leukocyte Esterase Negative Urine RBC 0-5 SEEN Urine WBC 0 SEEN Ur Squamous Epith Cells 0-5 SEEN Urine Bacteria 0 SEEN Urine Mucus 0 SEEN Random Vancomycin POC Glucose 281 H 12/16/18 12/16/18 12/16/18 11:34 17:22 19:26 Hgb Hct Total Counted Specimen Type Sample Site pH Bicarbonate Actual POC Total CO2 Base Excess O2 Saturation O2 % ABG pCO2 ABG pO2 Tre Test O2 Delivery Device Vent Mode POC PEEP POC Pressure Suppt Blood Gas Notified Whom Blood Gas Notified Time Sodium Potassium Chloride Carbon Dioxide Anion Gap BUN Creatinine Estim Creat Clear Calc Est GFR (MDRD) Af Amer Est GFR (MDRD) Non-Af BUN/Creatinine Ratio Glucose Hemoglobin A1c Calcium Phosphorus Magnesium Urine Color Urine Clarity Urine pH Ur Specific [place] Urine Protein Urine Glucose (UA) Urine Ketones Urine Occult Blood Urine Nitrite Urine Bilirubin Urine Urobilinogen Ur Leukocyte Esterase Urine RBC Urine WBC Ur Squamous Epith Cells Urine Bacteria Urine Mucus Random Vancomycin POC Glucose 294 H 279 H 296 H 12/16/18 12/17/18 12/17/18 22:59 04:15 05:58 Hgb Hct Total Counted Specimen Type Sample Site pH Bicarbonate Actual POC Total CO2 Base Excess O2 Saturation O2 % ABG pCO2 ABG pO2 Tre Test O2 Delivery Device Vent Mode POC PEEP POC Pressure Suppt Blood Gas Notified Whom Blood Gas Notified Time Sodium 144 Potassium 3.0 L Chloride 106 Carbon Dioxide 27.0 Anion Gap 11 BUN 28 H Creatinine 0.98 Estim Creat Clear Calc 80.99 Est GFR (MDRD) Af Amer 77 Est GFR (MDRD) Non-Af 63 BUN/Creatinine Ratio 28.7 H Glucose 184 H Hemoglobin A1c Calcium 7.5 L Phosphorus 2.7 Magnesium 2.1 Urine Color Urine Clarity Urine pH Ur Specific [place] Urine Protein Urine Glucose (UA) Urine Ketones Urine Occult Blood Urine Nitrite Urine Bilirubin Urine Urobilinogen Ur Leukocyte Esterase Urine RBC Urine WBC Ur Squamous Epith Cells Urine Bacteria Urine Mucus Random Vancomycin POC Glucose 203 H 214 H Microbiology 12/11/18 12:45 Blood Culture (Wb) - Anticubital Left Blood Culture - Final No growth in 5 days. 12/11/18 12:05 Blood Culture (Wb) - Anticubital Right Blood Culture - Final No growth in 5 days. 12/12/18 11:47 Sputum, Induced/Lukens Gram Stain - Final 12/12/18 11:47 Sputum, Induced/Lukens Respiratory Culture - Final Culture exhibits no growth. Clinical Impression(s) from Imaging Studies Chest X-Ray 12/11/18 12:05 IMPRESSION: Mild pulmonary vascular congestion. Possible airspace disease at the lung bases. Findings appear mildly improved in the right lung and unchanged in the left lung compared to the prior study. Study limited by body habitus. Electronically Signed: Danny Santoro, at 12:36 EST Tel , Service support , Chest CTA 12/11/18 12:41 IMPRESSION: 1. Suboptimal evaluation of the peripheral branches due to significant artifacts. No evidence of pulmonary embolism. 2. Bilateral hazy groundglass opacities/infiltrates likely due to pulmonary edema. 3. Small focal infiltrate in the superior segment of the left lower lobe. 4. No evidence of pleural effusions. Electronically Signed: Wilberto Jerome MD at 13:36 EST Tel , Service support , Chest X-Ray 12/12/18 11:47 IMPRESSION: The tip of the endotracheal tube is at the level of the juan. This should be pulled back 2.5 cm. The tip of the orogastric tube is in the distal portion of the body of the stomach. Cardiomegaly and CHF. Electronically Signed: Joshua Wong MD at 13:06 EST , Service support , Chest X-Ray 12/14/18 08:30 IMPRESSION: The tip of the endotracheal tube is at 1.6 cm proximal to the juan. Residual CHF with bibasilar atelectasis. There has been improvement as compared to prior study. Electronically Signed: Joshua Wong, at 14:32 EST , Service support , Chest X-Ray 12/16/18 07:27 IMPRESSION: Stable examination showing evidence of CHF. All the support tubes are unchanged and in good position. Electronically Signed: Joshua Wong, at 11:19 EST , Service support , Medical Necessity - Tobacco Use Smoking Status: Never smoker Tobacco Use: Non-smoker Assessment/Plan All Active Problems PNA (pneumonia) (Acute) Sepsis (Acute) Pulmonary embolism (Acute) Acute deep vein thrombosis (DVT) of left lower extremity (Acute) Cellulitis of left leg (Resolved) Ulcer of left lower extremity with fat layer exposed (Resolved) RECOMMENDATIONS: 1. Continue to wean FiO2 and PEEP as tolerated. Goal to maintain an oxygen saturation at or above 90%. 2. Continue antibiotics, with plans to complete a 7-day total treatment course. 3. Continue prednisone via OG tube. 4. Continue tube feeds along with free water flushes. 5. Continue Eliquis as ordered. 6. Continue Pepcid for GI prophylaxis 7. Physical therapy to work with patient. 8. Continue IV Lasix once daily. 9. Continue low-dose Precedex for sedation. 10. Potassium repletion as ordered. IMPRESSIONS: 1. Acute hypoxemic respiratory failure The patient appears to have radiographic evidence of severe community-acquired pneumonia superimposed upon a history of asthma. The patient did require eventual intubation. We will plan to continue current supportive measures and wean FiO2 and PEEP as tolerated. Antibiotics will be continued, with a plan to complete a 7-day treatment course. The patient will be continued on prednisone with plans for prolonged taper. We will plan to continue volume optimization with IV diuretics. The patient can be reattempted on spontaneous mode of mechanical ventilation today. If she does well, she can remain on CPAP throughout the day with plans to transition back to assist control nightly. Reattempt spontaneous breathing trial in the morning. Continue tube feeds and wo rk with physical therapy. Continue bronchodilators as ordered. 2. Acute kidney injury Resolved. Likely prerenal in etiology, as the patient responded to a small amount of volume expansion. We will continue to monitor urine output closely. No current indication for renal replacement therapy. 3. Heart failure with preserved ejection fraction The patient's echocardiogram did reveal evidence of stage I diastolic dysfunction. She remains volume positive for the admission and would benefit from ongoing diuresis. IV Lasix will be continued accordingly. 4. Hypokalemia Electrolyte repletion has been ordered. Recheck levels in the morning. 5. Baseline MRDD/history of venous thromboembolic disease/allergic rhinitis/hyperlipidemia Complicates care, management, recovery and prognosis. Okay to continue home medications as tolerated. Tube feeds will be continued as ordered. TIME: 40 minutes of critical care time, independent of procedures, was spent addressing the patient's acute hypoxemic respiratory failure, acute kidney injury, encephalopathy, review of all data and collaboration with the care team. ([id number]) Code Visit 9xxxx: [id number] Critical care first hour
[2018-12-17] MEDS: Potassium Chloride 10mEq/100mL 10 MEQ/100 ML IV.SOLN. 100 MEQ IV BOLUS ×4 (07:13→13:00)
--- NOTE | 2018-12-17 07:15 | CPS ---
patient going apnic, switched back to settings.
--- NOTE | 2018-12-17 07:39 | PN_ITS ---
Patient Problems: Active and Suspected Problems PNA (pneumonia) (Acute) Sepsis (Acute) Subjective: Day #6 ventilator Day #6 Zosyn Day #5 PICC All events of the past 24 hours have been reviewed She remains on Precedex for sedation.....it has been weaned down due to apneic episodes while on the weaning trial this AM T-max is 100.3 ?F core Vital signs are stable. She is currently 94% saturated on a 40% FiO2. Fluid balance on 12/16/2018 was -2989. All lab was personally reviewed. Potassium is 3.0 today despite supplementation yesterday. The BUN is 28 and the creatinine is 0.98 down from 1.11 on 12/16/2018 with diuresis. Phosphorus is now within normal limits following supplementation. Blood sugars are coming under better control today and the blood sugar at midnight was 203 and at 6 AM to 14. Having liquid BM's tolerating TF Gets easily agitated - Physical Exam General: - - she is awake and will look at you but, she will not follow commands HEENT: Atraumatic, PERRLA, Normocephalic Neck: Supple, Trachea Midline Lungs: Clear to auscultation, No rhonchi, No wheeze, No rales, Diminished - gautam in the bases Cardiovascular: Regular rate, Regular Rhythm, Normal S1, Normal S2, No Gallop Abdomen: Bowel Sounds Present, Soft, Non-Distended, Obese, - - no guarding with palpation Extremities: No cyanosis, No edema Skin: No rashes, No breakdown - she has a small stage I decub on the dorsum of the Right foot over the lateral forefoot Neurological: - - moving all extremities, no facial asymmetry Vital Signs Temp Pulse Resp BP Pulse Ox 100.3 F H 58 L 26 H 94/63 94 12/17/18 04:00 12/17/18 07:15 12/17/18 07:15 12/17/18 07:00 12/17/18 07:00 Oxygen Flow Rate (L/min) 8 Oxygen Delivery Method Mechanical Ventilator Weight: 168 lb 6.931 oz Body Mass Index (BMI) 37.0 Intake and Output for Last 24 Hours 12/15/18 12/16/18 12/17/18 23:59 23:59 23:59 Intake Total 2452.2 / 2452.2 2961 / 2961 1265 / 1265 Output Total 2850 / 2850 5950 / 5950 350 / 350 Balance -397.8 / -397.8 -2989 / -2989 915 / 915 Microbiology Past 72 Hours 12/11/18 12:45 Blood Culture - Final Blood Culture (Wb) - Anticubital Left No growth in 5 days. 12/11/18 12:05 Blood Culture - Final Blood Culture (Wb) - Anticubital Right No growth in 5 days. 12/12/18 11:47 Gram Stain - Final Sputum, Induced/Lukens Respiratory Culture - Final Culture exhibits no growth. 12/11/18 12:25 Urine Culture - Final Urine Catheter - Sánchez Culture exhibits no growth. Laboratory Tests Past 24 Hrs 12/16/18 12/17/18 08:40 04:15 Sodium 144 Potassium 3.0 L Chloride 106 Carbon Dioxide 27.0 Anion Gap 11 BUN 28 H Creatinine 0.98 Estim Creat Clear Calc 80.99 Est GFR (MDRD) Af Amer 77 Est GFR (MDRD) Non-Af 63 BUN/Creatinine Ratio 28.7 H Glucose 184 H Calcium 7.5 L Phosphorus 2.7 Magnesium 2.1 Urine Color Yellow Urine Clarity Sl. Cloudy Urine pH 7.0 Ur Specific [place] 1.005 Urine Protein Negative Urine Glucose (UA) Normal Urine Ketones Negative Urine Occult Blood 10 H Urine Nitrite Negative Urine Bilirubin Negative Urine Urobilinogen Normal Ur Leukocyte Esterase Negative Urine RBC 0-5 SEEN Urine WBC 0 SEEN Ur Squamous Epith Cells 0-5 SEEN Urine Bacteria 0 SEEN Urine Mucus 0 SEEN POC Glucose 12/17/18 12/16/18 12/16/18 05:58 22:59 19:26 POC Glucose 214 H 203 H 296 H 12/16/18 12/16/18 17:22 11:34 POC Glucose 279 H 294 H Medical Necessity - Tobacco Use Smoking Status: Never smoker Tobacco Use: Non-smoker Assessment/Plan All Active Problems PNA (pneumonia) (Acute) Sepsis (Acute) Pulmonary embolism (Acute) Acute deep vein thrombosis (DVT) of left lower extremity (Acute) Cellulitis of left leg (Resolved) Ulcer of left lower extremity with fat layer exposed (Resolved) Impressions 1. Acute hypoxemic respiratory failure secondary to community-acquired pneumonia 2. Severe sepsis secondary to community-acquired pneumonia with acute hypoxemic respiratory failure requiring intubation 3. Human Coyle pneumo virus infection 4. Obstructive sleep apnea-treated with oxygen while sleeping 5. Acute exacerbation of asthma secondary to community-acquired pneumonia 6. 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 Down syndrome-lives in a long term 8. Volume overload -fluid balance is approximately +10 L since admission. Started on IV Lasix by Dr. Parkinson today. 9. Normochromic normocytic anemia with an increased RDW-mild decrease in hemoglobin since admission-likely secondary to volume overload 10. Hyperglycemia with no history of diabetes mellitus but her hemoglobin A1c is elevated at 7.6. - likely has DM II 11. Hypophosphatemia 12. Hypokalemia Continue high-dose sliding scale insulin and the Lantus at 20 units Q12 H Potassium has been supplemented by Dr. Parkinson Add a daily dose of potassium since she is going to be on Lasix - 20 MEQ BID Continue Zosyn Recheck lab in the a.m. Continue tube feed Would like to have a discussion with her family what they would like done if she is extubated and would need to go back on the ventilator for any reason Code Visit Inpatient E&M: 72933 Subs Hosp L3
--- NOTE | 2018-12-17 08:09 | CPS ---
put patient back on SBT per dr. dawson
[2018-12-17] MEDS: Chlorhexidine 15 ML PO ×2 (08:35→23:13)
[2018-12-17] MEDS: Loratadine 10 MG Tablet GT (08:45)
[2018-12-17] MEDS: predniSONE 20 MG Tablet 40 MG NG (08:45)
[2018-12-17] MEDS: APIXABAN 5 MG TABLET NG ×2 (08:45→23:13)
[2018-12-17] MEDS: Famotidine 20 MG Tablet NG ×2 (08:46→23:13)
[2018-12-17] MEDS: Montelukast 10 MG Tablet GT (08:46)
[2018-12-17] MEDS: Furosemide 40 MG/4 ML Vial IV (08:46)
[2018-12-17] MEDS: 0.9% NaCl Peripheral Flush Adult/Peds IV (08:48)
[2018-12-17] MEDS: 0.9% NaCl PICC Flush 10 ML IV (08:48)
--- NOTE | 2018-12-17 09:57 | CPS ---
BACK ON SETTINGS FOR HIGH RR
[2018-12-17 13:10] LABS: Bedside Glucose 81 mg/dL (70-110)
[2018-12-17 13:10] LABS: Bedside Glucose 67 mg/dL (70-110)
[2018-12-17 18:51] LABS: Bedside Glucose 240 mg/dL (70-110)
[2018-12-17 21:01] LABS: Bedside Glucose 197 mg/dL (70-110)
[2018-12-17] MEDS: Senna/Docusate Sodium 1 Tablet 2 TABLET GT (23:13)
[2018-12-17] MEDS: Atorvastatin Calcium 40 MG Tablet NG (23:13)
[2018-12-17] MEDS: Vital AF 1.2 Cal Liquid 1,000 ML 15 ML GT (23:14)
[2018-12-18] VITALS (38 sets, daily range): BP systolic 84–138; BP diastolic 42–97; PULSE 58–120; RESP 16–30; TEMP 37.3–37.9; O2SAT 9–99
[2018-12-18] MEDS: Albuterol 2.5 MG/3 ML VIAL.NEB. INHALATION ×4 (01:23→19:00)
[2018-12-18] MEDS: Insulin Lispro 100 UNIT/ML INSULN.PEN SC ×3 (01:47→18:12)
[2018-12-18 02:36] LABS: Bedside Glucose 184 mg/dL (70-110)
[2018-12-18 05:06] LABS: Bedside Glucose 183 mg/dL (70-110)
--- NOTE | 2018-12-18 05:24 | CPS ---
pt unable to perform NIF
[2018-12-18 06:23] LABS: ALB/GLOB Ratio 0.5 RATIO (0.9-2.4); AST(SGOT) 22 U/L (15-37); Alanine Aminotransfer ALT/SGPT 26 U/L (13-56); Alkaline Phosphatase 51 U/L (45-117); Anion Gap 9 (5-15); BUN 31 mg/dL (7-18); BUN/Creat Ratio 32.6 RATIO (10-20); Calcium,Total 7.9 mg/dL (8.5-10.1); Chloride 108 mmol/L (98-107); Creatinine, Serum 0.95 mg/dL (0.55-1.02); EST Glomerular Filtration Rate 66 mL/min (>60); Est Glom Filt Rate - Afr Amer 79 mL/min (>60); Globulin 4.1 g/dL (2.2-4.2); Glucose 183 mg/dL (74-106); Protein, Total 6.1 g/dL (6.4-8.2); Sodium Level 142 mmol/L (136-145)
--- NOTE | 2018-12-18 07:01 | PN_ITS ---
Subjective: The patient was seen and examined at the bedside this morning. Events from the last 24 hours have been reviewed. The patient is currently afebrile, hemodynamically stable and maintaining appropriate oxygen saturations on CPAP with an FiO2 requirement of 35%. The patient's Precedex has been discontinued completely. Objective: The patient's most recent lab work, culture data and imaging studies have all been personally reviewed. Blood cultures have shown no growth to date. Urine culture has been negative thus far. 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 Sputum Gram stain revealed 3+ white blood cells and rare gram-positive cocci. Strep and urine Legionella antigens were both negat anders. Surface echocardiogram revealed evidence of stage I diastolic dysfunction with an ejection fraction of 55%. General: Alert, No apparent distress, - - Remains intubated and mechanically ventilated. HEENT: Atraumatic, PERRLA, Normocephalic Oral: No Gingival or Mucosal Lesions/ Ulcerations, - - Endotracheal and OG tubes remain in place. Neck: Supple, No Nodes, Trachea Midline Lungs: No rhonchi, No wheeze, No rales, Diminished Cardiovascular: Regular rate, Regular Rhythm, Normal S1, Normal S2, No murmurs Abdomen: Bowel Sounds Present, Soft, Non Tender, Obese Extremities: No clubbing, No cyanosis, No edema Skin: - - No significant change from previous. Musculoskeletal: No Tenderness to Palpation of Joints or Extremities Lymphatic: No Cervical, Supraclavicular, or Inguinal Adenopathy Neurological: - - No focal neurological deficits. The patient does direct her gaze in the direction of verbal stimulation, but does not follow commands. Vital Signs Temp Pulse Resp BP Pulse Ox 37.3 C 73 72 H 90/60 92 12/18/18 06:00 12/18/18 06:00 12/18/18 06:00 12/18/18 06:00 12/18/18 06:00 Oxygen Flow Rate (L/min) 8 Oxygen Delivery Method Mechanical Ventilator Weight: 167 lb 5.294 oz Body Mass Index (BMI) 37.0 Intake and Output for Last 24 Hours 12/16/18 12/17/18 12/18/18 23:59 23:59 23:59 Intake Total 2961 / 2961 2700 / 2700 1118.6 / 1118.6 Output Total 5950 / 5950 2750 / 2750 450 / 450 Balance -2989 / -2989 -50 / -50 668.6 / 668.6 Labs (Last 48 Hours) 12/16/18 12/16/18 12/16/18 08:40 11:34 17:22 Sodium Potassium Chloride Carbon Dioxide Anion Gap BUN Creatinine Estim Creat Clear Calc Est GFR (MDRD) Af Amer Est GFR (MDRD) Non-Af BUN/Creatinine Ratio Glucose Calcium Phosphorus Magnesium Total Bilirubin AST ALT Alkaline Phosphatase Total Protein Albumin Globulin Albumin/Globulin Ratio Urine Color Yellow Urine Clarity Sl. Cloudy Urine pH 7.0 Ur Specific [place] 1.005 Urine Protein Negative Urine Glucose (UA) Normal Urine Ketones Negative Urine Occult Blood 10 H Urine Nitrite Negative Urine Bilirubin Negative Urine Urobilinogen Normal Ur Leukocyte Esterase Negative Urine RBC 0-5 SEEN Urine WBC 0 SEEN Ur Squamous Epith Cells 0-5 SEEN Urine Bacteria 0 SEEN Urine Mucus 0 SEEN POC Glucose 294 H 279 H 12/16/18 12/16/18 12/17/18 19:26 22:59 04:15 Sodium 144 Potassium 3.0 L Chloride 106 Carbon Dioxide 27.0 Anion Gap 11 BUN 28 H Creatinine 0.98 Estim Creat Clear Calc 80.99 Est GFR (MDRD) Af Amer 77 Est GFR (MDRD) Non-Af 63 BUN/Creatinine Ratio 28.7 H Glucose 184 H Calcium 7.5 L Phosphorus 2.7 Magnesium 2.1 Total Bilirubin AST ALT Alkaline Phosphatase Total Protein Albumin Globulin Albumin/Globulin Ratio Urine Color Urine Clarity Urine pH Ur Specific [place] Urine Protein Urine Glucose (UA) Urine Ketones Urine Occult Blood Urine Nitrite Urine Bilirubin Urine Urobilinogen Ur Leukocyte Esterase Urine RBC Urine WBC Ur Squamous Epith Cells Urine Bacteria Urine Mucus POC Glucose 296 H 203 H 12/17/18 12/17/18 12/17/18 05:58 12:24 12:56 Sodium Potassium Chloride Carbon Dioxide Anion Gap BUN Creatinine Estim Creat Clear Calc Est GFR (MDRD) Af Amer Est GFR (MDRD) Non-Af BUN/Creatinine Ratio Glucose Calcium Phosphorus Magnesium Total Bilirubin AST ALT Alkaline Phosphatase Total Protein Albumin Globulin Albumin/Globulin Ratio Urine Color Urine Clarity Urine pH Ur Specific [place] Urine Protein Urine Glucose (UA) Urine Ketones Urine Occult Blood Urine Nitrite Urine Bilirubin Urine Urobilinogen Ur Leukocyte Esterase Urine RBC Urine WBC Ur Squamous Epith Cells Urine Bacteria Urine Mucus POC Glucose 214 H 67 L 81 03/12/0612/17/18 12/18/18 18:47 20:46 01:46 Sodium Potassium Chloride Carbon Dioxide Anion Gap BUN Creatinine Estim Creat Clear Calc Est GFR (MDRD) Af Amer Est GFR (MDRD) Non-Af BUN/Creatinine Ratio Glucose Calcium Phosphorus Magnesium Total Bilirubin AST ALT Alkaline Phosphatase Total Protein Albumin Globulin Albumin/Globulin Ratio Urine Color Urine Clarity Urine pH Ur Specific [place] Urine Protein Urine Glucose (UA) Urine Ketones Urine Occult Blood Urine Nitrite Urine Bilirubin Urine Urobilinogen Ur Leukocyte Esterase Urine RBC Urine WBC Ur Squamous Epith Cells Urine Bacteria Urine Mucus POC Glucose 240 H 197 H 184 H 12/18/18 12/18/18 04:51 04:55 Sodium 142 Potassium 4.0 Chloride 108 H Carbon Dioxide 25.0 Anion Gap 9 BUN 31 H Creatinine 0.95 Estim Creat Clear Calc 83.00 Est GFR (MDRD) Af Amer 79 Est GFR (MDRD) Non-Af 66 BUN/Creatinine Ratio 32.6 H Glucose 183 H Calcium 7.9 L Phosphorus Magnesium Total Bilirubin 0.40 AST 22 ALT 26 Alkaline Phosphatase 51 Total Protein 6.1 L Albumin 2.0 L Globulin 4.1 Albumin/Globulin Ratio 0.5 L Urine Color Urine Clarity Urine pH Ur Specific [place] Urine Protein Urine Glucose (UA) Urine Ketones Urine Occult Blood Urine Nitrite Urine Bilirubin Urine Urobilinogen Ur Leukocyte Esterase Urine RBC Urine WBC Ur Squamous Epith Cells Urine Bacteria Urine Mucus POC Glucose 183 H Microbiology 12/16/18 08:40 Urine Catheter - Sánchez Urine Culture - Preliminary Culture exhibits no growth. 12/11/18 12:45 Blood Culture (Wb) - Anticubital Left Blood Culture - Final No growth in 5 days. 12/11/18 12:05 Blood Culture (Wb) - Anticubital Right Blood Culture - Final No growth in 5 days. Clinical Impression(s) from Imaging Studies Chest X-Ray 12/11/18 12:05 IMPRESSION: Mild pulmonary vascular congestion. Possible airspace disease at the lung bases. Findings appear mildly improved in the right lung and unchanged in the left lung compared to the prior study. Study limited by body habitus. Electronically Signed: Danny Santoro, at 12:36 EST Tel , Service support , Chest CTA 12/11/18 12:41 IMPRESSION: 1. Suboptimal evaluation of the peripheral branches due to significant artifacts. No evidence of pulmonary embolism. 2. Bilateral hazy groundglass opacities/infiltrates likely due to pulmonary edema. 3. Small focal infiltrate in the superior segment of the left lower lobe. 4. No evidence of pleural effusions. Electronically Signed: Wilberto Jerome MD at 13:36 EST Tel , Service support , Chest X-Ray 12/12/18 11:47 IMPRESSION: The tip of the endotracheal tube is at the level of the juan. This should be pulled back 2.5 cm. The tip of the orogastric tube is in the distal portion of the body of the stomach. Cardiomegaly and CHF. Electronically Signed: Joshua Wong MD at 13:06 EST , Service support , Chest X-Ray 12/14/18 08:30 IMPRESSION: The tip of the endotracheal tube is at 1.6 cm proximal to the juan. Residual CHF with bibasilar atelectasis. There has been improvement as compared to prior study. Electronically Signed: Joshua Wong, at 14:32 EST , Service support , Chest X-Ray 12/16/18 07:27 IMPRESSION: Stable examination showing evidence of CHF. All the support tubes are unchanged and in good position. Electronically Signed: Joshua Wong, at 11:19 EST , Service support , Medical Necessity - Tobacco Use Smoking Status: Never smoker Tobacco Use: Non-smoker Assessment/Plan All Active Problems PNA (pneumonia) (Acute) Sepsis (Acute) Pulmonary embolism (Acute) Acute deep vein thrombosis (DVT) of left lower extremity (Acute) Cellulitis of left leg (Resolved) Ulcer of left lower extremity with fat layer exposed (Resolved) RECOMMENDATIONS: 1. Continue to wean FiO2 and PEEP as tolerated. Goal to maintain an oxygen saturation at or above 90%. 2. Continue antibiotics, with plans to complete a 7-day total treatment course. 3. Continue prednisone via OG tube. 4. Continue tube feeds along with free water flushes. 5. Continue Eliquis as ordered. 6. Continue Pepcid for GI prophylaxis 7. Physical therapy to work with patient. 8. Continue low-dose Precedex for sedation. IMPRESSIONS: 1. Acute hypoxemic respiratory failure The patient appears to have radiographic evidence of severe community-acquired pneumonia superimposed upon a history of asthma. The patient did require eventual intubation. We will plan to continue current supportive measures and wean FiO2 and PEEP as tolerated. Antibiotics will be continued, with a plan to complete a 7-day treatment course. The patient will be continued on prednisone with plans for prolonged taper. Continue tube feeds and work with physical therapy. Continue bronchodilators as ordered. I recommended the patient remain on CPAP as tolerated throughout today, with plans to transition her back to assist control overnight. 2. Acute kidney injury Resolved. Likely prerenal in etiology, as the patient responded to a small amount of volume expansion. We will continue to monitor urine output closely. No current indication for renal replacement therapy. 3. Heart failure with preserved ejection fraction The patient's echocardiogram did reveal evidence of stage I diastolic dysfunction. The patient responded appropriately to IV diuretics. 4. Baseline MRDD/history of venous thromboembolic disease/allergic rhinitis/hyperlipidemia Complicates care, management, recovery and prognosis. Okay to continue home medications as tolerated. Tube feeds will be continued as ordered. TIME: 40 minutes of critical care time, independent of procedures, was spent addressing the patient's acute hypoxemic respiratory failure, acute kidney injury, encephalopathy, review of all data and collaboration with the care team. ([id number]) Code Visit [id number]: [id number] Critical care first hour
--- NOTE | 2018-12-18 07:45 | PN_ITS ---
Patient Problems: Active and Suspected Problems PNA (pneumonia) (Acute) Sepsis (Acute) Subjective: Day #7 ventilator Day #7 Zosyn Ms Perkins is a 53 YO F with a PMH of Down syndrome, VTE, hypertension, hyperlipidemia, asthma, LUCIAN and obesity who presented to the emergency department at [facility] on 12/11/2018 complaining of shortness of breath and confusion. She was admitted to the hospital with a diagnosis of severe sepsis secondary to multilobar community-acquired pneumonia with acute hypoxic respiratory failure. She was transferred to the ICU and intubated on 12/12/2018. Respiratory panel was positive for human Coyle pneumo virus and the sputum culture had no growth. She is afebrile. She is now completely off Precedex in an effort to get her extubated. Blood pressures are low but the mean arterial pressures have remained above 65. She received a 1 L bolus of normal saline on 12/17/2018. Pulse ox is 92-97% on a 35% FiO2. Fluid balance on 12/17/2018 was -50. Fluid balance since admission is +6195. Lab: Potassium today is 4.0 following supplementation. Creatinine is stable at 0.95 and the BUN is 31. Blood sugars are coming down and the last 3 blood sugars are under 200. Albumin is low at 2.0. LFTs are unremarkable. Microbiology: Urine culture from 12/16/2018 has no growth. Continues to have copious amounts of light brown liquid stool Much more alert today She tracks with her eyes. She also rolls her eyes and defiantly does exactly the opposite of what you ask her to do. Seems to be more at her baseline. Objective: - Physical Exam General: - -She is alert and tracks people around the room with her eyes. She rolls her eyes if you asked her to do something she does not want to and sometimes does exactly the opposite. HEENT: Atraumatic, PERRLA, Normocephalic Neck: Supple, Trachea Midline Lungs: Clear to auscultation, No rhonchi, No wheeze, No rales, Diminished - gautam in the bases Cardiovascular: Regular rate, Regular Rhythm, Normal S1, Normal S2, No Gallop Abdomen: Bowel Sounds Present, Soft, Non-Distended, Obese, - - no guarding with palpation or with pressure with the stethoscope Extremities: No cyanosis, No edema Skin: No rashes,She has a small stage I decub on the dorsum of the Right foot over the lateral forefoot, starting to get some excoriation around the anus due to the frequent stooling Neurological: - - moving all extremities, no facial asymmetry - Physical Exam Vital Signs Temp Pulse Resp BP Pulse Ox 99.1 F 73 72 H 90/60 92 12/18/18 06:00 12/18/18 06:00 12/18/18 06:00 12/18/18 06:00 12/18/18 06:00 Oxygen Flow Rate (L/min) 8 Oxygen Delivery Method Mechanical Ventilator Weight: 167 lb 5.294 oz Body Mass Index (BMI) 37.0 Intake and Output for Last 24 Hours 12/16/18 12/17/18 12/18/18 23:59 23:59 23:59 Intake Total 2961 / 2961 2700 / 2700 1118.6 / 1118.6 Output Total 5950 / 5950 2750 / 2750 450 / 450 Balance -2989 / -2989 -50 / -50 668.6 / 668.6 Microbiology Past 72 Hours 12/16/18 08:40 Urine Culture - Preliminary Urine Catheter - Sánchez Culture exhibits no growth. 12/11/18 12:45 Blood Culture - Final Blood Culture (Wb) - Anticubital Left No growth in 5 days. 12/11/18 12:05 Blood Culture - Final Blood Culture (Wb) - Anticubital Right No growth in 5 days. 12/12/18 11:47 Gram Stain - Final Sputum, Induced/Lukens Respiratory Culture - Final Culture exhibits no growth. Laboratory Tests Past 24 Hrs 12/18/18 04:55 Sodium 142 Potassium 4.0 Chloride 108 H Carbon Dioxide 25.0 Anion Gap 9 BUN 31 H Creatinine 0.95 Estim Creat Clear Calc 83.00 Est GFR (MDRD) Af Amer 79 Est GFR (MDRD) Non-Af 66 BUN/Creatinine Ratio 32.6 H Glucose 183 H Calcium 7.9 L Total Bilirubin 0.40 AST 22 ALT 26 Alkaline Phosphatase 51 Total Protein 6.1 L Albumin 2.0 L Globulin 4.1 Albumin/Globulin Ratio 0.5 L POC Glucose 12/18/18 12/18/18 12/17/18 04:51 01:46 20:46 POC Glucose 183 H 184 H 197 H 12/17/18 12/17/18 12/17/18 18:47 12:56 12:24 POC Glucose 240 H 81 67 L Medical Necessity - Tobacco Use Smoking Status: Never smoker Tobacco Use: Non-smoker Assessment/Plan All Active Problems PNA (pneumonia) (Acute) Sepsis (Acute) Pulmonary embolism (Acute) Acute deep vein thrombosis (DVT) of left lower extremity (Acute) Cellulitis of left leg (Resolved) Ulcer of left lower extremity with fat layer exposed (Resolved) Impressions 1. Acute hypoxemic respiratory failure secondary to community-acquired pneumonia 2. Severe sepsis secondary to community-acquired pneumonia with acute hypoxemic respiratory failure requiring intubation 3. Human Coyle pneumo virus infection 4. Obstructive sleep apnea-treated with oxygen while sleeping 5. Acute exacerbation of asthma secondary to community-acquired pneumonia 6. 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 Down syndrome-lives in a residential 8. Volume overload -fluid balance is approximately +10 L since admission. Started on IV Lasix by Dr. Parkinson today. 9. Normochromic normocytic anemia with an increased RDW-mild decrease in hemoglobin since admission-likely secondary to volume overload 10. Hyperglycemia with no history of diabetes mellitus but her hemoglobin A1c is elevated at 7.6. - likely has DM II 11. Hypophosphatemia-resolved 12. Hypokalemia-resolved 13. Stage I diastolic dysfunction with ejection fraction of 55% Lasix has been discontinued and the potassium is now 4 so will discontinue daily potassium supplement TSH, T4 today - both were normal Stool for C. difficile and if this is negative start Imodium Fecal collection system to prevent further excoriation/breakdown around the anus Bolus with 1 L of normal saline since she has had such large amount of stool, Lasix has been discontinued Continue the same insulin regimen Recheck CBC and BMP in the a.m. Decrease prednisone to 30 mg
[2018-12-18 08:14] LABS: T4 Free Direct 1.04 ng/dL (0.76-1.46); Thyroid Stim Hormone (TSH) 1.52 uIU/mL (0.358-3.74)
[2018-12-18] MEDS: Loratadine 10 MG Tablet GT (10:14)
[2018-12-18] MEDS: Famotidine 20 MG Tablet NG ×2 (10:14→21:24)
[2018-12-18] MEDS: CHLORHEXIDINE GLUC 2% CLOTH 1 EACH TOWELETTE TOPICAL (10:14)
[2018-12-18] MEDS: APIXABAN 5 MG TABLET NG ×2 (10:14→21:24)
[2018-12-18] MEDS: predniSONE 20 MG Tablet 40 MG NG (10:14)
[2018-12-18] MEDS: Chlorhexidine 15 ML PO ×2 (10:14→21:24)
[2018-12-18] MEDS: Montelukast 10 MG Tablet GT (10:15)
[2018-12-18] MEDS: 0.9% Normal Saline 1,000 ML 999 ML IV (12:01)
[2018-12-18 13:26] LABS: Bedside Glucose 135 mg/dL (70-110)
[2018-12-18] MEDS: Diphenoxylate/Atrop 1 Tablet 2 TABLET PO (13:59)
[2018-12-18 19:41] LABS: Bedside Glucose 212 mg/dL (70-110)
[2018-12-18 20:11] LABS: Bedside Glucose 165 mg/dL (70-110)
[2018-12-18] MEDS: Atorvastatin Calcium 40 MG Tablet NG (21:24)
[2018-12-18] MEDS: 0.9% NaCl IVPB Med Flush (250 mL) 15 ML IV (21:25)
[2018-12-18] MEDS: Vital AF 1.2 Cal Liquid 1,000 ML 15 ML GT (23:33)
[2018-12-18 23:40] LABS: Bedside Glucose 136 mg/dL (70-110)
[2018-12-19] VITALS (31 sets, daily range): BP systolic 82–132; BP diastolic 42–96; PULSE 71–112; RESP 16–34; TEMP 36.8–37.7; O2SAT 83–100
[2018-12-19] MEDS: Insulin Lispro 100 UNIT/ML INSULN.PEN SC ×3 (05:47→23:01)
[2018-12-19 06:29] LABS: Hematocrit 33.2 % (37-47); Hemoglobin 10.3 g/dl (12.0-15.0); Mean Corpuscular Hgb 30.2 pg (27.0-32.0); Mean Corpuscular Volume 97.4 fL (81-99); Mean Platelet Vol. 10.3 fl (6.2-12.0); Platelet Count 249 K/mm3 (150-450); RBC Distribution Width SD 62.6 fl (35.1-43.9); Red Blood Count 3.41 M/mm3 (4.2-5.4); White Blood Count 10.1 K/mm3 (4.4-11.0)
[2018-12-19] MEDS: Albuterol 2.5 MG/3 ML VIAL.NEB. INHALATION ×3 (06:30→19:29)
[2018-12-19 06:31] LABS: Bedside Glucose 153 mg/dL (70-110)
--- NOTE | 2018-12-19 06:34 | PCM.PN.INT ---
Subjective: The patient was seen and examined at the bedside this morning. Events from the last 24 hours have been reviewed. The patient is currently afebrile, hemodynamically stable and maintaining appropriate oxygen saturations on CPAP with an FiO2 requirement of 35%. The patient passed her spontaneous breathing trial this morning. Tube feeds are currently on hold. The patient's Precedex is off completely. She is alert and will track to verbal stimulation. Therefore, the decision was made to proceed with a trial of extubation. Under my direct supervision, the patient was extubated to supplemental oxygen this morning. Objective: The patient's most recent lab work, culture data and imaging studies have all been personally reviewed. Blood cultures have shown no growth to date. Urine culture has been negative thus far. 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 Sputum Gram stain revealed 3+ white blood cells and rare gram-positive cocci. Strep and urine Legionella antigens were both negative. Surface echocardiogram revealed evidence of stage I diastolic dysfunction with an ejection fraction of 55%. General: Alert, No apparent distress, - - Currently tolerating CPAP without issue. HEENT: Atraumatic, PERRLA, Normocephalic Oral: No Gingival or Mucosal Lesions/ Ulcerations, - - Endotracheal and OG tubes remain in place Neck: Supple, No Nodes, Trachea Midline Lungs: No rhonchi, No wheeze, No rales, Diminished Cardiovascular: Regular rate, Regular Rhythm, Normal S1, Normal S2, No murmurs Abdomen: Bowel Sounds Present, Soft, Non Tender, Obese Extremities: No clubbing, No cyanosis, No edema Skin: - - No significant change from previous. Musculoskeletal: No Tenderness to Palpation of Joints or Extremities Lymphatic: No Cervical, Supraclavicular, or Inguinal Adenopathy Neurological: Neuro grossly intact Vital Signs Temp Pulse Resp BP Pulse Ox 37.7 C H 71 20 H 103/58 L 97 12/19/18 04:00 12/19/18 06:00 12/19/18 06:00 12/19/18 06:00 12/19/18 06:00 Oxygen Flow Rate (L/min) 8 Oxygen Delivery Method Mechanical Ventilator Weight: 164 lb 10.965 oz Body Mass Index (BMI) 37.0 Intake and Output for Last 24 Hours 12/17/18 12/18/18 12/19/18 23:59 23:59 23:59 Intake Total 2700 / 2700 2036.6 / 2036.6 1054 / 1054 Output Total 2750 / 2750 1200 / 1200 2049 / 2049 Balance -50 / -50 836.6 / 836.6 -996 / -996 Labs (Last 48 Hours) 12/17/18 12/17/18 12/17/18 12:24 12:56 18:47 WBC RBC Hgb Hct MCV MCH MCHC RDW RDW Differential Plt Count Sodium Potassium Chloride Carbon Dioxide Anion Gap BUN Creatinine Estim Creat Clear Calc Est GFR (MDRD) Af Amer Est GFR (MDRD) Non-Af BUN/Creatinine Ratio Glucose Calcium Total Bilirubin AST ALT Alkaline Phosphatase Total Protein Albumin Globulin Albumin/Globulin Ratio TSH Free T4 POC Glucose 67 L 81 240 H 12/17/18 12/18/18 12/18/18 20:46 01:46 04:51 WBC RBC Hgb Hct MCV MCH MCHC RDW RDW Differential Plt Count Sodium Potassium Chloride Carbon Dioxide Anion Gap BUN Creatinine Estim Creat Clear Calc Est GFR (MDRD) Af Amer Est GFR (MDRD) Non-Af BUN/Creatinine Ratio Glucose Calcium Total Bilirubin AST ALT Alkaline Phosphatase Total Protein Albumin Globulin Albumin/Globulin Ratio TSH Free T4 POC Glucose 197 H 184 H 183 H 12/18/18 12/18/18 12/18/18 04:55 04:55 11:59 WBC RBC Hgb Hct MCV MCH MCHC RDW RDW Differential Plt Count Sodium 142 Potassium 4.0 Chloride 108 H Carbon Dioxide 25.0 Anion Gap 9 BUN 31 H Creatinine 0.95 Estim Creat Clear Calc 83.00 Est GFR (MDRD) Af Amer 79 Est GFR (MDRD) Non-Af 66 BUN/Creatinine Ratio 32.6 H Glucose 183 H Calcium 7.9 L Total Bilirubin 0.40 AST 22 ALT 26 Alkaline Phosphatase 51 Total Protein 6.1 L Albumin 2.0 L Globulin 4.1 Albumin/Globulin Ratio 0.5 L TSH 1.52 Free T4 1.04 POC Glucose 135 H 12/18/18 12/18/18 12/18/18 18:06 19:58 23:29 WBC RBC Hgb Hct MCV MCH MCHC RDW RDW Differential Plt Count Sodium Potassium Chloride Carbon Dioxide Anion Gap BUN Creatinine Estim Creat Clear Calc Est GFR (MDRD) Af Amer Est GFR (MDRD) Non-Af BUN/Creatinine Ratio Glucose Calcium Total Bilirubin AST ALT Alkaline Phosphatase Total Protein Albumin Globulin Albumin/Globulin Ratio TSH Free T4 POC Glucose 212 H 165 H 136 H 12/19/18 12/19/18 12/19/18 05:41 05:45 05:45 WBC Pending RBC Pending Hgb Pending Hct Pending MCV Pending MCH Pending MCHC Pending RDW Pending RDW Differential Pending Plt Count Pending Sodium Pending Potassium Pending Chloride Pending Carbon Dioxide Pending Anion Gap Pending BUN Pending Creatinine Pending Estim Creat Clear Calc Est GFR (MDRD) Af Amer Pending Est GFR (MDRD) Non-Af Pending BUN/Creatinine Ratio Pending Glucose Pending Calcium Pending Total Bilirubin AST ALT Alkaline Phosphatase Total Protein Albumin Globulin Albumin/Globulin Ratio TSH Free T4 POC Glucose 153 H Microbiology 12/18/18 10:40 Stool C. difficile DNA Amplification - Final 12/16/18 08:40 Urine Catheter - Sánchez Urine Culture - Final Culture exhibits no growth. Clinical Impression(s) from Imaging Studies Chest X-Ray 12/11/18 12:05 IMPRESSION: Mild pulmonary vascular congestion. Possible airspace disease at the lung bases. Findings appear mildly improved in the right lung and unchanged in the left lung compared to the prior study. Study limited by body habitus. Electronically Signed: Danny Santoro at 12:36 EST Tel , Service support , Chest CTA 12/11/18 12:41 IMPRESSION: 1. Suboptimal evaluation of the peripheral branches due to significant artifacts. No evidence of pulmonary embolism. 2. Bilateral hazy groundglass opacities/infiltrates likely due to pulmonary edema. 3. Small focal infiltrate in the superior segment of the left lower lobe. 4. No evidence of pleural effusions. Electronically Signed: Wilberto Jerome MD at 13:36 EST Tel , Service support , Chest X-Ray 12/12/18 11:47 IMPRESSION: The tip of the endotracheal tube is at the level of the juan. This should be pulled back 2.5 cm. The tip of the orogastric tube is in the distal portion of the body of the stomach. Cardiomegaly and CHF. Electronically Signed: Joshua Wong MD at 13:06 EST , Service support , Chest X-Ray 12/14/18 08:30 IMPRESSION: The tip of the endotracheal tube is at 1.6 cm proximal to the juan. Residual CHF with bibasilar atelectasis. There has been improvement as compared to prior study. Electronically Signed: Joshua Wong, at 14:32 EST , Service support , Chest X-Ray 12/16/18 07:27 IMPRESSION: Stable examination showing evidence of CHF. All the support tubes are unchanged and in good position. Electronically Signed: Joshua Wong, at 11:19 EST , Service support , Medical Necessity - Tobacco Use Smoking Status: Never smoker Tobacco Use: Non-smoker Assessment/Plan All Active Problems PNA (pneumonia) (Acute) Sepsis (Acute) Pulmonary embolism (Acute) Acute deep vein thrombosis (DVT) of left lower extremity (Acute) Cellulitis of left leg (Resolved) Ulcer of left lower extremity with fat layer exposed (Resolved) RECOMMENDATIONS: 1. Proceed with a trial of extubation. 2. Once extubated, wean supplemental oxygen to maintain saturations at or above 90%. 3. Patient to remain n.p.o., until evaluation by speech therapy is completed. 4. Continue bronchodilators as needed. 5. Continue antibiotics to complete 7-day treatment course. 6. Physical therapy to work with patient. IMPRESSIONS: 1. Acute hypoxemic respiratory failure The patient appears to have radiographic evidence of severe community-acquired pneumonia superimposed upon a history of asthma. The patient did require eventual intubation. We will plan to continue current supportive measures and attempt a trial of extubation this morning. Antibiotics will be continued, with a plan to complete a 7-day treatment course. The patient will be continued on prednisone with plans for prolonged taper. Continue bronchodilators as ordered. Once extubated, recommend formal speech therapy evaluation. 2. Acute kidney injury Resolved. Likely prerenal in etiology, as the patient responded to a small amount of volume expansion. We will continue to monitor urine output closely. No current indication for renal replacement therapy. 3. Heart failure with preserved ejection fraction The patient's echocardiogram did reveal evidence of stage I diastolic dysfunction. The patient responded appropriately to IV diuretics. 4. Baseline MRDD/history of venous thromboembolic disease/allergic rhinitis/hyperlipidemia Complicates care, management, recovery and prognosis. Okay to continue home medications as tolerated. TIME: 40 minutes of critical care time, independent of procedures, was spent addressing the patient's acute hypoxemic respiratory failure, acute kidney injury, encephalopathy, review of all data and collaboration with the care team. ([id number]) Code Visit 9xxxx: [id number] Critical care first hour
[2018-12-19 06:35] LABS: Anion Gap 12 (5-15); BUN 29 mg/dL (7-18); BUN/Creat Ratio 29.7 RATIO (10-20); Calcium,Total 8.2 mg/dL (8.5-10.1); Chloride 107 mmol/L (98-107); Creatinine, Serum 0.98 mg/dL (0.55-1.02); EST Glomerular Filtration Rate 64 mL/min (>60); Est Glom Filt Rate - Afr Amer 77 mL/min (>60); Estimated Creatinine Clearance 79.19 ml/min; Glucose 169 mg/dL (74-106); Potassium 3.9 mmol/L (3.5-5.1); Sodium Level 143 mmol/L (136-145)
[2018-12-19 06:37] LABS: Scan Indicated on CBC? Y/N NO
--- NOTE | 2018-12-19 06:42 | NURSING ---
Pt Extubated this morning to a 50% venti mask, tolerating well.
[2018-12-19] MEDS: CHLORHEXIDINE GLUC 2% CLOTH 1 EACH TOWELETTE TOPICAL (10:55)
[2018-12-19] MEDS: APIXABAN 5 MG TABLET PO ×2 (10:55→23:01)
[2018-12-19] MEDS: predniSONE 20 MG Tablet 30 MG PO (10:56)
[2018-12-19] MEDS: Famotidine 20 MG Tablet PO ×2 (10:56→23:01)
[2018-12-19] MEDS: Loratadine 10 MG Tablet PO (10:56)
[2018-12-19] MEDS: Montelukast 10 MG Tablet PO (10:57)
[2018-12-19 17:06] LABS: Bedside Glucose 199 mg/dL (70-110)
--- NOTE | 2018-12-19 17:22 | PCM.PN.HOSP ---
Patient Problems: Active and Suspected Problems PNA (pneumonia) (Acute) Sepsis (Acute) Subjective: She is from a senior care and nonverbal. She is alert today and off Precedex and extubated Vitals/I&O's: Vital Signs Temp Pulse Resp BP Pulse Ox 99.5 F H 111 H 26 H 131/84 H 96 12/19/18 14:00 12/19/18 16:00 12/19/18 16:00 12/19/18 16:00 12/19/18 16:00 Oxygen Flow Rate (L/min) 4 Oxygen Delivery Method Room Air Weight: 164 lb 10.965 oz Body Mass Index (BMI) 37.0 Intake and Output for Last 24 Hours 12/17/18 12/18/18 12/19/18 23:59 23:59 23:59 Intake Total 2700 / 2700 2036.6 / 2036.6 1454 / 1454 Output Total 2750 / 2750 1200 / 1200 2550 / 2550 Balance -50 / -50 836.6 / 836.6 -1096 / -1096 General: Alert, No apparent distress HEENT: Atraumatic, PERRLA, EOMI, Normocephalic Oral: Moist Mucosa Neck: Supple, No JVD, Trachea Midline Lungs: Clear to auscultation, Normal air movement, No rhonchi, No wheeze, Diminished Cardiovascular: Regular rate, Regular Rhythm, Normal S1, Normal S2, No murmurs Abdomen: Soft, Non Tender, Non-Distended, No Hepato-splenomegaly Extremities: No edema, Capillary Refill Less than 3 Seconds Skin: No rashes, No breakdown Neurological: Neuro grossly intact Microbiology Past 72 Hours 12/18/18 10:40 Stool C. difficile DNA Amplification - Final 12/16/18 08:40 Urine Catheter - Sánchez Urine Culture - Final Culture exhibits no growth. 12/11/18 12:45 Blood Culture (Wb) - Anticubital Left Blood Culture - Final No growth in 5 days. 12/11/18 12:05 Blood Culture (Wb) - Anticubital Right Blood Culture - Final No growth in 5 days. Laboratory Results 12/18/18 18:06: POC Glucose 212 H 12/18/18 19:58: POC Glucose 165 H 12/18/18 23:29: POC Glucose 136 H 12/19/18 05:41: POC Glucose 153 H 12/19/18 05:45: WBC 10.1, RBC 3.41 L, Hgb 10.3 L, Hct 33.2 L, MCV 97.4, MCH 30.2, MCHC 31.0 L, RDW 18.0 H, RDW Differential 62.6 H, Plt Count 249, MPV 10.3 12/19/18 05:45: Sodium 143, Potassium 3.9, Chloride 107, Carbon Dioxide 24.0, Anion Gap 12, BUN 29 H, Creatinine 0.98, Estim Creat Clear Calc 79.19, Est GFR (MDRD) Af Amer 77, Est GFR (MDRD) Non-Af 64, BUN/Creatinine Ratio 29.7 H, Glucose 169 H, Calcium 8.2 L 12/19/18 15:03: POC Glucose 199 H Current Medications Albuterol Sulfate (Ventolin Aerosols) 2.5 mg INHALATION Q4H PRN PRN PRN Reason: SOB &/OR WHEEZING Last Admin: 12/15/18 22:55 Dose: 2.5 mg Albuterol Sulfate (Ventolin Aerosols) 2.5 mg INHALATION Q6HWA.RT [facility] Last Admin: 12/19/18 13:10 Dose: 2.5 mg Apixaban (Eliquis) 5 mg PO BID [facility] Last Admin: 12/19/18 10:55 Dose: 5 mg Atorvastatin Calcium (Lipitor) 40 mg PO QHS [facility] Chlorhexidine Gluconate () 1 each TOPICAL DAILY [facility] Last Admin: 12/19/18 10:55 Dose: 1 each Dextrose (D50w Syringe) 0 gm IV X1 PRN; Protocol PRN Reason: Hypoglycemia Diphenoxylate HCl/Atropine (Lomotil) 1 tablet PO Q2H PRN PRN Reason: DIARRHEA Ergocalciferol (Vitamin D) 50,000 unit PO WE [facility] Last Admin: 12/14/18 09:50 Dose: Not Given Famotidine (Pepcid) 20 mg PO BID [facility] Last Admin: 12/19/18 10:56 Dose: 20 mg Glucagon () 1 mg IM .X1 PRN PRN Reason: Hypoglycemia Piperacillin Sod/Tazobactam (Sod 3.375 gm/ Sodium Chloride) 50 mls @ 12.5 mls/hr IV Q8 [facility] Last Admin: 12/19/18 15:12 Dose: 12.5 mls/hr Enteral Nutritional Formula (Vital Af 1.2 Yoan Liquid) 1,000 mls @ 15 mls/hr GT .Q48H [facility] Last Admin: 12/18/18 23:33 Dose: 15 mls/hr Sodium Chloride () 250 mls @ 15 mls/hr IV .[id number] PRN PRN Reason: SALINE FLUSH Last Admin: 12/18/18 21:25 Dose: 15 mls/hr Insulin Glargine (Lantus (Bkc)) 15 units SC Q12H [facility] Last Admin: 12/19/18 10:55 Dose: 15 units Insulin Human Lispro (Humalog Kwikpen (Bk)) 0 unit SC Q6 [facility]; Protocol Last Admin: 12/19/18 15:12 Dose: Not Given Loratadine (Claritin) 10 mg PO DAILY [facility] Last Admin: 12/19/18 10:56 Dose: 10 mg Magnesium Hydroxide (Milk Of Magnesia) 30 ml PO DAILY PRN PRN PRN Reason: Constipation Montelukast Sodium (Singulair) 10 mg PO DAILY [facility] Last Admin: 12/19/18 10:57 Dose: 10 mg Prednisone () 30 mg PO DAILY@0800 [facility] Last Admin: 12/19/18 10:56 Dose: 30 mg Senna/Docusate Sodium (Senokot-S, Blossom-Colace) 2 tablet PO QHS [facility] Sodium Chloride () 5 - 15 ml IV UD PRN PRN Reason: SALINE FLUSH Last Admin: 12/17/18 08:48 Dose: 10 ml Sodium Chloride () 10 ml IV UD PRN PRN Reason: PICC FLUSH Last Admin: 12/17/18 08:48 Dose: 10 ml Medical Necessity - Tobacco Use Smoking Status: Never smoker Tobacco Use: Non-smoker Assessment/Plan All Active Problems PNA (pneumonia) (Acute) Sepsis (Acute) Pulmonary embolism (Acute) Acute deep vein thrombosis (DVT) of left lower extremity (Acute) Cellulitis of left leg (Resolved) Ulcer of left lower extremity with fat layer exposed (Resolved) 1. Acute hypoxic respiratory failure secondary to sepsis from community-acquired pneumonia/asthma/LUCIAN -Respiratory panel also came back for human Metapneumo virus -Continue with inhalers and Zosyn -Currently extubated in the ICU and will monitor if doing okay could potentially discharge from ICU tomorrow morning -Continue with oxygen via nasal cannula when sleeping as she does not tolerate CPAP 2. IDDM 2 -A1c 7.6 -Continue with insulin 3. History of VT E - continue with Eliquis -Stable 4. Volume overload -Echo with stage I diastolic dysfunction and normal EF -Continue with Lasix as needed as she is 10 L positive one-point 5. Down syndrome -Lives in a senior care, and will be discharged back there when able DVT: Vijay Code Visit Inpatient E&M: 45409 Subs Hosp L2
--- NOTE | 2018-12-19 17:33 | PN_ITS ---
Patient Problems: Active and Suspected Problems PNA (pneumonia) (Acute) Sepsis (Acute) Subjective: She is from a alf and nonverbal. She is alert today and off Precedex and extubated Vitals/I&O's: Vital Signs Temp Pulse Resp BP Pulse Ox 99.5 F H 111 H 26 H 131/84 H 96 12/19/18 14:00 12/19/18 16:00 12/19/18 16:00 12/19/18 16:00 12/19/18 16:00 Oxygen Flow Rate (L/min) 4 Oxygen Delivery Method Room Air Weight: 164 lb 10.965 oz Body Mass Index (BMI) 37.0 Intake and Output for Last 24 Hours 12/17/18 12/18/18 12/19/18 23:59 23:59 23:59 Intake Total 2700 / 2700 2036.6 / 2036.6 1454 / 1454 Output Total 2750 / 2750 1200 / 1200 2550 / 2550 Balance -50 / -50 836.6 / 836.6 -1096 / -1096 General: Alert, No apparent distress HEENT: Atraumatic, PERRLA, EOMI, Normocephalic Oral: Moist Mucosa Neck: Supple, No JVD, Trachea Midline Lungs: Clear to auscultation, Normal air movement, No rhonchi, No wheeze, Diminished Cardiovascular: Regular rate, Regular Rhythm, Normal S1, Normal S2, No murmurs Abdomen: Soft, Non Tender, Non-Distended, No Hepato-splenomegaly Extremities: No edema, Capillary Refill Less than 3 Seconds Skin: No rashes, No breakdown Neurological: Neuro grossly intact Microbiology Past 72 Hours 12/18/18 10:40 Stool C. difficile DNA Amplification - Final 12/16/18 08:40 Urine Catheter - Sánchez Urine Culture - Final Culture exhibits no growth. 12/11/18 12:45 Blood Culture (Wb) - Anticubital Left Blood Culture - Final No growth in 5 days. 12/11/18 12:05 Blood Culture (Wb) - Anticubital Right Blood Culture - Final No growth in 5 days. Laboratory Results 12/18/18 18:06: POC Glucose 212 H 12/18/18 19:58: POC Glucose 165 H 12/18/18 23:29: POC Glucose 136 H 12/19/18 05:41: POC Glucose 153 H 12/19/18 05:45: WBC 10.1, RBC 3.41 L, Hgb 10.3 L, Hct 33.2 L, MCV 97.4, MCH 30.2, MCHC 31.0 L, RDW 18.0 H, RDW Differential 62.6 H, Plt Count 249, MPV 10.3 12/19/18 05:45: Sodium 143, Potassium 3.9, Chloride 107, Carbon Dioxide 24.0, Anion Gap 12, BUN 29 H, Creatinine 0.98, Estim Creat Clear Calc 79.19, Est GFR (MDRD) Af Amer 77, Est GFR (MDRD) Non-Af 64, BUN/Creatinine Ratio 29.7 H, Glucose 169 H, Calcium 8.2 L 12/19/18 15:03: POC Glucose 199 H Current Medications Albuterol Sulfate (Ventolin Aerosols) 2.5 mg INHALATION Q4H PRN PRN PRN Reason: SOB &/OR WHEEZING Last Admin: 12/15/18 22:55 Dose: 2.5 mg Albuterol Sulfate (Ventolin Aerosols) 2.5 mg INHALATION Q6HWA.RT [facility] Last Admin: 12/19/18 13:10 Dose: 2.5 mg Apixaban (Eliquis) 5 mg PO BID [facility] Last Admin: 12/19/18 10:55 Dose: 5 mg Atorvastatin Calcium (Lipitor) 40 mg PO QHS [facility] Chlorhexidine Gluconate () 1 each TOPICAL DAILY [facility] Last Admin: 12/19/18 10:55 Dose: 1 each Dextrose (D50w Syringe) 0 gm IV X1 PRN; Protocol PRN Reason: Hypoglycemia Diphenoxylate HCl/Atropine (Lomotil) 1 tablet PO Q2H PRN PRN Reason: DIARRHEA Ergocalciferol (Vitamin D) 50,000 unit PO WE [facility] Last Admin: 12/14/18 09:50 Dose: Not Given Famotidine (Pepcid) 20 mg PO BID [facility] Last Admin: 12/19/18 10:56 Dose: 20 mg Glucagon () 1 mg IM .X1 PRN PRN Reason: Hypoglycemia Piperacillin Sod/Tazobactam (Sod 3.375 gm/ Sodium Chloride) 50 mls @ 12.5 mls/hr IV Q8 [facility] Last Admin: 12/19/18 15:12 Dose: 12.5 mls/hr Enteral Nutritional Formula (Vital Af 1.2 Yoan Liquid) 1,000 mls @ 15 mls/hr GT .Q48H [facility] Last Admin: 12/18/18 23:33 Dose: 15 mls/hr Sodium Chloride () 250 mls @ 15 mls/hr IV .[id number] PRN PRN Reason: SALINE FLUSH Last Admin: 12/18/18 21:25 Dose: 15 mls/hr Insulin Glargine (Lantus (Bkc)) 15 units SC Q12H [facility] Last Admin: 12/19/18 10:55 Dose: 15 units Insulin Human Lispro (Humalog Kwikpen (Bk)) 0 unit SC Q6 [facility]; Protocol Last Admin: 12/19/18 15:12 Dose: Not Given Loratadine (Claritin) 10 mg PO DAILY [facility] Last Admin: 12/19/18 10:56 Dose: 10 mg Magnesium Hydroxide (Milk Of Magnesia) 30 ml PO DAILY PRN PRN PRN Reason: Constipation Montelukast Sodium (Singulair) 10 mg PO DAILY [facility] Last Admin: 12/19/18 10:57 Dose: 10 mg Prednisone () 30 mg PO DAILY@0800 [facility] Last Admin: 12/19/18 10:56 Dose: 30 mg Senna/Docusate Sodium (Senokot-S, Blossom-Colace) 2 tablet PO QHS [facility] Sodium Chloride () 5 - 15 ml IV UD PRN PRN Reason: SALINE FLUSH Last Admin: 12/17/18 08:48 Dose: 10 ml Sodium Chloride () 10 ml IV UD PRN PRN Reason: PICC FLUSH Last Admin: 12/17/18 08:48 Dose: 10 ml Medical Necessity - Tobacco Use Smoking Status: Never smoker Tobacco Use: Non-smoker Assessment/Plan All Active Problems PNA (pneumonia) (Acute) Sepsis (Acute) Pulmonary embolism (Acute) Acute deep vein thrombosis (DVT) of left lower extremity (Acute) Cellulitis of left leg (Resolved) Ulcer of left lower extremity with fat layer exposed (Resolved) 1. Acute hypoxic respiratory failure secondary to sepsis from community- acquired pneumonia/asthma/LUCIAN -Respiratory panel also came back for human Metapneumo virus -Continue with inhalers and Zosyn -Currently extubated in the ICU and will monitor if doing okay could potentially discharge from ICU tomorrow morning -Continue with oxygen via nasal cannula when sleeping as she does not tolerate CPAP 2. IDDM 2 -A1c 7.6 -Continue with insulin 3. History of VT E - continue with Eliquis -Stable 4. Volume overload -Echo with stage I diastolic dysfunction and normal EF -Continue with Lasix as needed as she is 10 L positive one-point 5. Down syndrome -Lives in a alf, and will be discharged back there when able DVT: Vijay Code Visit Inpatient E&M: 87241 Subs Hosp L2
[2018-12-19 18:36] LABS: Bedside Glucose 164 mg/dL (70-110)
[2018-12-19] MEDS: Senna/Docusate Sodium 1 Tablet 2 TABLET PO (23:01)
[2018-12-19] MEDS: Atorvastatin Calcium 40 MG Tablet PO (23:01)
[2018-12-19 23:36] LABS: Bedside Glucose 179 mg/dL (70-110)
[2018-12-20] VITALS (20 sets, daily range): BP systolic 94–138; BP diastolic 59–84; PULSE 73–101; RESP 16–26; TEMP 36.2–36.9; O2SAT 92–97
--- NOTE | 2018-12-20 | RAD_ITS ---
STUDY: SWALLOWING STUDY REASON FOR EXAM: Female, 53 years old. Dysphagia. TECHNIQUE: The examination was performed with Speech Pathology in attendance. Under fluoroscopic observation, the patient ingested thin barium, thick barium, barium pudding, and barium coated cracker. FLUOROSCOPY TIME: 1:54 minutes/seconds. 2086 spot images were obtained. RADIOLOGIST INVOLVEMENT: Radiologist was present and providing direct supervision. COMPARISON: None. FINDINGS: The following was observed during swallowing of the various mixtures of barium: Thin Barium: There was no evidence of aspiration or laryngeal penetration. Thick Barium: There was no evidence of aspiration or laryngeal penetration. Barium Pudding: There was no evidence of aspiration or laryngeal penetration. Barium Coated Cracker: There was no evidence of aspiration or laryngeal penetration. RAD/Swallowing Function w/Video IMPRESSION: Normal tailored barium swallow study. No evidence of increased risk for aspiration. The swallow study findings were discussed with the patient by the speech pathologist at the conclusion of the examination. Please see speech pathology report for more information and recommendations. Electronically Signed: Joshua Wong, at 13:49 EST , Service support ,
[2018-12-20] MEDS: CHLORHEXIDINE GLUC 2% CLOTH 1 EACH TOWELETTE TOPICAL (05:16)
[2018-12-20] MEDS: Albuterol 2.5 MG/3 ML VIAL.NEB. INHALATION ×2 (07:14→20:10)
[2018-12-20 07:46] LABS: Bedside Glucose 87 mg/dL (70-110)
--- NOTE | 2018-12-20 07:47 | PCM.PN.INT ---
Subjective: The patient was seen and examined at the bedside this morning. Events from the last 24 hours have been reviewed. The patient is currently afebrile, hemodynamically stable and maintaining appropriate oxygen saturations on 2 L/min via nasal cannula. She is currently documented to be overall net +5.6 L for the admission. The patient is currently on a modified diet after being evaluated by speech therapy yesterday. They are also recommending that the patient undergo a swallow function study. Objective: The patient's most recent lab work, culture data and imaging studies have all been personally reviewed. Blood cultures have shown no growth to date. Urine culture has been negative thus far. 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 Sputum Gram stain revealed 3+ white blood cells and rare gram-positive cocci. Strep and urine Legionella antigens were both negative. Surface echocardiogram revealed evidence of stage I diastolic dysfunction with an ejection fraction of 55%. General: Alert, No apparent distress HEENT: Atraumatic, PERRLA, Normocephalic Oral: Moist Mucosa Neck: Supple, No Nodes, Trachea Midline Lungs: No rhonchi, No wheeze, No rales, Diminished Cardiovascular: Regular rate, Regular Rhythm, Normal S1, Normal S2, No murmurs Abdomen: Bowel Sounds Present, Soft, Non Tender, Obese Extremities: No clubbing, No cyanosis, No edema Skin: - - No significant change from previous. Musculoskeletal: No Tenderness to Palpation of Joints or Extremities Lymphatic: No Cervical, Supraclavicular, or Inguinal Adenopathy Neurological: - - No focal neurological deficits. Psych/Mental Status: Flat Affect Vital Signs Temp Pulse Resp BP Pulse Ox 36.9 C 96 21 H 126/78 H 97 12/20/18 04:00 12/20/18 07:18 12/20/18 07:00 12/20/18 07:00 12/20/18 07:00 Oxygen Flow Rate (L/min) 2 Oxygen Delivery Method Nasal Cannula Weight: 162 lb 7.691 oz Body Mass Index (BMI) 37.0 Intake and Output for Last 24 Hours 12/18/18 12/19/18 12/20/18 23:59 23:59 23:59 Intake Total 2036.6 / 2036.6 2102 / 2102 72.8 / 72.8 Output Total 1200 / 1200 2850 / 2850 Balance 836.6 / 836.6 -748 / -748 72.8 / 72.8 Labs (Last 48 Hours) 12/18/18 12/18/18 12/18/18 04:55 11:59 18:06 WBC RBC Hgb Hct MCV MCH MCHC RDW RDW Differential Plt Count MPV Sodium Potassium Chloride Carbon Dioxide Anion Gap BUN Creatinine Estim Creat Clear Calc Est GFR (MDRD) Af Amer Est GFR (MDRD) Non-Af BUN/Creatinine Ratio Glucose Calcium TSH 1.52 Free T4 1.04 POC Glucose 135 H 212 H 12/18/18 12/18/18 12/19/18 19:58 23:29 05:41 WBC RBC Hgb Hct MCV MCH MCHC RDW RDW Differential Plt Count MPV Sodium Potassium Chloride Carbon Dioxide Anion Gap BUN Creatinine Estim Creat Clear Calc Est GFR (MDRD) Af Amer Est GFR (MDRD) Non-Af BUN/Creatinine Ratio Glucose Calcium TSH Free T4 POC Glucose 165 H 136 H 153 H 12/19/18 12/19/18 12/19/18 05:45 05:45 15:03 WBC 10.1 RBC 3.41 L Hgb 10.3 L Hct 33.2 L MCV 97.4 MCH 30.2 MCHC 31.0 L RDW 18.0 H RDW Differential 62.6 H Plt Count 249 MPV 10.3 Sodium 143 Potassium 3.9 Chloride 107 Carbon Dioxide 24.0 Anion Gap 12 BUN 29 H Creatinine 0.98 Estim Creat Clear Calc 79.19 Est GFR (MDRD) Af Amer 77 Est GFR (MDRD) Non-Af 64 BUN/Creatinine Ratio 29.7 H Glucose 169 H Calcium 8.2 L TSH Free T4 POC Glucose 199 H 12/19/18 12/19/18 12/20/18 17:39 22:59 05:13 WBC RBC Hgb Hct MCV MCH MCHC RDW RDW Differential Plt Count MPV Sodium Potassium Chloride Carbon Dioxide Anion Gap BUN Creatinine Estim Creat Clear Calc Est GFR (MDRD) Af Amer Est GFR (MDRD) Non-Af BUN/Creatinine Ratio Glucose Calcium TSH Free T4 POC Glucose 164 H 179 H 87 Microbiology 12/18/18 10:40 Stool C. difficile DNA Amplification - Final 12/16/18 08:40 Urine Catheter - Sánchez Urine Culture - Final Culture exhibits no growth. Clinical Impression(s) from Imaging Studies Chest X-Ray 12/11/18 12:05 IMPRESSION: Mild pulmonary vascular congestion. Possible airspace disease at the lung bases. Findings appear mildly improved in the right lung and unchanged in the left lung compared to the prior study. Study limited by body habitus. Electronically Signed: Danny Santoro, at 12:36 EST Tel , Service support , Chest CTA 12/11/18 12:41 IMPRESSION: 1. Suboptimal evaluation of the peripheral branches due to significant artifacts. No evidence of pulmonary embolism. 2. Bilateral hazy groundglass opacities/infiltrates likely due to pulmonary edema. 3. Small focal infiltrate in the superior segment of the left lower lobe. 4. No evidence of pleural effusions. Electronically Signed: Wilberto Jerome MD at 13:36 EST Tel , Service support , Chest X-Ray 12/12/18 11:47 IMPRESSION: The tip of the endotracheal tube is at the level of the juan. This should be pulled back 2.5 cm. The tip of the orogastric tube is in the distal portion of the body of the stomach. Cardiomegaly and CHF. Electronically Signed: Joshua Wong MD at 13:06 EST , Service support , Chest X-Ray 12/14/18 08:30 IMPRESSION: The tip of the endotracheal tube is at 1.6 cm proximal to the juan. Residual CHF with bibasilar atelectasis. There has been improvement as compared to prior study. Electronically Signed: Joshua Wong, at 14:32 EST , Service support , Chest X-Ray 12/16/18 07:27 IMPRESSION: Stable examination showing evidence of CHF. All the support tubes are unchanged and in good position. Electronically Signed: Joshua Wong, at 11:19 EST , Service support , Medical Necessity - Tobacco Use Smoking Status: Never smoker Tobacco Use: Non-smoker Assessment/Plan All Active Problems PNA (pneumonia) (Acute) Sepsis (Acute) Pulmonary embolism (Acute) Acute deep vein thrombosis (DVT) of left lower extremity (Acute) Cellulitis of left leg (Resolved) Ulcer of left lower extremity with fat layer exposed (Resolved) RECOMMENDATIONS: 1. Wean supplemental oxygen to maintain saturations at or above 90%. 2. Cookie swallow plan for today per speech therapy recommendations. 3. Physical therapy to continue to work with patient. 4. The patient has completed her antibiotic treatment course as of today. 5. Her prednisone course will be weaned. 6. Continue Eliquis. IMPRESSIONS: 1. Acute hypoxemic respiratory failure The patient appears to have radiographic evidence of severe community-acquired pneumonia/human Coyle pneumo viral infection superimposed upon a history of asthma. The patient did require eventual intubation. She improved clinically and was able to be successfully extubated on the morning of December 19. She has done well from a respiratory perspective. As of today, she will have completed her antibiotic treatment course. She will require a prolonged prednisone taper. Continue bronchodilators. Speech therapy following with plans for cookie swallow today. 2. Acute kidney injury Resolved. Likely prerenal in etiology, as the patient responded to a small amount of volume expansion. We will continue to monitor urine output closely. No current indication for renal replacement therapy. 3. Heart failure with preserved ejection fraction The patient's echocardiogram did reveal evidence of stage I diastolic dysfunction. The patient responded appropriately to IV diuretics. 4. Baseline MRDD/history of venous thromboembolic disease/allergic rhinitis/hyperlipidemia Complicates care, management, recovery and prognosis. Okay to continue home medications as tolerated. This note was generated with [employer] dictation software. It may contain incorrect words, spelling, and punctuation that were not noted in checking the note before signing. DISPOSITION: The patient is medically stable for transfer out of the intensive care unit. Code Visit Inpatient E&M: 62445 Subs Hosp L3
--- NOTE | 2018-12-20 07:52 | PN_ITS ---
Subjective: The patient was seen and examined at the bedside this morning. Events from the last 24 hours have been reviewed. The patient is currently afebrile, hemodynamically stable and maintaining appropriate oxygen saturations on 2 L/min via nasal cannula. She is currently documented to be overall net +5.6 L for the admission. The patient is currently on a modified diet after being evaluated by speech therapy yesterday. They are also recommending that the patient undergo a swallow function study. Objective: The patient's most recent lab work, culture data and imaging studies have all been personally reviewed. Blood cultures have shown no growth to date. Urine culture has been negative thus far. 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 Sputum Gram stain revealed 3+ white blood cells and rare gram-positive cocci. Strep and urine Legionella antigens were both negative. Surface echocardiogram revealed evidence of stage I diastolic dysfunction with an ejection fraction of 55%. General: Alert, No apparent distress HEENT: Atraumatic, PERRLA, Normocephalic Oral: Moist Mucosa Neck: Supple, No Nodes, Trachea Midline Lungs: No rhonchi, No wheeze, No rales, Diminished Cardiovascular: Regular rate, Regular Rhythm, Normal S1, Normal S2, No murmurs Abdomen: Bowel Sounds Present, Soft, Non Tender, Obese Extremities: No clubbing, No cyanosis, No edema Skin: - - No significant change from previous. Musculoskeletal: No Tenderness to Palpation of Joints or Extremities Lymphatic: No Cervical, Supraclavicular, or Inguinal Adenopathy Neurological: - - No focal neurological deficits. Psych/Mental Status: Flat Affect Vital Signs Temp Pulse Resp BP Pulse Ox 36.9 C 96 21 H 126/78 H 97 12/20/18 04:00 12/20/18 07:18 12/20/18 07:00 12/20/18 07:00 12/20/18 07:00 Oxygen Flow Rate (L/min) 2 Oxygen Delivery Method Nasal Cannula Weight: 162 lb 7.691 oz Body Mass Index (BMI) 37.0 Intake and Output for Last 24 Hours 12/18/18 12/19/18 12/20/18 23:59 23:59 23:59 Intake Total 2036.6 / 2036.6 2102 / 2102 72.8 / 72.8 Output Total 1200 / 1200 2850 / 2850 Balance 836.6 / 836.6 -748 / -748 72.8 / 72.8 Labs (Last 48 Hours) 12/18/18 12/18/18 12/18/18 04:55 11:59 18:06 WBC RBC Hgb Hct MCV MCH MCHC RDW RDW Differential Plt Count MPV Sodium Potassium Chloride Carbon Dioxide Anion Gap BUN Creatinine Estim Creat Clear Calc Est GFR (MDRD) Af Amer Est GFR (MDRD) Non-Af BUN/Creatinine Ratio Glucose Calcium TSH 1.52 Free T4 1.04 POC Glucose 135 H 212 H 12/18/18 12/18/18 12/19/18 19:58 23:29 05:41 WBC RBC Hgb Hct MCV MCH MCHC RDW RDW Differential Plt Count MPV Sodium Potassium Chloride Carbon Dioxide Anion Gap BUN Creatinine Estim Creat Clear Calc Est GFR (MDRD) Af Amer Est GFR (MDRD) Non-Af BUN/Creatinine Ratio Glucose Calcium TSH Free T4 POC Glucose 165 H 136 H 153 H 12/19/18 12/19/18 12/19/18 05:45 05:45 15:03 WBC 10.1 RBC 3.41 L Hgb 10.3 L Hct 33.2 L MCV 97.4 MCH 30.2 MCHC 31.0 L RDW 18.0 H RDW Differential 62.6 H Plt Count 249 MPV 10.3 Sodium 143 Potassium 3.9 Chloride 107 Carbon Dioxide 24.0 Anion Gap 12 BUN 29 H Creatinine 0.98 Estim Creat Clear Calc 79.19 Est GFR (MDRD) Af Amer 77 Est GFR (MDRD) Non-Af 64 BUN/Creatinine Ratio 29.7 H Glucose 169 H Calcium 8.2 L TSH Free T4 POC Glucose 199 H 12/19/18 12/19/18 12/20/18 17:39 22:59 05:13 WBC RBC Hgb Hct MCV MCH MCHC RDW RDW Differential Plt Count MPV Sodium Potassium Chloride Carbon Dioxide Anion Gap BUN Creatinine Estim Creat Clear Calc Est GFR (MDRD) Af Amer Est GFR (MDRD) Non-Af BUN/Creatinine Ratio Glucose Calcium TSH Free T4 POC Glucose 164 H 179 H 87 Microbiology 12/18/18 10:40 Stool C. difficile DNA Amplification - Final 12/16/18 08:40 Urine Catheter - Sánchez Urine Culture - Final Culture exhibits no growth. Clinical Impression(s) from Imaging Studies Chest X-Ray 12/11/18 12:05 IMPRESSION: Mild pulmonary vascular congestion. Possible airspace disease at the lung bases. Findings appear mildly improved in the right lung and unchanged in the left lung compared to the prior study. Study limited by body habitus. Electronically Signed: Danny Santoro, at 12:36 EST Tel , Service support , Chest CTA 12/11/18 12:41 IMPRESSION: 1. Suboptimal evaluation of the peripheral branches due to significant artifacts. No evidence of pulmonary embolism. 2. Bilateral hazy groundglass opacities/infiltrates likely due to pulmonary edema. 3. Small focal infiltrate in the superior segment of the left lower lobe. 4. No evidence of pleural effusions. Electronically Signed: Wilberto Jerome MD at 13:36 EST Tel , Service support , Chest X-Ray 12/12/18 11:47 IMPRESSION: The tip of the endotracheal tube is at the level of the juan. This should be pulled back 2.5 cm. The tip of the orogastric tube is in the distal portion of the body of the stomach. Cardiomegaly and CHF. Electronically Signed: Joshua Wong MD at 13:06 EST , Service support , Chest X-Ray 12/14/18 08:30 IMPRESSION: The tip of the endotracheal tube is at 1.6 cm proximal to the juan. Residual CHF with bibasilar atelectasis. There has been improvement as compared to prior study. Electronically Signed: Joshua Wong, at 14:32 EST , Service support , Chest X-Ray 12/16/18 07:27 IMPRESSION: Stable examination showing evidence of CHF. All the support tubes are unchanged and in good position. Electronically Signed: Joshua Wong, at 11:19 EST , Service support , Medical Necessity - Tobacco Use Smoking Status: Never smoker Tobacco Use: Non-smoker Assessment/Plan All Active Problems PNA (pneumonia) (Acute) Sepsis (Acute) Pulmonary embolism (Acute) Acute deep vein thrombosis (DVT) of left lower extremity (Acute) Cellulitis of left leg (Resolved) Ulcer of left lower extremity with fat layer exposed (Resolved) RECOMMENDATIONS: 1. Wean supplemental oxygen to maintain saturations at or above 90%. 2. Cookie swallow plan for today per speech therapy recommendations. 3. Physical therapy to continue to work with patient. 4. The patient has completed her antibiotic treatment course as of today. 5. Her prednisone course will be weaned. 6. Continue Eliquis. IMPRESSIONS: 1. Acute hypoxemic respiratory failure The patient appears to have radiographic evidence of severe community-acquired pneumonia/human Coyle pneumo viral infection superimposed upon a history of asthma. The patient did require eventual intubation. She improved clinically and was able to be successfully extubated on the morning of December 19. She has done well from a respiratory perspective. As of today, she will have completed her antibiotic treatment course. She will require a prolonged prednisone taper. Continue bronchodilators. Speech therapy following with plans for cookie swallow today. 2. Acute kidney injury Resolved. Likely prerenal in etiology, as the patient responded to a small amount of volume expansion. We will continue to monitor urine output closely. No current indication for renal replacement therapy. 3. Heart failure with preserved ejection fraction The patient's echocardiogram did reveal evidence of stage I diastolic dysfunction. The patient responded appropriately to IV diuretics. 4. Baseline MRDD/history of venous thromboembolic disease/allergic rhinitis/hyperlipidemia Complicates care, management, recovery and prognosis. Okay to continue home medications as tolerated. This note was generated with [employer] dictation software. It may contain incorrect words, spelling, and punctuation that were not noted in checking the note before signing. DISPOSITION: The patient is medically stable for transfer out of the intensive care unit. Code Visit Inpatient E&M: 62002 Subs Hosp L3
[2018-12-20] MEDS: predniSONE 20 MG Tablet 30 MG PO (07:59)
[2018-12-20 08:25] LABS: Bedside Glucose 89 mg/dL (70-110)
[2018-12-20] MEDS: Loratadine 10 MG Tablet PO (09:24)
[2018-12-20] MEDS: APIXABAN 5 MG TABLET PO ×2 (09:24→22:37)
[2018-12-20] MEDS: Famotidine 20 MG Tablet PO ×2 (09:24→22:37)
[2018-12-20] MEDS: Montelukast 10 MG Tablet PO (09:24)
--- NOTE | 2018-12-20 09:31 | CASEMGMT ---
DOROTHY called Solange one of the jail caregivers. DOROTHY explained patient is an assist of 2-3 people and DOROTHY wanted to make sure it is still ok for her to return to the jail. She said she is fine to return to the jail. Elsa SPARROW C[employer] CATHETERIZATION TECHNICIAN
--- NOTE | 2018-12-20 09:44 | PCM.PN.HOSP ---
Patient Problems: Active and Suspected Problems PNA (pneumonia) (Acute) Sepsis (Acute) Subjective: She is from a detention and is nonverbal. She is alert and off Precedex she tolerated that over 24 hours. Vitals/I&O's: Vital Signs Temp Pulse Resp BP Pulse Ox 98.3 F 87 20 H 103/72 93 12/20/18 08:00 12/20/18 09:00 12/20/18 09:00 12/20/18 09:00 12/20/18 09:00 Oxygen Flow Rate (L/min) 1 Oxygen Delivery Method Nasal Cannula Weight: 162 lb 7.691 oz Body Mass Index (BMI) 37.0 Intake and Output for Last 24 Hours 12/18/18 12/19/18 12/20/18 23:59 23:59 23:59 Intake Total 2036.6 / 2036.6 2102 / 2102 72.8 / 72.8 Output Total 1200 / 1200 2850 / 2850 Balance 836.6 / 836.6 -748 / -748 72.8 / 72.8 General: Alert, No apparent distress HEENT: Atraumatic, PERRLA, EOMI, Normocephalic Oral: Moist Mucosa Neck: Supple, No JVD, Trachea Midline Lungs: Clear to auscultation, Normal air movement, No rhonchi, No wheeze, Diminished Cardiovascular: Regular rate, Regular Rhythm, Normal S1, Normal S2, No murmurs Abdomen: Soft, Non Tender, Non-Distended, No Hepato-splenomegaly Extremities: No edema, Capillary Refill Less than 3 Seconds Skin: No rashes, No breakdown Neurological: Neuro grossly intact Microbiology Past 72 Hours 12/18/18 10:40 Stool C. difficile DNA Amplification - Final 12/16/18 08:40 Urine Catheter - Sánchez Urine Culture - Final Culture exhibits no growth. Laboratory Results 12/19/18 15:03: POC Glucose 199 H 12/19/18 17:39: POC Glucose 164 H 12/19/18 22:59: POC Glucose 179 H 12/20/18 05:13: POC Glucose 87 12/20/18 07:50: POC Glucose 89 Current Medications Albuterol Sulfate (Ventolin Aerosols) 2.5 mg INHALATION Q4H PRN PRN PRN Reason: SOB &/OR WHEEZING Last Admin: 12/15/18 22:55 Dose: 2.5 mg Albuterol Sulfate (Ventolin Aerosols) 2.5 mg INHALATION Q6HWA.RT [facility] Last Admin: 12/20/18 07:14 Dose: 2.5 mg Apixaban (Eliquis) 5 mg PO BID [facility] Last Admin: 12/20/18 09:24 Dose: 5 mg Atorvastatin Calcium (Lipitor) 40 mg PO QHS [facility] Last Admin: 12/19/18 23:01 Dose: 40 mg Chlorhexidine Gluconate () 1 each TOPICAL DAILY [facility] Last Admin: 12/20/18 05:16 Dose: 1 each Dextrose (D50w Syringe) 0 gm IV X1 PRN; Protocol PRN Reason: Hypoglycemia Diphenoxylate HCl/Atropine (Lomotil) 1 tablet PO Q2H PRN PRN Reason: DIARRHEA Ergocalciferol (Vitamin D) 50,000 unit PO WE [facility] Last Admin: 12/14/18 09:50 Dose: Not Given Famotidine (Pepcid) 20 mg PO BID [facility] Last Admin: 12/20/18 09:24 Dose: 20 mg Glucagon () 1 mg IM .X1 PRN PRN Reason: Hypoglycemia Piperacillin Sod/Tazobactam (Sod 3.375 gm/ Sodium Chloride) 50 mls @ 12.5 mls/hr IV Q8 [facility] Last Admin: 12/20/18 05:15 Dose: 12.5 mls/hr Sodium Chloride () 250 mls @ 15 mls/hr IV .[id number] PRN PRN Reason: SALINE FLUSH Last Admin: 12/18/18 21:25 Dose: 15 mls/hr Insulin Glargine (Lantus (Bkc)) 15 units SC Q12H [facility] Last Admin: 12/20/18 07:59 Dose: 15 units Insulin Human Lispro (Humalog Kwikpen (Bkc)) 0 unit SC ACHS [facility]; Protocol Last Admin: 12/20/18 08:06 Dose: Not Given Loratadine (Claritin) 10 mg PO DAILY [facility] Last Admin: 12/20/18 09:24 Dose: 10 mg Magnesium Hydroxide (Milk Of Magnesia) 30 ml PO DAILY PRN PRN PRN Reason: Constipation Montelukast Sodium (Singulair) 10 mg PO DAILY [facility] Last Admin: 12/20/18 09:24 Dose: 10 mg Prednisone () 30 mg PO DAILY@0800 [facility] Last Admin: 12/20/18 07:59 Dose: 30 mg Senna/Docusate Sodium (Senokot-S, Blossom-Colace) 2 tablet PO QHS [facility] Last Admin: 12/19/18 23:01 Dose: 2 tablet Sodium Chloride () 5 - 15 ml IV UD PRN PRN Reason: SALINE FLUSH Last Admin: 12/17/18 08:48 Dose: 10 ml Sodium Chloride () 10 ml IV UD PRN PRN Reason: PICC FLUSH Last Admin: 12/17/18 08:48 Dose: 10 ml Medical Necessity - Tobacco Use Smoking Status: Never smoker Tobacco Use: Non-smoker Assessment/Plan All Active Problems PNA (pneumonia) (Acute) Sepsis (Acute) Pulmonary embolism (Acute) Acute deep vein thrombosis (DVT) of left lower extremity (Acute) Cellulitis of left leg (Resolved) Ulcer of left lower extremity with fat layer exposed (Resolved) 1. Acute hypoxic respiratory failure secondary to sepsis from community-acquired pneumonia/asthma/LUCIAN -Respiratory panel also came back positive for human Metapneumo virus -Continue with inhalers and Zosyn, tomorrow should be her last day of IV antibiotics -Transfer to PCU today -Continue with oxygen via nasal cannula when sleeping as she does not tolerate CPAP 2. IDDM 2 -A1c 7.6 -Continue with insulin 3. History of VT E - continue with Eliquis -Stable 4. Volume overload -Echo with stage I diastolic dysfunction and normal EF -Continue with Lasix as needed as she is 10 L positive one-point 5. Down syndrome -Lives in a detention, and will be discharged back there when able DVT: Eliquis Code Visit Inpatient E&M: 39115 Subs Hosp L2
[2018-12-20] MEDS: Insulin Lispro 100 UNIT/ML INSULN.PEN SC ×2 (11:24→16:29)
[2018-12-20 12:00] LABS: Bedside Glucose 242 mg/dL (70-110)
--- NOTE | 2018-12-20 12:50 | SP.MBSS_ITS ---
PRIMARY / SECONDARY DIAGNOSIS: Pneumonia/Dysphagia REFERRING PHYSICIAN: Dr. Parkinson CURRENT DIET: pureed textures/nectar thickened liquids DENTITION: natural dentition w/ numerous missing MENTAL STATUS: Down?s Syndrome RESPIRATORY STATUS: 2L/min O2 via nasal cannula PREVIOUS MODIFIED BARIUM SWALLOW STUDY: n/a REASON FOR REFERRAL: Further assessment of swallow function under fluoroscopy recommended d/t prolonged intubation (12/12/18-12/19/18) in patient w/ history of suspected aspiration/respiratory compromise MEDICAL HISTORY: Malnutrition, Fatigue, Vitamin D deficiency, Hyperlipidemia, PAOD, Asthma, LUCIAN, Contracture of muscle of left lower extremity, Chronic ulcer of left foot with fat layer exposed, Down syndrome STUDY FINDINGS: Patient participated in a Modified Barium Swallow (MBS) study on 12/20/2018. Dr. Wong was the radiologist present for this evaluation. This study was recorded in the lateral view and images were sent to PACs for storage. The following consistencies were presented to this patient for analysis of oropharyngeal swallow function: thin liquid, pudding and a cookie. Results of the MBS are as follows: PENETRATION / ASPIRATION SCALE (FERNANDEZ): 1 = does not enter airway 2 = enters airway/above vocal folds/ejected 3 = enters airway/above vocal folds/not ejected 4 = enters airway/contacts vocal folds/ejected 5 = enters airway/contacts vocal folds/not ejected 6 = enters airway/below vocal folds/ejected 7 = enters airway/below vocal folds/not ejected despite effort 8 = enters airway/below vocal folds/no effort PENETRATION / ASPIRATION SCALE (SCORE): 1. 5mL teaspoon thin liquid: 2 2. 5mL teaspoon thin liquid: 2 3. Large volume cup sip thin liquid: 2 4. Large volume cup sip thin liquid: 2 5. Thin liquid via straw large volume: 1 6. Thin liquid via straw large volume: 1 7. Puddin 8. Puddin 9. Cookie: 1 *cough noted during mastication/deglutition but no penetration/aspiration evidenced under fluoroscopy 10. Thin liquid via straw small sip: 1 IMPRESSION Modified Barium Swallow Impairment Profile (MBSImP) Scores: ORAL PHASE LABIAL SEAL: interlabial escape, no progression to anterior lip TONGUE CONTROL DURING BOLUS MANIPULATION: posterior escape of less than half of bolus BOLUS PREPARATION / MASTICATION: disorganized chewing/mashing with solid pieces of bolus unchewed BOLUS TRANSPORT / LINGUAL MOTION: delayed initiation of tongue motion ORAL RESIDUE: residue collection on oral structures PHARYNGEAL PHASE INITIATION OF PHARYNGEAL SWALLOW: bolus head in valleculae at first hyoid excursion SOFT PALATE ELEVATION: no bolus between soft palate and pharyngeal wall LARYNGEAL ELEVATION: partial superior movement of thyroid cartilage/partial approximation of arytenoids cartilage to epiglottic petiole ANTERIOR HYOID EXCURSION: partial anterior movement EPIGLOTTIC MOVEMENT: complete epiglottic inversion LARYNGEAL VESTIBULE CLOSURE AT HEIGHT OF SWALLOW: complete laryngeal vestibule closure with no air/contrast in laryngeal vestibule PHARYNGEAL STRIPPING WAVE: pharyngeal stripping wave present, inferior half diminished PHARYNGOESOPHAGEAL SEGMENT OPENING: complete distension and complete duration with no obstruction of flow TONGUE BASE RETRACTION: narrow column of contrast between tongue base and posterior pharyngeal wall PHARYNGEAL RESIDUE: trace residue within or on pharyngeal structures ESOPHAGEAL PHASE ESOPHAGEAL BOLUS CLEARANCE IN THE UPRIGHT POSITION: could not view d/t body habitus/poor patient positioning INTERPRETATION OF RESULTS: Patient presents with mild oropharyngeal dysphagia (R13.12) Oral phase primarily marked by: * mild mastication inefficiency, prolonged duration w/ posterior pharyngeal bolus loss of less than half of bolus during mastication * suboptimal lingual control resulting in premature bolus loss * poor oral clearance of solids secondary to reduced intraoral strength and oral awareness Pharyngeal phase primarily marked by: * delayed pharyngeal swallow onset timing w/ liquid pooling in the valleculae prior to swallow onset * incomplete hyolaryngeal excursion w/ delayed epiglottic inversion resulting in liquid penetration undercoating the epiglottis; penetration ejected when arytenoids made contact the epiglottic petiole and complete epiglottic inversion was achieve * Patient noted to independently utilize chin tuck posture throughout study, this is likely to be a learned protective measure utilized premorbidly to improve swallow function/airway protection. EFFECTS OF TREATMENT STRATEGIES ATTEMPTED: Chin tuck posture = independently utilized throughout study, effective RECOMMENDATIONS DIET RECOMMENDED: pureed textures/thin liquids COMPENSATORY STRATEGIES RECOMMENDED: Supervision, chin tuck, small bites, small sips, OK to use straw as desired, seated upright w/ hip flexion at 90 degrees during and for 30-60 minute after all PO intake NEED FOR SKILLED DYSPAHGIA INTERVENTION: Patient requires intensive skilled speech-language intervention targeting continued diet texture management (recommend mechanical soft trials under POMOLOGY TEACHER supervision w/ advancement as appropriate) and training/implementation of recommended compensatory strategies. ADDITIONAL COMMENTS/RECOMMENDATIONS: Results and recommendations were discussed with the Patient immediately following MBS completion, with the Patient verbalizing understanding and agreement with all recommendations and education provided, although reinforcement will be necessary. IMAGE COUNT: [id number]
[2018-12-20 16:16] LABS: Bedside Glucose 150 mg/dL (70-110)
[2018-12-20] MEDS: Menthol/Lanolin/Calamine/Znox 113 GM Tube 1 APPLIC TOPICAL ×2 (16:28→22:38)
[2018-12-20] MEDS: Nystatin Powder 15gm Bottle 1 APPLIC TOPICAL (22:37)
[2018-12-20] MEDS: Atorvastatin Calcium 40 MG Tablet PO (22:37)
[2018-12-20] MEDS: Senna/Docusate Sodium 1 Tablet 2 TABLET PO (22:37)
[2018-12-20 22:51] LABS: Bedside Glucose 141 mg/dL (70-110)
[2018-12-21] VITALS (7 sets, daily range): BP systolic 113–115; BP diastolic 60–69; PULSE 72–88; RESP 18–20; TEMP 36.4–36.6; O2SAT 93–99
[2018-12-21] MEDS: 0.9% NaCl PICC Flush 10 ML IV (04:47)
[2018-12-21] MEDS: 0.9% NaCl Peripheral Flush Adult/Peds IV (04:48)
[2018-12-21 05:21] LABS: Anion Gap 9 (5-15); BUN 22 mg/dL (7-18); BUN/Creat Ratio 23.7 RATIO (10-20); Calcium,Total 8.8 mg/dL (8.5-10.1); Chloride 107 mmol/L (98-107); Creatinine, Serum 0.93 mg/dL (0.55-1.02); EST Glomerular Filtration Rate 67 mL/min (>60); Est Glom Filt Rate - Afr Amer 81 mL/min (>60); Estimated Creatinine Clearance 82.33 ml/min; Glucose 97 mg/dL (74-106); Potassium 3.8 mmol/L (3.5-5.1); Sodium Level 145 mmol/L (136-145)
[2018-12-21] MEDS: Menthol/Lanolin/Calamine/Znox 113 GM Tube 1 APPLIC TOPICAL (06:37)
[2018-12-21 06:56] LABS: Bedside Glucose 76 mg/dL (70-110)
--- NOTE | 2018-12-21 07:28 | PN_ITS ---
Subjective: The patient was seen and examined at the bedside this morning. Events from the last 24 hours have been reviewed. The patient is currently afebrile, hemodynamically stable and maintaining appropriate oxygen saturations on room air. The patient has done well following transfer out of the intensive care unit. Objective: The patient's most recent lab work, culture data and imaging studies have all been personally reviewed. Blood cultures have shown no growth to date. Urine culture has been negative thus far. 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 Sputum Gram stain revealed 3+ white blood cells and rare gram-positive cocci. Strep and urine Legionella antigens were both negative. Surface echocardiogram revealed evidence of stage I diastolic dysfunction with an ejection fraction of 55%. - Physical Exam General: Alert, No apparent distress HEENT: Atraumatic, PERRLA, Normocephalic Oral: Moist Mucosa Neck: Supple, No Nodes, Trachea Midline Lungs: No rhonchi, No wheeze, No rales, Diminished Cardiovascular: Regular rate, Regular Rhythm, Normal S1, Normal S2, No murmurs Abdomen: Bowel Sounds Present, Soft, Non Tender Extremities: No clubbing, No cyanosis, No edema Skin: - - No significant change from previous Musculoskeletal: No Tenderness to Palpation of Joints or Extremities Lymphatic: No Cervical, Supraclavicular, or Inguinal Adenopathy Neurological: - - Baseline neurological status and mentation Vital Signs Temp Pulse Resp BP Pulse Ox 36.6 C 73 20 H 115/60 99 12/21/18 04:25 12/21/18 04:25 12/21/18 04:25 12/21/18 04:25 12/21/18 04:25 Oxygen Flow Rate (L/min) 2 Oxygen Delivery Method Room Air Weight: 162 lb 11.218 oz Body Mass Index (BMI) 37.0 Intake and Output for Last 24 Hours 12/19/18 12/20/18 12/21/18 23:59 23:59 23:59 Intake Total 2102 / 2102 544.8 / 544.8 200 / 200 Output Total 2850 / 2850 Balance -748 / -748 544.8 / 544.8 200 / 200 Microbiology Past 72 Hours 12/18/18 10:40 C. difficile DNA Amplification - Final Stool 12/16/18 08:40 Urine Culture - Final Urine Catheter - Sánchez Culture exhibits no growth. Laboratory Tests Past 24 Hrs 12/21/18 04:50 Sodium 145 Potassium 3.8 Chloride 107 Carbon Dioxide 29.0 Anion Gap 9 BUN 22 H Creatinine 0.93 Estim Creat Clear Calc 82.33 Est GFR (MDRD) Af Amer 81 Est GFR (MDRD) Non-Af 67 BUN/Creatinine Ratio 23.7 H Glucose 97 Calcium 8.8 POC Glucose 12/21/18 12/20/18 12/20/18 06:42 22:25 16:13 POC Glucose 76 141 H 150 H 12/20/18 12/20/18 12/20/18 11:23 07:50 05:13 POC Glucose 242 H 89 87 Clinical Impression(s) from Imaging Studies Chest X-Ray 12/11/18 12:05 IMPRESSION: Mild pulmonary vascular congestion. Possible airspace disease at the lung bases. Findings appear mildly improved in the right lung and unchanged in the left lung compared to the prior study. Study limited by body habitus. Electronically Signed: Danny Santoro at 12:36 EST Tel , Service support , Chest CTA 12/11/18 12:41 IMPRESSION: 1. Suboptimal evaluation of the peripheral branches due to significant artifacts. No evidence of pulmonary embolism. 2. Bilateral hazy groundglass opacities/infiltrates likely due to pulmonary edema. 3. Small focal infiltrate in the superior segment of the left lower lobe. 4. No evidence of pleural effusions. Electronically Signed: Wilberto Jerome MD at 13:36 EST Tel , Service support , Chest X-Ray 12/12/18 11:47 IMPRESSION: The tip of the endotracheal tube is at the level of the juan. This should be pulled back 2.5 cm. The tip of the orogastric tube is in the distal portion of the body of the stomach. Cardiomegaly and CHF. Electronically Signed: Joshua Wong MD at 13:06 EST , Service support , Chest X-Ray 12/14/18 08:30 IMPRESSION: The tip of the endotracheal tube is at 1.6 cm proximal to the juan. Residual CHF with bibasilar atelectasis. There has been improvement as compared to prior study. Electronically Signed: Joshau Marvin, at 14:32 EST , Service support , Chest X-Ray 12/16/18 07:27 IMPRESSION: Stable examination showing evidence of CHF. All the support tubes are unchanged and in good position. Electronically Signed: Joshua Marvin, at 11:19 EST , Service support , Videofluoroscopic Swallow 12/20/18 00:00 IMPRESSION: Normal tailored barium swallow study. No evidence of increased risk for aspiration. The swallow study findings were discussed with the patient by the speech pathologist at the conclusion of the examination. Please see speech pathology report for more information and recommendations. Electronically Signed: Joshua Marvin, at 13:49 EST , Service support , Medical Necessity - Tobacco Use Smoking Status: Never smoker Tobacco Use: Non-smoker Assessment/Plan All Active Problems PNA (pneumonia) (Acute) Sepsis (Acute) Pulmonary embolism (Acute) Acute deep vein thrombosis (DVT) of left lower extremity (Acute) Cellulitis of left leg (Resolved) Ulcer of left lower extremity with fat layer exposed (Resolved) RECOMMENDATIONS: 1. Wean supplemental oxygen to maintain saturations at or above 90%. 2. Dietary recommendations per speech therapy. 3. Physical therapy to continue to work with patient. 4. Continue prednisone with plans to wean by 10 mg every 3 days until discontinued. 5. Continue Eliquis. IMPRESSIONS: 1. Acute hypoxemic respiratory failure The patient appears to have radiographic evidence of severe community-acquired pneumonia/human Coyle pneumo viral infection superimposed upon a history of asthma. The patient did require eventual intubation. She improved clinically and was able to be successfully extubated on the morning of December 19. She has done well from a respiratory perspective. The patient has already completed her antibiotic treatment course. Her steroids can be weaned by 10 mg every 3 days until discontinued. Continue nutritional support per speech therapy recommendations. 2. Acute kidney injury Resolved. Likely prerenal in etiology, as the patient responded to a small amount of volume expansion. We will continue to monitor urine output closely. No current indication for renal replacement therapy. 3. Heart failure with preserved ejection fraction The patient's echocardiogram did reveal evidence of stage I diastolic dysfunction. The patient responded appropriately to IV diuretics. 4. Baseline MRDD/history of venous thromboembolic disease/allergic rhinitis/hyperlipidemia Complicates care, management, recovery and prognosis. Okay to continue home medications as tolerated. This note was generated with [employer]ide[employer] dictation software. It may contain incorrect words, spelling, and punctuation that were not noted in checking the note before signing. DISPOSITION: Given the patient's lack of further ICU/pulmonary needs, will sign off. Please call with any additional questions. Code Visit Inpatient E&M: 22292 Subs Hosp L2
[2018-12-21] MEDS: Nystatin Powder 15gm Bottle 1 APPLIC TOPICAL (08:27)
[2018-12-21] MEDS: Albuterol 2.5 MG/3 ML VIAL.NEB. INHALATION ×2 (08:27→13:44)
[2018-12-21 08:36] LABS: Bedside Glucose 86 mg/dL (70-110)
[2018-12-21] MEDS: predniSONE 20 MG Tablet 30 MG PO (10:59)
[2018-12-21] MEDS: Loratadine 10 MG Tablet PO (10:59)
[2018-12-21] MEDS: Montelukast 10 MG Tablet PO (10:59)
[2018-12-21] MEDS: APIXABAN 5 MG TABLET PO (11:00)
[2018-12-21] MEDS: Famotidine 20 MG Tablet PO (11:00)
[2018-12-21 11:21] LABS: Bedside Glucose 102 mg/dL (70-110)
--- NOTE | 2018-12-21 14:11 | DCINST_ITS ---
- Discharge Diagnoses Current Active Problems: Current Active and Chronic Problems PNA (pneumonia) (Acute) Sepsis (Acute) You will use the following diet at home:: Cardiac Your food should be the consistency of: Regular Your liquids should be the consistency of: Regular/Thin Discharge Activity: Return to Normal Activity, No Restrictions Call your doctor if you observe: Fever of 101 or Higher, Shortness of breath, Di zziness, Fainting spells, Swelling in the ankles, Chest pain, Increased palpitations (irregular heartbeat) Allergies/Adverse Reactions: Allergies levonorgestrel Allergy (Verified 12/11/18 12:00) Unknown Medications to take at Discharge Albuterol Aerosols [Ventolin Aerosols] 2.5 mg INHALATION Q4H PRN PRN 12/11/18 Ammonium Lactate [Amlactin] 57 gm TP BID 12/11/18 Apixaban [Eliquis] 5 mg PO 0800,1800 12/11/18 Atorvastatin Calcium [Lipitor] 40 mg PO QHS 12/11/18 Bacitracin Ointment 1 applic TOPICAL DAILY 12/11/18 Budesonide/Formoterol Fumarate [Symbicort 160-4.5 Mcg Inhaler] 2 puff IH BID 12/11/18 Ergocalciferol (Vitamin D2) [Vitamin D2] 50,000 unit PO WE 12/11/18 Fexofenadine HCl [Rosemary Allergy] 60 mg PO DAILY 12/11/18 Fluticasone 0.05% [Flonase Nasal [place]] 2 spray NASAL DAILY 12/11/18 Ketoconazole [Nizoral Cream] 1 applic TOPICAL BID 12/11/18 Loratadine [Claritin] 10 mg PO DAILY 12/11/18 Montelukast [Singulair] 10 mg PO DAILY 12/11/18 Polyvinyl Alcohol [Liquitears] 1 drop OP 4X/DAY 12/11/18 Zinc Oxide [Desitin] 113 gm TP BID 12/11/18 predniSONE tablet 30 mg PO DAILY@0800 #12 tablet 12/21/18 The following prescriptions were given: predniSONE tablet 30 mg PO DAILY@0800 #12 tablet Primary Care Physician: Erasto Metzger Chi, MD [Primary Care Provider] - Please follow up with your Primary Care Physician in: 3-5 days Test Results: Test results from this visit will be discussed in further detail at your follow-up appointment, if applicable.
--- NOTE | 2018-12-21 14:11 | PCM.DC.SUM ---
Discharge Date and Diagnosis - Problem List Patient Problems: Active and Suspected Problems PNA (pneumonia) (Acute) Sepsis (Acute) Date of Admission: 12/11/18 Date of Discharge: 12/21/18 - Primary Discharge Diagnosis Active and Suspected Problems PNA (pneumonia) (Acute) Sepsis (Acute) - Secondary Discharge Diagnosis Chronic Problems Malnutrition (Chronic) Fatigue (Chronic) Vitamin D deficiency (Chronic) Hyperlipidemia (Chronic) PAOD (peripheral arterial occlusive disease) (Chronic) Asthma (Chronic) LUCIAN (obstructive sleep apnea) (Chronic) Contracture of muscle of left lower extremity (Chronic) Chronic ulcer of left foot with fat layer exposed (Chronic) Down syndrome (Chronic) Hospital Course and Treatment Imaging Results: CTA Chest:IMPRESSION: 1. Suboptimal evaluation of the peripheral branches due to significant artifacts. No evidence of pulmonary embolism. 2. Bilateral hazy groundglass opacities/infiltrates likely due to pulmonary edema. 3. Small focal infiltrate in the superior segment of the left lower lobe. 4. No evidence of pleural effusions. Consults: ICU Operations: None Procedures: 2-D Echocardiogram - Interpretation Summary Normal LV size. The estimated ejection fraction is 55 %. Mild focal mitral valve calcification. Mild (1+) eccentric mitral valve insufficiency. Stage 1 diastolic dysfunction. Compared to previous study, the left ventricular systolic function is the same, - - RECOMMENDATIONS DIET RECOMMENDED: pureed textures/thin liquids COMPENSATORY STRATEGIES RECOMMENDED: Supervision, chin tuck, small bites, small sips, OK to use straw as desired, seated upright w/ hip flexion at 90 degrees during and for 30-60 minute after all PO intake NEED FOR SKILLED DYSPAHGIA INTERVENTION: Patient requires intensive skilled speech-language intervention targeting continued diet texture management (recommend mechanical soft trials under LOADER MAGAZINE GRINDER supervision w/ advancement as appropriate) and training/implementation of recommended compensatory strategies. ADDITIONAL COMMENTS/RECOMMENDATIONS: Results and recommendations were discussed with the Patient immediately following MBS completion, with the Patient verbalizing understanding and agreement with all recommendations and education provided, although reinforcement will be necessary Summary of Care Provided: Per HPI: The patient is a 53 year old F with pmhx of Down syndrome, DVT/PE, HTN, HLD, Asthma, LUCIAN, who presents to the ER with c/o SOB. She lives in a longterm for down syndrome. She presents with her caregiver and sister who are providing the history at this time. She started feeling ill yesterday with runny nose, cough and congestion. Today she became more SOB, and seemed more confused. She came to the ER with hypoxia and poor blood pressure which improved with fluids. She was placed on a venti mask to maintain good sats, however after breathing treatments was able to be transitioned to nasal cannula. CXR and CTA are c/w pneumonia. No sick contacts at the longterm currently. She has not been going to workshop to avoid getting sick. Hospital Course: 1. Sepsis and acute hypoxic respiratory failure secondary to community-acquired pneumonia/asthma/GKS-89-adjm-old female from a longterm with Down syndrome who is nonverbal presented with acute hypoxic respiratory failure and pneumonia. She was initially started on community-acquired antibiotics however she declined rapidly and had to be intubated, at which point she was transitioned to Zosyn. The thought is that the pneumonia exacerbated her asthma necessitating her intubation. She has at this point completed all antibiotics and she is on room air except for her baseline 2 L while sleeping and during the day while resting. She was on steroids while in the hospital and will be discharged on a prednisone taper, she will need 30 mg daily for 4 days then 20 mg daily for 4 days then 10 mg daily for 4 days and then should be completed. Given how poorly she responds to being ill, would recommend that she be excused from all services during the winter months. 2. Volume overload-given the acuity of her illness she was given a significant amount of IV fluids to support her blood pressure, and at one point she was 10 L positive. As she improved she had her IV fluids discontinued and she was given Lasix to assist with diuresis. We will discontinue the Lasix on discharge and she may need as needed Lasix, but will leave that up to her primary care physician as an outpatient. 3. Her other medical diagnoses were evaluated and her home medications were continued where appropriate Patient Problems: Active and Suspected Problems PNA (pneumonia) (Acute) Sepsis (Acute) Objective: General: Alert, No apparent distress HEENT: Atraumatic, PERRLA, EOMI, Normocephalic Oral: Moist Mucosa Neck: Supple, No JVD, Trachea Midline Lungs: Clear to auscultation, Normal air movement, No rhonchi, No wheeze, Diminished Cardiovascular: Regular rate, Regular Rhythm, Normal S1, Normal S2, No murmurs Abdomen: Soft, Non Tender, Non-Distended, No Hepato-splenomegaly Extremities: No edema, Capillary Refill Less than 3 Seconds Skin: No rashes, No breakdown Neurological: Neuro grossly intact - Physical Exam Vital Signs Temp Pulse Resp BP Pulse Ox 97.6 F L 83 18 113/69 95 12/21/18 08:26 12/21/18 11:19 12/21/18 08:26 12/21/18 08:26 12/21/18 08:26 Oxygen Flow Rate (L/min) 2 Oxygen Delivery Method Nasal Cannula Weight: 162 lb 11.218 oz Body Mass Index (BMI) 37.0 Intake and Output for Last 24 Hours 12/19/18 12/20/18 12/21/18 23:59 23:59 23:59 Intake Total 2102 / 2102 544.8 / 544.8 200 / 200 Output Total 2850 / 2850 Balance -748 / -748 544.8 / 544.8 200 / 200 Microbiology Past 72 Hours 12/18/18 10:40 C. difficile DNA Amplification - Final Stool 12/16/18 08:40 Urine Culture - Final Urine Catheter - Sánchez Culture exhibits no growth. Laboratory Tests Past 24 Hrs 12/21/18 04:50 Sodium 145 Potassium 3.8 Chloride 107 Carbon Dioxide 29.0 Anion Gap 9 BUN 22 H Creatinine 0.93 Estim Creat Clear Calc 82.33 Est GFR (MDRD) Af Amer 81 Est GFR (MDRD) Non-Af 67 BUN/Creatinine Ratio 23.7 H Glucose 97 Calcium 8.8 POC Glucose 12/21/18 12/21/18 12/21/18 10:55 08:10 06:42 POC Glucose 102 86 76 12/20/18 12/20/18 22:25 16:13 POC Glucose 141 H 150 H Discharge Activity: Return to Normal Activity, No Restrictions Call your doctor if you observe: Fever of 101 or Higher, Shortness of breath, Dizziness, Fainting spells, Swelling in the ankles, Chest pain, Increased palpitations (irregular heartbeat) Home Medications: Medications to take at Discharge Albuterol Aerosols [Ventolin Aerosols] 2.5 mg INHALATION Q4H PRN PRN 12/11/18 Ammonium Lactate [Amlactin] 57 gm TP BID 12/11/18 Apixaban [Eliquis] 5 mg PO 0800,1800 12/11/18 Atorvastatin Calcium [Lipitor] 40 mg PO QHS 12/11/18 Bacitracin Ointment 1 applic TOPICAL DAILY 12/11/18 Budesonide/Formoterol Fumarate [Symbicort 160-4.5 Mcg Inhaler] 2 puff IH BID 12/11/18 Ergocalciferol (Vitamin D2) [Vitamin D2] 50,000 unit PO WE 12/11/18 Fexofenadine HCl [Rosemary Allergy] 60 mg PO DAILY 12/11/18 Fluticasone 0.05% [Flonase Nasal [place]] 2 spray NASAL DAILY 12/11/18 Ketoconazole [Nizoral Cream] 1 applic TOPICAL BID 12/11/18 Loratadine [Claritin] 10 mg PO DAILY 12/11/18 Montelukast [Singulair] 10 mg PO DAILY 12/11/18 Polyvinyl Alcohol [Liquitears] 1 drop OP 4X/DAY 12/11/18 Zinc Oxide [Desitin] 113 gm TP BID 12/11/18 predniSONE tablet 30 mg PO DAILY@0800 #12 tablet 12/21/18 Following Prescrptions Were Given to Patient: predniSONE tablet 30 mg PO DAILY@0800 #12 tablet Primary Care Physician: Erasto Metzger Chi, MD [Primary Care Provider] - Please follow up with your Primary Care Physician in: 3-5 days Disposition: Home Minutes spent on discharge:: 35 Patient Condition:: Stable Medical Necessity - Tobacco Use Smoking Status: Never smoker Tobacco Use: Non-smoker Meaningful Use Info Meaningful Use Diagnoses (Choose all that apply): None applicable Code Visit Inpatient E&M: 58375 Disch Hosp
--- NOTE | 2018-12-21 14:20 | CASEMGMT ---
Speech Therapy is recommending continued Speech therapy. DOROTHY spoke with Carmen Byrd at [facility] to see if there is a preference. She said SW would need to check with the alf. DOROTHY called Solange from the alf and she said there is not home health preference. She said a nurse would be helpful in addition to speech therapy. She would need to know about discharge well before 4p. DOROTHY called [facility] and made a referral for patient for Residential and Speech Therapy. They are able to accept. DOROTHY called patient's sister Zaida and let her know about discharge as well as [facility] nursing and speech. DOROTHY also left a voice mail for Carmen Byrd at [facility] letting her know patient is discharged today and [facility] was set up. DOROTHY also called Solange from the alf and she will be in to cone picker patient. DOROTHY notified RN. Plan: d/c back to the alf with [facility] Residential and Speech Therapy. Elsa SPARROW MSW
--- NOTE | 2018-12-21 14:57 | CASEMGMT ---
Addendum entered by Elsa Lagos 12/21/18 15:10: DOROTHY called Solange and let her know that per Amy at [facility] Dr Metzger's office only did 2 of the 3 necessary steps in testing for O2. She said patient has already had all the testing. DOROTHY told her she would need to follow up with Dr Metzger's office. Elsa [employer] Original Note: DOROTHY spoke with Solange when she got to [facility] and let her know physician did put in his d/c paperwork that patient is not to day services during winter months. She then asked SW about O2. She said patient has O2, but the machine is making popping sounds. She said Dr Metzger's office did testing and they have not heard anything from [facility]. DOROTHY told her SW will call [facility]. [facility]OTHY called [facility] and spoke with Amy. She said Dr Metzger's office did 2 parts of the testing and not the 3 that are needed. She said she will call Solange from the retirement to let her know. DOROTHY will also call Solange and let her know to follow up with Dr Metzger. Elsa [employer]
== END 2018-12-21 14:42 | disposition home or self-care (01) | DRG 870 ==
LOC: ED 13:15 → MS3 15:40 → ICU 12-12 10:50 → PCU 12-20 13:34
PROVIDERS: Internal Medicine; Internal Medicine Critical Care Medicine; Student in an Organized Health Care Education/Training Program; Admitting Provider Family Medicine; Emergency Provider Emergency Medicine; Family Provider Family Medicine Geriatric Medicine; PCP Family Medicine Geriatric Medicine; Visit Provider Family Medicine
DX: A41.9 Sepsis, unspecified organism (principal); J18.9 Pneumonia, unspecified organism; J96.01 Acute respiratory failure with hypoxia; G93.41 Metabolic encephalopathy; E46 Unspecified protein-calorie malnutrition; J45.901 Unspecified asthma with (acute) exacerbation; I50.30 Unspecified diastolic (congestive) heart failure; Q90.9 Down syndrome, unspecified; E87.70 Fluid overload, unspecified; E78.5 Hyperlipidemia, unspecified; B97.81 Human metapneumovirus as the cause of diseases classified elsewhere; R65.20 Severe sepsis without septic shock; E55.9 Vitamin D deficiency, unspecified; G47.33 Obstructive sleep apnea (adult) (pediatric); I77.9 Disorder of arteries and arterioles, unspecified; E87.6 Hypokalemia; E11.9 Type 2 diabetes mellitus without complications; J45.909 Unspecified asthma, uncomplicated; Z79.01 Long term (current) use of anticoagulants; Z99.3 Dependence on wheelchair; Z86.711 Personal history of pulmonary embolism; Z68.37 Body mass index [BMI] 37.0-37.9, adult
CPT/HCPCS: 31500; 31720; 36415; 36569; 36600; 51702; 71045; 71275; 74230; 80048; 80053; 80202; 81001; 82550; 82803; 82962; 83036; 83605; 83735; 83880; 84100; 84439; 84443; 84478; 84484; 85014; 85018; 85025; 85027; 85610; 85730; 87040; 87070; 87086; 87205; 87449; 87493; 87633; 87641; 87804; 92526; 92610; 92611; 93005; 93306; 94002; 94003; 94640; 94660; 97110; 97162; 97166; 97530; 97802; 99251; 99285; J7030; J7040; J7050; J7120; Q9967; A4216; G0463; J1940

== ENCOUNTER 2019-02-17 09:48 | Emergency (ER) | payer MEDICARE, MEDICAID, SELFPAY ==
[2018-12-11 16:55] VITALS: BMI 37.0
[2019-02-17 09:50] VITALS: BP 90/47; PULSE 72; RESP 16; TEMP 36.4; O2SAT 100; BMI 35.6
--- NOTE | 2019-02-17 10:13 | ED.VISSUMM ---
- ER Visit Summary Date of Service: 02/17/19 Chief Complaint: [Fatigue/weakness History of Present Illness: The patient is a 53 F presents to the emergency department via EMS from the [facility]. There was concern by nurse they are about patient's mental status and increased fatigue as well as pulse ox being all over the place. Patient has been at this facility since February 15 after having been off for several months due to recent pneumonia earlier in the spring. Patient has a history of Down syndrome and early onset dementia. She has a history of asthma, history of PE, and DVT. She has history of peripheral artery disease. The caregivers who are with her currently are the ones who provide care for her 24 hours a day and they state that patient is at her baseline. Patient has not been ill. Patient also is being followed by Dr. Metzger who knows the patient very well and is known her for years. Caregiver state that patient is just not familiar to the nurse that was at the [facility]. Patient is not had cough or fever. Caregiver state that her typical blood pressure is 90/60. Patient wears O2 when she sleeping.] She has not had any blood in her stool or black tarry stool. Patient is on Eliquis. She is had no falls or injuries. Patient apparently is verbal but refuses to answer questions for me however she will communicate with her caregivers and nurse. Physical Examination: [HEENT-PERRLA, EOMI. Cranial nerves II through XII grossly intact. TMs clear. Mucous membranes moist. No adenopathy. Cardiovascular-regular rate and rhythm without murmur or ectopy Lungs-clear to auscultation, chest wall stable without crepitus or subcu emphysema Abdomen-normoactive bowel sounds, soft, nontender, no rebound or rigidity, no peritoneal signs. Extremities-intact ?4, normal range of motion, normal pulses, atraumatic. Patient has a brace on her left foot and ankle secondary to foot drop.] Test Results: [None indicated] Emergency Department Course and Treatment: [I discussed case with Dr. Metzger who agrees that if patient looks well she does not need any further work-up especially if the caregiver states that she is at her baseline and they know her very well. He would be happy to see her on Wednesday which is in 3 days and sit down with the nurse that had the concerns and the caregivers. Caregivers are comfortable with this plan and they will return if there are any concerns that arise.] Treatment Plan: [Follow-up with primary care physician in 3 days.] Disposition: [Discharged home in stable condition] Impression: [Medical screening exam-baseline for patient] This note was generated with [employer] software. It may contain incorrect words, spelling, and punctuation that were not noted in review of the chart prior to signing ED Disposition - Plan for ED Patient: Referrals: Erasto Metzger Chi, MD [Primary Care Provider] -
--- NOTE | 2019-02-17 10:18 | ED.DCSUM_ITS ---
- ER Visit Summary Date of Service: 02/17/19 Chief Complaint: [Fatigue/weakness History of Present Illness: The patient is a 53 F presents to the emergency department via EMS from the [facility]. There was concern by nurse they are about patient's mental status and increased fatigue as well as pulse ox being all over the place. Patient has been at this facility since February 15 after having been off for several months due to recent pneumonia earlier in the spring. Patient has a history of Down syndrome and early onset dementia. She has a history of asthma, history of PE, and DVT. She has history of peripheral artery disease. The caregivers who are with her currently are the ones who provide care for her 24 hours a day and they state that patient is at her baseline. Patient has not been ill. Patient also is being followed by Dr. Metzger who knows the patient very well and is known her for years. Caregiver state that patient is just not familiar to the nurse that was at the [facility]. Patient is not had cough or fever. Caregiver state that her typical blood pressure is 90/60. Patient wears O2 when she sleeping.] She has not had any blood in her stool or black tarry stool. Patient is on Eliquis. She is had no falls or injuries. Patient apparently is verbal but refuses to answer questions for me however she will communicate with her caregivers and nurse. Physical Examination: [HEENT-PERRLA, EOMI. Cranial nerves II through XII grossly intact. TMs clear. Mucous membranes moist. No adenopathy. Cardiovascular-regular rate and rhythm without murmur or ectopy Lungs-clear to auscultation, chest wall stable without crepitus or subcu emphysema Abdomen-normoactive bowel sounds, soft, nontender, no rebound or rigidity, no peritoneal signs. Extremities-intact ?4, normal range of motion, normal pulses, atraumatic. Patient has a brace on her left foot and ankle secondary to foot drop.] Test Results: [None indicated] Emergency Department Course and Treatment: [I discussed case with Dr. Metzger who agrees that if patient looks well she does not need any further work-up especially if the caregiver states that she is at her baseline and they know her very well. He would be happy to see her on Wednesday which is in 3 days and sit down with the nurse that had the concerns and the caregivers. Caregivers are comfortable with this plan and they will return if there are any concerns that arise.] Treatment Plan: [Follow-up with primary care physician in 3 days.] Disposition: [Discharged home in stable condition] Impression: [Medical screening exam-baseline for patient] This note was generated with [employer] software. It may contain incorrect words, spelling, and punctuation that were not noted in review of the chart prior to signing ED Disposition - Plan for ED Patient: Referrals: Erasto Metzger Chi, MD [Primary Care Provider] -
--- NOTE | 2019-02-17 10:18 | ED.DEP ---
ED Disposition - Plan for ED Patient: Instructions: ED Screening Exam Medical Nonurgent Referrals: Erasto Metzger Chi, MD [Primary Care Provider] - 02/20/19
== END 2019-02-17 10:45 | disposition home or self-care (01) ==
LOC: ED 10:27
PROVIDERS: Emergency Provider Emergency Medicine; Family Provider Family Medicine Geriatric Medicine; PCP Family Medicine Geriatric Medicine
DX: Z00.8 Encounter for other general examination (principal); Q90.9 Down syndrome, unspecified; J45.909 Unspecified asthma, uncomplicated; I73.9 Peripheral vascular disease, unspecified; Z86.718 Personal history of other venous thrombosis and embolism; Z86.711 Personal history of pulmonary embolism; Z79.01 Long term (current) use of anticoagulants; Z79.899 Other long term (current) drug therapy
CPT/HCPCS: 99284

== ENCOUNTER → 2019-03-14 14:02 | Outpatient (CLI) | payer MEDICARE, MEDICAID, SELFPAY ==
[2019-02-17 09:50] VITALS: BMI 35.6
--- NOTE | 2019-03-14 14:18 | RAD_ITS ---
STUDY: X-RAY CHEST REASON FOR EXAM: Female, 53 years old. Chest tightness TECHNIQUE: Frontal and lateral views of the chest. COMPARISON: 12/16/2018. FINDINGS: The lungs are clear and expanded. There is no demonstrated pleural abnormality. There is mild cardiac enlargement. Normal mediastinum and terrell. Normal visualized pulmonary arteries. Normal visualized aortic arch and descending thoracic aorta. There are diffuse degenerative changes of the visualized thoracic spine. Normal visualized ribs, clavicles, and shoulders. There is no demonstrated abnormality of the visualized soft tissue structures of the upper abdomen. RAD/Chest PA and Lateral IMPRESSION: No acute chest disease. Electronically Signed: Bossman Hawkins MD at 14:43 EDT , Service support ,
[2019-03-14 17:29] LABS: Absolute Lymphocyte Count 1.19 X10^3/ul (0.83-4.51); Absolute Neutrophil Count 2.5 X10^3/uL (2.0-7.7); Basophil# 0.02 X10^3/uL; Basophil% 0.5 % (0-1); Eosinophil# 0.15 X10^3/uL; Eosinophils% 3.5 % (0-5); Hematocrit 41.8 % (37-47); Hemoglobin 12.4 g/dl (12.0-15.0); Lymphocyte # 1.19 X10^3/ul (4.0); Lymphocyte % 27.5 % (19-41); Mean Corp Hgb Conc 29.7 g/gl (32-36); Mean Corpuscular Hgb 27.6 pg (27.0-32.0); Mean Corpuscular Volume 92.9 fL (81-99); Mean Platelet Vol. 10.9 fl (6.2-12.0); Monocyte# 0.42 X10^3/uL; Monocyte% 9.7 % (0-10); Neutrophil # 2.54 X10^3/uL (2.7-7.7); Neutrophil % 58.6 % (47-70); Platelet Count 210 K/mm3 (150-450); RBC Distribution Width CV 17.3 % (11.6-14.6); RBC Distribution Width SD 57.6 fl (35.1-43.9); White Blood Count 4.3 K/mm3 (4.4-11.0)
[2019-03-14 17:35] LABS: POSITIVE COUNT NO; POSITIVE DIFFERENTIAL NO; POSITIVE MORPHOLOGY NO
[2019-03-14 17:43] LABS: Anion Gap 6 (5-15); BUN 12 mg/dL (7-18); BUN/Creat Ratio 13.1 RATIO (10-20); Calcium,Total 8.8 mg/dL (8.5-10.1); Chloride 108 mmol/L (98-107); Creatinine, Serum 0.91 mg/dL (0.55-1.02); EST Glomerular Filtration Rate 69 mL/min (>60); Est Glom Filt Rate - Afr Amer 83 mL/min (>60); Glucose 89 mg/dL (74-106); Potassium 3.8 mmol/L (3.5-5.1); Sodium Level 142 mmol/L (136-145)
== END ==
LOC: POLAB3 14:02 → RAD 14:13
PROVIDERS: Family Provider Family Medicine Geriatric Medicine; PCP Family Medicine Geriatric Medicine; Referring Provider Family Medicine Geriatric Medicine; Visit Provider Family Medicine Geriatric Medicine
DX: R06.02 Shortness of breath (principal); R07.89 Other chest pain; R68.83 Chills (without fever)
CPT/HCPCS: 36415; 71046; 80048; 85025; 87633

== ENCOUNTER → 2019-07-13 11:08 | Outpatient (CLI) | payer MEDICARE, MEDICAID, SELFPAY ==
--- NOTE | 2019-07-13 11:40 | RAD_ITS ---
STUDY: X-RAY CHEST REASON FOR EXAM: Female, 54 years old. Bronchitis TECHNIQUE: PA and lateral views of the chest COMPARISON: CXR 03/14/2019 FINDINGS: Moderate edema is present. There is no congestion. There are no pleural effusions. There is no pneumothorax. The heart is mildly enlarged. The visualized osseous structures are within normal limits. RAD/Chest PA and Lateral IMPRESSION: Moderate congestion. Electronically Signed: Hipolito Briceño, at 18:41 EDT Tel , Service support ,
== END ==
PROVIDERS: Family Provider Family Medicine Geriatric Medicine; PCP Family Medicine Geriatric Medicine; Referring Provider Family Medicine Geriatric Medicine; Visit Provider Family Medicine Geriatric Medicine
DX: J40 Bronchitis, not specified as acute or chronic (principal); R68.83 Chills (without fever)
CPT/HCPCS: 71046; 87633

== ENCOUNTER → 2019-07-31 09:41 | Outpatient (CLI) | payer MEDICAID, MEDICARE, SELFPAY ==
--- NOTE | 2019-07-31 09:44 | ADUL_ITS ---
Reason For Study: PAD Left Velocities Common Femoral Artery, dist = 64 cm./sec. Supf. Femoral Artery, prox = 78 cm./sec. Supf. Femoral Artery, mid = 58 cm./sec. Supf. Femoral Artery, dist = 41 cm./sec. Popliteal Artery, proximal, = 37 cm./sec. Popliteal Artery, mid = 27 cm./sec. Popliteal Artery, distal = 26 cm./sec. Post. Tibial Artery, prox = 39 cm./sec. Post Tibial Artery, mid = 33 cm./sec. Post Tibial Artery, dist. = 28 cm./sec. Peroneal Artery, prox = 36 cm./sec. Peroneal Artery, mid = 33 cm./sec. Peroneal Artery,dist. = 32 cm./sec. Ant.Tibial Artery, prox = 33 cm./sec. Ant Tibial Artery, mid = 48 cm./sec. Ant. Tibial Artery, distal = 35 cm./sec. Lt DPA: 29cm/s. Procedure Technically difficult study; patient scanned upright in wheelchair, unable to visualize Lt EIA, LT [employer], and Lt [employer] A. Interpretation Summary 1. Left leg with no stenosis and triphasic flow. Ordering Physician: Jacky Zuñiga Referring Physician: Erasto Metzger Chi Performed By: Jennifer Sow, SARAN, RVT
--- NOTE | 2019-07-31 09:44 | ART_ITS ---
Reason For Study: PAD Procedure A bilateral lower extremity continuous wave Doppler with analog waveform analysis and ankle brachial indexes. Left Segmental Pressures Left brachial= 85mmHg. Left posterior tibial artery = 139mmHg. Left dorsalis pedis artery = 103mmHg. Left digit = 78 mmHg. The left posterior tibial artery waveforms are triphasic. The left dorsalis pedis waveforms are biphasic. Right Segmental Pressures Right brachial= 81mmHg. Right posterior tibial artery = 112mmHg. Right dorsalis pedis artery = 99mmHg. Right digit = 48 mmHg. The right posterior tibial artery waveforms are biphasic. The right dorsalis pedis waveforms are biphasic. Indices The right ankle brachial index by the posterior tibial artery is 1.32. The right ankle brachial index by the dorsalis pedis is 1.16. The right digital-brachial index is 0.56. The left ankle brachial index by the posterior tibial artery is 1.64. The left ankle brachial index by the dorsalis pedis is 1.21. The left digital-brachial index is 0.92. Interpretation Summary 1. No evidence of significant occlussive disease with RON 1.32 and 1.64. They may be falsely elevated but triphasic flow on the left and biphasic on the right. Ordering Physician: Jacky Zuñiga Referring Physician: Jacky Zuñiga Performed By: Jennifer Sow RDCS/RVT
== END ==
PROVIDERS: Family Provider Family Medicine Geriatric Medicine; PCP Family Medicine Geriatric Medicine; Referring Provider Surgery Vascular Surgery; Visit Provider Surgery Vascular Surgery
DX: I73.9 Peripheral vascular disease, unspecified (principal); I74.09 Other arterial embolism and thrombosis of abdominal aorta; Q89.9 Congenital malformation, unspecified; J45.909 Unspecified asthma, uncomplicated; I10 Essential (primary) hypertension; Z86.718 Personal history of other venous thrombosis and embolism
CPT/HCPCS: 93922; 93926

== ENCOUNTER → 2019-08-30 09:14 | Outpatient (CLI) | payer MEDICARE, MEDICAID, SELFPAY ==
[2019-08-30 12:11] LABS: Absolute Lymphocyte Count 1.22 X10^3/uL (0.83-4.51); Absolute Neutrophil Count 3.2 X10^3/uL (2.0-7.7); Basophil# 0.04 X10^3/uL; Basophil% 0.8 % (0-1); Hematocrit 42.4 % (37-47); Hemoglobin 12.8 g/dL (12.0-15.0); Lymphocyte # 1.22 X10^3/ul (4.0); Lymphocyte % 24.4 % (19-41); Mean Corp Hgb Conc 30.2 g/dL (32-36); Mean Corpuscular Hgb 28.5 pg (27.0-32.0); Mean Corpuscular Volume 94.4 fL (81-99); Mean Platelet Vol. 10.3 fl (6.2-12.0); Monocyte# 0.45 X10^3/uL; NRBC Flagged by Analyzer 0 % (0-5); Neutrophil # 3.15 X10^3/uL (2.7-7.7); Neutrophil % 63.2 % (47-70); Platelet Count 244 K/mm3 (150-450); RBC Distribution Width CV 17.2 % (11.6-14.6); RBC Distribution Width SD 59.7 fl (35.1-43.9); Red Blood Count 4.49 M/mm3 (4.2-5.4)
[2019-08-30 13:04] LABS: ALB/GLOB Ratio 0.5 RATIO (0.9-2.4); AST(SGOT) 22 U/L (15-37); Alanine Aminotransfer ALT/SGPT 31 U/L (13-56); Albumin, Serum 2.5 g/dL (3.2-5.0); Alkaline Phosphatase 86 U/L (45-117); Anion Gap 6 (5-15); BUN 15 mg/dL (7-18); BUN/Creat Ratio 14.9 RATIO (10-20); Calcium,Total 9.2 mg/dL (8.5-10.1); Chloride 106 mmol/L (98-107); Creatinine, Serum 1.01 mg/dL (0.55-1.02); EST Glomerular Filtration Rate 61 mL/min (>60); Est Glom Filt Rate - Afr Amer 74 mL/min (>60); Glucose 164 mg/dL (74-106); Potassium 4.1 mmol/L (3.5-5.1); Protein, Total 7.5 g/dL (6.4-8.2); Sodium Level 141 mmol/L (136-145); Thyroid Stim Hormone (TSH) 2.73 uIU/mL (0.358-3.74)
== END ==
PROVIDERS: Family Provider Family Medicine Geriatric Medicine; PCP Family Medicine Geriatric Medicine; Visit Provider Family Medicine Geriatric Medicine
DX: E55.9 Vitamin D deficiency, unspecified (principal); R53.83 Other fatigue
CPT/HCPCS: 36415; 80053; 82306; 84443; 85025